=== PATIENT | male | born 1965 | race Caucasian/White ===

== ENCOUNTER → 2019-01-13 14:08 | Outpatient (POV) | payer SELFPAY | PROVIDERS: Visit Provider Dermatology | DX: Z00.00 Encounter for general adult medical examination without abnormal findings (principal) ==

== ENCOUNTER → 2020-06-17 11:12 | Outpatient (CLI) | payer BC, OTHER, SELFPAY ==
[2020-06-18 13:08] LABS: Covid-19 Nasal PCR Sendout Lex Not Detected
== END ==
PROVIDERS: Visit Provider Family Medicine
DX: Z03.818 Encounter for observation for suspected exposure to other biological agents ruled out (principal)
CPT/HCPCS: U0004

== ENCOUNTER → 2023-08-16 11:56 | Outpatient (CLI) | payer OTHER, SELFPAY ==
--- NOTE | 2023-08-16 12:32 | CA_ITS ---
FINAL REPORT TECHNIQUE: Color Doppler, duplex Doppler and compression sonography of the right lower extremity venous system was performed. CLINICAL HISTORY: Swollen R lower extremity, red shiny skin in AOI FINDINGS: There is no evidence of deep venous thrombosis from the level of the groin to the calf. The veins are patent and compressible. IMPRESSION: No evidence of deep venous thrombosis right lower extremity. Reviewed, Interpreted and Dictated by Kwame Juarez III, MD Transcribed by Flores Salvador Authenticated and [facility]
[2023-08-16 13:27] LABS: Basophils % 0.6 % (0.1-2.0); Eosinophils # 0.1 K/mm3 (0.0-0.4); Eosinophils % 1.8 % (0.1-12.0); Hematocrit 46.8 % (42.0-52.0); Hemoglobin 15.7 g/dL (14.1-18.0); Lymphocytes # 1.8 K/mm3 (0.7-4.5); Lymphocytes % 26.1 % (10-50); Mean Corpuscular HGB Conc 33.5 g/dL (31.8-35.4); Mean Corpuscular Hemoglobin 31.2 pg (27.0-31.2); Mean Platelet Volume 10.3 fl (7.4-10.4); Monocytes # 0.3 K/mm3 (0.1-1.0); Monocytes % 4.9 % (1.7-9.3); Neutrophils # 4.5 K/mm3 (1.8-7.8); Neutrophils % 66.7 % (37.0-80.0); Platelet Count 238 K/mm3 (142-424); Red Blood Count 5.04 M/mm3 (4.60-6.20); Red Cell Distribution Width 13.4 % (11.5-17.5); White Blood Count 6.8 K/mm3 (4.8-10.8)
[2023-08-16 13:41] LABS: Alanine Aminotransferase 87 U/L (12-78); Albumin Level 4.4 g/dl (3.5-5.0); Albumin/Globulin Ratio 1.4 (1.1-1.8); Alkaline Phosphatase 80 U/L (38-126); Anion Gap 14.2 mEq/L (5-15); Aspartate Amino Transferase 75 U/L (17-59); Bilirubin,Total 0.8 mg/dl (0.2-1.3); Blood Urea Nitrogen 15 mg/dl (9-20); Calcium 9.5 mg/dl (8.4-10.2); Carbon Dioxide 24 mmol/L (22.0-30.0); Chloride 102 mmol/L (98-107); Estimated Glomerular Filt Rate 87 ml/min (>60); GFR (African American) 105 ML/MIN (>60); Globulin 3.1 g/dL (1.3-3.2); Glucose 219 mg/dl (74-100); HDL Cholesterol 42 mg/dl (40-60); Potassium 4.2 mmoL/L (3.5-5.1); Sodium 136 mmol/L (136-145); Total Protein,Serum 7.5 g/dl (6.3-8.2)
[2023-08-16 13:49] LABS: Chol/HDL Ratio 8.9 (1-3.5); Cholesterol 374 mg/dl (140-200); Triglycerides 480 mg/dl (30-150)
[2023-08-16 13:52] LABS: Direct LDL Cholesterol 155.73 mg/dL (100-129)
[2023-08-16 13:55] LABS: 25-OH Vitamin D, Total 36.7 ng/mL (30-100)
[2023-08-16 13:56] LABS: Free T4 (Free Thyroxine) 1.05 ng/dl (0.78-2.19)
[2023-08-16 14:09] LABS: Thyroid Stimulating Hormone 0.98 uIU/mL (0.465-4.68)
[2023-08-16 15:27] LABS: Hemoglobin A1C 9.8 % (4.0-6.0)
== END ==
PROVIDERS: PCP Internal Medicine; Visit Provider Internal Medicine
DX: M79.89 Other specified soft tissue disorders (principal); Z13.1 Encounter for screening for diabetes mellitus; Z13.29 Encounter for screening for other suspected endocrine disorder; Z13.21 Encounter for screening for nutritional disorder; Z13.220 Encounter for screening for lipoid disorders; Z00.00 Encounter for general adult medical examination without abnormal findings; Z68.29 Body mass index [BMI] 29.0-29.9, adult; M79.661 Pain in right lower leg; E66.9 Obesity, unspecified; Z79.899 Other long term (current) drug therapy
CPT/HCPCS: 80053; 80061; 82306; 83036; 84439; 84443; 85025; 93971

== ENCOUNTER → 2023-08-16 15:31 | Outpatient (CLI) | payer OTHER, BC, SELFPAY | PROVIDERS: PCP Nurse Practitioner Family; Visit Provider Nurse Practitioner Family | DX: Z00.00 Encounter for general adult medical examination without abnormal findings (principal) ==

== ENCOUNTER → 2023-08-28 16:41 | Outpatient (CLI) | payer BC, OTHER, SELFPAY ==
[2023-08-28 17:02] LABS: Creatinine,Urine Random 105 mg/dL (Not Estab.)
[2023-08-28 17:06] LABS: Microalbumin/Creatinine Ratio 10.4
== END ==
PROVIDERS: PCP Nurse Practitioner Family; Visit Provider Internal Medicine
DX: E11.9 Type 2 diabetes mellitus without complications (principal); Z79.84 Long term (current) use of oral hypoglycemic drugs
CPT/HCPCS: 82043; 82570

== ENCOUNTER → 2023-09-20 13:31 | Outpatient (CLI) | payer OTHER, SELFPAY ==
--- NOTE | 2023-09-20 13:33 | CA_ITS ---
APPROVED REPORT EXAM: Comprehensive 2D, Doppler, and color-flow Echocardiogram Keymodule Assembly Supervisor: ISABELLE Tejeda, RVS Ht: 6 ft 0 in Wt: 221lbs BSA: 2.22 BP: 128/82 mmHg Indications: Mitral valve prolapse, Mitral Regurgitation, Murmur, DM 2D Dimensions LVDd 5.27 cm M: 4.2 - 5.9 LVEF (Visual) 66.70 % LVDs 3.31 cm M: 2.5 - 4.0 LA Volume 153.10 mL LA Volume Index 68.96 mL/m2 (M/F) 16-34 M-Mode Dimensions RVDd 1.93 cm (0.9-2.6) LA Diam 5.49 cm (1.9-4.0) LVDd 5.30 cm (3.5-5.7) Ao Diam 3.83 cm (2.0-3.7) LVDs 3.30 cm (3.5-5.7) IVSd 0.93 cm (0.6-1.1) PWd 1.05 cm (0.6-1.1) EF (Teich) 60.00% EPSs 0.32 cm FS 25.00% EDV (Teich) 220.50 mL TAPSE 2.94 (<1.7) ESV (Teich) 44.10 mL LV Diastology E Decel Time 240.00 (160-240 msec) E/A Ratio 1.75 MED E' 13.90 (< 7 cm/sec) MED A' 8.90 cm/s E'/MED E' Ratio 9.97 (>14) LAT E' 11.60 (<10 cm/sec) LAT A' 13.50 cm/s E/LAT E' Ratio 11.95 (>14) Pulm Vein s 58.00 cm/sec Aortic Valve LVOT Max 105.00 (70-110 cm/s) LVOT VTI 18.39 cm AoV Peak Derek. 118.00 (50-130 cm/s) AO Peak GR. 5.60 mmHg AO Mean GR. 2.80 (<5 mmHg) AO VTI 22.51 (18-25 cm) Mitral Valve MV A Velocity 79.00 (40-130 cm/s) E/A Ratio 1.75 MV Decel. Time 240.00 (160-240 ms) MV Mean Gr. 2.80 (<2mmHg) Left Ventricle Left ventricle is mildly dilated (LVEDVi=77 ml/m2). The left ventricular systolic function is normal. The left ventricular ejection fraction is within the normal range. There is normal left ventricular wall thickness. There is normal LV segmental wall motion. Diastolic function is indeterminate. LVEF is 60-65%. Right Ventricle The right ventricle is normal size. The right ventricular systolic function is normal. Atria The left atrium is moderately dilated. Aortic Valve There is no Doppler evidence of interatrial shunt. There is no aortic valvular stenosis. MVA by pressure half-time method is 4.1 cm2. No aortic regurgitation is present. Mitral Valve There is severe prolapse of the posterior MV leaflet with high likelihood of flail segment. No evidence of mitral valve stenosis. Severe mitral valve regurgitation. The MR jet is eccentric and anteriorly directed. The most likely mechanism of MR is posterior MV prolapse with possible flail segment (Ender class II). Tricuspid Valve The tricuspid valve leaflets are thin and pliable. Trace tricuspid regurgitation. There is insufficient TR jet to estimate RVSP. Pulmonic Valve The pulmonary valve is normal in structure. Trace pulmonic regurgitation. Great Vessels The aortic root is normal in size. The ascending aorta is not well visualized. IVC is normal in size and collapses >50% with inspiration. Pericardium There is no pericardial effusion. Other Information Study Quality: Fair Conclusion Mildly dilated LV with normal biventricular systolic function. Severe posterior MV leaflet prolapse with possible lateral posterior segment. Severe mitral regurgitation (Ender class II). Further evaluation with REJI is recommended to verify the etiology of MR, as well as surgical referral for MV repair/replacement. Electronically signed by : Li Jimenez MD 09/22/2023 22:09:42
== END ==
PROVIDERS: PCP Internal Medicine; Visit Provider Internal Medicine
DX: I38 Endocarditis, valve unspecified (principal)
CPT/HCPCS: 93306

== ENCOUNTER → 2023-10-02 10:53 | Outpatient (CLI) | payer OTHER, SELFPAY ==
[2023-10-02 11:31] LABS: Alanine Aminotransferase 42 U/L (12-78); Albumin Level 5.1 g/dl (3.5-5.0); Alkaline Phosphatase 48 U/L (38-126); Anion Gap 16.4 mEq/L (5-15); Aspartate Amino Transferase 42 U/L (17-59); Bilirubin,Direct 0.3 mg/dl (0.0-0.4); Bilirubin,Indirect 0.7 mg/dL (0.0-0.9); Bilirubin,Unconjugated 0.7 mg/dL (0.0-1.1); Blood Urea Nitrogen 21 mg/dl (9-20); Calcium 9.9 mg/dl (8.4-10.2); Carbon Dioxide 26 mmol/L (22.0-30.0); Chloride 102 mmol/L (98-107); Chol/HDL Ratio 3.3 (1-3.5); Cholesterol 130 mg/dl (140-200); Estimated Glomerular Filt Rate 77 ml/min (>60); GFR (African American) 93 ML/MIN (>60); Glucose 128 mg/dl (74-100); HDL Cholesterol 40 mg/dl (40-60); Magnesium 1.6 mg/dl (1.6-2.3); Potassium 4.4 mmoL/L (3.5-5.1); Sodium 140 mmol/L (136-145); Total Protein,Serum 8.4 g/dl (6.3-8.2); Triglycerides 156 mg/dl (30-150); VLDL Cholesterol 31 mg/dL (0-40)
[2023-10-02 11:42] LABS: Direct LDL Cholesterol 56.65 mg/dL (100-129)
[2023-10-02 11:47] LABS: Basophils # 0.1 K/mm3 (0-0.2); Basophils % 0.6 % (0.1-2.0); Eosinophils # 0.2 K/mm3 (0.0-0.4); Eosinophils % 2.1 % (0.1-12.0); Hematocrit 44.2 % (42.0-52.0); Hemoglobin 15.4 g/dL (14.1-18.0); Lymphocytes % 26.5 % (10-50); Mean Corpuscular HGB Conc 34.8 g/dL (31.8-35.4); Mean Corpuscular Hemoglobin 32.8 pg (27.0-31.2); Mean Corpuscular Volume 94.3 fl (80-94); Mean Platelet Volume 9.6 fl (7.4-10.4); Monocytes # 0.4 K/mm3 (0.1-1.0); Monocytes % 5.2 % (1.7-9.3); Neutrophils % 65.6 % (37.0-80.0); Platelet Count 238 K/mm3 (142-424); Red Blood Count 4.69 M/mm3 (4.60-6.20); Red Cell Distribution Width 13.4 % (11.5-17.5); White Blood Count 7.7 K/mm3 (4.8-10.8)
[2023-10-02 11:48] LABS: Free T4 (Free Thyroxine) 1.12 ng/dl (0.78-2.19)
[2023-10-02 12:01] LABS: Thyroid Stimulating Hormone 1.17 uIU/mL (0.465-4.68)
== END ==
PROVIDERS: PCP Internal Medicine; Visit Provider Nurse Practitioner
DX: I20.89 Other forms of angina pectoris (principal); I34.0 Nonrheumatic mitral (valve) insufficiency; Z82.49 Family history of ischemic heart disease and other diseases of the circulatory system; E11.9 Type 2 diabetes mellitus without complications; Z79.84 Long term (current) use of oral hypoglycemic drugs; Z87.891 Personal history of nicotine dependence
CPT/HCPCS: 80048; 80061; 80076; 83735; 84439; 84443; 85025

== ENCOUNTER → 2023-10-03 12:52 | Outpatient (CLI) | payer OTHER, SELFPAY ==
--- NOTE | 2023-10-03 12:53 | NM_ITS ---
APPROVED REPORT Exam: Nuclear Stress Test Indication: DM, HYPERLIPIDEMIA, TOB USE, FM HX, FATIGUE Patient Location: Outpatient Stress Tech: Leonie Gale DC Tech:YAMILET Baca RT (R)(N)(M) Ht: 6 ft 1 in Wt: 220 lbs HR: 84 bpm BP: 145/88 mmHg BSA: 2.24 m2 Rhythm: NSR TID: 1.18 BMI: 29.0 History: DM, HYPERLIPIDEMIA, TOB USE, FM HX, FATIGUE Procedure: Patient exercised on Chidi protocol 7:30 minutes and sec, resting heart rate 84 bpm, resting blood pressure 145/88 mmHg, with exercise maximum heart rate achived was 183 bpm which is 112 % of the maximum predicted heart rate and blood pressure was 202/88 mmHg. Test was stopped due to FATIGUE. Patient has Average exercise capacity, achieved 10.1 METs of workload on treadmill, the blood pressure response to exercise was Exaggerated. Cardiac Stress and Resting SPECT Images: Cardiac Stress and Resting SPECT images were obtained using technetium 99m Myoview 30.8 mCi stress and 10.24 mCi at rest. Resting and stress imaging in supine and prone positions demonstrate a medium sized, mild, partially reversible perfusion defect in the basal to mid anterior wall. Gated imaging demonstrates normal global and regional LV systolic function. LVEF is calculated at 55%. Conclusion: Diaphragmatic attenuation is present. Medium sized, mild, partially reversible perfusion defect in the basal to mid anterior wall. Findings are suggestive of partial reversible ischemia. Gated imaging demonstrates normal global and regional LV systolic function. LVEF is calculated at 55%. Of note, the patient had exaggerated BP response at peak stress. BP control is recommended. Electronically signed by : Li Jimenez MD 10/09/2023 14:20:33
--- NOTE | 2023-10-03 15:10 | CA_ITS ---
APPROVED REPORT Exam: Exercise Treadmill Technologist: Leonie Garzon, Ht: 6 ft 1 in Wt: 216 lbs BSA: 2.22 m2 HR: 82 bpm BP: 146/79 mmHg Rhythm: NSR Medical History Medications: Aspirin,,,,, Metformin,,,,, Fish Oil,,,,, Prilosec,,,,, RoSUVASTATIN,,,,, CoQ-10,,,,, Mounjaro,,,,, Shingrix,,,,, ADjuvant,,,,, Stress Test Details Test: Chidi HR Resting HR: 84 bpm Max Heart Rate (APMHR): 163 bpm Max HR Achieved: 183 bpm Target HR (85% APMHR): 139 bpm % of APMHR: 112 Recovery HR: 90 bpm HR response to stress: Normal HR response to stress BP Resting BP: 145.0/88 mmHg Max BP: 202/88 mmHg Recovery BP: 140.0/69.0 mmHg BP response to stress: Abnormal hypertensive response to stress. ECG Resting ECG: NSR, rightward axis, ST-T abns inferiorly and laterally Stress EC mm horizontal ST depression Arrhythmia: PACs, PVCs Recovery ECG: Return to baseline within 3 minutes of recovery Recovery Arrhythmia: PACs, PVCs Clinical Exercise duration: 07:30 min Highest Stage Achieved: III Exercise capacity: 10.1 METs Overall Exercise Capacity for Age: Average Stress ECG Conclusion The patient was able to exercise for a total of 7 minutes, 30 seconds. He achieved a total of 10.1 METS. He has average exercise capacity compared to age and sex matched peers. He has normal HR, but exaggerated BP, response to exercise. Max HR: 183 % of PM: 112% Max BP: 202/88 METs: 10.1 Test stopped due to: SOA, Fatigue Symptoms: No CP. Arrhythmias/Ectopy: PVC, PAC. ST-T Changes: [address] depression Conclusion: Average exercise capacity. Exaggerated BP response to exercise. EKG changes suggestive of possible ischemia at peak stress. Myoview images reoprted separately. Test Summary REST . . . . . . . Sitting REST . . . . . . . Standing REST 03:45 0.0 0.0 84 . 145/ 88 . . Stage 1 01:00 10.0 1.7 100 . . . . Stage 1 02:00 10.0 1.7 112 . . . . Stage 1 03:00 10.0 1.7 123 . 164/ 78 . . Stage 2 01:00 12.0 2.5 142 . . . . Stage 2 02:00 12.0 2.5 150 . . . . Stage 2 03:00 12.0 2.5 159 . 168/ 80 . . Stage 3 . . . . . . . Myoview Injected Stage 3 01:00 14.0 3.4 181 . . . . Stage 3 01:30 14.0 3.4 182 . . . Stop exercise at 07:30 RECOVERY 01:00 0.0 0.0 147 . . . . RECOVERY 02:00 0.0 0.0 113 . . . . RECOVERY 03:00 0.0 0.0 97 . 202/ 88 . . RECOVERY 04:00 0.0 0.0 91 . 183/ 77 . . RECOVERY 05:00 0.0 0.0 93 . 158/ 69 . . RECOVERY 06:00 0.0 0.0 87 . 158/ 69 . . RECOVERY 07:00 0.0 0.0 90 . 140/ 69 . . RECOVERY 07:32 0.0 0.0 90 . 140/ 69 . . Electronically signed by : Li Jimenez MD 10/09/2023 14:18:09
== END ==
PROVIDERS: PCP Internal Medicine; Visit Provider Nurse Practitioner
DX: I20.89 Other forms of angina pectoris (principal); I34.0 Nonrheumatic mitral (valve) insufficiency; E11.9 Type 2 diabetes mellitus without complications; Z82.49 Family history of ischemic heart disease and other diseases of the circulatory system; Z79.84 Long term (current) use of oral hypoglycemic drugs
CPT/HCPCS: 78452; 93017; 93018; A9502

== ENCOUNTER 2023-10-28 08:03 | Day surgery (SDC) | payer OTHER, SELFPAY ==
[2023-10-25 06:41] VITALS: BMI 27.7
[2023-10-28 08:16] VITALS: BP 124/75; PULSE 72; RESP 18; TEMP 36.2; O2SAT 99
--- NOTE | 2023-10-28 08:24 | ECG_ITS ---
APPROVED REPORT Exam: Resting ECG HR:67 bpm ECG Measurements Heart Rate 67 AXES NH 172 P 66 QRSd 99 QRS 78 QT 388 T 28 QTc 403 Conclusion SINUS RHYTHM NORMAL ECG UNCONFIRMED REPORT Electronically signed by : Albert Jade MD 10/30/2023 18:29:09
--- NOTE | 2023-10-28 08:34 | CA_ITS ---
APPROVED REPORT EXAM: Comprehensive 2D, Doppler, and color-flow Echocardiogram Clinical Investigator: Akua Hinton RVT Ht: 6 ft 1 in Wt: 216lbs BSA: 2.22 BP: 129/76 mmHg Indications: SEVERE MR,DM,HLD,EX SMOKER Procedure After obtaining informed consent, patient underwent transesophageal echo in the [facility]. Type of Sedation : MAC Sedation was administered by Luis Carlos JoelRStuartNStuartAStuart Sedation start time: 09:40 Case end Time: 09:55 Sedation was achieved intravenously with: Transesophageal probe was inserted and advanced into esophagus without difficulty by Dr. Li Jimenez. The REJI was performed without complications. Throughout the procedure, the blood pressure, pulse oximetry, cardiac rhythm, and rate were monitored. The patient tolerated the procedure without adverse effects. Recovery from conscious sedation was uneventful and vital signs were stable. Left Ventricle The left ventricle is moderately dilated. There is normal left ventricular wall thickness. LVEF is 55% Right Ventricle The right ventricle is mildly dilated. Right ventricle is mildly hypokinetic. Atria Left atrium is moderately dilated. There is no mass or thrombus suspected in the left atrium or the left atrial appendage. Right atrium is mildly dilated. Interatrial septum is intact without evidence of ASD or PFO. Aortic Valve The aortic valve opens well. The aortic valve is trileaflet. There is no aortic valvular stenosis. Trace aortic regurgitation. Mitral Valve There is severe prolapse of the posterior mitral valve leaflet, along with flail P2 segment as demonstrated on 3D REJI. No evidence of mitral valve stenosis. Severe mitral regurgitation is present (Ender Class II). EROA is 0.85 cm2. Regurgitant volume is 170 mL. Regurgitant fraction is 72%. Quantitative assessment is consistent with severe mitral regurgitation. There is pulmonary vein systolic flow reversal, consistent with significant mitral regurgitation. Tricuspid Valve The tricuspid valve leaflets are thin and pliable. Trace tricuspid regurgitation. There is insufficient TR jet to estimate RVSP. Pulmonic Valve The pulmonary valve is normal in structure. Trace pulmonic regurgitation. Great Vessels The aortic root is normal in size. The ascending aorta is normal in size. Pericardium There is no pericardial effusion. Other Information Study Quality: Adequate Conclusion Moderately dilated LV with reduction in LV systolic function in the setting of severe MR (LVEF 55%). Mild RV dilation with mild reduction in RV systolic function. Biatrial dilation. Severe prolapse of the posterior MV leaflet along with P2 flail segment. Severe mitral regurgitation is present (Ender Class II). EROA is 0.85 cm2. Regurgitant volume is 170 mL. Regurgitant fraction is 72%. Further workup with cardiothoracic surgical evaluation is recommended. Electronically signed by : Li Jimenez MD 10/28/2023 23:26:53
--- NOTE | 2023-10-28 08:52 | P.PNANES_ITS ---
[facility] Disclaimer: The information contained in this section may have been updated after the patient was seen, as this information can be updated by other users. Medical History Atypical angina Family history of coronary artery disease Hyperlipidemia Leaky pulmonary heart valve Screening for colorectal cancer Severe mitral regurgitation Surgical History No significant past surgical history Family History Other Family history of cancer Family history of diabetes mellitus type II Family history of myocardial infarction Social History (Updated 10/28/23 @ 08:17 by Sirena Redd RN) Smoking Status: Former smoker tobacco type: smokeless tobacco alcohol intake: current substance use type: denies use current occupational status: employed Travel in the last 8 weeks: None household members: family housing: house caffeine: Yes [facility] Anesthesia Checklist Patient Identification Patient Identification: Arm Band Structural Data Admitted From: Home Planned Operative Procedure/s: REJI Consent for Planned Operative Procedure(s) Verified: Yes Verified Documents: Surgical Consent and History and Physical NPO Status Verified Time NPO: 00:00 Additional verifications Anesthesia Reactions: No Airway Assessment Mallampati Score:: Class II C-Spine Mobility Assessed: Yes TMJ Mobility Assessed: Yes Dentition: Good Dentition Neurological Assessment Level of Consciousness: Awake and Alert Anesthesia Plan Anesthesia Risk discussed: Yes Anesthesia Plan: Verified ASA Class: III Anesthesia Type: MAC
[2023-10-28 08:59] LABS: Basophils % 0.5 % (0.1-2.0); Eosinophils # 0.3 K/mm3 (0.0-0.4); Eosinophils % 4.3 % (0.1-12.0); Hematocrit 42.5 % (42.0-52.0); Hemoglobin 14.7 g/dL (14.1-18.0); Lymphocytes # 2.1 K/mm3 (0.7-4.5); Lymphocytes % 30.2 % (10-50); Mean Corpuscular HGB Conc 34.7 g/dL (31.8-35.4); Mean Corpuscular Hemoglobin 32.3 pg (27.0-31.2); Mean Corpuscular Volume 93.1 fl (80-94); Mean Platelet Volume 9.4 fl (7.4-10.4); Monocytes # 0.4 K/mm3 (0.1-1.0); Monocytes % 5.6 % (1.7-9.3); Neutrophils # 4.1 K/mm3 (1.8-7.8); Neutrophils % 59.3 % (37.0-80.0); Platelet Count 201 K/mm3 (142-424); Red Blood Count 4.56 M/mm3 (4.60-6.20); Red Cell Distribution Width 13.6 % (11.5-17.5); White Blood Count 6.8 K/mm3 (4.8-10.8)
[2023-10-28 09:04] LABS: Anion Gap 13.2 mEq/L (5-15); Blood Urea Nitrogen 16 mg/dl (9-20); Calcium 8.7 mg/dl (8.4-10.2); Carbon Dioxide 25 mmol/L (22.0-30.0); Chloride 103 mmol/L (98-107); Creatinine Clearance Estimated 122 mL/min (50-200); Estimated Glomerular Filt Rate 87 ml/min (>60); GFR (African American) 105 ML/MIN (>60); Glucose 129 mg/dl (74-100); Potassium 4.2 mmoL/L (3.5-5.1); Sodium 137 mmol/L (136-145)
[2023-10-28 09:05] LABS: INR 1.03 (0.9-1.1); Prothrombin Time 11.1 seconds (10.1-12.5)
[2023-10-28 09:16] LABS: POC Glucose,Bedside 130 (70-110)
[2023-10-28 09:34] VITALS: O2SAT 99
[2023-10-28 10:00] VITALS: BP 111/74; PULSE 80; RESP 14; TEMP 36.2; O2SAT 94
[2023-10-28 10:10] VITALS: BP 94/56; PULSE 78; RESP 16; O2SAT 95
[2023-10-28 10:20] VITALS: BP 109/58; PULSE 68; RESP 16; O2SAT 98
[2023-10-28 10:30] VITALS: BP 107/71; PULSE 66; RESP 18; O2SAT 98
== END 2023-10-28 10:32 | disposition home or self-care (01) ==
PROVIDERS: PCP Internal Medicine; Visit Provider Internal Medicine
DX: I20.89 Other forms of angina pectoris (principal); I34.0 Nonrheumatic mitral (valve) insufficiency; E11.9 Type 2 diabetes mellitus without complications; Z82.49 Family history of ischemic heart disease and other diseases of the circulatory system; Z79.899 Other long term (current) drug therapy
CPT/HCPCS: 80048; 82962; 85025; 85610; 93005; 93270; 93312; 93319

== ENCOUNTER 2023-11-08 08:15 | Day surgery (SDC) | payer OTHER, SELFPAY ==
[2023-11-08] VITALS (14 sets, daily range): BP systolic 104–144; BP diastolic 61–79; PULSE 54–87; RESP 15–17; TEMP 36.9; O2SAT 94–99; BMI 27.3
--- NOTE | 2023-11-08 07:05 | IR_ITS ---
APPROVED REPORT Patient Location: Outpatient Meat Packer: YAMILET Pinto RT (R) PROCEDURES Left heart catheterization Selective coronary angiogram INDICATION Preoperative evaluation for surgical mitral valve repair, Informed consent was obtained prior to the procedure. COMPLICATIONS None Estimated Blood Loss: Less than 10 mls TECHNIQUE One percent lidocaine used to anesthetize the right anterior aspect of the wrist. The right radial artery was accessed via the Seldinger technique. A 6 [place] sheath was placed in the right radial artery. 2.5 mg of Verapamil, 800 mcg of nitroglycerin, 1mg Lidocaine and 5000 U Heparin were given through the arterial sheath. The papa catheter was also used to perform left heart catheterization, left ventriculogram and selective coronary angiogram. At the end of the procedure the sheath was removed good hemostasis was achieved using Traclet band, patient was transferred to the postop holding area in stable condition. ANGIOGRAPHIC RESULTS The left main artery Has a mid vessel hazy 20% stenosis The left anterior descending artery Has proximal 30% stenosis with tandem mid vessel 90% stenosis The circumflex artery Gives rise to a large ramus intermedius which has a proximal 80% stenosis. The circumflex artery has a mid vessel 50% stenosis proximal to a medium sized first obtuse marginal artery The right coronary artery Is a dominant vessel and has proximal 60 to 70% stenosis mid vessel 50% stenosis with a distal 70 to 80% stenosis and additional 50% stenosis. 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 Referral for coronary bypass grafting during mitral valve repair 2. Start high intensity statin with goal LDL less than 55 3. Start aspirin 81 mg daily 4. Aggressive risk factor modification Electronically signed by : Parish Ann MD 11/08/2023 10:45:57
[2023-11-08 09:33] LABS: Basophils % 0.5 % (0.1-2.0); Eosinophils # 0.3 K/mm3 (0.0-0.4); Eosinophils % 3.9 % (0.1-12.0); Hematocrit 43.7 % (42.0-52.0); Lymphocytes % 30.9 % (10-50); Mean Corpuscular HGB Conc 34.4 g/dL (31.8-35.4); Mean Corpuscular Hemoglobin 32.1 pg (27.0-31.2); Mean Corpuscular Volume 93.5 fl (80-94); Mean Platelet Volume 9.9 fl (7.4-10.4); Monocytes # 0.4 K/mm3 (0.1-1.0); Monocytes % 5.9 % (1.7-9.3); Neutrophils # 3.8 K/mm3 (1.8-7.8); Neutrophils % 58.8 % (37.0-80.0); Platelet Count 222 K/mm3 (142-424); Red Blood Count 4.68 M/mm3 (4.60-6.20); Red Cell Distribution Width 13.7 % (11.5-17.5); White Blood Count 6.5 K/mm3 (4.8-10.8)
[2023-11-08 09:40] LABS: Chloride 103 mmol/L (98-107); Potassium 5.2 mmoL/L (3.5-5.1); Sodium 138 mmol/L (136-145)
[2023-11-08 09:43] LABS: Anion Gap 14.2 mEq/L (5-15); Blood Urea Nitrogen 28 mg/dl (9-20); Calcium 8.9 mg/dl (8.4-10.2); Carbon Dioxide 26 mmol/L (22.0-30.0); Creatinine Clearance Estimated 120 mL/min (50-200); Estimated Glomerular Filt Rate 87 ml/min (>60); GFR (African American) 105 ML/MIN (>60); Glucose 112 mg/dl (74-100)
== END 2023-11-08 13:51 | disposition home or self-care (01) ==
PROVIDERS: PCP Internal Medicine; Visit Provider Internal Medicine
DX: R94.39 Abnormal result of other cardiovascular function study (principal); F17.290 Nicotine dependence, other tobacco product, uncomplicated; Z79.84 Long term (current) use of oral hypoglycemic drugs; E11.9 Type 2 diabetes mellitus without complications; I25.118 Atherosclerotic heart disease of native coronary artery with other forms of angina pectoris; I34.0 Nonrheumatic mitral (valve) insufficiency; Z82.49 Family history of ischemic heart disease and other diseases of the circulatory system; E78.5 Hyperlipidemia, unspecified
CPT/HCPCS: 80048; 85025; 93458; 99152; C1725; C1769; J1644; Q9967

== ENCOUNTER 2024-01-03 09:54 | Outpatient (CLI) | payer OTHER, SELFPAY ==
[2024-01-03 10:57] LABS: PHA INR Fingerstick 2.9 (0.9-1.1)
== END 2024-01-03 10:59 ==
LOC: ACC 09:55
PROVIDERS: PCP Internal Medicine; Visit Provider Internal Medicine
DX: Z51.81 Encounter for therapeutic drug level monitoring (principal); Z79.01 Long term (current) use of anticoagulants; Z95.2 Presence of prosthetic heart valve
CPT/HCPCS: 85610; 99211; G0463

== ENCOUNTER 2024-01-06 09:43 | Outpatient (CLI) | payer OTHER, SELFPAY ==
[2024-01-06 14:10] LABS: PHA INR Fingerstick 2.2 (0.9-1.1)
== END 2024-01-06 14:20 ==
LOC: ACC 09:44
PROVIDERS: PCP Internal Medicine; Visit Provider Internal Medicine
DX: Z51.81 Encounter for therapeutic drug level monitoring (principal); Z79.01 Long term (current) use of anticoagulants; Z95.2 Presence of prosthetic heart valve
CPT/HCPCS: 85610; 99211; G0463

== ENCOUNTER 2024-01-10 10:03 | Outpatient (CLI) | payer OTHER, SELFPAY ==
[2024-01-10 15:07] LABS: PHA INR Fingerstick 2.6 (0.9-1.1)
== END 2024-01-10 15:32 ==
LOC: ACC 10:03
PROVIDERS: PCP Internal Medicine; Visit Provider Internal Medicine
DX: Z51.81 Encounter for therapeutic drug level monitoring (principal); Z79.01 Long term (current) use of anticoagulants; Z95.2 Presence of prosthetic heart valve
CPT/HCPCS: 85610; 99211; G0463

== ENCOUNTER 2024-01-17 10:35 | Outpatient (CLI) | payer OTHER, SELFPAY ==
[2024-01-17 11:14] LABS: PHA INR Fingerstick 2.1 (0.9-1.1)
== END 2024-01-17 11:18 ==
LOC: ACC 10:36
PROVIDERS: PCP Internal Medicine; Visit Provider Internal Medicine
DX: Z51.81 Encounter for therapeutic drug level monitoring (principal); Z79.01 Long term (current) use of anticoagulants; Z95.2 Presence of prosthetic heart valve
CPT/HCPCS: 85610; 99211; G0463

== ENCOUNTER 2024-01-31 10:01 | Outpatient (CLI) | payer OTHER, SELFPAY ==
[2024-01-31 12:00] LABS: PHA INR Fingerstick 2.4 (0.9-1.1)
== END 2024-01-31 12:01 ==
LOC: ACC 10:01
PROVIDERS: PCP Internal Medicine; Visit Provider Internal Medicine
DX: Z51.81 Encounter for therapeutic drug level monitoring (principal); Z79.01 Long term (current) use of anticoagulants; Z95.2 Presence of prosthetic heart valve
CPT/HCPCS: 85610; 99211; G0463

== ENCOUNTER 2024-02-06 12:47 | Outpatient (CLI) | payer OTHER, SELFPAY ==
[2024-02-06 13:20] LABS: Uric Acid 5.2 mg/dl (3.5-8.5)
== END 2024-02-06 23:59 ==
LOC: LAB.DROPOF 12:47
PROVIDERS: PCP Internal Medicine; Visit Provider Internal Medicine
DX: M25.571 Pain in right ankle and joints of right foot (principal); M79.89 Other specified soft tissue disorders
CPT/HCPCS: 84550

== ENCOUNTER 2024-02-14 12:03 | Outpatient (CLI) | payer OTHER, SELFPAY ==
--- NOTE | 2024-02-14 12:19 | XR_ITS ---
FINAL REPORT CLINICAL HISTORY: PLEURAL EFFUSION FINDINGS: TWO-VIEW CHEST The heart size is normal. The patient is status post median sternotomy. There is a small left effusion. There is a focal opacity along the left heart border of uncertain etiology, mass or nodule is not excluded. There is no pneumothorax. IMPRESSION: Focal opacity along the left heart border, mass or nodule is not excluded. CT chest with contrast may be helpful. Reviewed, Interpreted and Dictated by Kwame Juarez III, MD Transcribed by Flores Salvador Authenticated and . [facility]
== END 2024-02-14 23:59 ==
LOC: RAD 12:04
PROVIDERS: PCP Internal Medicine; Visit Provider Nurse Practitioner
DX: J90 Pleural effusion, not elsewhere classified (principal); Z87.891 Personal history of nicotine dependence
CPT/HCPCS: 71046

== ENCOUNTER 2024-02-21 09:30 | Outpatient (RCR) | payer OTHER, SELFPAY | END 2024-04-02 11:30 | disposition home or self-care (01) | LOC: PT 09:30 | PROVIDERS: Visit Provider Thoracic Surgery (Cardiothoracic Vascular Surgery) | DX: I25.10 Atherosclerotic heart disease of native coronary artery without angina pectoris (principal); Z95.1 Presence of aortocoronary bypass graft; Z95.2 Presence of prosthetic heart valve | CPT/HCPCS: 93798 ==

== ENCOUNTER 2024-02-21 10:13 | Outpatient (CLI) | payer OTHER, SELFPAY ==
[2024-02-21 15:49] LABS: PHA INR Fingerstick 2.4 (0.9-1.1)
== END 2024-02-21 15:50 ==
LOC: ACC 10:13
PROVIDERS: PCP Internal Medicine; Visit Provider Internal Medicine
DX: Z51.81 Encounter for therapeutic drug level monitoring (principal); Z79.01 Long term (current) use of anticoagulants; Z95.2 Presence of prosthetic heart valve
CPT/HCPCS: 85610; 99211; G0463

== ENCOUNTER 2024-02-24 11:20 | Outpatient (CLI) | payer OTHER, SELFPAY ==
--- NOTE | 2024-02-24 11:20 | CT_ITS ---
FINAL REPORT CLINICAL HISTORY: ? mass seen on xray COMPARISON: None FINDINGS: CTA CHEST FINDINGS: Mediastinal vasculature is adequately opacified. There is streak artifact secondary to a median sternotomy. A small left pleural effusion is present, and there is scar versus atelectasis present in the left lung base. No pulmonary artery filling defects are identified to suggest PE. There is no aortic dissection. There is no axillary adenopathy. There is no hilar or mediastinal adenopathy. The heart size is normal. There is no pericardial or pleural effusion. No suspicious infiltrate or nodule is identified. The questionable mass adjacent to the cardiac silhouette on the left side is likely related to probable scarring at the cardiac apex. Note is made of gallstones present in the dependent portion of the gallbladder. IMPRESSION: No pulmonary embolism or other acute abnormality of the chest, abdomen or pelvis. Small left pleural effusion, with scar versus atelectasis present in the left lung base. Questionable mass adjacent to the cardiac silhouette on the left side is likely related to probable scarring at the cardiac apex. Gallstones are present in the dependent portion of the gallbladder. Reviewed, Interpreted and Dictated by Casa Hung MD Transcribed by Christina Dos Santos Authenticated and . [facility]
[2024-02-24] MEDS: 0.9 % SODIUM CHLORIDE 50 ML VIAL 40 ML IV (11:55)
[2024-02-24] MEDS: SODIUM CHLORIDE 0.9% 10ML SYR (RAD ONLY) 10 ML IV (11:56)
[2024-02-24] MEDS: IOPAMIDOL-370 (76%);100ML BOTTLE 70 ML IV (11:56)
== END 2024-02-24 23:59 ==
LOC: RAD 11:20
PROVIDERS: PCP Internal Medicine; Visit Provider Nurse Practitioner
DX: R22.2 Localized swelling, mass and lump, trunk (principal)
CPT/HCPCS: 71275; Q9967

== ENCOUNTER 2024-03-12 09:53 | Outpatient (CLI) | payer OTHER, SELFPAY ==
[2024-03-12 10:30] LABS: PHA INR Fingerstick 1.9 (0.9-1.1)
== END 2024-03-12 10:43 ==
LOC: ACC 09:53
PROVIDERS: PCP Internal Medicine; Visit Provider Internal Medicine
DX: Z51.81 Encounter for therapeutic drug level monitoring (principal); Z79.01 Long term (current) use of anticoagulants; Z95.2 Presence of prosthetic heart valve
CPT/HCPCS: 85610; 99211; G0463

== ENCOUNTER 2024-03-12 12:50 | Outpatient (CLI) | payer OTHER, SELFPAY ==
[2024-03-12 13:40] LABS: Hemoglobin A1C 5.9 % (4.0-6.0)
== END 2024-03-12 23:59 ==
LOC: LAB.DROPOF 12:50
PROVIDERS: PCP Internal Medicine; Visit Provider Internal Medicine
DX: E11.9 Type 2 diabetes mellitus without complications (principal); Z79.84 Long term (current) use of oral hypoglycemic drugs
CPT/HCPCS: 83036

== ENCOUNTER 2024-03-26 10:03 | Outpatient (CLI) | payer OTHER, SELFPAY ==
[2024-03-26 10:45] LABS: PHA INR Fingerstick 2.1 (0.9-1.1)
== END 2024-03-26 10:46 ==
LOC: ACC 10:03
PROVIDERS: PCP Internal Medicine; Visit Provider Internal Medicine
DX: Z79.01 Long term (current) use of anticoagulants (principal); Z51.81 Encounter for therapeutic drug level monitoring; Z95.2 Presence of prosthetic heart valve
CPT/HCPCS: 85610; 99211; G0463

== ENCOUNTER 2024-03-27 08:02 | Outpatient (CLI) | payer OTHER, SELFPAY ==
--- NOTE | 2024-03-27 08:03 | CA_ITS ---
APPROVED REPORT EXAM: Comprehensive 2D, Doppler, and color-flow Echocardiogram Health Sciences Department Chair: Kimberly Locke RDCS Ht: 6 ft 1 in Wt: 194lbs BSA: 2.12 BP: 116/78 mmHg Indications: RECENT CABG,MV [facility] M-Mode Dimensions RVDd 2.97 cm (0.9-2.6) LA Diam 3.49 cm (1.9-4.0) LVDd 6.28 cm (3.5-5.7) LVDs 5.30 cm (3.5-5.7) IVSd 0.81 cm (0.6-1.1) PWd 0.76 cm (0.6-1.1) EF (Teich) 32.20% FS 15.60% EDV (Teich) 199.70 mL ESV (Teich) 135.30 mL LV Diastology E Decel Time 307 (160-240 msec) E/A Ratio 1.0 Mitral Valve MV E Max Derek. 116.0 (40-130 cm/s) MV A Velocity 114.0 (40-130 cm/s) E/A Ratio 1.02 MV PHT 90.0 ms Left Ventricle The left ventricle is normal size. The left ventricular systolic function is normal. The left ventricular ejection fraction is within the normal range. There is normal left ventricular wall thickness. There is moderate hypokinesis of the septal and anteroseptal LV hawk. Diastolic function is indeterminate. LVEF is 55%. Right Ventricle Right ventricle is mildly dilated. The right ventricular systolic function is normal. Atria Left atrium is mildly dilated. The right atrium size is normal. There is no Doppler evidence of interatrial shunt. Aortic Valve The aortic valve is mildly thickened. There is no aortic valvular stenosis. No aortic regurgitation is present. Mitral Valve s/p mechanical MVR. The prosthesis is well-seated. Mean MV gradient 4 mmHg (HR 66 bpm). Mild mitral regurgitation. Tricuspid Valve The tricuspid valve leaflets are thin and pliable. Trace tricuspid regurgitation. There is insufficient TR jet to estimate RVSP. Pulmonic Valve The pulmonary valve is normal in structure. Trace pulmonic regurgitation. Great Vessels The aortic root is normal in size. The ascending aorta is not well visualized. IVC is normal in size and collapses >50% with inspiration. Pericardium There is no pericardial effusion. Other Information Study Quality: Fair Conclusion Normal biventricular systolic function. Mild RV dilation. Mild LA dilation. s/p MVR. Mild MR. Mean MV gradient 4 mmHg (HR 66 bpm). Electronically signed by : Li Jimenez MD 03/31/2024 21:42:33
== END 2024-03-27 23:59 | disposition home or self-care (01) ==
LOC: RT 08:03
PROVIDERS: PCP Internal Medicine; Visit Provider Internal Medicine
DX: R94.31 Abnormal electrocardiogram [ECG] [EKG] (principal); Z95.1 Presence of aortocoronary bypass graft; Z95.2 Presence of prosthetic heart valve
CPT/HCPCS: 93306

== ENCOUNTER 2024-03-31 10:02 | Outpatient (CLI) | payer OTHER, SELFPAY ==
[2024-03-31 11:19] LABS: PHA INR Fingerstick 2.3 (0.9-1.1)
== END 2024-03-31 11:21 ==
LOC: ACC 10:02
PROVIDERS: PCP Internal Medicine; Visit Provider Internal Medicine
DX: Z51.81 Encounter for therapeutic drug level monitoring (principal); Z79.01 Long term (current) use of anticoagulants; Z95.2 Presence of prosthetic heart valve
CPT/HCPCS: 85610; 99211; G0463

== ENCOUNTER 2024-04-15 11:49 | Outpatient (CLI) | payer OTHER, SELFPAY ==
[2024-04-15 13:48] LABS: PHA INR Fingerstick 2.9 (0.9-1.1)
== END 2024-04-15 13:52 ==
LOC: ACC 11:50
PROVIDERS: PCP Internal Medicine; Visit Provider Internal Medicine
DX: Z51.81 Encounter for therapeutic drug level monitoring (principal); Z79.01 Long term (current) use of anticoagulants; Z95.2 Presence of prosthetic heart valve
CPT/HCPCS: 85610; 99211; G0463

== ENCOUNTER 2024-05-08 10:35 | Outpatient (CLI) | payer OTHER, SELFPAY ==
[2024-05-08 14:58] LABS: PHA INR Fingerstick 3.2 (0.9-1.1)
== END 2024-05-08 14:59 ==
LOC: ACC 10:36
PROVIDERS: PCP Internal Medicine; Visit Provider Internal Medicine
DX: Z79.01 Long term (current) use of anticoagulants (principal); Z95.2 Presence of prosthetic heart valve
CPT/HCPCS: 85610; 99211; G0463

== ENCOUNTER 2024-05-28 09:21 | Outpatient (CLI) | payer OTHER, SELFPAY ==
[2024-05-28 10:12] LABS: PHA INR Fingerstick 3.9 (0.9-1.1)
== END 2024-05-28 10:59 ==
LOC: ACC 09:22
PROVIDERS: PCP Internal Medicine; Visit Provider Internal Medicine
DX: Z79.01 Long term (current) use of anticoagulants (principal); Z95.2 Presence of prosthetic heart valve
CPT/HCPCS: 85610; 99211; G0463

== ENCOUNTER 2024-06-10 10:57 | Outpatient (CLI) | payer OTHER, SELFPAY | END 2024-06-10 11:28 | LOC: ACC 10:58 | PROVIDERS: PCP Internal Medicine; Visit Provider Internal Medicine | DX: Z95.2 Presence of prosthetic heart valve (principal); Z79.01 Long term (current) use of anticoagulants | CPT/HCPCS: 85610; 99211; G0463 ==

== ENCOUNTER 2024-07-15 15:07 | Outpatient (CLI) | payer BC, SELFPAY ==
[2024-07-15 15:58] LABS: PHA INR Fingerstick 3.7 (0.9-1.1)
== END 2024-07-15 16:01 ==
LOC: ACC 15:12
PROVIDERS: PCP Internal Medicine; Visit Provider Internal Medicine
DX: Z79.01 Long term (current) use of anticoagulants (principal); Z95.2 Presence of prosthetic heart valve
CPT/HCPCS: 85610; 99211; G0463

== ENCOUNTER 2024-08-05 15:51 | Outpatient (CLI) | payer OTHER, BC, SELFPAY ==
[2024-08-05 16:06] LABS: PHA INR Fingerstick 2.7 (0.9-1.1)
== END 2024-08-05 16:07 ==
LOC: ACC 15:51
PROVIDERS: PCP Internal Medicine; Visit Provider Internal Medicine
DX: Z79.01 Long term (current) use of anticoagulants (principal); Z95.2 Presence of prosthetic heart valve
CPT/HCPCS: 85610; 99211; G0463

== ENCOUNTER 2024-09-02 11:54 | Outpatient (CLI) | payer BC, SELFPAY ==
[2024-09-02 17:05] LABS: Alanine Aminotransferase 26 U/L (12-78); Albumin Level 4.3 g/dl (3.5-5.0); Albumin/Globulin Ratio 1.7 (1.1-1.8); Alkaline Phosphatase 63 U/L (38-126); Anion Gap 8.2 mEq/L (5-15); Aspartate Amino Transferase 34 U/L (17-59); Bilirubin,Total 0.7 mg/dl (0.2-1.3); Blood Urea Nitrogen 19 mg/dl (9-20); Calcium 9.4 mg/dl (8.4-10.2); Carbon Dioxide 28 mmol/L (22.0-30.0); Chloride 106 mmol/L (98-107); Estimated Glomerular Filt Rate 87 ml/min (>60); GFR (African American) 105 ML/MIN (>60); Globulin 2.6 g/dL (1.3-3.2); Glucose 85 mg/dl (74-100); Potassium 4.2 mmoL/L (3.5-5.1); Sodium 138 mmol/L (136-145); Total Protein,Serum 6.9 g/dl (6.3-8.2)
== END 2024-09-02 23:59 | disposition home or self-care (01) ==
LOC: LAB.DROPOF 09-03 11:54
PROVIDERS: PCP Internal Medicine; Visit Provider Internal Medicine
DX: Z13.1 Encounter for screening for diabetes mellitus (principal); Z00.00 Encounter for general adult medical examination without abnormal findings
CPT/HCPCS: 80053; 83036

== ENCOUNTER 2024-09-02 13:19 | Outpatient (CLI) | payer BC, SELFPAY ==
[2024-09-02 13:56] LABS: PHA INR Fingerstick 3.1 (0.9-1.1)
== END 2024-09-02 14:21 ==
LOC: ACC 13:20
PROVIDERS: PCP Internal Medicine; Visit Provider Internal Medicine
DX: Z79.01 Long term (current) use of anticoagulants (principal); Z95.2 Presence of prosthetic heart valve
CPT/HCPCS: 85610; 99211; G0463

== ENCOUNTER 2024-10-14 15:09 | Outpatient (CLI) | payer BC, SELFPAY ==
[2024-10-14 15:38] LABS: PHA INR Fingerstick 2.8 (0.9-1.1)
== END 2024-10-14 15:40 ==
LOC: ACC 15:10
PROVIDERS: PCP Internal Medicine; Visit Provider Internal Medicine
DX: Z79.01 Long term (current) use of anticoagulants (principal); Z95.2 Presence of prosthetic heart valve
CPT/HCPCS: 85610; 99211; G0463

== ENCOUNTER 2024-11-18 15:01 | Outpatient (CLI) | payer BC, SELFPAY ==
[2024-11-18 15:46] LABS: PHA INR Fingerstick 3.5 (0.9-1.1)
== END 2024-11-18 15:47 ==
LOC: ACC 15:02
PROVIDERS: PCP Internal Medicine; Visit Provider Internal Medicine
DX: Z79.01 Long term (current) use of anticoagulants (principal); Z95.2 Presence of prosthetic heart valve
CPT/HCPCS: 85610; 99211; G0463

== ENCOUNTER 2024-12-30 14:54 | Outpatient (CLI) | payer BC, SELFPAY ==
[2024-12-30 15:33] LABS: PHA INR Fingerstick 3.5 (0.9-1.1)
== END 2024-12-30 15:34 ==
LOC: ACC 14:55
PROVIDERS: PCP Internal Medicine; Visit Provider Internal Medicine
DX: Z79.01 Long term (current) use of anticoagulants (principal); Z95.2 Presence of prosthetic heart valve
CPT/HCPCS: 85610; 99211; G0463

== ENCOUNTER 2025-01-22 10:18 | Outpatient (CLI) | payer BC, SELFPAY ==
[2025-01-22 11:09] LABS: PHA INR Fingerstick 3.2 (0.9-1.1)
== END 2025-01-22 11:10 ==
LOC: ACC 10:19
PROVIDERS: PCP Internal Medicine; Visit Provider Internal Medicine
DX: Z79.01 Long term (current) use of anticoagulants (principal); Z95.2 Presence of prosthetic heart valve
CPT/HCPCS: 85610; 99211; G0463

== ENCOUNTER 2025-03-03 11:33 | Outpatient (CLI) | payer BC, SELFPAY | END 2025-03-03 23:59 | disposition home or self-care (01) | LOC: LAB.DROPOF 03-09 11:34 | PROVIDERS: PCP Internal Medicine; Visit Provider Internal Medicine | DX: L02.414 Cutaneous abscess of left upper limb (principal) | CPT/HCPCS: 87070; 87205 ==

== ENCOUNTER 2025-03-03 14:48 | Outpatient (CLI) | payer BC, SELFPAY ==
[2025-03-03 15:09] LABS: PHA INR Fingerstick 3.2 (0.9-1.1)
== END 2025-03-03 15:10 ==
LOC: ACC 14:48
PROVIDERS: PCP Internal Medicine; Visit Provider Internal Medicine
DX: Z79.01 Long term (current) use of anticoagulants (principal); Z95.2 Presence of prosthetic heart valve
CPT/HCPCS: 85610; 87070; 87205; 99211; G0463

== ENCOUNTER 2025-04-14 15:08 | Outpatient (CLI) | payer BC, SELFPAY ==
[2025-04-14 15:57] LABS: PHA INR Fingerstick 1.9 (0.9-1.1)
== END 2025-04-14 16:03 ==
LOC: ACC 15:08
PROVIDERS: PCP Internal Medicine; Visit Provider Internal Medicine
DX: Z79.01 Long term (current) use of anticoagulants (principal); Z95.2 Presence of prosthetic heart valve
CPT/HCPCS: 85610; 99211; G0463

== ENCOUNTER 2025-05-11 09:28 | Outpatient (CLI) | payer BC, SELFPAY ==
--- OUTSIDE RECORDS SUMMARY | 2025-05-11 09:31 | XMS_ITS | Clinical Summary ---
Author Organization Healthcare Address [address] [place] [address] Care Team Providers Care Security Patrol Driver Name Role Phone Parish Ann MD Unavailable [phone] Parish Aldrich DO Primary Care Provider [phone] Allergies No known active allergies Medications aspirin 81 MG EC tablet Take 1 tablet (81 mg) by mouth 1 (one) time each day. Active metFORMIN (Glucophage) 1000 MG tablet Take 1 tablet (1,000 mg) by mouth 2 (two) times a day with meals. Active omega-3 (Fish Oil) 1000 MG capsule Take 1 capsule (1,000 mg) by mouth 1 (one) time each day. Active omeprazole OTC (PriLOSEC OTC) 20 MG EC tablet Take 1 tablet (20 mg) by mouth 1 (one) time each day. Do not crush, chew, or split. Active tirzepatide (Mounjaro) 5 MG/0.5ML solution pen-injector solution pen-injector Inject 0.5 mL (5 mg) under the skin 1 (one) time per week. Active Multiple Vitamin (multivitamin) tablet Take 1 tablet by mouth 1 (one) time each day. Active cyanocobalamin 1000 MCG tablet Take 1 tablet (1,000 mcg) by mouth 1 (one) time each day. Active amiodarone (Pacerone) 200 MG tablet Take 1 tablet (200 mg) by mouth 1 (one) time each day. 30 tablet 4 Active methocarbamol (Robaxin) 500 MG tablet Take 1 tablet (500 mg) by mouth 4 (four) times a day. 120 tablet 2 4 Active Additional Information Patient not taking.Reported on 01/30/2024 naloxone (Kloxxado) 8 mg/0.1 mL nasal spray 1. Give 1 spray in nostril for no/slow breathing or cannot wake after opioid use 2. Call 911 3. Repeat in other nostril if symptoms continue 1 each 4 Active warfarin (Coumadin) 4 MG tablet Take 1 tablet (4 mg) by mouth 1 (one) time each day. 30 tablet 2 4 Active rosuvastatin (Crestor) 40 MG tablet Take 1 tablet (40 mg) by mouth every night. 30 tablet 4 Active furosemide (Lasix) 40 MG tablet Take 1 tablet (40 mg) by mouth 1 (one) time each day for 5 doses. 5 tablet 4 Active Active Problems Problem Noted Date Diagnosed Date Bradycardia 12/29/2023 Pleural effusion 12/29/2023 Hypocalcemia 12/29/2023 GERD (gastroesophageal reflux disease) 4 Chronic anticoagulation 12/29/2023 A-fib 12/28/2023 Overview (12/29/2023): Rates 130-150, pressures stable and asymptomatic 150 mg IV bolus amiodarone, started on gtt Back in SR Hyperglycemia 12/27/2023 Overview (12/27/2023): Expected in immediate post op period. Will continue to trend H/O mitral valve replacement with mechanical rip ve 12/26/2023 Overview (12/28/2023): underwent mechanical MVR and 3vCABG with Dr Mehta on 12/25/23 -hep/warfarin per CT surgery -holding beta blockade Electrolyte abnormality 12/25/2023 Overview (12/25/2023): Will continue to monitor and replace per ICU electrolyte replacement protocol Anemia 12/25/2023 Overview (12/29/2023): Anticipated in the post operative period. Will continue to trend and monitor for signs of bleeding. Transfuse as appropriate /.8 on 12/29 CAD (coronary artery disease) 11/21/2023 Overview (12/27/2023): Stress test and C recently showed mvCAD Underwent mechanical MVR and 3vCABG with Dr Mehta on 12/25/23 ASA/statin Overweight (BMI 25.0-29.9) 11/21/2023 Overview (12/25/2023): Complicates all aspect of care Sleep apnea treated with con tinuous positive airway pressure (CPAP) 11/21/2023 Overview (12/27/2023): Home CPAP HLD (hyperlipidemia) 11/20/2023 Overview (12/26/2023): Restarted statin Diabetes 11/20/2023 Overview (12/29/2023): - A1C 12/26 5.8% - restarting SSI due to patient being on antihyperglycemics at home - Blood glucoses charted in the >200 range Mitral regurgitation 11/20/2023 Overview (12/25/2023): Diagnosed in 2010 and has since progressed to severe MR Stress test and C recently showed mvCAD Underwent mechanical MVR and 3vCABG with Dr Mehta on 12/25/23 Resolved Problems Problem Noted Date Diagnosed Date Resolved Date Pneumothorax 12/29/2023 12/31/2023 Hypokalemia 12/29/2023 12/31/2023 Hypermagnesemia 12/29/2023 12/31/2023 Junctional escape rhythm 12/27/2023 Overview (12/28/2023): Has AV wires, current pacer settings VVI @ 50 Junction rhythm w/ rate of 60s. Hold beta blockade for now Cardiac volume overload 12/26/202312/04 Overview (12/29/2023): - Diuresis per protocol - CXR as indicated - no beta juan - PO lasix Mitral regurgitation, acute 12/25/2023 12/25/2023 Leukocytosis 12/25/2023 12/28/2023 Overview (12/27/2023): Anticipated in the post operative period, currently afebrile. Will continue to trend and monitor for signs of infection Thrombocytopenia 12/25/2023 12/29/2023 Overview (12/27/2023): Will continue to trend and monitor for signs of bleeding Will transfuse if appropriate Respiratory insufficiency 12/25/2023 Overview (12/27/2023): - In the immediate post operative period, arrived to ICU intubated - bated to [place] - trending ABGs - Diurese, CXR as indicated Family History Medical History Relation Name Comments Diabetes type II Brother Cancer Father brain Diabetes type II Mother Relation Name Status Comments Brother Father Mother Social History Tobacco Use Types Packs/Day Years Used Date Smoking Tobacco: Former Cigarettes 0.8 20 1 983 - 2002 Smokeless Tobacco: Current Snuff Tobacco Cessation:Ready to Q uit: Not Asked; Counseling Given: Not Answered Alcohol Use Standard Drinks/Week Comments Yes 7 (1 standard drink = 0.6 oz pur e alcohol) Humiliation, Afraid, Rape, and Kick questionnair e Answer Date Recorded Within the last year, have y ou been afraid of your partner or ex-partner? No 12/26/2023 Within the last year, have y ou been humiliated or emotionally abused in other ways by your partner or ex-partner? No Within the last year, have y ou been kicked, hit, slapped, or otherwise physically hurt by your partner or ex-partner? No 12/26/2023 Within the last year, have y ou been raped or forced to have any kind of sexual activity by your partner or ex-partner? No 12/26/2023 Hunger Vital Sign Answer Date Recorded Within the past 12 months, y ou worried that your food would run out before you got the money to buy more. Never true 12/26/19 Within the past 12 months, t he food you bought just didn't last and you didn't have money to get more. Never true 12/26/2023 PRAPARE - Transportation Answer Date Re corded In the past 12 months, has l ack of transportation kept you from medical appointments or from getting medications? No 12/03 In the past 12 months, has l ack of transportation kept you from meetings, work, or from getting things needed for daily living? No 12/26/2023 Housing Stability Vital Sign Answer Warren e Recorded In the last 12 months, was t here a time when you were not able to pay the mortgage or rent on time? No 12/26/2023 Number of Places Lived in the Last Year Not on f ile 12/26/2023 In the last 12 months, was t here a time when you did not have a steady place to sleep or slept in a residential (including now)? No 12/26/2023 Utilities Answer Date Recorded In the past 12 months has th e electric, gas, oil, or water company threatened to shut off services in your home? 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 Not on file Not on file Not on file Last Filed Vital Signs Vital Sign Reading Time Taken Comments Blood Pressure 122/81 01/30/2024 1:01 PM EST Pulse 93 01/30/2024 1:01 PM EST Temperature 36.7 C (98.1 F) 12/31/2023 11:46 AM EST Respiratory Rate 18 12/31/2023 11:46 AM EST Oxygen Saturation 97% 01/30/2024 1:01 PM EST Inhaled Oxygen Concentration - - Weight 91.3 kg (201 lb 4.8 oz) 01/30/2024 1:01 P M EST Height 185.4 cm (6' 1 ) 01/30/2024 1:01 PM EST Body Mass Index 26.56 01/30/2024 1:01 PM EST Plan of Treatment Health Maintenance Due Date Last Done Comments [facility]-Depression Screening 1966 [facility]-HIV Screening 1966 [facility]-Hepatitis C Screening 1966 [facility]-Infant/Child/Adol SDOH Screenings 1966 Diabetes: Dental Exam 1976 [facility]- SDOH Screenings 1984 [facility]-Adult SDOH Screenings 1984 [facility]-DTaP,Tdap,and Td Vaccines (1 - Tdap) 1985 [facility]-Hepatitis B Vaccines (1 of 3 - 19+ 3-dose series) 1985 [facility]-Pneumococcal Vaccine: 50+ Years (1 of 2 - PCV) 1985 CT Colonography 2011 Colonoscopy 2011 FIT-DNA 2011 FIT 2011 FOBT 2011 Sigmoidoscopy 2011 [facility]-Colorectal Cancer Screening 2011 [facility]-Zoster Vaccines (1 of 2) 2016 [facility]-Diabetes: Hemoglobin A1C 06/24/2024 12/26/2023, 12/19/2023 [facility]-[id number]-60 Vaccine ( - 2023- season) 2024 10/16/2021, 09/28/2021 [facility]-Influenza Vaccine (Season Ended) 2025 [facility]-Obesity Intervention Completed 024, 12/19/2023, 11/22/2023, Additional history exists HPV Vaccines Aged Out No longer eligi ble based on patient's age to complete this topic [facility]-HIB Vaccines Aged Out No longer e ligible based on patient's age to complete this topic [facility]-Hepatitis A Vaccines Aged Out No longer eligible based on patient's age to complete this topic [facility]-IPV Vaccines Aged Out No longer e ligible based on patient's age to complete this topic [facility]-Rotavirus Vaccines Aged Out No lo nger eligible based on patient's age to complete this topic Medical Devices Implanted Type Area Increment Manager Device Identifier Shelf Expiration Date Model / Serial / Lot Valve Mitral 31mm Rotatabl Cuf Std - [id number] - [id number] Implanted:Qty: 1 on 12/25/2023 by Cory Mehta MD at [facility] [id number] 08/25/2028 [id number] / [id number] / [id number] Procedures Procedure Name Priority Date/Time Associated Diagnosis Comments HEMOGLOBIN A1C Routine 12/26/2023 10:49 AM EST from Last 3 Months or Most Recently Relevant to Health Maintenance Results * (ABNORMAL) Hemoglobin A1c (12/26/2023 10:49 AM EST) Hemoglobin A1c 5.8(H) <5.7 % 12/26/2023 11:27 AM EST [facility] Blood Arterial blood specimen / Unknown Arterial Puncture / Unknown 12/26/2023 10:49 AM EST 12/26/2023 10:56 AM EST Narrative [facility] - 12/26/2023 11:27 AM EST HA1C Interpretive Data: Diagnosis of Diabetes: Diabetic > or = 6.5% Pre-diabetic 5.7 to 6.4% Non-diabetic < or = 5.6% Glycemic Targets for Type I and Type II Diabetics: Non- Adults <7.0% Adults <6.0% Children and Adolescents <7.5% Source: [place] [employer]. Standards of medical care in diabetes,2017. Diabetes Care.2017:40 (suppl 1):S1-S135. HbA1c assay performed by an ion-exchange chromatography method that is certified traceable to the DCCT. Cory Mehta MD LAB BLOOD ORDERABLES Final R esult [facility] [address] [place] [address] from Last 3 Months or Most Recently Relevant to Health Maintenance Insurance Advance Directives * Full Code (Latest Code Status on File) Date Activated Date Inactivated Comments 12/25/2023 3:05 PM 12/31/2023 4:35 PM Question Answer Comments Patient has decision-making capacity? Yes Care Teams Security Patrol Driver Relationship Specialty Start Date End Date Parish Aldrich DO [address] [place] [address] PCP - General 11/21/23 Parish Ann MD [address] [address] Referring Physician 11/12/23
[2025-05-11 10:06] LABS: PHA INR Fingerstick 3.1 (0.9-1.1)
== END 2025-05-11 10:09 ==
LOC: ACC 09:29
PROVIDERS: PCP Internal Medicine; Visit Provider Internal Medicine
DX: Z95.2 Presence of prosthetic heart valve (principal)
CPT/HCPCS: 85610; 99211; G0463

== ENCOUNTER 2025-06-11 10:22 | Outpatient (CLI) | payer BC, SELFPAY ==
--- OUTSIDE RECORDS SUMMARY | 2025-06-06 12:04 | XMS_ITS | Encounter Summary ---
Author Organization [employer] ([place], [place], [place], [place]) Address [address] [place] [address] Care Team Providers Care Parachute Panel Joiner Name Role Phone Parish Aldrich MD Primary Care Provider + Reason for Visit * Reason Comments Foot Pain Stepped on small ajay l several days ago, reports redness, swelling to L foot Encounter Details Date Type Department Care Team (Late st Contact Info) Description 06/06/2025 12:04 PM EDT - 06/06/2025 12:43 PM EDT Emergency [facility] Emergency Department [address] [place] [phone] Ahmet Lopez MD [address] [place] [address] Cellulitis (Primary Dx) Discharge Disposition: Home or [...] sent through Care Everywhere. * Cellulitis Adult [id number] (Sudanese) documented in this encounter Medications at Time [...] 1216 Dr. Lopez: I saw the patient [id number]. I performed a substantive portion of the [...] General [address] [place] [id number] Next Steps: Call in 1 day(s) Instructions: [...] - 20 mm/HR 06/06/2025 12:41 PM EDT [facility] Blood VENOUS LINE / Unknown Venipuncture / Unknown 06/06/2025 12:16 PM EDT 06/06/2025 12:20 PM EDT Johnnie Davis APRN LAB BLOOD ORDERABLES Final Result [facility] [address] [place] [address] * (ABNORMAL) C-Reactive Protein (06/06/2025 12:16 PM EDT) CRP 15.00(H) 0.05 - 0.25 mg/dL 06/06/2025 12:46 PM EDT [facility] Blood VENOUS LINE / Unknown Venipuncture / Unknown 06/06/2025 12:16 PM EDT 06/06/2025 12:20 PM EDT us Johnnie Davis APRN LAB BLOOD ORDERABLES Final Result [facility] [address] [place] [address] * Creatine Kinase (CK) (06/06/2025 12:16 PM EDT) Total CK 195 39 - 308 U/L 06/06/2025 12:46 PM EDT [facility] Blood VENOUS LINE / Unknown Venipuncture / Unknown 06/06/2025 12:16 PM EDT 06/06/2025 12:20 PM EDT Johnnie Davis APRN LAB BLOOD ORDERABLES Final Result Performing Organization Address [place]/ZIP Co de Phone Number [facility] [address] [place] [address] * (ABNORMAL) Comprehensive metabolic panel (06/06/2025 12:16 PM EDT) Sodium 138 136 - 145 meq/L 06/06/2025 12:46 PM EDT [facility] Potassium 3.8 3.5 - 5.1 meq/L 06/06/2025 12:46 PM EDT [facility] Chloride 104 98 - 107 meq/L 06/06/2025 12:46 PM EDT [facility] CO2 29 21 - 32 meq/L 06/06/2025 12:46 PM EDT [facility] Calcium 9.1 8.5 - 10.1 mg/dL 06/06/2025 12:46 PM EDT [facility] Glucose 140(H) 70 - 99 mg/dL 06/06/2025 12:46 PM EDT [facility] BUN 13 7 - 18 mg/dL 06/06/2025 12:46 PM EDT [facility] Creatinine 1.23(H) 0.70 - 1.20 mg/dL 06/06/2025 12:46 PM EDT [facility] BUN/Creatinine 11 06/06/2025 12:46 PM EDT [facility] Albumin 3.3(L) 3.4 - 5.0 g/dL 06/06/2025 12:46 PM EDT [facility] Alkaline Phosphatase 71 46 - 116 U/L 06/06/2025 12:46 PM EDT [facility] ALT 21 12 - 78 U/L 06/06/2025 12:46 PM EDT [facility] AST 19 15 - 37 U/L 06/06/2025 12:46 PM EDT [facility] Total Bilirubin 0.5 0.2 - 1.0 mg/dL 06/06/2025 12:46 PM EDT [facility] Protein, Total 7.2 6.4 - 8.2 gm/dL 06/06/2025 12:46 PM EDT [facility] Anion Gap 9(L) 11 - 22 06/06/2025 12:46 PM EDT [facility] A/G Ratio 0.8 06/06/2025 12:46 PM EDT [facility] Globulin 3.9 g/dL 06/06/2025 12:46 PM EDT [facility] Osmolality Calc 278.1 mOsm/kg 12:46 PM EDT [facility] eGFR (mL/min/1.73m2) >60 >=60 mL/min/1.7 3m2 06/06/2025 12:46 PM EDT [facility] Comment:ESTIMATED GFR IS NOT ACCURATE CREATININE CLEARANCE IN PREDICTING GLOMERULAR FILTRATION RATE. ESTIMATED GFR IS NOT APPLICABLE FOR DIALYSIS PATIENTS. Blood VENOUS LINE / Unknown Venipuncture / Unknown 06/06/2025 12:16 PM EDT 06/06/2025 12:20 PM EDT us Johnnie Davis POSTAL WORKER LAB BLOOD ORDERABLES Final Result [facility] [address] [id number] [phone] * (ABNORMAL) CBC with Auto Diff (06/06/2025 12:16 PM EDT) WBC 9.7 4.8 - 10.8 K/ L 06/06/2025 12:23 PM EDT [facility] RBC 4.24 3.80 - 5.20 M/ L 06/06/2025 12:23 PM EDT [facility] Hemoglobin 13.1 12.8 - 17.4 GM/DL 06/06/2025 12:23 PM EDT [facility] Hematocrit 39.3 39.0 - 51.0 % 06/06/2025 12:23 PM EDT [facility] MCV 93 81 - 101 fL 06/06/2025 12:23 PM EDT [facility] MCH 30.9 27.0 - 34.0 pg 06/06/2025 12:23 PM EDT [facility] MCHC 33.3 32.0 - 36.0 GM/DL 06/06/2025 12:23 PM EDT [facility] RDW 14.8(H) 11.5 - 14.5 % 06/06/2025 12:23 PM EDT [facility] Platelets 271 150 - 400 K/CU MM 06/06/2025 12:23 PM EDT [facility] MPV 11.0 9.4 - 12.4 fL 06/06/2025 12:23 PM EDT [facility] Nucleated Red Blood Cell 0.0 0 - 0.2 % 06/06/2025 12:23 PM EDT [facility] % Neutros 76 37 - 80 % 06/06/2025 12:23 PM EDT [facility] % Lymphs 13 10 - 50 % 06/06/2025 12:23 PM EDT [facility] % Monos 9 5 - 13 % 06/06/2025 12:23 PM EDT [facility] % Eos 2 0 - 7 % 06/06/2025 12:23 PM EDT [facility] % Baso 0 0 - 3 % 06/06/2025 12:23 PM EDT [facility] NRBC Absolute <0.01 0 - 0.012 K/ul 06/06/2025 12:23 PM EDT [facility] # Neutros 7.36(H) 2.00 - 6.90 K/ L 06/06/2025 12:23 PM EDT [facility] # Lymphs 1.29 0.60 - 3.40 K/ L 06/06/2025 12:23 PM EDT [facility] # Monos 0.83 0.00 - 0.90 K/ L 06/06/2025 12:23 PM EDT [facility] # Eos 0.17 0.00 - 0.70 K/ L 06/06/2025 12:23 PM EDT [facility] # Baso 0.02 0.00 - 0.20 K/ L 06/06/2025 12:23 PM EDT [facility] Immature Granulocytes-Re lative 0.30 % 06/06/2025 12:23 PM EDT [facility] # IG 0.03(H) 0.00 - 0.00 K/uL 06/06/2025 12:23 PM EDT [facility] Blood VENOUS LINE / Unknown Venipuncture / Unknown 06/06/2025 12:16 PM EDT 06/06/2025 12:20 PM EDT Narrative [facility] - 06/06/2025 12:23 PM EDT When [...] noted Atypical Lymph flag noted Johnnie Davis POSTAL WORKER LAB BLOOD ORDERABLES Final Result [facility] [address] [place] [address] documented in this encounter Visit Diagnoses Diagnosis [...] Intra-op documented in this encounter Care Teams Parachute Panel Joiner Relationship Specialty Start Date End Date Parish Aldrich MD [address] [place] [address] PCP - General Internal Medicine 06/06/25 documented as of this encounter
--- OUTSIDE RECORDS SUMMARY | 2025-06-08 12:23 | XMS_ITS | Encounter Summary ---
Author Organization [employer] ([place], [place], [place], [place]) Address [address] [place] [address] Care Team Providers [facility] Name Role Phone Parish Aldrich MD Primary Care Provider + Reason for Visit * Reason Comments Foot Swelling Pt reports to [facility] s/swelling to L foot. Stepped on saturday. Redness/swelling began Saturday evening. * Auth/Cert (Routine) Specialty Diagnoses / Procedures Referred By Adeel t Referred To Contact Diagnoses Cellulitis Cellulitis of left lower extremity [facility] [address] [place] [phone] Phone: tel: fax: [facility] [address] [place] [phone] Phone: tel: fax: Referral ID Status Reason Start Date Expiration Date Visits Re quested Visits Authorized [id number] 1 1 Encounter Details Date Type Department Care Team (Late st Contact Info) Description 06/08/2025 12:23 PM EDT - 06/10/2025 11:00 AM EDT Hospital Encounter [facility] [address] [place] [phone] Zen Sinclair DO [address] [place] [address] Amanda Dial DO [address] [facility] [address] [place] [address] Marcella Méndez APRN [facility] Dept [place] [address] Cellulitis of left lower extremity (Primary Dx) [...] / tibia and fibula 2 views left [[id number]] Collected: 06/09/25 1040 Order Status: Completed Updated: [...] CT lower extremity with IV contrast left [[id number]] Collected: 06/08/251329 Order Status: Completed Updated: 06/08/251335 [...] Your Medications These medications were sent to [facility] [address] [place], [place] - [address], [facility] [address] Probiotic 3 billion cell Cap Discharge Instructions: [...] sent a prescription for probiotics to your [facility] pharmacy. Please wait 2 hours after [...] sent through Care Everywhere. * Cellulitis Adult [id number] (Micronesian) * Cellulitis Adult (Micronesian) documented in this encounter Medications at Time of Discharge amoxicillin-clavu lanate (AUGMENTIN) 875-125 mg per tablet Take 1 tablet by mouth 2 (two) times daily with breakfast and dinner for 10 days. 20 tablet 06/06/2025 5 aspirin 81 MG EC tablet Take 1 tablet (81 mg total) by mouth daily. cyanocobalamin 1000 MCG tablet Take 1 tablet (1,000 mcg total) by mouth daily. Jardiance 10 mg tablet Take 1 tablet (10 mg total) by mouth daily. metFORMIN (GLUCOPHAGE) 1000 MG tablet Take 1 [...] by mouth daily Only on Saturday . bisoprolol (ZEBETA) 5 MG tablet Take 0.5 tablets (2.5 mg total) by mouth daily. lactobacillus combination no.4 (Probiotic) 3 billion cell cap Take 1 capsule by mouth 2 (two) times daily. 20 capsule 06/10/2025 warfarin (COUMADIN) 6 MG tablet Take 1 [...] (205 lb) Body mass index: 27.80 kg/m?? [place] body weight: 77.6 kg (171 lb 1.2 [...] (Lovenox added) Other anticoagulation: Lovenox 1mg/kg SQ [id number] until INR greater than 2.5 A/P: Goal INR = 2.5-3.5 Will continue with warfarin 5mg PO Qdaily with Lovenox (enoxaparin) 90mg (1mg/kg) SQ [id number] Warfarin as above. Add lovenox 1mg/kg SQ [...] (205 lb) Body mass index: 27.80 kg/m?? [place] body weight: 77.6 kg (171 lb 1.2 [...] / tibia and fibula 2 views left [[id number]] Resulted: 06/09/25 1021 Order Status: Sent Updated: 06/09/[address] lower extremity with IV contrast left [[id number]] Collected: 06/08/25 1330 Order Status: Completed Updated: [...] Procedure Component Value Units Date/Time Blood Culture [[id number]] Collected: 06/08/25 1235 Order Status: Resulted Specimen: Blood Updated: 06/08/25 1301 Blood Culture Arm, Right [[id number]] Collected: 06/08/25 1246 Order Status: Resulted Specimen: [...] (205 lb) Body mass index: 27.80 kg/m?? [place] body weight: 77.6 kg (171 lb 1.2 [...] (205 lb) Body mass index: 27.80 kg/m?? [place] body weight: 77.6 kg (171 lb 1.2 [...] to Encounter Medication List (as reviewed in [employer]) Medications amoxicillin-clavulanate (AUGMENTIN) 875-125 mg per tablet [...] CT lower extremity with IV contrast left [[id number]] Collected: 06/08/251329 Order Status: Completed Updated: 06/08/251335 [...] Procedure Component Value Units Date/Time Blood Culture [[id number]] Collected: 06/08/25 123 Order Status: Sent Specimen: Blood Updated: 06/08/25 1301 Blood Culture Arm, Right [[id number]] Collected: 06/08/25 1246 Order Status: Sent Specimen: [...] moderate risk and is being admitted to [facility] on an inpatient status. ELOS: >= 2 [...] duringprevious ED visit. History provided by: Patient sign language interpreter used: No Patient History Past Medical History: [...] 1338 Dr. Sinclair: I saw the patient [id number]. I performed a substantive portion of the [...] CDT Dr. Sinclair: I saw the patient [id number]. I performed a substantive portion of the [...] Results and Location in Medical Record Antibiotics 06/08 Orders: IV Zosyn, IV Vanc, IV Rocephin Accu checks with SSI 06/08 Orders: Accu checks with SSI CDS/Fine D[employer] Server Signature: Tess Holley Phone #: [phone] Date/Time: 06/09/2025 2:03 PM This is a permanent part of the Medical Record 2023 [facility] Reviewed: 01/2024 * Plan of [...] documented in this encounter Plan of Treatment Pending Results Name Type Priority Associated Diagnoses Date /Time Blood Culture Microbiology STAT 12:35 PM EDT Blood Culture Arm, Right Microbiology STAT 06/08/2025 12:46 PM EDT documented as of this encounter Procedures Procedure [...] VIEWS LEFT Routine 06/09/2025 10:32 AM EDT CBC HEMOGRAM (SJ-BKR) STAT 06/09/2025 [...] - 99 mg/dL 06/10/2025 6:34 AM EDT [facility] Comment:In the event of poor peripheral blood flow, venous or arterial blood should be used due to the potential of erroneous results. [employer] [phone] 06/10/2025 6:34 AM EDT [facility] Blood WHOLE BLOOD / Unknown 06/10/2025 6:13 AM EDT 06/10/2025 6:34 AM EDT Narrative [facility] - 06/10/2025 6:34 AM EDT [employer] App[employer]ice ID is - [id number] us Amanda Dial DO POINT OF CARE TEST ORDERABLES Final Result Performing Organization Address [facility] de Phone Number [facility] [address] [place] [address] * (ABNORMAL) PROTIME-INR (06/10/2025 4:52 AM EDT) Pathologist [facility] Protime 15.8(H) 9.0 - 12.0 seconds 06/10/2025 5:55 AM EDT [facility] INR 1.60(H) 0.80 - 1.10 06/10/2025 5:55 AM EDT [facility] Comment: Recommended therapeutic ranges using International [...] Res ult Performing Organization Address [facility] Co de Phone Number [facility] [address] [place] [address] * Glucose, Nova Meter (06/09/2025 8:22 PM EDT) POC-GLUCOSE 94 70 - 99 mg/dL 06/09/2025 8:41 PM EDT [facility] Comment:In the event of poor peripheral blood flow, venous or arterial blood should be used due to the potential of erroneous results. [employer] [id number] 06/09/2025 8:41 PM EDT [facility] Blood WHOLE BLOOD / Unknown 06/09/2025 8:22 PM EDT 06/09/2025 8:41 PM EDT Narrative [facility] - 06/09/2025 8:41 PM EDT [employer] Apprentice ID is - [id number] us Amanda Dial DO POINT OF CARE TEST ORDERABLES Final Result Performing Organization Address [facility]/ZIP Co de Phone Number [facility] [address] [place] [address] * Glucose, Nova Meter (06/09/2025 4:43 PM EDT) POC-GLUCOSE 91 70 - 99 mg/dL 06/09/2025 4:45 PM EDT [facility] Comment: In the event of poor peripheral blood flow, venous or arterial blood should be used due to the potential of erroneous results. Notified Nurse RBV [employer] [phone] 06/09/2025 4:45 PM EDT [facility] Blood WHOLE BLOOD / Unknown 06/09/2025 4:43 PM EDT 06/09/2025 4:45 PM EDT Narrative [facility] - 06/09/2025 4:45 PM EDT [employer] App[employer]ice ID is - [id number] us Amanda Dial DO POINT OF CARE TEST ORDERABLES Final Result Performing Organization Address City/[facility]/ZIP Co de Phone Number [facility] [address] [place] [address] * (ABNORMAL) Glucose, Nova Meter (06/09/2025 11:19 AM EDT) POC-GLUCOSE 120(H) 70 - 99 mg/dL 06/09/2025 11:21 AM EDT [facility] Comment: In the event of poor peripheral blood flow, venous or arterial blood should be used due to the potential of erroneous results. Received Meds [employer] [phone] 06/09/2025 11:21 AM EDT [facility] Blood WHOLE BLOOD / Unknown 06/09/2025 11:19 AM EDT 06/09/2025 11:21 AM EDT Narrative [facility] - 06/09/2025 11:21 AM EDT [employer] App[employer] ID is - [id number] us Amanda Dial DO POINT OF CARE TEST ORDERABLES Final Result [facility] [address] [place] [address] * XR leg / tibia and fibula [...] IMAGING ORDERAB LES Final Result * (ABNORMAL) PROTIME-INR (06/09/2025 3:45 AM EDT) Protime 37.2(H) 9.0 - 12.0 seconds 06/09/2025 4:39 AM EDT [facility] INR 3.93(H) 0.80 - 1.10 06/09/2025 4:39 AM EDT [facility] Comment: Recommended therapeutic ranges using International Normalized Ratio (INR) are: INR RANGE 2.0 - 3.0 Routine oral anticoagulant therapy 2.5 - 3.5 Oral anticoagulant therapy for patients with thromboembolic events on standard doses of Coumadin and those with mechanical heart valves. Blood Venipuncture / Unknown 06/09/2025 3:45 AM EDT 06/09/2025 4:21 AM EDT Amanda Dial DO LAB BLOOD ORDERABLES Final Res ult [facility] [address] [place] [address] * (ABNORMAL) CBC - Hemogram (SJ-BKR) (06/09/2025 3:45 AM EDT) WBC 8.2 4.8 - 10.8 K/ L 06/09/2025 4:30 AM EDT [facility] RBC 3.73(L) 3.80 - 5.20 M/ L 06/09/2025 4:30 AM EDT [facility] Hemoglobin 11.5(L) 12.8 - 17.4 GM/DL 06/09/2025 4:30 AM EDT [facility] Hematocrit 34.9(L) 39.0 - 51.0 % 06/09/2025 4:30 AM EDT [facility] MCV 94 81 - 101 fL 06/09/2025 4:30 AM EDT [facility] MCH 30.8 27.0 - 34.0 pg 06/09/2025 4:30 AM EDT [facility] MCHC 33.0 32.0 - 36.0 GM/DL 06/09/2025 4:30 AM EDT [facility] RDW 14.6(H) 11.5 - 14.5 % 06/09/2025 4:30 AM EDT [facility] Platelets 267 150 - 400 K/CU MM 06/09/2025 4:30 AM EDT [facility] MPV 10.9 9.4 - 12.4 fL 06/09/2025 4:30 AM EDT [facility] Blood Venipuncture / Unknown 06/09/2025 3:45 AM EDT 06/09/2025 4:21 AM EDT us Amanda Dial DO LAB BLOOD ORDERABLES Final Res ult [facility] [address] [place] [address] * (ABNORMAL) C-Reactive Protein (06/09/2025 3:45 AM EDT) CRP 10.40(H) 0.05 - 0.25 mg/dL 06/09/2025 4:38 AM EDT [facility] Blood Venipuncture / Unknown 06/09/2025 3:45 AM EDT 06/09/2025 4:22 AM EDT us Amanda Dial DO LAB BLOOD ORDERABLES Final Res ult [facility] [address] [place] [address] * (ABNORMAL) Glucose, Nova Meter (06/08/2025 9:14 PM EDT) POC-GLUCOSE 165(H) 70 - 99 mg/dL 06/08/2025 9:39 PM EDT [facility] Comment:In the event of poor peripheral blood flow, venous or arterial blood should be used due to the potential of erroneous results. [employer] App[employer]ice [id number] 06/08/2025 9:39 PM EDT [facility] Blood WHOLE BLOOD / Unknown 06/08/2025 9:14 PM EDT 06/08/2025 9:39 PM EDT Narrative [facility] - 06/08/2025 9:39 PM EDT [employer] E[employer] Apprentice ID is - [id number] [employer] DO POINT OF CARE TEST ORDERABLES Final Result [facility] [address] [place] [address], [facility] [phone] * (ABNORMAL) Glucose, Nova Meter (06/08/2025 4:45 PM EDT) POC-GLUCOSE 125(H) 70 - 99 mg/dL 06/08/2025 4:47 PM EDT [facility] Comment: In the event of poor peripheral blood flow, venous or arterial blood should be used due to the potential of erroneous results. Notified Nurse RBV [employer]ice [phone] 06/08/2025 4:47 PM EDT [facility] Blood WHOLE BLOOD / Unknown 06/08/2025 4:45 PM EDT 06/08/2025 4:47 PM EDT Narrative [facility] - 06/08/2025 4:47 PM EDT [employer] Apprentice ID is - [id number] [employer] DO POINT OF CARE TEST ORDERABLES Final Result [facility] [address] [place] [address], [facility] [phone] * (ABNORMAL) PT/INR, PTT (06/08/2025 3:11 PM EDT) aPTT 58.1(H) 22.0 - 32.0 seconds 06/08/2025 3:45 PM EDT [facility] Protime 52.4(HH) 9.0 - 12.0 seconds 06/08/2025 3:45 PM EDT [facility] INR 5.64(HH) 0.80 - 1.10 06/08/2025 3:45 PM EDT [facility] Blood Venipuncture / Unknown 06/08/2025 3:11 PM EDT 06/08/2025 3:11 PM EDT Flynn DO LAB BLOOD ORDERABLES Final Res ult [facility] [address] [place] [address] [phone] * CT lower extremity with IV contrast [...] No abscess or acute bony abnormality identified. Natalie Orellana NP IMG CT ORDERABLES Final Result * Lactic Acid with reflex (SJ) (06/08/2025 12:35 PM EDT) Lactic Acid Level (mmol/L) 1.5 0.4 - 2.0 mmol/L 06/08/2025 1:21 PM EDT [facility] Comment:If a Lactic Acid Lev el with Reflex if Indicated result is greater than 2.0, a Lactic Acid Level will be ordered to be collected 2 hours after the original collection time. Blood Venipuncture / Unknown 06/08/2025 12:35 PM EDT 06/08/2025 12:56 PM EDT Natalie Orellana NP LAB BLOOD ORDERABLES Final Res ult [facility] [address] [phone] * (ABNORMAL) Sedimentation rate (06/08/2025 12:35 PM EDT) [facility] Sed Rate 46(H) 0 - 20 mm/HR 06/08/2025 1:21 PM EDT [facility] Blood Venipuncture / Unknown 06/08/2025 12:35 PM EDT 06/08/2025 12:56 PM EDT Natalie J Strange [employer] LAB BLOOD ORDERABLES Final Res ult Performing Organization Address City/[facility]/ZIP Co de Phone Number [facility] [address] [place] [address] * (ABNORMAL) C-Reactive Protein (06/08/2025 12:35 PM EDT) [facility] CRP 8.63(H) 0.05 - 0.25 mg/dL 06/08/2025 1:20 PM EDT [facility] Blood Venipuncture / Unknown 06/08/2025 12:35 PM EDT 06/08/2025 12:56 PM EDT us Natalie J Strange [employer] SYSTEMS ENGINE[employer] LAB BLOOD ORDERABLES Final Res ult [facility] [address] [place] [address] * (ABNORMAL) Comprehensive metabolic panel (06/08/2025 12:35 PM EDT) [facility] Sodium 135(L) 136 - 145 meq/L 06/08/2025 1:20 PM EDT [facility] Potassium 3.7 3.5 - 5.1 meq/L 06/08/2025 1:20 PM EDT [facility] Chloride 101 98 - 107 meq/L 06/08/2025 1:20 PM EDT [facility] CO2 27 21 - 32 meq/L 06/08/2025 1:20 PM EDT [facility] Calcium 9.3 8.5 - 10.1 mg/dL 06/08/2025 1:20 PM EDT [facility] Glucose 143(H) 70 - 99 mg/dL 06/08/2025 1:20 PM EDT [facility] BUN 14 7 - 18 mg/dL 06/08/2025 1:20 PM EDT [facility] Creatinine 1.28(H) 0.70 - 1.20 mg/dL 06/08/2025 1:20 PM EDT [facility] BUN/Creatinine 11 06/08/2025 1:20 PM EDT [facility] Albumin 3.4 3.4 - 5.0 g/dL 06/08/2025 1:20 PM EDT [facility] Alkaline Phosphatase 68 46 - 116 U/L 06/08/2025 1:20 PM EDT [facility] ALT 21 12 - 78 U/L 06/08/2025 1:20 PM EDT [facility] AST 18 15 - 37 U/L 06/08/2025 1:20 PM EDT [facility] Total Bilirubin 0.7 0.2 - 1.0 mg/dL 06/08/2025 1:20 PM EDT [facility] Protein, Total 7.4 6.4 - 8.2 gm/dL 06/08/2025 1:20 PM EDT [facility] Anion Gap 11 11 - 22 06/08/2025 1:20 PM EDT [facility] A/G Ratio 0.9 06/08/2025 1:20 PM EDT [facility] Globulin 4.0 g/dL 06/08/2025 1:20 PM EDT [facility] Osmolality Calc 273.0 mOsm/kg 1:20 PM EDT [facility] eGFR (mL/min/1.73m2) >60 >=60 mL/min/1.7 3m2 06/08/2025 1:20 PM EDT [facility] Comment:ESTIMATED GFR IS NOT ACCURATE CREATININE CLEARANCE IN PREDICTING GLOMERULAR FILTRATION RATE. ESTIMATED GFR IS NOT APPLICABLE FOR DIALYSIS PATIENTS. Blood Venipuncture / Unknown 06/08/2025 12:35 PM EDT 06/08/2025 12:56 PM EDT us Natalie Orellana NP LAB BLOOD ORDERABLES Final Res ult [facility] [address] [id number] [phone] * (ABNORMAL) CBC with Auto Diff (06/08/2025 12:35 PM EDT) WBC 10.2 4.8 - 10.8 K/ L 06/08/2025 1:02 PM EDT [facility] RBC 4.34 3.80 - 5.20 M/ L 06/08/2025 1:02 PM EDT [facility] Hemoglobin 13.4 12.8 - 17.4 GM/DL 06/08/2025 1:02 PM EDT [facility] Hematocrit 39.9 39.0 - 51.0 % 06/08/2025 1:02 PM EDT [facility] MCV 92 81 - 101 fL 06/08/2025 1:02 PM EDT [facility] MCH 30.9 27.0 - 34.0 pg 06/08/2025 1:02 PM EDT [facility] MCHC 33.6 32.0 - 36.0 GM/DL 06/08/2025 1:02 PM EDT [facility] RDW 14.6(H) 11.5 - 14.5 % 06/08/2025 1:02 PM EDT [facility] Platelets 309 150 - 400 K/CU MM 06/08/2025 1:02 PM EDT [facility] MPV 10.9 9.4 - 12.4 fL 06/08/2025 1:02 PM EDT [facility] Nucleated Red Blood Cell 0.0 0 - 0.2 % 06/08/2025 1:02 PM EDT [facility] % Neutros 84(H) 37 - 80 % 06/08/2025 1:02 PM EDT [facility] % Lymphs 7(L) 10 - 50 % 06/08/2025 1:02 PM EDT [facility] % Monos 8 5 - 13 % 06/08/2025 1:02 PM EDT [facility] % Eos 0 0 - 7 % 06/08/2025 1:02 PM EDT [facility] % Baso 0 0 - 3 % 06/08/2025 1:02 PM EDT [facility] NRBC Absolute <0.01 0 - 0.012 K/ul 06/08/2025 1:02 PM EDT [facility] # Neutros 8.58(H) 2.00 - 6.90 K/ L 06/08/2025 1:02 PM EDT [facility] # Lymphs 0.71 0.60 - 3.40 K/ L 06/08/2025 1:02 PM EDT [facility] # Monos 0.78 0.00 - 0.90 K/ L 06/08/2025 1:02 PM EDT [facility] # Eos 0.03 0.00 - 0.70 K/ L 06/08/2025 1:02 PM EDT [facility] # Baso 0.03 0.00 - 0.20 K/ L 06/08/2025 1:02 PM EDT [facility] Immature Granulocytes-Re lative 0.60 % 06/08/2025 1:02 PM EDT [facility] # IG 0.06(H) 0.00 - 0.00 K/uL 06/08/2025 1:02 PM EDT [facility] Blood Venipuncture / Unknown 06/08/2025 12:35 PM EDT 06/08/2025 12:56 PM EDT Narrative [facility] - 06/08/2025 1:02 PM EDT When [...] NP LAB BLOOD ORDERABLES Final Res ult [facility] [address] [place], [place] [address] [phone] documented in this encounter Visit Diagnoses Diagnosis [...] Blood Sugar is less than 180 beteween [phone], DO NOT give corrective insulin unless otherwise [...] and contact the remote pharmacy services at [facility] for further guidance. *REFRIGERATOR*, Please choose an [...] RN) 0827 (Given - Provider: Olimpia Rod, RN) atorvastatin (LIPITOR) tablet 40 mg 40 mg Every Night, oral, First dose on Sat06/08/25 at 2300 2323 (Given - Provider: Dayan Morse, OSCAR) 2022 (Given - Provider: Dayan Morse, RN) [...] Blood Sugar is less than 180 beteween [phone], DO NOT give corrective insulin unless otherwise [...] 1302 (New Bag - Provider: Lorraine Cody, RN)1343 (Stopped - Provider: Lorraine Cody RN) [...] and contact the remote pharmacy services at [facility] for further guidance. *REFRIGERATOR*, Please choose an [...] minutes. documented in this encounter Care Teams Hospital Cna Relationship Specialty Start Date End Date Parish Aldrich MD [address] [place] [address] PCP - General Internal Medicine 06/06/25 documented as of this encounter
--- OUTSIDE RECORDS SUMMARY | 2025-06-11 10:25 | XMS_ITS | Encounter Summary ---
Author Organization [employer] ([place], [place], [place], [place]) Address [address] [place] [address] Care Team Providers Care Barrel Roller Name Role Phone Parish Aldrich MD Primary Care Provider + Reason for Visit * Reason Onset Date Comments Hospital Follow Up 06/11/2025 Encounter Details Date Type Department Care Team (Late st Contact Info) Description 06/11/2025 Telephone [facility] [address] [place] [address] Parish Aldrich MD [address] [facility] [address] [place] [address] Hospital Follow Up Social History Tobacco Use Types Packs/Day Years [...] on file documented as of this encounter Miscellaneous Notes * Telephone Encounter - Maria Antonia Roth - 06/11/2025 8:50 AM EDT Attempted to call patient to inform him of appointment scheduled after discharged. Attempt unsuccessful, left a voicemail, sent an email to the file. Patient scheduled with Parish Aldrich MD pcp follow up 06/16/25 @ 9:00 am. documented in this encounter Plan of Treatment Not on file documented as of this encounter Visit Diagnoses Not on filedocumented in this encounter Care Teams Barrel Roller Relationship Specialty Start Date End Date Parish Aldrich MD [address] [place] [address] [place] [phone] PCP - General Internal Medicine 06/06/25 documented as of this encounter
--- OUTSIDE RECORDS SUMMARY | 2025-06-11 10:25 | XMS_ITS | Clinical Summary ---
Author Organization [employer] ([place], [place], [place], [place]) Address [address] [place] [address] Care Team Providers Care Hog Buyer Name Role Phone Parish Aldrich MD Primary Care Provider + Allergies No known active allergies Medications amoxicillin-clav ulanate (AUGMENTIN) 875-125 mg per tablet Take 1 tablet by mouth 2 (two) times daily with breakfast and dinner for 10 days. 20 tablet 5 06/16/20 25 Active aspirin 81 MG EC tablet Take 1 tablet (81 mg total) by mouth daily. Active cyanocobalamin 1000 MCG tablet Take 1 tablet (1,000 mcg total) by mouth daily. Active Jardiance 10 mg tablet Take 1 tablet (10 mg total) by mouth daily. Active metFORMIN (GLUCOPHAGE) 1000 MG tablet Take 1 tablet (1,000 mg total) by mouth daily. Active multivitamin per tablet Take 1 tablet by mouth daily. Active omega-3 fatty acids-fish oil (Fish OiL) 340-1,000 mg cap per capsule Take 1 capsule (1 g total) by mouth daily. Active omeprazole (PriLOSEC OTC) 20 MG tablet Take 1 tablet (20 mg total) by mouth daily. Active tirzepatide (MOUNJARO SUBQ) Inject 5 mg under the skin once a week. Active warfarin (COUMADIN) 6 MG tablet Take 1 tablet (6 mg total) by mouth daily Except Saturday he takes 4mg . Active warfarin (COUMADIN) 4 MG tablet Take 1 tablet (4 mg total) by mouth daily Only on Saturday . Active bisoprolol (ZEBETA) 5 MG tablet Take 0.5 tablets (2.5 mg total) by mouth daily. Active lactobacillus combination no.4 (Probiotic) 3 billion cell cap Take 1 capsule by mouth 2 (two) times daily. 20 capsule Active Active Problems Problem Noted Date Diagnosed Date Cellulitis 06/08/2025 Encounters Date Type Department Care Team Description 06/11/[address] [address] Parish Aldrich MD Hospital Follow Up 06/08/2025 12:23 PM EDT - 06/10/2025 11:00 AM EDT Hospital Encounter [facility] [address] [place] [address] Zen Sinclair DO Qureshi, Saadia, DO Caldwell, Kristinalin, APRN Cellulitis of left lower extremity (Primary Dx) Discharge Disposition: Home or Self Care 06/08/2025 Travel 06/06/2025 12:04 PM EDT - 06/06/2025 12:43 PM EDT Emergency [facility] Emergency Department [address] [place] [address] Ahmet Lopez MD Cellulitis (Primary Dx) Discharge Disposition: Home or Self Care from Last 3 Months Immunizations Name Administration Dates Next Due Tdap 06/06/2025 Social History Tobacco Use Types Packs/Day Years [...] on file Sexual Orientation Not on file Last Filed Vital Signs [...] Mass Index 27.8 06/08/2025 12:25 PM EDT Plan of Treatment Health Maintenance Due Date Last Done Comments CT Colonography 1966 Colonoscopy 1966 Colorectal Cancer Screening 1966 FOBT/FIT 1966 Fit-DNA (Cologuard) 1966 Sigmoidoscopy 1966 Depression Screening (12+) 1978 HIV Screening 1981 Hepatitis C Screening 1984 Pneumococcal 50+ years (1 of 1 - PCV) 2016 Shingles Vaccine (Zoster) (1 of 2) 2016 COVID-19 VACCINE (3 - season) 2024, 09/28/2021 Influenza Vaccine (#1) 2025 Tobacco Cessation Counseling and Screening (12+) 06/08/2026 06/08/2025 Lipid Panel 12/29/2028 12/29/2023 DTAP/TDAP/TD VACCINES (2 - Td or Tdap) 06/06/2035 Procedures Procedure Name Priority Date/Time Associated Diagnosis Comments NOVA GLUCOSE POC Routine 06/10/2025 6:13 AM EDT PROTHROMBIN TIME/INR Routine 06/10/2025 4:52 AM EDT NOVA GLUCOSE POC Routine 06/09/2025 8:22 PM EDT NOVA GLUCOSE POC Routine 06/09/2025 4:43 PM EDT NOVA GLUCOSE POC Routine 06/09/2025 11:1 9 AM EDT XR LEG / TIBIA AND FIBULA 2 VIEWS LEFT Routine 06/09/2025 10:32 AM EDT PROTHROMBIN TIME/INR Routine 06/09/2025 3:45 AM EDT CBC HEMOGRAM (SJ-BKR) STAT 06/09/2025 3:45 AM EDT C-REACTIVE PROTEIN STAT 06/09/2025 3: 45 AM EDT NOVA GLUCOSE POC Routine 06/08/2025 9:14 PM EDT NOVA GLUCOSE POC Routine 06/08/2025 4:45 PM EDT PT/INR, PTT STAT 06/08/2025 3:[address] LOWER EXTREMITY WITH IV CONTRAST LEFT STAT 06/08/2025 1:02 PM EDT BLOOD CULTURE STAT 06/08/2025 12:46 PM EDT LACTIC ACID WITH REFLEX STAT 06/08/2025 12:35 PM EDT SEDIMENTATION RATE STAT 06/08/2025 12 :35 PM EDT C-REACTIVE PROTEIN STAT 06/08/2025 12 :35 PM EDT COMPREHENSIVE METABOLIC PANEL STAT 06/08/2025 12:35 PM EDT CBC W/ AUTO DIFF STAT 06/08/2025 12:3 5 PM EDT BLOOD CULTURE STAT 06/08/2025 12:35 PM EDT XR FOOT 3 VIEWS LEFT STAT 06/06/2025 12:31 PM EDT SEDIMENTATION RATE STAT 06/06/2025 12 :16 PM EDT C-REACTIVE PROTEIN STAT 06/06/2025 12 :16 PM EDT CREATINE KINASE (CK) STAT 06/06/2025 12:16 PM EDT COMPREHENSIVE METABOLIC PANEL STAT 06/06/2025 12:16 PM EDT CBC W/ AUTO DIFF STAT 06/06/2025 12:1 6 PM EDT from Last 3 Months Results * (ABNORMAL) Glucose, Nova Meter (06/10/2025 6:13 AM EDT) Only the most recent of6 resultswithin the time period is included. POC-GLUCOSE 157(H) 70 - 99 mg/dL 06/10/2025 6:34 AM EDT [facility] Comment:In the event of poor peripheral blood flow, venous or arterial blood should be used due to the potential of erroneous results. Sales Support Specialist [phone] 06/10/2025 6:34 AM EDT [facility] Blood WHOLE BLOOD / Unknown 06/10/2025 6:13 AM EDT 06/10/2025 6:34 AM EDT Narrative [facility] - 06/10/2025 6:34 AM EDT Sales Support Specialist ID is - [id number] us Amanda Dila DO POINT OF CARE TEST ORDERABLES Final Result Performing Organization Address City/State/[facility] Co de Phone Number [facility] [address] [place] [address] * (ABNORMAL) PROTIME-INR (06/10/2025 4:52 AM EDT) Only the most recent of2 resultswithin the time period is included. Protime 15.8(H) 9.0 - 12.0 seconds 06/10/2025 5:55 AM EDT [facility] INR 1.60(H) 0.80 - 1.10 06/10/2025 5:55 AM EDT [facility] Comment: Recommended therapeutic ranges using International Normalized Ratio (INR) are: INR RANGE 2.0 - 3.0 Routine oral anticoagulant therapy 2.5 - 3.5 Oral anticoagulant therapy for patients with thromboembolic events on standard doses of Coumadin and those with mechanical heart valves. Blood Venipuncture / Unknown 06/10/2025 4:52 AM EDT 06/10/2025 5:10 AM EDT Amanda Dial DO LAB BLOOD ORDERABLES Final Res ult [facility] [address] [place] [address], [facility] [phone] * XR leg / tibia and fibula [...] IMAGING ORDERAB LES Final Result * (ABNORMAL) CBC - Hemogram (SJ-BKR) (06/09/2025 3:45 AM EDT) [facility] WBC 8.2 4.8 - 10.8 K/ L 06/09/2025 4:30 AM EDT [facility] RBC 3.73(L) 3.80 - 5.20 M/ L 06/09/2025 4:30 AM EDT [facility] Hemoglobin 11.5(L) 12.8 - 17.4 GM/DL 06/09/2025 4:30 AM EDT [facility] Hematocrit 34.9(L) 39.0 - 51.0 % 06/09/2025 4:30 AM EDT [facility] MCV 94 81 - 101 fL 06/09/2025 4:30 AM EDT [facility] MCH 30.8 27.0 - 34.0 pg 06/09/2025 4:30 AM EDT [facility] MCHC 33.0 32.0 - 36.0 GM/DL 06/09/2025 4:30 AM EDT [facility] RDW 14.6(H) 11.5 - 14.5 % 06/09/2025 4:30 AM EDT [facility] Platelets 267 150 - 400 K/CU MM 06/09/2025 4:30 AM EDT [facility] MPV 10.9 9.4 - 12.4 fL 06/09/2025 4:30 AM EDT [facility] Blood Venipuncture / Unknown 06/09/2025 3:45 AM EDT 06/09/2025 4:21 AM EDT us Amanda Dial DO LAB BLOOD ORDERABLES Final Res ult [facility] [address] [place] [address] [phone] * (ABNORMAL) C-Reactive Protein (06/09/2025 3:45 AM EDT) Only the most recent of3 resultswithin the time period is included. [facility] CRP 10.40(H) 0.05 - 0.25 mg/dL 06/09/2025 4:38 AM EDT [facility] Blood Venipuncture / Unknown 06/09/2025 3:45 AM EDT 06/09/2025 4:22 AM EDT [facility] Dial DO LAB BLOOD ORDERABLES Final Res ult [facility] [address] [place] [address] * (ABNORMAL) PT/INR, PTT (06/08/2025 3:11 PM EDT) aPTT 58.1(H) 22.0 - 32.0 seconds 06/08/2025 3:45 PM EDT [facility] Protime 52.4(HH) 9.0 - 12.0 seconds 06/08/2025 3:45 PM EDT [facility] INR 5.64(HH) 0.80 - 1.10 06/08/2025 3:45 PM EDT [facility] Blood Venipuncture / Unknown 06/08/2025 3:11 PM EDT 06/08/2025 3:11 PM EDT Amanda Dial LAB BLOOD ORDERABLES Final Res ult [facility] [address] [place] [address] * CT lower extremity with IV contrast [...] or acute bony abnormality identified. us Natalie Osman NP IMAlvarado CT ORDERABLES Final Result * (ABNORMAL) CBC with Auto Diff (06/08/2025 12:35 PM EDT) Only the most recent of2 resultswithin the time period is included. WBC 10.2 4.8 - 10.8 K/ L 06/08/2025 1:02 PM EDT [facility] RBC 4.34 3.80 - 5.20 M/ L 06/08/2025 1:02 PM EDT [facility] Hemoglobin 13.4 12.8 - 17.4 GM/DL 06/08/2025 1:02 PM EDT [facility] Hematocrit 39.9 39.0 - 51.0 % 06/08/2025 1:02 PM EDT [facility] MCV 92 81 - 101 fL 06/08/2025 1:02 PM EDT [facility] MCH 30.9 27.0 - 34.0 pg 06/08/2025 1:02 PM EDT [facility] MCHC 33.6 32.0 - 36.0 GM/DL 06/08/2025 1:02 PM EDT [facility] RDW 14.6(H) 11.5 - 14.5 % 06/08/2025 1:02 PM EDT [facility] Platelets 309 150 - 400 K/CU MM 06/08/2025 1:02 PM EDT [facility] MPV 10.9 9.4 - 12.4 fL 06/08/2025 1:02 PM EDT [facility] Nucleated Red Blood Cell 0.0 0 - 0.2 % 06/08/2025 1:02 PM EDT [facility] % Neutros 84(H) 37 - 80 % 06/08/2025 1:02 PM EDT [facility] % Lymphs 7(L) 10 - 50 % 06/08/2025 1:02 PM EDT [facility] % Monos 8 5 - 13 % 06/08/2025 1:02 PM EDT [facility] % Eos 0 0 - 7 % 06/08/2025 1:02 PM EDT [facility] % Baso 0 0 - 3 % 06/08/2025 1:02 PM EDT [facility] NRBC Absolute <0.01 0 - 0.012 K/ul 06/08/2025 1:02 PM EDT [facility] # Neutros 8.58(H) 2.00 - 6.90 K/ L 06/08/2025 1:02 PM EDT [facility] # Lymphs 0.71 0.60 - 3.40 K/ L 06/08/2025 1:02 PM EDT [facility] # Monos 0.78 0.00 - 0.90 K/ L 06/08/2025 1:02 PM EDT [facility] # Eos 0.03 0.00 - 0.70 K/ L 06/08/2025 1:02 PM EDT [facility] # Baso 0.03 0.00 - 0.20 K/ L 06/08/2025 1:02 PM EDT [facility] Immature Granulocytes-Re lative 0.60 % 06/08/2025 1:02 PM EDT [facility] # IG 0.06(H) 0.00 - 0.00 K/uL 06/08/2025 1:02 PM EDT [facility] Blood Venipuncture / Unknown 06/08/2025 12:35 PM EDT 06/08/2025 12:56 PM EDT Narrative [facility] - 06/08/2025 1:02 PM EDT [...] noted Atypical Lymph flag noted us Natalie Osman NP LAB BLOOD ORDERABLES Final Res ult [facility] [address] [place] [address] * Lactic Acid with reflex (SJ) (06/08/2025 12:35 PM EDT) Lactic Acid Level (mmol/L) 1.5 0.4 - 2.0 mmol/L 06/08/2025 1:21 PM EDT [facility] Comment:If a Lactic Acid Lev el with Reflex if Indicated result is greater than 2.0, a Lactic Acid Level will be ordered to be collected 2 hours after the original collection time. Blood Venipuncture / Unknown 06/08/2025 12:35 PM EDT 06/08/2025 12:56 PM EDT Natalie J Strange RETAIL CUSTOMER SERVICE SPECIALIST LAB BLOOD ORDERABLES Final Res ult Performing Organization Address City/[facility] Co de Phone Number [facility] [address] [place] [address] * (ABNORMAL) Sedimentation rate (06/08/2025 12:35 PM EDT) Only the most recent of2 resultswithin the time period is included. Sed Rate 46(H) 0 - 20 mm/HR 06/08/2025 1:21 PM EDT [facility] Blood Venipuncture / Unknown 06/08/2025 12:35 PM EDT 06/08/2025 12:56 PM EDT Natalie J Strange RETAIL CUSTOMER SERVICE SPECIALIST LAB BLOOD ORDERABLES Final Res ult Performing Organization Address [facility] Co de Phone Number [facility] [address] [place] [address] * (ABNORMAL) Comprehensive metabolic panel (06/08/2025 12:35 PM EDT) Only the most recent of2 resultswithin the time period is included. Sodium 135(L) 136 - 145 meq/L 06/08/2025 1:20 PM EDT [facility] Potassium 3.7 3.5 - 5.1 meq/L 06/08/2025 1:20 PM EDT [facility] Chloride 101 98 - 107 meq/L 06/08/2025 1:20 PM EDT [facility] CO2 27 21 - 32 meq/L 06/08/2025 1:20 PM EDT [facility] Calcium 9.3 8.5 - 10.1 mg/dL 06/08/2025 1:20 PM EDT [facility] Glucose 143(H) 70 - 99 mg/dL 06/08/2025 1:20 PM T [facility] BUN 14 7 - 18 mg/dL 06/08/2025 1:20 PM [facility] Creatinine 1.28(H) 0.70 - 1.20 mg/dL 06/08/2025 1:20 PM [facility] BUN/Creatinine 11 06/08/2025 1:20 PM [facility] Albumin 3.4 3.4 - 5.0 g/dL 06/08/2025 1:20 PM [facility] Alkaline Phosphatase 68 46 - 116 U/L 06/08/2025 1:20 PM [facility] ALT 21 12 - 78 U/L 06/08/2025 1:20 PM [facility] AST 18 15 - 37 U/L 06/08/2025 1:20 PM [facility] Total Bilirubin 0.7 0.2 - 1.0 mg/dL 06/08/2025 1:20 PM [facility] Protein, Total 7.4 6.4 - 8.2 gm/dL 06/08/2025 1:20 PM [facility] Anion Gap 11 11 - 22 06/08/2025 1:20 PM [facility] A/G Ratio 0.9 06/08/2025 1:20 PM [facility] Globulin 4.0 g/dL 06/08/2025 1:20 PM [facility] Osmolality Calc 273.0 mOsm/kg 1:20 PM [facility] eGFR (mL/min/1.73m2) >60 >=60 mL/min/1.7 3m2 06/08/2025 1:20 PM [facility] Comment:ESTIMATED GFR IS NOT ACCURATE CREATININE CLEARANCE IN PREDICTING GLOMERULAR FILTRATION RATE. ESTIMATED GFR IS NOT APPLICABLE FOR DIALYSIS PATIENTS. Blood Venipuncture / Unknown 06/08/2025 12:35 PM EDT 06/08/2025 12:56 PM EDT us Natalie Mayur Osman RETAIL CUSTOMER SERVICE SPECIALIST LAB BLOOD ORDERABLES Final Res ult [facility] [address] [place], [place] [id number], [facility] [phone] * XR foot 3 views left (06/06/2025 [...] Transcribed by Taiwo Bravo PA-C. Johnnie Davis PREMIUM CANCELLATION CLERK IMG DIAGNOSTIC IMAGIN G ORDERABLES Final Result * Creatine Kinase (CK) (06/06/2025 12:16 PM EDT) Total CK 195 39 - 308 U/L 06/06/2025 12:46 PM EDT [facility] Blood VENOUS LINE / Unknown Venipuncture / Unknown 06/06/2025 12:16 PM EDT 06/06/2025 12:20 PM EDT Johnnie Davis PREMIUM CANCELLATION CLERK LAB BLOOD ORDERABLES Final Result [facility] [address] [place] [address], [facility] [phone] from Last 3 Months Insurance BLUE CROSS/BLUE SHIELD Advance Directives For more information, please contact: [phone] * Full Code (Latest Code Status on File) Date Activated Date Inactivated Comments 06/08/2025 1:17 PM 06/10/2025 12:00 PM Care Teams Hog Buyer Relationship Specialty Start Date End Date Parish Aldrich MD [address] [place] [address] [place] [id number] PCP - General Internal Medicine 06/06/25
--- OUTSIDE RECORDS SUMMARY | 2025-06-11 10:25 | XMS_ITS | Referral Summary ---
Author Organization [employer] ([place], [place], [place], [place]) Address [address] [place] [address] Care Team Providers Care Director Hair Name Role Phone Parish Aldrich MD Primary Care Provider + Encounters Date Type Department Care Team Description 06/11/2025 Telephone [facility] [address] [place] [address] Parish Aldrich MD Hospital Follow Up 06/08/2025 12:23 PM EDT - 06/10/2025 11:00 AM EDT Hospital Encounter [facility] Medical Surgical Unit [address] [place] [phone] Zen Sinclair DO Qureshi, Saadia, DO Caldwell, Kristinalin, APRN Cellulitis of left lower extremity (Primary Dx) Discharge Disposition: Home or Self Care 06/08/2025 Travel 06/06/2025 12:04 PM EDT - 06/06/2025 12:43 PM EDT Emergency [facility] Emergency Department [address] [place] [phone] Ahmet Lopez MD Cellulitis (Primary Dx) Discharge Disposition: Home or Self Care from Last 3 Months Allergies No known active allergies Medications amoxicillin-clav ulanate (AUGMENTIN) 875-125 mg per tablet Take 1 tablet by mouth 2 (two) times daily with breakfast and dinner for 10 days. 20 tablet 06/16/20 25 Active aspirin 81 MG EC [...] Problem Noted Date Diagnosed Date Cellulitis 06/08/2025 Immunizations Name Administration Dates Next Due Tdap [...] 06/08/2025 12:25 PM EDT Plan of Treatment Not on file Procedures Procedure Name Priority Date/Time Associated Diagnosis [...] of6 resultswithin the time period is included. Pathologist [facility] POC-GLUCOSE 157(H) 70 - 99 mg/dL 06/10/2025 6:34 AM EDT [facility] Comment:In the event of poor peripheral blood flow, venous or arterial blood should be used due to the potential of erroneous results. Architectural Wood Model Maker [id number] 06/10/2025 6:34 AM EDT [facility] Blood WHOLE BLOOD / Unknown 06/10/2025 6:13 AM EDT 06/10/2025 6:34 AM EDT Narrative [facility] - 06/10/2025 6:34 AM EDT Architectural Wood Model Maker ID is - [id number] us Amanda Dial DO POINT OF CARE TEST ORDERABLES Final Result Performing Organization Address City/[facility]/ZIP Co de Phone Number [facility] [address] [place] [address] * (ABNORMAL) PROTIME-INR (06/10/2025 4:52 AM EDT) Only the most recent of2 resultswithin the time period is included. Protime 15.8(H) 9.0 - 12.0 seconds 06/10/2025 5:55 AM EDT [facility] INR 1.60(H) 0.80 - 1.10 06/10/2025 5:55 AM EDT [facility] Comment: Recommended therapeutic ranges [...] DO LAB BLOOD ORDERABLES Final Res ult [facility] [address] [place] [address] * XR leg / tibia and fibula [...] noted of the knee joint. Procedure Note Rioc Brown MD - 06/09/2025 LEFT TIBIA AND [...] by Rico Brown MD Amanda Dial DO [facility] DIAGNOSTIC IMAGING ORDERAB LES Final Result * (ABNORMAL) CBC - Hemogram (SJ-BKR) (06/09/2025 3:45 AM EDT) WBC 8.2 4.8 - 10.8 K/ L 06/09/2025 4:30 AM EDT [facility] RBC 3.73(L) 3.80 - 5.20 M/ L 06/09/2025 4:30 AM EDT [facility] Hemoglobin 11.5(L) 12.8 - 17.4 GM/DL 06/09/2025 4:30 AM EDT [facility] Hematocrit 34.9(L) 39.0 - 51.0 % 06/09/2025 4:30 AM EDT [facility] MCV 94 81 - 101 fL 06/09/2025 4:30 AM EDT [facility] MCH 30.8 27.0 - 34.0 pg 06/09/2025 4:30 AM EDT [facility] MCHC 33.0 32.0 - 36.0 GM/DL 06/09/2025 4:30 AM EDT [facility] RDW 14.6(H) 11.5 - 14.5 % 06/09/2025 4:30 AM EDT [facility] Platelets 267 150 - 400 K/CU MM 06/09/2025 4:30 AM EDT [facility] MPV 10.9 9.4 - 12.4 fL 06/09/2025 4:30 AM EDT [facility] Blood Venipuncture / Unknown 06/09/2025 3:45 AM EDT 06/09/2025 4:21 AM EDT [facility] ORDERAB[facility] Final Res ult Performing Organization Address City/[facility]/ZIP Co de Phone Number [facility] [address] [phone] * (ABNORMAL) C-Reactive Protein (06/09/2025 3:45 AM EDT) Only the most recent of3 resultswithin the time period is included. CRP 10.40(H) 0.05 - 0.25 mg/dL 06/09/2025 4:38 AM EDT [facility] Blood Venipuncture / Unknown 06/09/2025 3:45 AM EDT 06/09/2025 4:22 AM [facility]T [facility] Final Res ult [facility] [address] [phone] * (ABNORMAL) PT/INR, PTT (06/08/2025 3:11 PM EDT) aPTT 58.1(H) 22.0 - 32.0 seconds 06/08/2025 3:45 PM EDT [facility] Protime 52.4(HH) 9.0 - 12.0 seconds 06/08/2025 3:45 PM EDT [facility] INR 5.64(HH) 0.80 - 1.10 06/08/2025 3:45 PM EDT [facility] Blood Venipuncture / Unknown 06/08/2025 3:11 PM EDT 06/08/2025 3:11 PM EDT us Amanda Dial DO LAB BLOOD ORDERABLES Final Res ult [facility] [address] [phone] * CT lower extremity with IV contrast [...] bony abnormality identified. us Natalie Osman NP IMG CT ORDERABLES Final Result * (ABNORMAL) CBC with Auto Diff (06/08/2025 12:35 PM EDT) Only the most recent of2 resultswithin the time period is included. WBC 10.2 4.8 - 10.8 K/ L 06/08/2025 1:02 PM EDT [facility] RBC 4.34 3.80 - 5.20 M/ L 06/08/2025 1:02 PM EDT [facility] Hemoglobin 13.4 12.8 - 17.4 GM/DL 06/08/2025 1:02 PM EDT [facility] Hematocrit 39.9 39.0 - 51.0 % 06/08/2025 1:02 PM EDT [facility] MCV 92 81 - 101 fL 06/08/2025 1:02 PM EDT [facility] MCH 30.9 27.0 - 34.0 pg 06/08/2025 1:02 PM EDT [facility] MCHC 33.6 32.0 - 36.0 GM/DL 06/08/2025 1:02 PM EDT [facility] RDW 14.6(H) 11.5 - 14.5 % 06/08/2025 1:02 PM EDT [facility] Platelets 309 150 - 400 K/CU MM 06/08/2025 [facility] MPV 10.9 9.4 - 12.4 fL 06/08/2025 1:02 PM EDT [facility] Nucleated Red Blood Cell 0.0 0 - 0.2 % 06/08/2025 1:02 PM EDT [facility] % Neutros 84(H) 37 - 80 % 06/08/2025 1:02 PM EDT [facility] % Lymphs 7(L) 10 - 50 % 06/08/2025 1:02 PM EDT [facility] % Monos 8 5 - 13 % 06/08/2025 1:02 PM EDT [facility] % Eos 0 0 - 7 % 06/08/2025 1:02 PM EDT [facility] % Baso 0 0 - 3 % 06/08/2025 1:02 PM EDT [facility] NRBC Absolute <0.01 0 - 0.012 K/ul 06/08/2025 1:02 PM EDT [facility] # Neutros 8.58(H) 2.00 - 6.90 K/ L 06/08/2025 1:02 PM EDT [facility] # Lymphs 0.71 0.60 - 3.40 K/ L 06/08/2025 1:02 PM EDT [facility] # Monos 0.78 0.00 - 0.90 K/ L 06/08/2025 1:02 PM EDT [facility] # Eos 0.03 0.00 - 0.70 K/ L 06/08/2025 1:02 PM EDT [facility] # Baso 0.03 0.00 - 0.20 K/ L 06/08/2025 1:02 PM EDT [facility] Immature Granulocytes-Re lative 0.60 % 06/08/2025 1:02 PM EDT [facility] # IG 0.06(H) 0.00 - 0.00 K/uL 06/08/2025 1:02 PM EDT [facility] Blood Venipuncture / Unknown 06/08/2025 12:35 PM EDT 06/08/2025 12:56 PM EDT Narrative [facility] - 06/08/2025 1:02 PM [...] Blast? Flag noted Atypical Lymph flag noted Natalie Lydiange LOANS OFFICER LAB BLOOD ORDERABLES Final Res ult Performing Organization Address City/[facility]/ZIP Co de Phone Number [facility] [address] [place] [address], [facility] [phone] * Lactic Acid with reflex (SJ) (06/08/2025 12:35 PM EDT) Lactic Acid Level (mmol/L) 1.5 0.4 - 2.0 mmol/L 06/08/2025 1:21 PM EDT [facility] Comment:If a Lactic Acid Lev el with Reflex if Indicated result is greater than 2.0, a Lactic Acid Level will be ordered to be collected 2 hours after the original collection time. Blood Venipuncture / Unknown 06/08/2025 12:35 PM EDT 06/08/2025 12:56 PM EDT Natalie J Strange LOANS OFFICER LAB BLOOD ORDERABLES Final Res ult [facility] [address] [place] [address], [facility] [phone] * (ABNORMAL) Sedimentation rate (06/08/2025 12:35 PM EDT) Only the most recent of2 resultswithin the time period is included. Sed Rate 46(H) 0 - 20 mm/HR 06/08/2025 1:21 PM EDT [facility] Blood Venipuncture / Unknown 06/08/2025 12:35 PM EDT 06/08/2025 12:56 PM EDT us Natalie Osman LOANS OFFICER LAB BLOOD ORDERABLES Final Res ult [facility] [address] [place] [address], [facility] [phone] * (ABNORMAL) Comprehensive metabolic panel (06/08/2025 12:35 PM EDT) Only the most recent of2 resultswithin the time period is included. Sodium 135(L) 136 - 145 meq/L 06/08/2025 1:20 PM EDT [facility] Potassium 3.7 3.5 - 5.1 meq/L 06/08/2025 1:20 PM EDT [facility] Chloride 101 98 - 107 meq/L 06/08/2025 1:20 PM EDT [facility] CO2 27 21 - 32 meq/L 06/08/2025 1:20 PM EDT [facility] Calcium 9.3 8.5 - 10.1 mg/dL 06/08/2025 1:20 PM EDT [facility] Glucose 143(H) 70 - 99 mg/dL 06/08/2025 1:20 PM EDT [facility] BUN 14 7 - 18 mg/dL 06/08/2025 1:20 PM EDT [facility] Creatinine 1.28(H) 0.70 - 1.20 mg/dL 06/08/2025 1:20 PM EDT [facility] BUN/Creatinine 11 06/08/2025 1:20 PM EDT [facility] Albumin 3.4 3.4 - 5.0 g/dL 06/08/2025 1:20 PM EDT [facility] Alkaline Phosphatase 68 46 - 116 U/L 06/08/2025 1:20 PM EDT [facility] ALT 21 12 - 78 U/L 06/08/2025 1:20 PM EDT [facility] AST 18 15 - 37 U/L 06/08/2025 1:20 PM EDT [facility] Total Bilirubin 0.7 0.2 - 1.0 mg/dL 06/08/2025 1:20 PM EDT [facility] Protein, Total 7.4 6.4 - 8.2 gm/dL 06/08/2025 1:20 PM EDT [facility] Anion Gap 11 11 - 22 06/08/2025 1:20 PM EDT [facility] A/G Ratio 0.9 06/08/2025 1:20 PM EDT [facility] Globulin 4.0 g/dL 06/08/2025 1:20 PM EDT [facility] Osmolality Calc 273.0 mOsm/kg 1:20 PM EDT [facility] eGFR (mL/min/1.73m2) >60 >=60 mL/min/1.7 3m2 06/08/2025 1:20 PM EDT [facility] Comment:ESTIMATED GFR IS NOT ACCURATE CREATININE CLEARANCE IN PREDICTING GLOMERULAR FILTRATION RATE. ESTIMATED GFR IS NOT APPLICABLE FOR DIALYSIS PATIENTS. Blood Venipuncture / Unknown 06/08/2025 12:35 PM EDT 06/08/2025 12:56 PM EDT us Natalie Osman NP LAB BLOOD ORDERABLES Final Res ult [facility] [address] [place] [address], [facility] [phone] * XR foot 3 views left (06/06/2025 [...] - 308 U/L 06/06/2025 12:46 PM EDT [facility] Blood VENOUS LINE / Unknown Venipuncture / Unknown 06/06/2025 12:16 PM EDT 06/06/2025 12:20 PM EDT Johnnie Davis APRN LAB BLOOD ORDERABLES Final Result Performing Organization Address City/State/[facility] Co de Phone Number [facility] [address] [place] [address], [facility] [phone] from Last 3 Months Insurance BLUE CROSS/BLUE SHIELD Advance Directives For more information, please contact: [phone] * Full Code (Latest Code Status on File) Date Activated Date Inactivated Comments 06/08/2025 1:17 PM 06/10/2025 12:00 PM Care Teams Director Hair Relationship Specialty Start Date End Date Parish Aldrich MD [address] [place] [id number] PCP - General Internal Medicine 06/06/25
--- OUTSIDE RECORDS SUMMARY | 2025-06-11 10:25 | XMS_ITS | Encounter Summary ---
Author Organization [employer] ([place], [place], [place], [place]) Address [address] [place] [address] Care Team Providers Care Summer Intern Name Role Phone Parish Aldrich MD Primary Care Provider + Encounter Details Date Type Department Care Team (Latest Contact Info) Description 06/08/2025 Travel Social History Tobacco Use Types Packs/Day Years [...] on file documented as of this encounter Plan of Treatment Not on file documented as of this encounter Visit Diagnoses Not on filedocumented in this encounter Care Teams Summer Intern Relationship Specialty Start Date End Date Parish Aldrich MD [address] [place] [address] PCP - General Internal Medicine 06/06/25 documented as of this encounter
--- OUTSIDE RECORDS SUMMARY | 2025-06-11 10:25 | XMS_ITS | Clinical Summary ---
Author Organization Healthcare Address [address] [place] [address] Care Team Providers Care Technical Operations Vice President Name Role Phone Parish Ann MD Unavailable [phone] Parish Aldrich DO Primary Care Provider [phone] Allergies No known active allergies Medications aspirin [...] arrived to ICU intubated - bated to CA - trending ABGs - Diurese, CXR as [...] place to sleep or slept in a chcf (including now)? 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 on file [...] 2016 [facility]-Diabetes: Hemoglobin A1C 06/24/2024 12/26/2023, 12/19/2023 [id number]-IEUUN-80 Vaccine (3 - 2023- season) 2024 10/16/2021, 09/28/2021 [facility]-Influenza Vaccine (#1) 2025 [facility]-Obesity Intervention Completed 024, 12/19/2023, 11/22/2023, [...] this topic Medical Devices Implanted Type Area State Comptroller Device Identifier Shelf Expiration Date Model / Serial / Lot Valve Mitral 31mm Rotatabl Cuf Std - [id number] - [id number] Implanted:Qty: 1 on 12/25/2023 by Cory Mehta MD at [facility] [id number] 08/25/2028 [id number] / [id number] / [id number] Procedures Procedure Name Priority Date/Time Associated Diagnosis [...] Adults <6.0% Children and Adolescents <7.5% Source: [place] [employer]. Standards of medical care in diabetes,2017. Diabetes Care.2017:40 (suppl 1):S1-S135. HbA1c assay performed by an ion-exchange chromatography method that is certified traceable to the DCCT. Cory Mehta MD LAB BLOOD ORDERABLES Final R esult [facility] [address] [place] [address] from Last 3 Months or Most Recently Relevant to Health Maintenance Insurance Advance Directives * Full Code (Latest Code Status on File) Date Activated Date Inactivated Comments 12/25/2023 3:05 PM 12/31/2023 4:35 PM Question Answer Comments Patient has decision-making capacity? Yes Care Teams Technical Operations Vice President Relationship Specialty Start Date End Date Parish Aldrich DO [address] [facility] [address] [place] [address] PCP - General 11/21/23 Parish Ann MD [address] [address] Referring Physician 11/12/23
[2025-06-11 11:15] LABS: PHA INR Fingerstick 2.0 (0.9-1.1)
== END 2025-06-11 11:22 ==
LOC: ACC 10:22
PROVIDERS: PCP Internal Medicine; Visit Provider Internal Medicine
DX: Z95.2 Presence of prosthetic heart valve (principal)
CPT/HCPCS: 85610; 99211; G0463

== ENCOUNTER 2025-06-16 08:33 | Outpatient (CLI) | payer BC, SELFPAY ==
--- OUTSIDE RECORDS SUMMARY | 2025-06-06 12:04 | XMS_ITS | Encounter Summary ---
Author Organization [employer] ([place], [place], [place], [place]) Address [address] [place] [address] Care Team Providers Care Political Theory Professor Name Role Phone Parish Aldrich MD Primary Care Provider + Reason for Visit * Reason Comments Foot Pain Stepped on small ajay l several days ago, reports redness, swelling to L foot Encounter Details Date Type Department Care Team (Late st Contact Info) Description 06/06/2025 12:04 PM EDT - 06/06/2025 12:43 PM EDT Emergency [facility] Emergency Department [address] [place] [phone] Ahmet Lopez MD [address] [place] [address] Cellulitis (Primary Dx) Discharge Disposition: Home or Self Care Social History Tobacco Use Types Packs/Day Years Used Date Smoking Tobacco: Never Smokeless Tobacco: Never Tobacco Cessation:Counseling Given: Not Answered Alcohol Use Standard Drinks/Week Comments Not Currently 0 (1 standard drink = 0.6 oz pur e alcohol) Sex and Gender Information Value Date Recorded Sex Assigned at Not on file Legal Sex Male 7:32 PM CDT Gender Identity Not on file Sexual Orientation Not on file documented as of this encounter Last Filed Vital Signs Vital Sign Reading Time Taken Comments Blood Pressure 158/83 06/06/2025 12:13 PM EDT Pulse 72 06/06/2025 12:13 PM EDT Temperature 36.8 C (98.2 F) 06/06/2025 12:13 PM EDT Respiratory Rate 17 06/06/2025 12:13 PM EDT Oxygen Saturation 98% 06/06/2025 12:13 PM EDT Inhaled Oxygen Concentration - - Weight 90.7 kg (200 lb) 06/06/2025 12:13 PM EDT Height 182.9 cm (6') 06/06/2025 12:13 PM EDT Body Mass Index 27.12 06/06/2025 12:13 PM EDT documented in this encounter Discharge Instructions * Discharge Instructions* Johnnie Davis APRN - 06/06/2025 12:25 PM EDT Patient is take antibiotics as prescribed. You are to follow-up with your PCP this week for recheck. If the redness swelling pain worsens or you feel necessary return to the emergency department. Youcan use ice and elevation and Tylenol Motrin for symptomatic relief. * Attachments The following attachments cannot be sent through Care Everywhere. * Cellulitis Adult [id number] (Thai) documented in this encounter Medications at Time of Discharge amoxicillin-clav ulanate (AUGMENTIN) 875-125 mg per tablet Take 1 tablet by mouth 2 (two) times daily with breakfast and dinner for 10 days. 20 tablet 06/06/2025 documented as of this encounter ED Notes * Johnnie Davis APRN - 06/06/2025 12:17 PM EDT Subjective Chief Complaint: Foot Pain (Stepped on small nail several days ago, reports redness, swelling to L foot) HPI patient is a 59-year-old male who presents to the emergency department due to left foot swelling after stepping on a nail 2 days ago. Patient is diabetic currently taking Coumadin for artificial valve. Patient notes the area was irrigated at home however upon awakening today had swelling and redness to the affected foot. He denies any discharge from the puncture wound. He is not up-to-date onhis tetanus vaccination. Patient denies pain he has full range of motion and ambulating without difficulty. Patient History Past Medical History: Diagnosis Date Diabetes mellitus (HCC) GERD (gastroesophageal reflux disease) Hyperlipidemia Hypertension Past Surgical History: Procedure Laterality Date CARDIAC VALVE REPLACEMENT CORONARY ARTERY BYPASS GRAFT No family history on file. Social History Tobacco Use Smoking status: Never Smokeless tobacco: Never Substance Use Topics Alcohol use: Not Currently I reviewed the HPI, ROS and PFSH documentation recorded by others in the medical record and supplemented my note as needed. Review of Systems Review of Systems Skin: Positive for color change and wound. All other systems reviewed and are negative. Physical Exam ED Triage Vitals [06/06/25 1213] Encounter Vitals Group BP (!) 158/83 Systolic BP Percentile Diastolic BP Percentile Pulse 72 Resp 17 Temp 98.2 ??F (36.8 ??C) Temp src Temporal Art SpO2 98 % Weight 90.7 kg (200 lb) Height 1.829 m (6') Head Circumference Peak Flow Pain Score One Pain Loc Pain Education Exclude from Growth Chart Physical Exam Vitals and nursing note reviewed. Constitutional: General: He is not in acute distress. Appearance: He is not ill-appearing. HENT: Head: Normocephalic and atraumatic. Right Ear: External ear normal. Left Ear: External ear normal. Nose: Nose normal. No congestion. Mouth/Throat: Mouth: Mucous membranes are moist. Eyes: Pupils: Pupils are equal, round, and reactive to light. Cardiovascular: Rate and Rhythm: Normal rate and regular rhythm. Pulses: Normal pulses. Heart sounds: Normal heart sounds. No murmur heard. Pulmonary: Effort: Pulmonary effort is normal. No respiratory distress. Breath sounds: Normal breath sounds. No stridor. No wheezing, rhonchi or rales. Chest: Chest wall: No tenderness. Abdominal: General: Bowel sounds are normal. There is no distension. Palpations: Abdomen is soft. Tenderness: There is no abdominal tenderness. There is no right CVA tenderness, left CVA tendernessor guarding. Musculoskeletal: General: No swelling or tenderness. Normal range of motion. Cervical back: Normal range of motion and neck supple. No tenderness. Right lower leg: No edema. Left lower leg: No edema. Skin: General: Skin is warm and dry. Capillary Refill: Capillary refill takes less than 2 seconds. Coloration: Skin is not jaundiced. Findings: Erythema and lesion present. No rash. Comments: Foot is swollen and reddened with warmth to the touch. He has a small puncture wound thatis not actively draining appears to be healing. Neurological: General: No focal deficit present. Mental Status: He is alert and oriented to person, place, and time. Mental status is at baseline. Motor: No weakness. Psychiatric: Mood and Affect: Mood normal. Behavior: Behavior normal. Thought Content: Thought content normal. Judgment: Judgment normal. Neurological Exam Mental Status Alert. Oriented to person, place, and time. Cranial Nerves CN III, IV, : Pupils equal round and reactive to light bilaterally. Ortho Exam ED Course & MDM Medications iopamidoL (ISOVUE-370) 370 mg iodine /mL (76 %) injection 75 mL (has no administration in time range) diphth,pertus(acell),tetanus (BOOSTRIX) vaccine 0.5 mL (0.5 mLs intraMUSCULAR Given 06/06/25 1238) Results for orders placed or performed during the hospital encounter of 06/06/25 CBC with Auto Diff Result Value Ref Range WBC 9.7 4.8 - 10.8 K/??L RBC 4.24 3.80 - 5.20 M/??L Hemoglobin 13.1 12.8 - 17.4 GM/DL Hematocrit 39.3 39.0 - 51.0 % MCV 93 81 - 101 fL MCH 30.9 27.0 - 34.0 pg MCHC 33.3 32.0 - 36.0 GM/DL RDW 14.8 (H) 11.5 - 14.5 % Platelets 271 150 - 400 K/CU MM MPV 11.0 9.4 - 12.4 fL Nucleated Red Blood Cell 0.0 0 - 0.2 % % Neutros 76 37 - 80 % % Lymphs 13 10 - 50 % % Monos 9 5 - 13 % % Eos 2 0 - 7 % % Baso 0 0 - 3 % NRBC Absolute <0.01 0 - 0.012 K/ul # Neutros 7.36 (H) 2.00 - 6.90 K/??L # Lymphs 1.29 0.60 - 3.40 K/??L # Monos 0.83 0.00 - 0.90 K/??L # Eos 0.17 0.00 - 0.70 K/??L # Baso 0.02 0.00 - 0.20 K/??L Immature Granulocytes-Relative 0.30 % # IG 0.03 (H) 0.00 - 0.00 K/uL Sedimentation rate Result Value Ref Range Sed Rate 36 (H) 0 - 20 mm/HR XR foot 3 views left (Results Pending) ED Course as of 06/06/25 1242 Randi Jun 06, [address] Lopez: I saw the patient [id number]. I performed a substantive portion of the MDM. [AR] ED Course User Index [AR] Ahmet Lopez MD Procedures Medical Decision Making Patient presented to the emergency department due to left foot redness and swelling after stepping on a nail 2 days prior. 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 She notes that she did irrigate the puncture site extensively the day of injury. Patient was not up-to-date on tetanus booster and given 1 here in the emergency department. Through shared decision making with family it was opted to perform the lab work and defer CT imaging at this time. Plain films per my interpretation showed no acute process or foreign body. Patient at this time will be discharged on Augmentin p.o. twice daily for close follow-up with PCP. I have instructed patient and family to follow-up to the emergency department if symptoms worsen persist or they feel necessary. Amount and/or Complexity of Data Reviewed Labs: ordered. Radiology: ordered. Risk Prescription drug management. Assessment & Plan Clinical Impression Diagnosis Comment Added By Time Added Cellulitis Johnnie Davis, REBECCA 06/06/2025 12:24 PM Disposition Discharge [1] - 06/06/2025 12:23 PM New Prescriptions AMOXICILLIN-CLAVULANATE (AUGMENTIN) 875-125 MG PER TABLET Take 1 tablet by mouth 2 (two) times daily with breakfast and dinner for 10 days. Contact information for follow-up Parish Aldrich MD Specialty: Internal Medicine Relationship: PCP - General [address] [place] [address] Next Steps: Call in 1 day(s) Instructions: Follow-up ED visit Electronically Signed By Johnnie Davis APRN 06/06/25 1242 Johnnie Davis APRN 06/06/25 1242 Cosigned by Ahmet Lopez MD at 06/06/2025 1:14 PM EDT Associated attestation - Ahmet Lopez MD - 06/06/2025 12:14 PM CDT This visit was performed by both the physician and an APC. I personally evaluated and examined thepatient. I performed all aspects of the MDM as documented. . documented in this encounter Plan of Treatment Not on file documented as of this encounter Procedures Procedure Name Priority Date/Time Associated Diagnosis Comments XR FOOT 3 VIEWS LEFT STAT 06/06/2025 12:31 PM EDT CBC W/ AUTO DIFF STAT 06/06/2025 12:1 6 PM EDT C-REACTIVE PROTEIN STAT 06/06/2025 12 :16 PM EDT SEDIMENTATION RATE STAT 06/06/2025 12 :16 PM EDT CREATINE KINASE (CK) STAT 06/06/2025 12:16 PM EDT COMPREHENSIVE METABOLIC PANEL STAT 06/06/2025 12:16 PM EDT documented in this encounter Results * XR foot 3 views left (06/06/2025 12:31 PM EDT) Anatomical Region Laterality Modality Foot, Ankle X-Ray 06/06/2025 12:4 8 PM EDT Impressions 06/06/2025 1:20 PM EDT No acute bony abnormality. Images reviewed, interpreted, and dictated by Dr. Casa Hung. Transcribed by Taiwo Bravo PA-C. Narrative 06/06/2025 1:20 PM EDT LEFT FOOT HISTORY: Left foot pain. Recent laceration. FINDINGS: Three views show no evidence of an acute, displaced fracture or dislocation of the visualized bony architecture. There is a moderate-sized plantar calcaneal spur. There is soft tissue swelling. There is no radiopaque foreign body. There is facet calcification is likely due to underlying diabetes. Procedure Note Casa Hung MD - 06/06/2025 LEFT FOOT HISTORY: Left foot pain. Recent laceration. FINDINGS: Three views show no evidence of an acute, displaced fracture or dislocation of the visualized bony architecture. There is a moderate-sized plantar calcaneal spur. There is soft tissue swelling. There is no radiopaque foreign body. There is facet calcification is likely due to underlying diabetes. IMPRESSION: No acute bony abnormality. Images reviewed, interpreted, and dictated by Dr. Casa Hung. Transcribed by Taiwo Bravo PA-C. Johnnie Davis APRN IMG DIAGNOSTIC IMAGIN G ORDERABLES Final Result * (ABNORMAL) Sedimentation rate (06/06/2025 12:16 PM EDT) Sed Rate 36(H) 0 - 20 mm/HR 06/06/2025 12:41 PM EDT [facility] Blood VENOUS LINE / Unknown Venipuncture / Unknown 06/06/2025 12:16 PM EDT 06/06/2025 12:20 PM EDT Johnnie Davis APRN LAB BLOOD ORDERABLES Final Result [facility] [address] [place] [address] * (ABNORMAL) C-Reactive Protein (06/06/2025 12:16 PM EDT) CRP 15.00(H) 0.05 - 0.25 mg/dL 06/06/2025 12:46 PM EDT [facility] Blood VENOUS LINE / Unknown Venipuncture / Unknown 06/06/2025 12:16 PM EDT 06/06/2025 12:20 PM EDT us Johnnie Davis APRN LAB BLOOD ORDERABLES Final Result [facility] [address] [place] [address] * Creatine Kinase (CK) (06/06/2025 12:16 PM EDT) Total CK 195 39 - 308 U/L 06/06/2025 12:46 PM EDT [facility] Blood VENOUS LINE / Unknown Venipuncture / Unknown 06/06/2025 12:16 PM EDT 06/06/2025 12:20 PM EDT Johnnie Davis APRN LAB BLOOD ORDERABLES Final Result Performing Organization Address [facility]/ZIP Co de Phone Number [facility] [address] [place] [address] * (ABNORMAL) Comprehensive metabolic panel (06/06/2025 12:16 PM EDT) Sodium 138 136 - 145 meq/L 06/06/2025 12:46 PM EDT [facility] Potassium 3.8 3.5 - 5.1 meq/L 06/06/2025 12:46 PM EDT [facility] Chloride 104 98 - 107 meq/L 06/06/2025 12:46 PM EDT [facility] CO2 29 21 - 32 meq/L 06/06/2025 12:46 PM EDT [facility] Calcium 9.1 8.5 - 10.1 mg/dL 06/06/2025 12:46 PM EDT [facility] Glucose 140(H) 70 - 99 mg/dL 06/06/2025 12:46 PM EDT [facility] BUN 13 7 - 18 mg/dL 06/06/2025 12:46 PM EDT [facility] Creatinine 1.23(H) 0.70 - 1.20 mg/dL 06/06/2025 12:46 PM EDT [facility] BUN/Creatinine 11 06/06/2025 12:46 PM EDT [facility] Albumin 3.3(L) 3.4 - 5.0 g/dL 06/06/2025 12:46 PM EDT [facility] Alkaline Phosphatase 71 46 - 116 U/L 06/06/2025 12:46 PM EDT [facility] ALT 21 12 - 78 U/L 06/06/2025 12:46 PM EDT [facility] AST 19 15 - 37 U/L 06/06/2025 12:46 PM EDT [facility] Total Bilirubin 0.5 0.2 - 1.0 mg/dL 06/06/2025 12:46 PM EDT [facility] Protein, Total 7.2 6.4 - 8.2 gm/dL 06/06/2025 12:46 PM EDT [facility] Anion Gap 9(L) 11 - 22 06/06/2025 12:46 PM EDT [facility] A/G Ratio 0.8 06/06/2025 12:46 PM EDT [facility] Globulin 3.9 g/dL 06/06/2025 12:46 PM EDT [facility] Osmolality Calc 278.1 mOsm/kg 12:46 PM EDT [facility] eGFR (mL/min/1.73m2) >60 >=60 mL/min/1.7 3m2 06/06/2025 12:46 PM EDT [facility] Comment:ESTIMATED GFR IS NOT ACCURATE CREATININE CLEARANCE IN PREDICTING GLOMERULAR FILTRATION RATE. ESTIMATED GFR IS NOT APPLICABLE FOR DIALYSIS PATIENTS. Blood VENOUS LINE / Unknown Venipuncture / Unknown 06/06/2025 12:16 PM EDT 06/06/2025 12:20 PM EDT us Johnnie Davis SENIOR ACCOUNTS PAYABLE CLERK LAB BLOOD ORDERABLES Final Result [facility] [address] [id number] [phone] * (ABNORMAL) CBC with Auto Diff (06/06/2025 12:16 PM EDT) WBC 9.7 4.8 - 10.8 K/ L 06/06/2025 12:23 PM EDT [facility] RBC 4.24 3.80 - 5.20 M/ L 06/06/2025 12:23 PM EDT [facility] Hemoglobin 13.1 12.8 - 17.4 GM/DL 06/06/2025 12:23 PM EDT [facility] Hematocrit 39.3 39.0 - 51.0 % 06/06/2025 12:23 PM EDT [facility] MCV 93 81 - 101 fL 06/06/2025 12:23 PM EDT [facility] MCH 30.9 27.0 - 34.0 pg 06/06/2025 12:23 PM EDT [facility] MCHC 33.3 32.0 - 36.0 GM/DL 06/06/2025 12:23 PM EDT [facility] RDW 14.8(H) 11.5 - 14.5 % 06/06/2025 12:23 PM EDT [facility] Platelets 271 150 - 400 K/CU MM 06/06/2025 12:23 PM EDT [facility] MPV 11.0 9.4 - 12.4 fL 06/06/2025 12:23 PM EDT [facility] Nucleated Red Blood Cell 0.0 0 - 0.2 % 06/06/2025 12:23 PM EDT [facility] % Neutros 76 37 - 80 % 06/06/2025 12:23 PM EDT [facility] % Lymphs 13 10 - 50 % 06/06/2025 12:23 PM EDT [facility] % Monos 9 5 - 13 % 06/06/2025 12:23 PM EDT [facility] % Eos 2 0 - 7 % 06/06/2025 12:23 PM EDT [facility] % Baso 0 0 - 3 % 06/06/2025 12:23 PM EDT [facility] NRBC Absolute <0.01 0 - 0.012 K/ul 06/06/2025 12:23 PM EDT [facility] # Neutros 7.36(H) 2.00 - 6.90 K/ L 06/06/2025 12:23 PM EDT [facility] # Lymphs 1.29 0.60 - 3.40 K/ L 06/06/2025 12:23 PM EDT [facility] # Monos 0.83 0.00 - 0.90 K/ L 06/06/2025 12:23 PM EDT [facility] # Eos 0.17 0.00 - 0.70 K/ L 06/06/2025 12:23 PM EDT [facility] # Baso 0.02 0.00 - 0.20 K/ L 06/06/2025 12:23 PM EDT [facility] Immature Granulocytes-Re lative 0.30 % 06/06/2025 12:23 PM EDT [facility] # IG 0.03(H) 0.00 - 0.00 K/uL 06/06/2025 12:23 PM EDT [facility] Blood VENOUS LINE / Unknown Venipuncture / Unknown 06/06/2025 12:16 PM EDT 06/06/2025 12:20 PM EDT Narrative [facility] - 06/06/2025 12:23 PM EDT When CBC w/ Auto Diff is ordered the lab will add a Manual Differential as a quality check at no additional charge if: Lymphocytes greater than seventy five percent with normal or increased WBC Monocytes greater than Fifteen percent Basophil greater than four percent Bands >10% or several immature myeloids are seen on scan Blast? Flag noted Atypical Lymph flag noted Johnnie Davis SENIOR ACCOUNTS PAYABLE CLERK LAB BLOOD ORDERABLES Final Result [facility] [address] [place] [address] documented in this encounter Visit Diagnoses Diagnosis Cellulitis- Primary Cellulitis and abscess of unspecified site documented in this encounter Administered Medications Inactive Administered Medications - up to 3 most recent administrations Medication Order MAR Action Action Date Dose Rate Site iopamidoL (ISOVUE-370) 370 mg iodine /mL (76 %) injection 75 mL 75 mL IMG once as needed, intravenous, contrast, Starting on 06/06/25 at 1218, For 1 dose, Intra-op documented in this encounter Active and Recently Administered Medications Times are shown in EDT. PRN Medication Order 06/04/2025 06/05/2025 06/06/2025 iopamidoL (ISOVUE-370) 370 mg iodine /mL (76 %) injection 75 mL 75 mL IMG once as needed, intravenous, contrast, Starting on 06/06/25 at 1218, For 1 dose, Intra-op documented in this encounter Care Teams Political Theory Professor Relationship Specialty Start Date End Date Parish Aldrich MD [address] [place] [id number] PCP - General Internal Medicine 06/06/25 documented as of this encounter
--- OUTSIDE RECORDS SUMMARY | 2025-06-08 12:23 | XMS_ITS | Encounter Summary ---
Author Organization [employer] ([place], [place], [place], [place]) Address [address] [place] [address] Care Team Providers Care Statistics Professor Name Role Phone Parish Aldrich MD Primary Care Provider + Reason for Visit * Reason Comments Foot Swelling Pt reports to denis s/swelling to L foot. Stepped on saturday. Redness/swelling began Saturday evening. * Auth/Cert (Routine) Specialty Diagnoses / Procedures Referred By Adeel t Referred To Contact Diagnoses Cellulitis Cellulitis of left lower extremity [facility] [address] [place] [phone] Phone: tel: fax: [facility] [address] [place] [phone] Phone: tel: fax: Referral ID Status Reason Start Date Expiration Date Visits Re quested Visits Authorized [id number] 1 1 Encounter Details Date Type Department Care Team (Late st Contact Info) Description 06/08/2025 12:23 PM EDT - 06/10/2025 11:00 AM EDT Hospital Encounter [facility] [address] [place] [phone] Zen Sinclair DO [address] [place] [address] Amanda Dial DO [address] [facility] [address] [place] [address] Marcella Méndez APRN [facility] [place] [address] Cellulitis of left lower extremity (Primary Dx) Discharge Disposition: Home or Self Care Social History Tobacco Use Types Packs/Day Years Used Date Smoking Tobacco: Never Smokeless Tobacco: Never Alcohol Use Standard Drinks/Week Comments Not Currently 0 (1 standard drink = 0.6 oz pur e alcohol) Sex and Gender Information Value Date Recorded Sex Assigned at Not on file Legal Sex Male 7:32 PM CDT Gender Identity Not on file Sexual Orientation Not on file documented as of this encounter Last Filed Vital Signs Vital Sign [place] Time Taken Comments Blood Pressure 144/82 06/10/2025 8:29 AM EDT Pulse 71 06/10/2025 8:29 AM EDT Temperature 36.7 C (98 F) 06/10/2025 8:29 AM EDT Respiratory Rate 16 06/10/2025 8:29 AM EDT Oxygen Saturation 99% 06/10/2025 8:29 AM EDT Inhaled Oxygen Concentration - - Weight 93 kg (205 lb) 06/08/2025 12:25 PM EDT Height 182.9 cm (6') 06/08/2025 12:25 PM EDT Body Mass Index 27.8 06/08/2025 12:25 PM EDT documented in this encounter Discharge Summaries * Amanda Dial DO - 06/10/2025 10:36 AM EDT Images from the original note were not included. Hospitalist Discharge Summary Patient Name: Armando Franco Date of : 1965 Discharging Physician: Amanda Dial DO Date of Admission: 06/08/2025 Date of Discharge: 06/10/25 PCP: Parish Aldrich MD Discharge Diagnoses: Consultations: Procedures: Radiology Results (last 3 days) Procedure Component Value Units Date/Time XR leg / tibia and fibula 2 views left [[id number]] Collected: 06/09/25 1040 Order Status: Completed Updated: 06/09/25 1046 Narrative: LEFT TIBIA AND FIBULA 2 VIEW HISTORY: Pain FINDINGS: Two views show no evidence of an acute, displaced fracture or dislocation of the visualized bony architecture. Subtle lucent lesion is seen of the mid tibial shaft measuring 12 mm. There is a thin sclerotic margin. Although nonspecific morphology strongly favors a benign nonaggressive lesion. Minimal degenerative changes are noted of the knee joint. Impression: 1. No acute bony abnormality 2. Nonspecific benign-appearing lucent lesion mid tibial shaft 3. Mild degenerative changes of the knee. Images reviewed, interpreted, and dictated by Rico Brown MD CT lower extremity with IV contrast left [[id number]] Collected: 06/08/251329 Order Status: Completed Updated: 06/08/251335 Narrative: CT of the left foot with IV contrast HISTORY: Redness and swelling of the left foot and stepped on a nail FINDINGS: Postcontrast imaging. No prior CT exams. This study was performed with techniques to keep radiation doses as low as reasonably achievable (ALARA). Individualized dose reduction techniques using automated exposure control or adjustment of mA and/or kV according to the patient's size were employed. There are no fractures. Joint compartments are maintained and are normally aligned. There is mild calcaneal spurring. There are no other significant degenerative changes. There are small accessory ossicles adjacent to the navicular. There is diffuse subcutaneous edema. There is no enhancing mass or focal fluid collection. There is arterial vascular calcification. There are no radiopaque foreign bodies. Impression: Findings are compatible with cellulitis. No abscess or acute bony abnormality identified. Recent Labs: Recent Labs Lab(s) Units 06/09/25 0345 WBC K/??L 8.2 HGB GM/DL 11.5* HCT % 34.9* PLT K/CU MM 267 Recent Labs Lab(s) Units 06/10/25 0613 06/08/25 1645 06/08/25 1235 NA meq/L -- -- 135* K meq/L -- -- 3.7 CL meq/L -- -- 101 CO2 meq/L -- -- 27 BUN mg/dL -- -- 14 CREATININE mg/dL -- -- 1.28* CALCIUM mg/dL -- -- 9.3 BILITOT mg/dL -- -- 0.7 ALKPHOS U/L -- -- 68 ALT U/L -- -- 21 AST U/L -- -- 18 GLUCOSE mg/dL 157* < > 143* < > = values in this interval not displayed. Discharge Medications: Your medication list START taking these medications Instructions Comments Quantity Refills Probiotic 3 billion cell Cap Generic drug: lactobacillus combination no.4 Take 1 capsule by mouth 2 (two) times daily. 20 capsule 0 CONTINUE taking these medications Instructions Comments Quantity Refills amoxicillin-clavulanate 875-125 mg per tablet Commonly known as: AUGMENTIN Take 1 tablet by mouth 2 (two) times daily with breakfast and dinner for 10 days. 20 tablet 0 aspirin 81 MG EC tablet Take 1 tablet (81 mg total) by mouth daily. 0 bisoprolol 5 MG tablet Commonly known as: ZEBETA Take 0.5 tablets (2.5 mg total) by mouth daily. 0 cyanocobalamin 1000 MCG tablet Take 1 tablet (1,000 mcg total) by mouth daily. 0 Fish OiL 340-1,000 mg Cap per capsule Generic drug: omega-3 fatty acids-fish oil Take 1 capsule (1 g total) by mouth daily. 0 Jardiance 10 mg tablet Generic drug: empagliflozin Take 1 tablet (10 mg total) by mouth daily. 0 metFORMIN 1000 MG tablet Commonly known as: GLUCOPHAGE Take 1 tablet (1,000 mg total) by mouth daily. 0 MOUNJARO SUBQ Inject 5 mg under the skin once a week. 0 multivitamin per tablet Take 1 tablet by mouth daily. 0 omeprazole 20 MG tablet Commonly known as: PriLOSEC OTC Take 1 tablet (20 mg total) by mouth daily. 0 * warfarin 6 MG tablet Commonly known as: COUMADIN Take 1 tablet (6 mg total) by mouth daily Except Saturday he takes 4mg . 0 * warfarin 4 MG tablet Commonly known as: COUMADIN Take 1 tablet (4 mg total) by mouth daily Only on Saturday . 0 * This list has 2 medication(s) that are the same as other medications prescribed for you. Read thedirections carefully, and ask your doctor or other care provider to review them with you. Where to Get Your Medications These medications were sent to [facility] [address], [place] - [address], [facility] [address] Probiotic 3 billion cell Cap Discharge Instructions: Diet: As tolerated Activity: As tolerated Follow-up: Follow-up with PCP within 1-2 weeks. Vital Signs: Vitals: 06/10/25 0829 BP: (!) 144/82 Pulse: 71 Resp: 16 Temp: 98 ??F (36.7 ??C) SpO2: 99% Physical Exam: Physical Exam Vitals reviewed. Constitutional: General: He is not in acute distress. Appearance: He is not toxic-appearing or diaphoretic. HENT: Right Ear: External ear normal. Left Ear: External ear normal. Mouth/Throat: Mouth: Mucous membranes are moist. Eyes: Extraocular Movements: Extraocular movements intact. Cardiovascular: Rate and Rhythm: Normal rate and regular rhythm. Pulses: Normal pulses. Heart sounds: No murmur heard. No gallop. Pulmonary: Effort: Pulmonary effort is normal. No respiratory distress. Breath sounds: No wheezing or rhonchi. Abdominal: Palpations: Abdomen is soft. Tenderness: There is no abdominal tenderness. There is no guarding. Musculoskeletal: Right lower leg: No edema. Left lower leg: Edema present. Comments: Left foot with erythema and swelling at the top of the foot. Erythema within the borders outlined in ED Neurological: General: No focal deficit present. Mental Status: He is alert and oriented to person, place, and time. Brief Hospital Course: In brief this is a very pleasant 59-year-old male past medical history mechanical mitral valve on Coumadin, type 2 diabetes who presented to the emergency department on 06/08 with complaints of left foot pain. Patient had previously stepped on a nail and had presented to the emergency department on 06/06. At that time patient was given a tetanus shot and prescribed Augmentin. However despite antibiotics the erythema and swelling worsened. Workup in the emergency department included a CT which confirmed cellulitis without abscess or bony abnormality. Patient was admitted and started on IV antibiotics vancomycin and Rocephin. Pharmacy was consulted to dose Coumadin. By day of discharge erythema and swelling had improved. Patient has worked with physical therapy and able to ambulate. Of note patient did have a subtherapeutic INR on day of discharge and was given a dose of Lovenox. He will follow-up with his Coumadin clinic tomorrow 06/11. Refill for Augmentin has been called into his [facility]. I have also sent a prescription for probiotics. Discussed with patient and patient's .Should erythema worsen or swelling worsen he knows follow-up with his primary care provider. During hospitalization x-ray of the left tib-fib was ordered. This showed a nonspecific benign lucent lesion on the mid tibial shaft. I did discuss this with the patient. No need for further investigation or intervention. Time Spent: 35 minutes Readmission risk: 12% Electronically signed by Amanda Dial DO - 06/10/2025 - 10:36 AM EDT documented in this encounter Discharge Instructions * Discharge Instructions* Amanda Dial DO - 06/10/2025 10:18 AM EDT I have sent a prescription [facility] prob[facility] to [facility]. Please wait 2 hours after taking your antibiotic to take the probiotic. I have also sent a refill for the Augmentin. For the Coumadin please follow-up with the Coumadin clinic tomorrow 06/11. You were given a dose of Lovenox this morning due to subtherapeutic INR You may return to work this coming Saturday. I do not recommend you work more than 8 hours a day for the next 2 weeks. Should the swelling or redness worsen and involve the ankle please follow-up with your primary careprovider to reassess. If your range of motion in the left ankle begins to decrease this is another reason to follow-up with your primary care provider. * Attachments The following attachments cannot be sent through Care Everywhere. * Cellulitis Adult Tsyu-yn-Baow (Singaporean) * Cellulitis Adult (Singaporean) documented in this encounter Medications at Time of Discharge amoxicillin-clavu lanate (AUGMENTIN) 875-125 mg per tablet Take 1 tablet by mouth 2 (two) times daily with breakfast and dinner for 10 days. 20 tablet 06/06/2025 5 aspirin 81 MG EC tablet Take 1 tablet (81 mg total) by mouth daily. bisoprolol (ZEBETA) 5 MG tablet Take 0.5 tablets (2.5 mg total) by mouth daily. cyanocobalamin 1000 MCG tablet Take 1 tablet (1,000 mcg total) by mouth daily. Jardiance 10 mg tablet Take 1 tablet (10 mg total) by mouth daily. lactobacillus combination no.4 (Probiotic) 3 billion cell cap Take 1 capsule by mouth 2 (two) times daily. 20 capsule 06/10/2025 metFORMIN (GLUCOPHAGE) 1000 MG tablet Take 1 tablet (1,000 mg total) by mouth daily. multivitamin per tablet Take 1 tablet by mouth daily. omega-3 fatty acids-fish oil (Fish OiL) 340-1,000 mg cap per capsule Take 1 capsule (1 g total) by mouth daily. omeprazole (PriLOSEC OTC) 20 MG tablet Take 1 tablet (20 mg total) by mouth daily. tirzepatide (MOUNJARO SUBQ) Inject 5 mg under the skin once a week. warfarin (COUMADIN) 4 MG tablet Take 1 tablet (4 mg total) by mouth daily Only on Saturday . warfarin (COUMADIN) 6 MG tablet Take 1 tablet (6 mg total) by mouth daily Except Saturday he takes 4mg . documented as of this encounter Progress Notes * Opal Rendon, PharmD - 06/10/2025 8:33 AM EDTSummary: Warfarin Managment by Pharmacy Pharmacy Consult - Warfarin Attending provider: Dr Dial Indication: Mechanical valve Patient parameters: Age/sex: 59 y.o. male Height: 1.829 m (6') Actual body weight: 93 kg (205 lb) Body mass index: 27.80 kg/m?? [place] body weight: 77.6 kg (171 lb 1.2 oz) Adjusted ideal body weight: 83.8 kg (184 lb 10.3 oz) Home warfarin dose: 6mg PO Qdaily except on Mondays - The patient takes 4mg on Mondays. Labs: Recent Labs 06/08/25 1235 06/09/25 0345 HGB 13.4 11.5* HCT 39.9 34.9* PLT 309 267 ALBUMIN 3.4 -- Recent Labs 06/08/25 1511 06/09/25 0345 06/10/25 0452 INR 5.64* 3.93* 1.60* APTT 58.1* -- -- Warfarin dosing history: Date 06/08 06/09 06/10 INR 5.64 3.93 1.60 Dose held 5mg 5mg (Lovenox added) Other anticoagulation: Lovenox 1mg/kg SQ [id number] until INR greater than 2.5 A/P: Goal INR = 2.5-3.5 Will continue with warfarin 5mg PO Qdaily with Lovenox (enoxaparin) 90mg (1mg/kg) SQ [id number] Warfarin as above. Add lovenox 1mg/kg SQ Q12 hours until INR greater than 2.5. Daily INR. Monitor for signs/symptoms of bleeding. Pharmacy will adjust warfarin based on INR. Thank you kindly for this consult! Opal Rendon Pharm.D. * Enoch Arana - 06/09/2025 4:05 PM EDT Images from the original note were not included. Inpatient Physical Therapy Initial Evaluation and Discharge Patient Name: Armando Franco Date of : 1965 Date of Evaluation: 06/09/25 In Time 1554 Out Time 1604 Session Duration 10 minutes Time spent for nursing collaboration, chart and systems review, and clinical reasoning. 10 minutes Total Time 20 minutes Pt is a 59 y.o. male admitted on 06/08/2025 with Cellulitis [L03.90] Cellulitis of left lower extremity [L03.116]. Past Medical History: Diagnosis Date Diabetes mellitus (HCC) GERD (gastroesophageal reflux disease) Hyperlipidemia Hypertension Past Surgical History: Procedure Laterality Date CARDIAC VALVE REPLACEMENT CORONARY ARTERY BYPASS GRAFT General Visit Type: Initial Evaluation Approved By: Nurse Crump Patient Disposition Upon Entry: Supine in bed, Call Light/Pull Cord in reach, All needs met and within reach, HOB >30 degrees, Side rails down Patient Verified By: Name and Date of Assisted by: Physical therapist Precautions Weight-Bearing Status: Weight Bearing As Tolerated (WBAT) per verbal order from Dr. Dial on 06/09 Precautions: Fall risk Isolation Precautions: Standard Lines, tubes, drains, airway: peripheral IV Subjective Subjective: Patient agreeable to physical therapy evaluation and treatment. Pain Patient reported 1/10 pain in L foot. Cognition Overall cognitive status: Patient is awake and alert, attending to directions appropriately, demonstrating good problem solving skills, and aware of any deficits or impairments, if present. Home Living Patient lives with his in a one story home with one inside step. Patient is independent with all ADL's and does not require an assistive device. He has a tub shower at home. Patient reports no falls in the past 6 months. Objective Vitals Vitals: 06/09/25 1532 BP: 124/79 Pulse: 67 Resp: 16 Temp: 98.4 ??F (36.9 ??C) SpO2: 97% Basic Strength Assessment Both lower extremities WNL upon functional mobility evaluation. Range of Motion Assessment ROM WNL upon functional mobility evaluation. Sensation Patient reports some numbness/tingling sensation in L foot. Coordination Appears WNL upon functional mobility evaluation. Functional Mobility Bed Mobility Supine to Sit: independent, gait belt Transfers Sit to Stand: independent, gait belt, no device Stand to Sit: independent, gait belt, no device Gait Patient ambulated 150' with gait belt independently with no loss of balance or change in symptoms.No device Stair Management Patient negotiated 1 DONATO independently with gait belt. Wheelchair Mobility Not assessed, patient ambulatory. AM-PAC Basic Mobility Inpatient Short Form How much difficulty does the patient currently have: Turning over in bed (including adjusting bedclothes, sheets, and blankets)? (4) None (the patient can do the activity independently WITHOUT using assistive devices OR help from another person) Sitting down on and standing up from a chair with arms (e.g., wheelchair, bedside commode, etc.)? (4) None (the patient can do the activity independently WITHOUT using assistive devices OR help from another person) Moving from lying on back to sitting on side of bed? (4) None (the patient can do the activity independently WITHOUT using assistive devices OR help from another person) How much help from another person does the patient currently need: Moving to and from a bed to a chair (including a wheelchair)? (4) None (Modified independent/Independent) Need to walk in hospital room? (4) None (Modified independent/Independent) Climbing 3-5 steps with a railing? (4) None (Modified independent/Independent) Score Raw score=24 t-Scale score=61.14 Standard error=6.94 CMS 0-100%=0.00% MDC=4.72 A raw score of >= 16 is significantly associated with increased odds of discharge to home in addition to consideration made for the patient's cognition and social determinants of health. Balance Static/dynamic sitting and static/dynamic standing balance are all WFL. Activity Tolerance Patient tolerated activity/intervention well with no complaints or adverse events. Treatment Gait training - see above Assessment Patient was seen for a mobility evaluation today. Patient was able to go from supine to sit independently. Patient was able to go from sit to standing, ambulate 150', negotiate 1 step, and go from standing to sitting edge of bed independently with gait belt. Patient noted no increase of pain with activity. Due to level of independence PT will D/C at this time. Please re-order PT if mobility status changes. Problems: No problems identified on evaluation and assessment. Rehab potential: Good for stated goals Plan Treatment Plan: No skilled physical therapy services are indicated at this time. PT Frequency/Duration: Discontinue Recommendations Discharge recommendations: Discharge home/prior living situation with no further follow-up. Patientat baseline level of functioning. DME recommendations: Patient has no DME/adaptive equipment discharge needs at this time. Goals No goals indicated at this time as patient is independent with functional mobility. Education Patient educated on safety, use of call button, role of physical therapy, plan of care, stair negotiation, need for assistance, and risk for falls and following, they were able to verbalize understanding. No further questions or concerns stated. Patient Disposition Upon Leaving Sitting edge of bed, Call Light/Pull Cord in reach, All needs met and within reach, Nursing aware/notified, HOB >30 degrees, Side rails down If this patient discharges prior to next therapy session, this note serves as the patient's discharge summary. Electronically signed by Enoch Arana - 06/09/25 - 4:06 PM EDT . Cosigned by Patience Jimenez PT at 06/09/2025 4:26 PM EDT Associated attestation - Patience Jimenez, PT - 06/09/2025 3:26 PM CDT I evaluated this patient. reviewed the notes, assessments, and/or procedures performed by Enoch Arana, I concur with his documentation of Armando Franco. * Opal Rendon PharmD - 06/09/2025 11:29 AM EDTSummary: Warfarin Managment by Pharmacy Pharmacy Consult - Warfarin Attending provider: Dr Dial Indication: mechanical valve Patient parameters: Age/sex: 59 y.o. male Height: 1.829 m (6') Actual body weight: 93 kg (205 lb) Body mass index: 27.80 kg/m?? [place] body weight: 77.6 kg (171 lb 1.2 oz) Adjusted ideal body weight: 83.8 kg (184 lb 10.3 oz) Home warfarin dose: 6mg po Qdaily except for Mondays, 4mg on Mondays. Labs: Recent Labs 06/06/25 1216 06/08/25 1235 06/09/25 0345 HGB 13.1 13.4 11.5* HCT 39.3 39.9 34.9* PLT 271 309 267 ALBUMIN 3.3* 3.4 -- Recent Labs 06/08/25 1511 06/09/25 0345 INR 5.64* 3.93* APTT 58.1* -- Warfarin dosing history: Date 06/08/2506/09 INR 5.64 3.93 Dose held 5mg Other anticoagulation: no additional at this time A/P: Goal INR = 2.5-3.5 INR close to goal of 2.5-3.5. Will resume PO warfarin but at a lower dose (of 5mg PO Qdaily) to avoid going subtherapeutic taking into consideration drop of INR of 1.71 after holding the home dose for one day. Warfarin as above. Daily INR. Monitor for signs/symptoms of bleeding. Pharmacy will adjust warfarin based on INR. Thank you kindly for this consult! Opal Rendon Pharm.D. * Amanda Dial DO - 06/09/2025 10:36 AM EDT Images from the original note were not included. Hospitalist Progress Note Name: Armando Franco Room: 2216/2216-01 : 1965 Age: 59 y.o. DO Parish James MD Admission Date: 06/08/2025 12:23 PM Length of Stay: 1 Admission Status: Inpatient Code Status: Full Code Subjective Seen at 0900 on 06/09/25 No acute events overnight. Patient seen and examined at bedside this morning. He is resting comfortably. He states he has been able to ambulate without pain. He denies chest pain shortness of breathnausea vomiting diarrhea dysuria fever chills. He appears well. Did note erythema in the left lowerleg. Per family this has been present in the past. However given cellulitic changes in the foot will obtain x-ray of the left leg. Objective ROS as noted in HPI Vital Signs ranges for last 24 hours: Temp: [97.3 ??F (36.3 ??C)-99.8 ??F (37.7 ??C)] 97.8 ??F (36.6 ??C) Pulse: [72-97] 75 Resp: [15-20] 18 BP: (104-135)/(62-78) 135/77 Intake/Output: Intake/Output None Physical Exam Laboratory Data, Radiologic Data Recent Labs Lab(s) Units 06/09/25 0345 06/08/25 1235 06/06/25 1216 WBC K/??L 8.2 10.2 9.7 HGB GM/DL 11.5* 13.4 13.1 HCT % 34.9* 39.9 39.3 PLT K/CU MM 267 309 271 Recent Labs Lab(s) Units 06/08/25 2114 06/08/25 1645 06/08/25 1235 06/06/25 1216 NA meq/L -- -- 135* 138 K meq/L -- -- 3.7 3.8 CL meq/L -- -- 101 104 CO2 meq/L -- -- 27 29 BUN mg/dL -- -- 14 13 CREATININE mg/dL -- -- 1.28* 1.23* CALCIUM mg/dL -- -- 9.3 9.1 ALBUMIN g/dL -- -- 3.4 3.3* PROT gm/dL -- -- 7.4 7.2 BILITOT mg/dL -- -- 0.7 0.5 ALKPHOS U/L -- -- 68 71 ALT U/L -- -- 21 21 AST U/L -- -- 18 19 GLUCOSE mg/dL 165* 125* 143* 140* Recent Labs 06/08/25 1511 06/09/25 0345 INR 5.64* 3.93* Radiology Results (last 3 days) Procedure Component Value Units Date/Time XR leg / tibia and fibula 2 views left [[id number]] Resulted: 06/09/25 1021 Order Status: Sent Updated: 06/09/[address] lower extremity with IV contrast left [[id number]] Collected: 06/08/25 1330 Order Status: Completed Updated: 06/08/25 1336 Narrative: CT of the left foot with IV contrast HISTORY: Redness and swelling of the left foot and stepped on a nail FINDINGS: Postcontrast imaging. No prior CT exams. This study was performed with techniques to keep radiation doses as low as reasonably achievable (ALARA). Individualized dose reduction techniques using automated exposure control or adjustment of mA and/or kV according to the patient's size were employed. There are no fractures. Joint compartments are maintained and are normally aligned. There is mild calcaneal spurring. There are no other significant degenerative changes. There are small accessory ossicles adjacent to the navicular. There is diffuse subcutaneous edema. There is no enhancing mass or focal fluid collection. There is arterial vascular calcification. There are no radiopaque foreign bodies. Impression: Findings are compatible with cellulitis. No abscess or acute bony abnormality identified. Echo Results (last 7 days) No results found for the last 168 hours. Microbiology Results (last 7 days) Procedure Component Value Units Date/Time Blood Culture [[id number]] Collected: 06/08/25 1235 Order Status: Resulted Specimen: Blood Updated: 06/08/25 1301 Blood Culture Arm, Right [[id number]] Collected: 06/08/25 1246 Order Status: Resulted Specimen: Blood from Arm, Right Updated: 06/08/25 1301 Medications SCHEDULED MEDICATIONS aspirin 81 mg oral Daily 81 mg at 06/09/25 0842 atorvastatin 40 mg oral Every Night 40 mg at 06/08/25 2323 bisoprolol 2.5 mg oral Daily cefTRIAXone 2 g intravenous Daily 2 g at 06/09/25 0842 docusate sodium 100 mg oral BID insulin lispro 0-18 Units subcutaneous 4x Daily AC pantoprazole 40 mg oral Daily 40 mg at 06/09/25 0842 vancomycin 1,500 mg intravenous Q18H 1,500 mg at 06/09/25 0651 warfarin 1 each oral See Admin Instructions [email or web address]@ CONTINUOUS INFUSION Current Facility-Administered Medications Medication Dose Route Frequency Provider Last Rate Last Admin acetaminophen (TYLENOL) tablet 1,000 mg 1,000 mg oral Q6H PRN Amanda Dial, DO aspirin EC tablet 81 mg 81 mg oral Daily Amanda Dial, DO 81 mg at 06/09/25 0842 atorvastatin (LIPITOR) tablet 40 mg 40 mg oral Every Night Christal Mcdonnell APRN 40 mg at 06/08/25 2323 bisoprolol (ZEBETA) tablet 2.5 mg 2.5 mg oral Daily Amanda Dial, DO cefTRIAXone (ROCEPHIN) 2 g in sodium chloride 0.9 % (NS) MBP 100 mL IVPB 2 g intravenous Daily Amanda Dial, DO 600 mL/hr at 06/09/25 0842 2 g at 06/09/25 0842 dextrose 50% (D50W) injection vial/syringe 25 g intravenous Q15 Min PRN Amanda Dial, DO docusate sodium (COLACE) capsule 100 mg 100 mg oral BID Amanda Dial, DO glucagon injection 1 mg 1 mg intraMUSCULAR Q15 Min PRN Amanda Dial, DO glucose chew tab 16 g 16 g oral Q15 Min PRN Amanda Dial, DO insulin lispro (HUMALOG, ADMELOG) injection 0-18 Units 0-18 Units subcutaneous 4x Daily AC Amanda Dial, DO ondansetron (ZOFRAN-ODT) disintegrating tablet 4 mg 4 mg oral Q8H PRN Amanda Dial, DO Or ondansetron (ZOFRAN) injection 4 mg 4 mg intravenous Q8H PRN Amanda Dial DO pantoprazole (PROTONIX) EC tablet 40 mg 40 mg oral Daily Amanda Dial DO 40 mg at 06/09/25 0842 vancomycin (VANCOCIN) IVPB 1500 mg in sodium chloride 0.9% (NS) 250 mL (PMX) 1,500 mg intravenous Q18H Amanda Dial DO 166.7 mL/hr at 06/09/25 0651 1,500 mg at 06/09/25 0651 warfarin (COUMADIN, JANTOVEN) actively being dosed by Pharmacy 1 each oral See Admin Instructions Amanda Dial DO ANTIBIOTICS Anti-infectives (From admission, onward) Start Dose/Rate Route Frequency Ordered Stop 06/09/25 0730 vancomycin (VANCOCIN) IVPB 1500 mg in sodium chloride 0.9% (NS) 250 mL (PMX) 1,500 mg 166.7 mL/hr over 90 Minutes intravenous Every 18 hours 06/08/25 1507 06/08/25 1530 cefTRIAXone (ROCEPHIN) 2 g in sodium chloride 0.9 % (NS) MBP 100 mL IVPB 2 g 600 mL/hr over 10 Minutes intravenous Daily 06/08/25 1417 Assessment and Plan Principal Problem: Cellulitis Left foot cellulitis: Continue IV vancomycin, pharmacy to dose, Rocephin 2 g every 24 hours. Blood cultures x 2 pending. No open wound noted. Marked area of erythema. Left tib-fib x-ray pending Mechanical heart valve: Pharmacy to dose Coumadin Type 2 diabetes: Hold home metformin, Jardiance, tirzepatide. Continue sliding scale insulin, carb controlled diet, hypoglycemia protocol. Obesity: Body mass index is 27.8 kg/m??. , complicates all aspects of care. Discussed diet and exercise. Full code Disposition: Remain inpatient, likely discharge in a.m. if symptoms are improving * Opal Rendon, PharmD - 06/08/2025 4:03 PM EDTSummary: Warfarin Managment by Pharmacy (AutoConsult) Pharmacy Consult - Warfarin Consulting provider: Dr Dial Indication: Mechanical Valve Patient parameters: Age/sex: 59 y.o. male Height: 1.829 m (6') Actual body weight: 93 kg (205 lb) Body mass index: 27.80 kg/m?? [place] body weight: 77.6 kg (171 lb 1.2 oz) Adjusted ideal body weight: 83.8 kg (184 lb 10.3 oz) Home warfarin dose: 6mg PO Qdaily except Saturday (4mg on Mondays) Labs: Recent Labs 06/06/25 1216 06/08/25 1235 HGB 13.1 13.4 HCT 39.3 39.9 PLT 271 309 ALBUMIN 3.3* 3.4 Recent Labs 06/08/25 1511 INR 5.64* APTT 58.1* Warfarin dosing history: Date 06/08/2025 INR 5.64 Dose held A/P: Goal INR = 2.5-3.5 Will hold home warfarin dose for now. Per provider, no evidence of active bleed so not recommendingreversing at this time. Warfarin as above. Daily INR. Monitor for signs/symptoms of bleeding. Pharmacy will adjust warfarin based on INR. Thank you kindly for this consult! Opal Rendon Pharm.D. * Opal Rendon PharmD - 06/08/2025 3:10 PM EDTSummary: Vancomycin Dosing by Pharmacy (consult) Pharmacy Consult - Vancomycin Consulting provider: Dr Dial Indication: Skin/Soft Tissue Infection Patient parameters: Age/sex: 59 y.o. male Height: 1.829 m (6') Actual body weight: 93 kg (205 lb) Body mass index: 27.80 kg/m?? [place] body weight: 77.6 kg (171 lb 1.2 oz) Adjusted ideal body weight: 83.8 kg (184 lb 10.3 oz) Population pharmacokinetics: estCrCl = 54.7 mL/min Ke = 0.050 h-1 T1/2e = 13.86 h Vde = 70.8 L (0.7 L/kg) Labs: Recent Labs 06/06/25 1216 06/08/25 1235 NA 138 135* K 3.8 3.7 CL 104 101 CO2 29 27 BUN 13 14 CREATININE 1.23* 1.28* Recent Labs 06/06/25 1216 06/08/25 1235 WBC 9.7 10.2 HGB 13.1 13.4 HCT 39.3 39.9 PLT 271 309 Antibiotics/anti-infectives: IV Vancomycin IV Ceftriaxone IV Zosyn (x1 dose only) A/P: Vancomycin goal: Trough 10-20 mg/L A dose/regimen of Vancomycin 1500mg IV Q18 hours should provide a predicted steady state trough of 14.87 utilizing population parameters for PK calculations. Vancomycin as above. Daily creatinine while on vancomycin. Pharmacy will monitor progress and obtain levels as appropriate. De-escalation as appropriate. Thank you kindly for this consult! Opal Rendon Pharm.D. documented in this encounter H&P Notes * Amanda Dial, DO - 06/08/2025 2:01 PM EDT Images from the original note were not included. History & Physical - Date of Service: 06/08/2025 Name: Armando Franco Room: ED02/ED02-1 : 1965 Age: 59 y.o. Parish Aldrich MD SUBJECTIVE: Chief Complaint / Reason for Visit: Foot pain Source of History: Patient, patient's at bedside Case Discussed With: Emergency department, Natalie orellana NP Medical Records Reviewed: Reviewed including ED visit 06/06 HPI: Armando Franco is a 59 y.o. male PMH mechanical mitral valve on Coumadin, type 2 diabetes who presented to the emergency department on 06/08/2025 with complaints of left foot pain. Patient states that 4days prior he stepped on a nail. He presented to the emergency department on 06/06 and at that time was given a tetanus shot as well as a prescription for Augmentin. Patient states that since then he has noticed redness on the front of his foot. States that he stepped on a nail with the sole of his foot however the erythema is notably on the top of the foot. He denies any fever chills chest pain shortness of breath nausea vomiting diarrhea dysuria. No loss of motor or sensory function in the foot. Neurovascularly intact. Review of Systems as noted in HPI ED course Vitals: T99.8, HR 97, RR 15, 94% room air, BP 109/63 Labs: CBC unremarkable, CMP with creatinine 1.28, CRP 8.6, sed rate 46, lactic acid negative Imaging: CT of the left lower extremity with cellulitis. No abscess or acute bony abnormality identified. Reviewed x-ray of the foot from 06/06 with no acute bony abnormality noted EKG: Pending Interventions: In the emergency department patient was given a dose of vancomycin and Zosyn, 1 L normal saline bolus, Toradol I am admitting this patient on an inpatient inpatient status for management of cellulitis. HISTORY: Patient Active Problem List Diagnosis Date Noted Cellulitis 06/08/2025 Past Surgical History: Procedure Laterality Date CARDIAC VALVE REPLACEMENT CORONARY ARTERY BYPASS GRAFT Patient has no known allergies. Social History Tobacco Use Smoking status: Never Smokeless tobacco: Never Substance Use Topics Alcohol use: Not Currently No family history on file. Prior to Encounter Medication List (as reviewed in [facility]) Medications amoxicillin-clavulanate (AUGMENTIN) 875-125 mg per tablet Sig: Take 1 tablet by mouth 2 (two) times daily with breakfast and dinner for 10 days. Comments: None OBJECTIVE: Blood pressure 109/63, pulse 97, temperature 99.8 ??F (37.7 ??C), temperature source Temporal Artery, resp. rate 15, height 1.829 m (6'), weight 93 kg (205 lb), SpO2 94%. Physical Exam Physical Exam Vitals reviewed. Constitutional: General: He is not in acute distress. Appearance: He is obese. He is not ill-appearing. HENT: Right Ear: External ear normal. Left Ear: External ear normal. Mouth/Throat: Mouth: Mucous membranes are moist. Cardiovascular: Rate and Rhythm: Normal rate and regular rhythm. Pulses: Normal pulses. Pulmonary: Effort: Pulmonary effort is normal. Abdominal: General: Bowel sounds are normal. Palpations: Abdomen is soft. Musculoskeletal: General: Tenderness present. Right lower leg: No edema. Left lower leg: No edema. Skin: General: Skin is warm. Comments: Left foot with erythema on the top of the foot. Demarcated with pen. No open wound at thesole of the foot. Recent Labs Lab(s) Units 06/08/25 1235 06/06/25 1216 WBC K/??L 10.2 9.7 HGB GM/DL 13.4 13.1 HCT % 39.9 39.3 PLT K/CU MM 309 271 Recent Labs Lab(s) Units 06/08/25 1235 06/06/25 1216 NA meq/L 135* 138 K meq/L 3.7 3.8 CL meq/L 101 104 CO2 meq/L 27 29 BUN mg/dL 14 13 CREATININE mg/dL 1.28* 1.23* CALCIUM mg/dL 9.3 9.1 ALBUMIN g/dL 3.4 3.3* PROT gm/dL 7.4 7.2 BILITOT mg/dL 0.7 0.5 ALKPHOS U/L 68 71 ALT U/L 21 21 AST U/L 18 19 GLUCOSE mg/dL 143* 140* No results for input(s): INR , PTT in the last 72 hours. Radiology Results (last 3 days) Procedure Component Value Units Date/Time CT lower extremity with IV contrast left [[id number]] Collected: 06/08/251329 Order Status: Completed Updated: 06/08/251335 Narrative: CT of the left foot with IV contrast HISTORY: Redness and swelling of the left foot and stepped on a nail FINDINGS: Postcontrast imaging. No prior CT exams. This study was performed with techniques to keep radiation doses as low as reasonably achievable (ALARA). Individualized dose reduction techniques using automated exposure control or adjustment of mA and/or kV according to the patient's size were employed. There are no fractures. Joint compartments are maintained and are normally aligned. There is mild calcaneal spurring. There are no other significant degenerative changes. There are small accessory ossicles adjacent to the navicular. There is diffuse subcutaneous edema. There is no enhancing mass or focal fluid collection. There is arterial vascular calcification. There are no radiopaque foreign bodies. Impression: Findings are compatible with cellulitis. No abscess or acute bony abnormality identified. Echo Results (last 7 days) No results found for the last 168 hours. Microbiology Results (last 7 days) Procedure Component Value Units Date/Time Blood Culture [[id number]] Collected: 06/08/25 123 Order Status: Sent Specimen: Blood Updated: 06/08/25 1301 Blood Culture Arm, Right [[id number]] Collected: 06/08/25 1246 Order Status: Sent Specimen: Blood from Arm, Right Updated: 06/08/25 1301 Orders Placed: As noted below ASSESSMENT & PLAN: UpToDate Search Principal Problem: Cellulitis Left foot cellulitis: Start IV vancomycin, pharmacy to dose, Rocephin 2 g every 24 hours. Blood cultures x 2 pending. No open wound noted. Marked area of erythema. Mechanical heart valve: Pharmacy to dose Coumadin Type 2 diabetes: Hold home metformin, Jardiance, trace appetite. Start sliding scale insulin, carb controlled diet, hypoglycemia protocol. Obesity: Body mass index is 27.8 kg/m??. , complicates all aspects of care. Discussed diet and exercise. Full code The patient is moderate risk and is being admitted to [facility] on an inpatient status. ELOS: >= 2 midnights Electronically signed by: Amanda Dial DO, 06/08/2025 at 2:01 PM documented in this encounter ED Notes * Natalie Orellana NP - 06/08/2025 12:28 PM EDT Subjective Chief Complaint: Foot Swelling (Pt reports to redness/swelling to L foot. Stepped on nail Saturday. Redness/swelling began Saturday evening. ) 59-year-old male presents to the emergency department with complaints of left foot swelling and redness. Patient reports that he stepped on a nail 4 days ago. He reports that he has history of diabetes, takes Coumadin for artificial heart valve. He endorses that after he stepped on the nail it was thoroughly cleansed. He was seen in the emergency department 2 days ago after left foot became slightly red and swollen. He had labs done during this encounter and was discharged home on Augmentin. Hereports that today he began having chills. He endorses that the redness and swelling has worsened since previous ED visit. He denies fever. He denies numbness or tingling. He has full range of motion, sensation, neurovascular status intact of left lower extremity. He is given tetanus vaccine duringprevious ED visit. History provided by: Patient member of parliament used: No Patient History Past Medical History: Diagnosis Date [...] needed. Review of Systems Review of Systems Constitutional: Positive for chills. Negative for diaphoresis, fatigue and fever. HENT: Negative. Eyes: Negative. Respiratory: Negative. Negative for cough and shortness of breath. Cardiovascular: Negative. Negative for chest pain and palpitations. Gastrointestinal: Negative. Negative for abdominal pain, diarrhea, nausea and vomiting. Genitourinary: Negative. Musculoskeletal: Positive for arthralgias. Negative for neck pain. Skin: Positive for wound. Neurological: Negative. Negative for dizziness, seizures, syncope, weakness and numbness. All other systems reviewed and are negative. Physical Exam ED Triage Vitals [06/08/25 1225] Encounter Vitals Group BP 109/63 Systolic BP Percentile Diastolic BP Percentile Pulse 97 Resp 15 Temp 99.8 ??F (37.7 ??C) Temp src Temporal Art SpO2 94 % Weight 93 kg (205 lb) Height 1.829 m (6') Head Circumference Peak Flow Pain Score Zero Pain Loc Pain Education Exclude from Growth Chart Physical Exam Vitals and nursing note reviewed. Constitutional: General: He is not in acute distress. Appearance: Normal appearance. He is not ill-appearing, toxic-appearing or diaphoretic. HENT: Head: Normocephalic and atraumatic. Nose: Nose normal. No congestion. Mouth/Throat: Mouth: Mucous membranes are moist. Pharynx: Oropharynx is clear. Eyes: Extraocular Movements: Extraocular movements intact. Pupils: Pupils are equal, round, and reactive to light. Cardiovascular: Rate and Rhythm: Normal rate and regular rhythm. Pulses: Normal pulses. Heart sounds: Normal heart sounds. No murmur heard. Pulmonary: Effort: Pulmonary effort is normal. No respiratory distress. Breath sounds: Normal breath sounds. Abdominal: General: Abdomen is flat. Palpations: Abdomen is soft. Musculoskeletal: General: Swelling present. Normal range of motion. Cervical back: Normal range of motion and neck supple. No rigidity or tenderness. Comments: Swelling to left foot, full ROM, sensation, and neurovascular status intact. Skin: General: Skin is warm and dry. Capillary Refill: Capillary refill takes less than 2 seconds. Findings: Erythema present. Comments: Erythema to left foot Neurological: General: No focal deficit present. Mental Status: He is alert and oriented to person, place, and time. Mental status is at baseline. Cranial Nerves: No cranial nerve deficit. Motor: No weakness. Gait: Gait normal. Psychiatric: Mood and Affect: Mood normal. Behavior: Behavior normal. Neurological Exam Mental Status Alert. Oriented to person, place, and time. Cranial Nerves CN III, IV, : Extraocular movements intact bilaterally. Pupils equal round and reactive to light bilaterally. Gait Normal gait. Ortho Exam ED Course & MDM Medications vancomycin (VANCOCIN) IVPB 1500 mg in sodium chloride 0.9% (NS) 250 mL (PMX) (1,500 mg intravenous IVPB Started 06/08/25 1340) sodium chloride 0.9% (NS) bolus (0 mLs intravenous Stopped 06/08/25 1343) piperacillin-tazobactam (ZOSYN) 4.5 g in sodium chloride 0.9 % (NS) MBP 100 mL IVPB (0 g intravenous Stopped 06/08/25 1343) ketorolac (TORADOL) injection 15 mg (15 mg intravenous Given 06/08/25 1324) iopamidoL (ISOVUE-370) 370 mg iodine /mL (76 %) injection 75 mL (75 mLs intravenous Given 06/08/25 1303) Results for orders placed or performed during the hospital encounter of 06/08/25 CBC with Auto Diff Result Value Ref Range WBC 10.2 4.8 - 10.8 K/??L RBC 4.34 3.80 - 5.20 M/??L Hemoglobin 13.4 12.8 - 17.4 GM/DL Hematocrit 39.9 39.0 - 51.0 % MCV 92 81 - 101 fL MCH 30.9 27.0 - 34.0 pg MCHC 33.6 32.0 - 36.0 GM/DL RDW 14.6 (H) 11.5 - 14.5 % Platelets 309 150 - 400 K/CU MM MPV 10.9 9.4 - 12.4 fL Nucleated Red Blood Cell 0.0 0 - 0.2 % % Neutros 84 (H) 37 - 80 % % Lymphs 7 (L) 10 - 50 % % Monos 8 5 - 13 % % Eos 0 0 - 7 % % Baso 0 0 - 3 % NRBC Absolute <0.01 0 - 0.012 K/ul # Neutros 8.58 (H) 2.00 - 6.90 K/??L # Lymphs 0.71 0.60 - 3.40 K/??L # Monos 0.78 0.00 - 0.90 K/??L # Eos 0.03 0.00 - 0.70 K/??L # Baso 0.03 0.00 - 0.20 K/??L Immature Granulocytes-Relative 0.60 % # IG 0.06 (H) 0.00 - 0.00 K/uL Comprehensive metabolic panel Result Value Ref Range Sodium 135 (L) 136 - 145 meq/L Potassium 3.7 3.5 - 5.1 meq/L Chloride 101 98 - 107 meq/L CO2 27 21 - 32 meq/L Calcium 9.3 8.5 - 10.1 mg/dL Glucose 143 (H) 70 - 99 mg/dL BUN 14 7 - 18 mg/dL Creatinine 1.28 (H) 0.70 - 1.20 mg/dL BUN/Creatinine 11 Albumin 3.4 3.4 - 5.0 g/dL Alkaline Phosphatase 68 46 - 116 U/L ALT 21 12 - 78 U/L AST 18 15 - 37 U/L Total Bilirubin 0.7 0.2 - 1.0 mg/dL Protein, Total 7.4 6.4 - 8.2 gm/dL Anion Gap 11 11 - 22 A/G Ratio 0.9 Globulin 4.0 g/dL Osmolality Calc 273.0 mOsm/kg eGFR (mL/min/1.73m2) >60 >=60 mL/min/1.73m2 C-Reactive Protein Result Value Ref Range CRP 8.63 (H) 0.05 - 0.25 mg/dL Sedimentation rate Result Value Ref Range Sed Rate 46 (H) 0 - 20 mm/HR Lactic Acid with reflex (SJ) Result Value Ref Range Lactic Acid Level (mmol/L) 1.5 0.4 - 2.0 mmol/L CT lower extremity with IV contrast left Final Result Findings are compatible with cellulitis. No abscess or acute bony abnormality identified. ED Course as of 06/08/25 1343 Tue Jun 08, [address] foot demonstrating cellulitic changes as read and interpreted by me [DG] 1338 Dr. Sinclair: I saw the patient [id number]. I performed a substantive portion of the MDM. [DG] 1340 Differential diagnosis includes but is not limited to: Cellulitis, phlegmon and abscess were ruled out radiographically, CKD, lymphangitis [DG] ED Course User Index [DG] Zen Sinclair DO Procedures Medical Decision Making Patient initially presents with left foot swelling and redness. Differential diagnosis includes butnot limited to: Cellulitis, abscess. On arrival patient no apparent distress, vital signs are reassuring. He has noted erythema and swelling to left foot, he has full range of motion, sensation, neurovascular status intact of this. I have ordered labs, blood cultures, CT with contrast of left lowerextremity. Patient given IV fluid bolus, vancomycin and Zosyn. CBC nonactionable. CMP nonactionable, lactic acid nonactionable, sed rate 46, CRP 8.63. CT per radiologist interpretation reveals findings compatible with cellulitis, no abscess or acute bony abnormality identified. I spoke with hospitalist, Dr. Dial to admit patient for cellulitis. Hospitalist is agreeable to this. I discussed findings with patient and advised plan for admission, he is agreeable to this. Amount and/or Complexity of Data Reviewed Labs: ordered. Decision-making details documented in ED Course. Radiology: ordered. Decision-making details documented in ED Course. Risk Prescription drug management. Decision regarding hospitalization. Assessment & Plan Clinical Impression Diagnosis Comment Added By Time Added Cellulitis of left lower extremity Natalie Orelalna NP 06/08/2025 1:39 PM Disposition Admit [3] - 06/08/2025 1:43 PM New Prescriptions No medications on file Electronically Signed By Natalie Orellana NP 06/08/25 1344 Cosigned by Zen Sinclair DO at 06/08/2025 2:07 PM EDT Associated attestation - Zen Sinclair DO - 06/08/2025 1:[address] Sinclair: I saw the patient [id number]. I performed a substantive portion of the MDM. documented in this encounter Miscellaneous Notes * Plan of Care - Olimpia Rod RN - 06/10/2025 10:07 AM EDT Problem: Pain Goal: Patient's pain/discomfort is manageable Description: Assess and monitor patient's pain using appropriate pain scale. Collaborate with interdisciplinary team and initiate plan and interventions as ordered. Re-assess patient's pain level after pain management intervention. Outcome: Progressing Problem: Safety Goal: Patient will be injury free during hospitalization Description: Assess and monitor vitals signs, neurological status including level of consciousness and orientation. Assess patient's risk for falls and implement fall prevention plan of care and interventions per hospital policy. Ensure arm band on, uncluttered walking paths in room, adequate room lighting, call light and overbed table within reach, bed in low position, wheels locked, side rails up per policy, and non-skid footwear provided. Outcome: Progressing Problem: Potential for Developing a Blood Clot Goal: Tissue perfusion is adequate - venous Description: Assess and monitor skin color and temperature, skin integrity, pulses, capillary refill, edema, pain in extremities, Homans' sign, labs (D- dimer), and diagnostic tests (ultrasound, CT scan, VQ scan). Monitor for signs and symptoms of deep vein thrombosis (swelling of calf/thigh, redness, pain, tenderness). Monitor for signs and symptoms of pulmonary embolism (dyspnea, tachypnea, tachycardia). Collaborate with interdisciplinary team and initiate plans and interventions as needed Outcome: Progressing Problem: Daily Care Goal: Daily care needs are met Description: Assess and monitor ability to perform self care and identify potential discharge needs. Outcome: Progressing Problem: Potential for Infection Goal: Remains infection free Description: Assess and monitor vital signs, skin (color, moisture, integrity, turgor), respiratorystatus, urinary and gastrointestinal status, and labs (WBC, cultures). Administer antibiotics and antipyretics as ordered. Ensure aseptic care of all intravenous lines, invasive tubes/drains and wounds. Monitor for signs and symptoms of infection (redness, warmth, discharge, increased body temperature). Wash hands properly before and after each patient care activity. Follow isolation guidelines per hospital protocol/policy. Collaborate with interdisciplinary team and initiate plan and interventions as ordered. Outcome: Progressing Problem: Psychosocial Needs Goal: Demonstrates ability to cope with hospitalization/illness Description: Assess and monitor patients ability to cope with his/her illness. Outcome: Progressing Goal: Collaborate with patient/family/caregiver to identify patient specific goals for this hospitalization Outcome: Progressing Problem: Anxiety Goal: Anxiety is at manageable level Description: Assess and monitor patient's anxiety level. Monitor for signs and symptoms of anxiety both physical and emotional (heart palpitations, chest pain, shortness of breath, headaches, nausea,feeling jumpy, restlessness, irritable, apprehensive). Collaborate with interdisciplinary team and initiate plan and interventions as ordered. Outcome: Progressing Problem: Inadequate Coping Goal: Demonstrates ability to cope effectively Description: Patient is able to verbalize feelings related to emotional state. Outcome: Progressing Goal: Verbalizes adaptive coping mechanisms Description: Able to verbalize adaptive coping mechanisms such as physical activity, distraction, and deep breathing exercises. Outcome: Progressing Goal: Verbalizes personal strengths Description: Spend time with the patient using empathy and active listening skills. Outcome: Progressing Problem: Progressive Mobility Goal: BMAT Level 1 - With full mechanical lifting assistance: Outcome: Progressing Goal: BMAT Level 2 - With 2-person and/or mechanical lifting assistance: Outcome: Progressing Goal: BMAT Level 3 - With 1 to 2-person and/or mechanical lifting assistance: Outcome: Progressing Goal: BMAT Level 4 - With 1-person assistance or mobility aid as needed (walker, cane, crutches): Outcome: Progressing Problem: Discharge Barriers Goal: Patient's discharge needs are met Description: Collaborate with interdisciplinary team and initiate plans and interventions as needed. Outcome: Progressing * Plan of Care - Dayan Morse RN - 06/09/2025 8:56 PM EDT Problem: Pain Goal: Patient's pain/discomfort is manageable Description: Assess and monitor patient's pain using appropriate pain scale. Collaborate with interdisciplinary team and initiate plan and interventions as ordered. Re-assess patient's pain level after pain management intervention. Outcome: Progressing Problem: Safety Goal: Patient will be injury free during hospitalization Description: Assess and monitor vitals signs, neurological status including level of consciousness and orientation. Assess patient's risk for falls and implement fall prevention plan of care and interventions per hospital policy. Ensure arm band on, uncluttered walking paths in room, adequate room lighting, call light and overbed table within reach, bed in low position, wheels locked, side rails up per policy, and non-skid footwear provided. Outcome: Progressing Problem: Potential for Developing a Blood Clot Goal: Tissue perfusion is adequate - venous Description: Assess and monitor skin color and temperature, skin integrity, pulses, capillary refill, edema, pain in extremities, Homans' sign, labs (D- dimer), and diagnostic tests (ultrasound, CT scan, VQ scan). Monitor for signs and symptoms of deep vein thrombosis (swelling of calf/thigh, redness, pain, tenderness). Monitor for signs and symptoms of pulmonary embolism (dyspnea, tachypnea, tachycardia). Collaborate with interdisciplinary team and initiate plans and interventions as needed Outcome: Progressing Problem: Daily Care Goal: Daily care needs are met Description: Assess and monitor ability to perform self care and identify potential discharge needs. Outcome: Progressing Problem: Potential for Infection Goal: Remains infection free Description: Assess and monitor vital signs, skin (color, moisture, integrity, turgor), respiratorystatus, urinary and gastrointestinal status, and labs (WBC, cultures). Administer antibiotics and antipyretics as ordered. Ensure aseptic care of all intravenous lines, invasive tubes/drains and wounds. Monitor for signs and symptoms of infection (redness, warmth, discharge, increased body temperature). Wash hands properly before and after each patient care activity. Follow isolation guidelines per hospital protocol/policy. Collaborate with interdisciplinary team and initiate plan and interventions as ordered. Outcome: Progressing Problem: Psychosocial Needs Goal: Demonstrates ability to cope with hospitalization/illness Description: Assess and monitor patients ability to cope with his/her illness. Outcome: Progressing Goal: Collaborate with patient/family/caregiver to identify patient specific goals for this hospitalization Outcome: Progressing Problem: Anxiety Goal: Anxiety is at manageable level Description: Assess and monitor patient's anxiety level. Monitor for signs and symptoms of anxiety both physical and emotional (heart palpitations, chest pain, shortness of breath, headaches, nausea,feeling jumpy, restlessness, irritable, apprehensive). Collaborate with interdisciplinary team and initiate plan and interventions as ordered. Outcome: Progressing Problem: Inadequate Coping Goal: Demonstrates ability to cope effectively Description: Patient is able to verbalize feelings related to emotional state. Outcome: Progressing Goal: Verbalizes adaptive coping mechanisms Description: Able to verbalize adaptive coping mechanisms such as physical activity, distraction, and deep breathing exercises. Outcome: Progressing Goal: Verbalizes personal strengths Description: Spend time with the patient using empathy and active listening skills. Outcome: Progressing Problem: Progressive Mobility Goal: BMAT Level 1 - With full mechanical lifting assistance: Outcome: Progressing Goal: BMAT Level 2 - With 2-person and/or mechanical lifting assistance: Outcome: Progressing Goal: BMAT Level 3 - With 1 to 2-person and/or mechanical lifting assistance: Outcome: Progressing Goal: BMAT Level 4 - With 1-person assistance or mobility aid as needed (walker, cane, crutches): Outcome: Progressing Problem: Discharge Barriers Goal: Patient's discharge needs are met Description: Collaborate with interdisciplinary team and initiate plans and interventions as needed. Outcome: Progressing * Documentation Clarification - Amanda Dial DO - 06/09/2025 2:48 PM EDT CLINICAL DOCUMENTATION CLARIFICATION FORM: Dear Provider: Dr Dial Date / Time: 06/09/2025 2:03 PM Please exercise your independent, professional judgment in responding to the clarification form. Clinical indicators are provided on the bottom of this form for your review Please check appropriate box(es): [] Cellulitis related to Diabetes [x] Cellulitis Unrelated to Diabetes [] Other: (please enter/write your response) [] Unable to determine For continuity of documentation, please document condition throughout progress notes and discharge summary. Thank You. To be completed by CDI/Coding staff for Provider review: Clinical Indicators - Signs / Symptoms / Labs Results and Location in Medical Record Cellulitis 7/8 H+P: Left foot cellulitis Erythema 7/8 H+P: Left foot with erythema on the top of foot Risk Factors Results and Location in Medical Record Diabetes 7/8 H+P: Type 2 diabetes Stepped on nail 7/8 H+P: Stepped on nail 4 days ago Treatments Results and Location in Medical Record Antibiotics 7 Orders: IV Zosyn, IV Vanc, IV Rocephin Accu checks with SSI 06/08 Orders: Accu checks with SSI CDS/Valve Lapper Signature: Tess Holley Phone #: [phone] Date/Time: 06/09/2025 2:03 PM This is a permanent part of the Medical Record 2023 [facility] Reviewed: 01/2024 * Plan of Care - Dayan Morse RN - 06/08/2025 11:36 PM EDT Problem: Daily Care Goal: Daily care needs are met Description: Assess and monitor ability to perform self care and identify potential discharge needs. Intervention: Assess skin integrity/risk for skin breakdown and implement skin integrity plan of care and interventions per policy Recent Flowsheet Documentation Taken 06/08/20250 by Dayan Morse RN Sensory Perceptions: 4 Moisture: 4 Activity: 4 Mobility: 4 Nutrition: 3 Friction and Shear: 3 Rashi Scale Score: 22 Integumentary (WDL): X documented in this encounter Plan of Treatment Not on file documented as of this encounter Procedures Procedure Name Priority Date/Time Associated Diagnosis Comments NOVA GLUCOSE POC Routine 06/10/2025 6:13 AM EDT PROTHROMBIN TIME/INR Routine 06/10/2025 4:52 AM EDT NOVA GLUCOSE POC Routine 06/09/2025 8:22 PM EDT NOVA GLUCOSE POC Routine 06/09/2025 4:43 PM EDT NOVA GLUCOSE POC Routine 06/09/2025 11:1 9 AM EDT XR LEG / TIBIA AND FIBULA 2 VIEWS LEFT Routine 06/09/2025 10:32 AM EDT NOVA GLUCOSE POC Routine 06/09/2025 5:28 AM EDT CBC HEMOGRAM (SJ-BKR) STAT 06/09/2025 3:45 AM EDT C-REACTIVE PROTEIN STAT 06/09/2025 3: 45 AM EDT PROTHROMBIN TIME/INR Routine 06/09/2025 3:45 AM EDT NOVA GLUCOSE POC Routine 06/08/2025 9:14 PM EDT NOVA GLUCOSE POC Routine 06/08/2025 4:45 PM EDT PT/INR, PTT STAT 06/08/2025 3:[address] LOWER EXTREMITY WITH IV CONTRAST LEFT STAT 06/08/2025 1:02 PM EDT BLOOD CULTURE STAT 06/08/2025 12:46 PM EDT CBC W/ AUTO DIFF STAT 06/08/2025 12:3 5 PM EDT LACTIC ACID WITH REFLEX STAT 06/08/2025 12:35 PM EDT C-REACTIVE PROTEIN STAT 06/08/2025 12 :35 PM EDT BLOOD CULTURE STAT 06/08/2025 12:35 PM EDT SEDIMENTATION RATE STAT 06/08/2025 12 :35 PM EDT COMPREHENSIVE METABOLIC PANEL STAT 06/08/2025 12:35 PM EDT documented in this encounter Results * (ABNORMAL) Glucose, Nova Meter (06/10/2025 6:13 AM EDT) POC-GLUCOSE 157(H) 70 - 99 mg/dL 06/10/2025 6:34 AM EDT [facility] Comment:In the event of poor peripheral blood flow, venous or arterial blood should be used due to the potential of erroneous results. Area Mechanic [id number] 06/10/2025 6:34 AM EDT [facility] Blood WHOLE BLOOD / Unknown 06/10/2025 6:13 AM EDT 06/10/2025 6:34 AM EDT Narrative [facility] - 06/10/2025 6:34 AM EDT Area Mechanic ID is - [id number] us Amanda Dial DO POINT OF CARE TEST ORDERABLES Final Result Performing Organization Address [facility] Co de Phone Number [address] [phone] * (ABNORMAL) PROTIME-INR (06/10/2025 4:52 AM EDT) Protime 15.8(H) 9.0 - 12.0 seconds 06/10/2025 5:55 AM EDT [facility] INR 1.60(H) 0.80 - 1.10 06/10/2025 5:55 AM EDT [facility] Comment: Recommended therapeutic ranges using International Normalized Ratio (INR) are: INR RANGE 2.0 - 3.0 Routine oral anticoagulant therapy 2.5 - 3.5 Oral anticoagulant therapy for patients with thromboembolic events on standard doses of Coumadin and those with mechanical heart valves. Blood Venipuncture / Unknown 06/10/2025 4:52 AM EDT 06/10/2025 5:10 AM EDT us Amanda Dial DO LAB BLOOD ORDERABLES Final Res ult Performing Organization Address City/[facility]/ZIP Co de Phone Number [facility] [address] [place] [address] * Glucose, Nova Meter (06/09/2025 8:22 PM EDT) POC-GLUCOSE 94 70 - 99 mg/dL 06/09/2025 8:41 PM EDT [facility] Comment:In the event of poor peripheral blood flow, venous or arterial blood should be used due to the potential of erroneous results. Area Mechanic [id number] 06/09/2025 8:41 PM EDT [facility] Blood WHOLE BLOOD / Unknown 06/09/2025 8:22 PM EDT 06/09/2025 8:41 PM EDT Narrative [facility] - 06/09/2025 8:41 PM EDT Area Mechanic ID is - [id number] us Amanda Dial DO POINT OF CARE TEST ORDERABLES Final Result Performing Organization Address City/[facility]/ZIP Co de Phone Number [facility] [address] [place] [address] * Glucose, Nova Meter (06/09/2025 4:43 PM EDT) Pathologist [facility] POC-GLUCOSE 91 70 - 99 mg/dL 06/09/2025 4:45 PM EDT [facility] Comment: In the event of poor peripheral blood flow, venous or arterial blood should be used due to the potential of erroneous results. Notified Nurse RBV Area Mechanic [id number] 06/09/2025 4:45 PM EDT [facility] Blood WHOLE BLOOD / Unknown 06/09/2025 4:43 PM EDT 06/09/2025 4:45 PM EDT Narrative [facility] - 06/09/2025 4:45 PM EDT Area Mechanic ID is - [id number] us Amanda Dial DO POINT OF CARE TEST ORDERABLES Final Result Performing Organization Address City/[facility]/ZIP Co de Phone Number [facility] [address] [place] [address] * (ABNORMAL) Glucose, Nova Meter (06/09/2025 11:19 AM EDT) POC-GLUCOSE 120(H) 70 - 99 mg/dL 06/09/2025 11:21 AM EDT [facility] Comment: In the event of poor peripheral blood flow, venous or arterial blood should be used due to the potential of erroneous results. Received Meds Area Mechanic [id number] 06/09/2025 11:21 AM EDT [facility] Blood WHOLE BLOOD / Unknown 06/09/2025 11:19 AM EDT 06/09/2025 11:21 AM EDT Narrative [facility] - 06/09/2025 11:21 AM EDT Area Mechanic ID is - [id number] Amanda Dial DO POINT OF CARE TEST ORDERABLES Final Result [facility] [address] [phone] * XR leg / tibia and fibula 2 views left (06/09/2025 10:32 AM EDT) Anatomical Region Laterality Modality Leg, Knee, Ankle X-Ray 06/09/2025 10:4 0 AM EDT Impressions 06/09/2025 10:44 AM EDT 1. No acute bony abnormality 2. Nonspecific benign-appearing lucent lesion mid tibial shaft 3. Mild degenerative changes of the knee. Images reviewed, interpreted, and dictated by Rico Brown MD Narrative 06/09/2025 10:44 AM EDT LEFT TIBIA AND FIBULA 2 VIEW HISTORY: Pain FINDINGS: Two views show no evidence of an acute, displaced fracture or dislocation of the visualized bony architecture. Subtle lucent lesion is seen of the mid tibial shaft measuring 12 mm. There is a thin sclerotic margin. Although nonspecific morphology strongly favors a benign nonaggressive lesion. Minimal degenerative changes are noted of the knee joint. Procedure Note Rico Brown MD - 06/09/2025 LEFT TIBIA AND FIBULA 2 VIEW HISTORY: Pain FINDINGS: Two views show no evidence of an acute, displaced fracture or dislocation of the visualized bony architecture. Subtle lucent lesion is seen of the mid tibial shaft measuring 12 mm. There is a thin sclerotic margin. Although nonspecific morphology strongly favors a benign nonaggressive lesion. Minimal degenerative changes are noted of the knee joint. IMPRESSION: 1. No acute bony abnormality 2. Nonspecific benign-appearing lucent lesion mid tibial shaft 3. Mild degenerative changes of the knee. Images reviewed, interpreted, and dictated by Rico Brown MD Amanda Dial DO IMG DIAGNOSTIC IMAGING ORDERAB LES Final Result * (ABNORMAL) Glucose, Nova Meter (06/09/2025 5:28 AM EDT) POC-GLUCOSE 124(H) 70 - 99 mg/dL 06/13/2025 12:21 AM EDT [facility] Comment: In the event of poor peripheral blood flow, venous or arterial blood should be used due to the potential of erroneous results. Notified Nurse RBV Area Mechanic [id number] 06/13/2025 12:21 AM EDT [facility] Blood WHOLE BLOOD / Unknown 06/09/2025 5:28 AM EDT 06/13/2025 12:21 AM EDT Narrative [facility] - 06/13/2025 12:21 AM EDT Area Mechanic ID is - [id number] Amanda Dial DO POINT OF CARE TEST ORDERABLES Final Result [facility] [address] [place] [address] * (ABNORMAL) PROTIME-INR (06/09/2025 3:45 AM EDT) Pathologist [facility] Protime 37.2(H) 9.0 - 12.0 seconds 06/09/2025 4:39 AM EDT [facility] INR 3.93(H) 0.80 - 1.10 06/09/2025 4:39 AM EDT [facility] Comment: Recommended therapeutic ranges using International Normalized Ratio (INR) are: INR RANGE 2.0 - 3.0 Routine oral anticoagulant therapy 2.5 - 3.5 Oral anticoagulant therapy for patients with thromboembolic events on standard doses of Coumadin and those with mechanical heart valves. Blood Venipuncture / Unknown 06/09/2025 3:45 AM EDT 06/09/2025 4:21 AM EDT us Amanda Dial DO LAB BLOOD ORDERABLES Final Res ult [facility] [address] [place] [address] * (ABNORMAL) CBC - Hemogram (SJ-BKR) (06/09/2025 3:45 AM EDT) WBC 8.2 4.8 - 10.8 K/ L 06/09/2025 4:30 AM EDT [facility] RBC 3.73(L) 3.80 - 5.20 M/ L 06/09/2025 4:30 AM EDT [facility] Hemoglobin 11.5(L) 12.8 - 17.4 GM/DL 06/09/2025 4:30 AM EDT [facility] Hematocrit 34.9(L) 39.0 - 51.0 % 06/09/2025 4:30 AM EDT [facility] MCV 94 81 - 101 fL 06/09/2025 4:30 AM EDT [facility] MCH 30.8 27.0 - 34.0 pg 06/09/2025 4:30 AM EDT [facility] MCHC 33.0 32.0 - 36.0 GM/DL 06/09/2025 4:30 AM EDT [facility] RDW 14.6(H) 11.5 - 14.5 % 06/09/2025 4:30 AM EDT [facility] Platelets 267 150 - 400 K/CU MM 06/09/2025 4:30 AM EDT [facility] MPV 10.9 9.4 - 12.4 fL 06/09/2025 4:30 AM EDT [facility] Blood Venipuncture / Unknown 06/09/2025 3:45 AM EDT 06/09/2025 4:21 AM EDT [facility] LAB BLOOD ORDERABLES Final Res ult Performing Organization Address City/[facility]/ZIP Co de Phone Number [facility] [address] [place] [address] * (ABNORMAL) C-Reactive Protein (06/09/2025 3:45 AM EDT) Pathologist [facility] CRP 10.40(H) 0.05 - 0.25 mg/dL 06/09/2025 4:38 AM EDT [facility] Blood Venipuncture / Unknown 06/09/2025 3:45 AM EDT 06/09/2025 4:22 AM EDT [facility] LAB BLOOD ORDERABLES Final Res ult Performing Organization Address [facility] Co de Phone Number [facility] [address] [place] [address] * (ABNORMAL) Glucose, Nova Meter (06/08/2025 9:14 PM EDT) Pathologist [facility] POC-GLUCOSE 165(H) 70 - 99 mg/dL 06/08/2025 9:39 PM EDT [facility] Comment:In the event of poor peripheral blood flow, venous or arterial blood should be used due to the potential of erroneous results. Area Mechanic [id number] 06/08/2025 9:39 PM EDT [facility] Blood WHOLE BLOOD / Unknown 06/08/2025 9:14 PM EDT 06/08/2025 9:39 PM EDT Narrative [facility] - 06/08/2025 9:39 PM EDT Area Mechanic ID is - [id number] Amanda Finereshi DO POINT OF CARE TEST ORDERABLES Final Result Performing Organization Address [facility]/ZIP Co de Phone Number [facility] [address] [place] [address] * (ABNORMAL) Glucose, Nova Meter (06/08/2025 4:45 PM EDT) POC-GLUCOSE 125(H) 70 - 99 mg/dL 06/08/2025 4:47 PM EDT [facility] Comment: In the event of poor peripheral blood flow, venous or arterial blood should be used due to the potential of erroneous results. Notified Nurse RBV Area Mechanic [id number] 06/08/2025 4:47 PM EDT [facility] Blood WHOLE BLOOD / Unknown 06/08/2025 4:45 PM EDT 06/08/2025 4:47 PM EDT Narrative [facility] - 06/08/2025 4:47 PM EDT Area Mechanic ID is - [id number] Amanda Floresi DO POINT OF CARE TEST ORDERABLES Final Result Performing Organization Address [facility] Co de Phone Number [facility] [address] [place] [address] * (ABNORMAL) PT/INR, PTT (06/08/2025 3:11 PM EDT) aPTT 58.1(H) 22.0 - 32.0 seconds 06/08/2025 3:45 PM EDT [facility] Protime 52.4(HH) 9.0 - 12.0 seconds 06/08/2025 3:45 PM EDT [facility] INR 5.64(HH) 0.80 - 1.10 06/08/2025 3:45 PM EDT [facility] Blood Venipuncture / Unknown 06/08/2025 3:11 PM EDT 06/08/2025 3:11 PM EDT us Amanda Dial DO LAB BLOOD ORDERABLES Final Res ult [facility] [address] [place] [id number] [phone] * CT lower extremity with IV contrast left (06/08/2025 1:02 PM EDT) Anatomical Region Laterality Modality Lower Extremity, Hip, Femur, Leg, Knee, Ankle, Foot Computed Tomography (CT) 06/08/2025 1:30 PM EDT Impressions 06/08/2025 1:34 PM EDT Findings are compatible with cellulitis. No abscess or acute bony abnormality identified. Narrative 06/08/2025 1:[address] of the left foot with IV contrast HISTORY: Redness and swelling of the left foot and stepped on a nail FINDINGS: Postcontrast imaging. No prior CT exams. This study was performed with techniques to keep radiation doses as low as reasonably achievable (ALARA). Individualized dose reduction techniques using automated exposure control or adjustment of mA and/or kV according to the patient's size were employed. There are no fractures. Joint compartments are maintained and are normally aligned. There is mild calcaneal spurring. There are no other significant degenerative changes. There are small accessory ossicles adjacent to the navicular. There is diffuse subcutaneous edema. There is no enhancing mass or focal fluid collection. There is arterial vascular calcification. There are no radiopaque foreign bodies. Procedure Note Gricelda Hernandez MD - 06/08/2025 CT of the left foot with IV contrast HISTORY: Redness and swelling of the left foot and stepped on a nail FINDINGS: Postcontrast imaging. No prior CT exams. This study was performed with techniques to keep radiation doses as low as reasonably achievable (ALARA). Individualized dose reduction techniques using automated exposure control or adjustment of mA and/or kV according to the patient's size were employed. There are no fractures. Joint compartments are maintained and are normally aligned. There is mild calcaneal spurring. There are no other significant degenerative changes. There are small accessory ossicles adjacent to the navicular. There is diffuse subcutaneous edema. There is no enhancing mass or focal fluid collection. There is arterial vascular calcification. There are no radiopaque foreign bodies. IMPRESSION: Findings are compatible with cellulitis. No abscess or acute bony abnormality identified. us Natalie Orellana LUMBER CHAIN OFFBEARER IMG CT ORDERABLES Final Result * Blood Culture Arm, Right (06/08/2025 12:46 PM EDT) Result No growth in 5 days 06/14/2025 12:01 AM EDT [facility] Blood ENTIRE RIGHT UPPER ARM / Unknown Venipuncture / Unknown 06/08/2025 12:46 PM EDT 06/08/2025 1:01 PM EDT Natalie Orellana NP MICROBIOLOGY - GENERAL ORDERAB LES Final Result Performing Organization Address [facility]/ZIP Co de Phone Number [facility] [address] [place], [place] [id number] [place] [address] * Lactic Acid with reflex (SJ) (06/08/2025 12:35 PM EDT) Lactic Acid Level (mmol/L) 1.5 0.4 - 2.0 mmol/L 06/08/2025 1:21 PM EDT [facility] Comment:If a Lactic Acid Lev el with Reflex if Indicated result is greater than 2.0, a Lactic Acid Level will be ordered to be collected 2 hours after the original collection time. Blood Venipuncture / Unknown 06/08/2025 12:35 PM EDT 06/08/2025 12:56 PM EDT Natalie Orellana NP LAB BLOOD ORDERABLES Final Res ult [facility] [address] [place], [place] [address] [phone] * (ABNORMAL) Sedimentation rate (06/08/2025 12:35 PM EDT) Sed Rate 46(H) 0 - 20 mm/HR 06/08/2025 1:21 PM EDT [facility] Blood Venipuncture / Unknown 06/08/2025 12:35 PM EDT 06/08/2025 12:56 PM EDT us Natalie J Strange LUM[employer]AR[employer] LAB BLOOD ORDERABLES Final Res ult Performing Organization Address City/[facility]/ZIP Co de Phone Number [facility] [address] [phone] * (ABNORMAL) C-Reactive Protein (06/08/2025 12:35 PM EDT) CRP 8.63(H) 0.05 - 0.25 mg/dL 06/08/2025 1:20 PM EDT [facility] Blood Venipuncture / Unknown 06/08/2025 12:35 PM EDT 06/08/2025 12:56 PM EDT us Natalie J Strange LUM[employer] LAB BLOOD ORDERABLES Final Res ult Performing Organization Address [facility]/ZIP Co de Phone Number [facility] [address] [place] [address] * Blood Culture (06/08/2025 12:35 PM EDT) Result No growth in 5 days 06/14/2025 12:01 AM EDT [facility] Blood Venipuncture / Unknown 06/08/2025 12:35 PM EDT 06/08/2025 1:01 PM EDT us Natalie J Strange LUMBER CHAIN OFF[employer]ARER MICROBIOLOGY - GENERAL ORDERAB LES Final Result Performing Organization Address City/[facility]/ZIP Co de Phone Number [facility] [address] [place] [address], [facility] [phone] * (ABNORMAL) Comprehensive metabolic panel (06/08/2025 12:35 PM EDT) Sodium 135(L) 136 - 145 meq/L 06/08/2025 1:20 PM EDT [facility] Potassium 3.7 3.5 - 5.1 meq/L 06/08/2025 1:20 PM EDT [facility] Chloride 101 98 - 107 meq/L 06/08/2025 1:20 PM EDT [facility] CO2 27 21 - 32 meq/L 06/08/2025 1:20 PM EDT [facility] Calcium 9.3 8.5 - 10.1 mg/dL 06/08/2025 1:20 PM EDT [facility] Glucose 143(H) 70 - 99 mg/dL 06/08/2025 1:20 PM EDT [facility] [facility] BUN 14 7 - 18 mg/dL 06/08/2025 1:20 PM EDT [facility] Creatinine 1.28(H) 0.70 - 1.20 mg/dL 06/08/2025 1:20 PM EDT [facility] BUN/Creatinine 11 06/08/2025 1:20 PM EDT [facility] Albumin 3.4 3.4 - 5.0 g/dL 06/08/2025 1:20 PM EDT [facility] Alkaline Phosphatase 68 46 - 116 U/L 06/08/2025 1:20 PM EDT [facility] ALT 21 12 - 78 U/L 06/08/2025 1:20 PM EDT [facility] AST 18 15 - 37 U/L 06/08/2025 1:20 PM EDT [facility] Total Bilirubin 0.7 0.2 - 1.0 mg/dL 06/08/2025 1:20 PM EDT [facility] Protein, Total 7.4 6.4 - 8.2 gm/dL 06/08/2025 1:20 PM EDT [facility] Anion Gap 11 11 - 22 06/08/2025 1:20 PM EDT [facility] A/G Ratio 0.9 06/08/2025 1:20 PM EDT [facility] Globulin 4.0 g/dL 06/08/2025 1:20 PM EDT [facility] Osmolality Calc 273.0 mOsm/kg 1:20 PM EDT [facility] eGFR (mL/min/1.73m2) >60 >=60 mL/min/1.7 3m2 06/08/2025 1:20 PM EDT [facility] Comment:ESTIMATED GFR IS NOT ACCURATE CREATININE CLEARANCE IN PREDICTING GLOMERULAR FILTRATION RATE. ESTIMATED GFR IS NOT APPLICABLE FOR DIALYSIS PATIENTS. Blood Venipuncture / Unknown 06/08/2025 12:35 PM EDT 06/08/2025 12:56 PM EDT us Natalie Orellana [employer] LAB BLOOD ORDERABLES Final Res ult [facility] [address] [place] [address] * (ABNORMAL) CBC with Auto Diff (06/08/2025 12:35 PM EDT) WBC 10.2 4.8 - 10.8 K/ L 06/08/2025 1:02 PM EDT [facility] RBC 4.34 3.80 - 5.20 M/ L 06/08/2025 1:02 PM EDT [facility] Hemoglobin 13.4 12.8 - 17.4 GM/DL 06/08/2025 1:02 PM EDT [facility] Hematocrit 39.9 39.0 - 51.0 % 06/08/2025 1:02 PM EDT [facility] MCV 92 81 - 101 fL 06/08/2025 1:02 PM EDT [facility] MCH 30.9 27.0 - 34.0 pg 06/08/2025 1:02 PM EDT [facility] MCHC 33.6 32.0 - 36.0 GM/DL 06/08/2025 1:02 PM EDT [facility] RDW 14.6(H) 11.5 - 14.5 % 06/08/2025 1:02 PM EDT [facility] Platelets 309 150 - 400 K/CU MM 06/08/2025 1:02 PM EDT [facility] MPV 10.9 9.4 - 12.4 fL 06/08/2025 1:02 PM EDT [facility] Nucleated Red Blood Cell 0.0 0 - 0.2 % 06/08/2025 1:02 PM EDT [facility] % Neutros 84(H) 37 - 80 % 06/08/2025 1:02 PM EDT [facility] % Lymphs 7(L) 10 - 50 % 06/08/2025 1:02 PM EDT [facility] % Monos 8 5 - 13 % 06/08/2025 1:02 PM EDT [facility] % Eos 0 0 - 7 % 06/08/2025 1:02 PM EDT [facility] % Baso 0 0 - 3 % 06/08/2025 1:02 PM EDT [facility] NRBC Absolute <0.01 0 - 0.012 K/ul 06/08/2025 1:02 PM EDT [facility] # Neutros 8.58(H) 2.00 - 6.90 K/ L 06/08/2025 1:02 PM EDT [facility] # Lymphs 0.71 0.60 - 3.40 K/ L 06/08/2025 1:02 PM EDT [facility] # Monos 0.78 0.00 - 0.90 K/ L 06/08/2025 1:02 PM EDT [facility] # Eos 0.03 0.00 - 0.70 K/ L 06/08/2025 1:02 PM EDT [facility] # Baso 0.03 0.00 - 0.20 K/ L 06/08/2025 1:02 PM EDT [facility] Immature Granulocytes-Re lative 0.60 % 06/08/2025 1:02 PM EDT [facility] # IG 0.06(H) 0.00 - 0.00 K/uL 06/08/2025 1:02 PM EDT [facility] Blood Venipuncture / Unknown 06/08/2025 12:35 PM EDT 06/08/2025 12:56 PM EDT Narrative [facility] - 06/08/2025 1:02 PM EDT When CBC w/ Auto Diff [...] Flag noted Atypical Lymph flag noted us Natalie Orellana NP LAB BLOOD ORDERABLES Final Res ult [facility] [address] [place] [address], [facility] [phone] documented in this encounter Visit Diagnoses Diagnosis Cellulitis- Primary Cellulitis and abscess of unspecified site Cellulitis of left lower extremity documented in this encounter Admitting Diagnoses Diagnosis Cellulitis Cellulitis and abscess of unspecified site documented in this encounter Administered Medications Inactive Administered Medications - up to 3 most recent administrations Medication Order MAR Action Action Date Dose Rate Site aspirin EC tablet 81 mg 81 mg Daily, oral, First dose on Sat06/09/25 at 0900, * DO NOT CRUSH THIS DOSAGE FORM * Given 06/10/2025 8:27 AM EDT 81 mg Given 06/09/2025 8:42 AM EDT 81 mg atorvastatin (LIPITOR) tablet 40 mg 40 mg Every Night, oral, First dose on Sat06/08/25 at 2300 Given 06/09/2025 8:23 PM EDT 40 mg Given 06/08/2025 11:23 PM EDT 40 mg bisoprolol (ZEBETA) tablet 2.5 mg 2.5 mg Daily, oral, First dose on Sat06/09/25 at 1100 Given 06/10/2025 8:26 AM EDT 2.5 mg Given 06/09/2025 11:28 AM EDT 2.5 mg cefTRIAXone (ROCEPHIN) 2 g in sodium chloride 0.9 % (NS) MBP 100 mL IVPB 2 g Daily, intravenous, at 600 mL/hr, First dose on Sat06/08/25 at 1530, Please choose an indication: Skin/Soft Tissue Infection IVPB Started 06/10/2025 8:27 AM EDT 2 g 600 mL/hr IVPB Started 06/09/2025 8:42 AM EDT 2 g 600 mL/hr IVPB Started 06/08/2025 4:40 PM EDT 2 g 600 mL/hr dextrose 50% (D50W) injection vial/syringe 25 g Every 15 min PRN, intravenous, low blood glucose (specify value in prn comments), less than 41 mg/dL or 41-69 mg/dL and unable to take PO, Starting on Sat06/08/25 at 1553, Repeat blood glucose every 15 minutes until blood glucose greater than 70 mg/dL. Call Provider if not resolved after 2 treatments Repeat BS in 1 hour, retime for 1 hour after blood sugar greater than 70 mg/dL If less than 41: Repeat Finger stick within 5 minutes with same machine Send serum glucose level: Do not wait on lab to treat enoxaparin (LOVENOX) syringe 90 mg 90 mg Every 12 hours interval (rounded from 93 mg = 1 mg/kg 93 kg), subcutaneous, First dose on Shanti 06/10/25 at 0900, Discontinue when INR GREATER than 2.5 \Do not administer within 12 hours of epidural or lumbar puncture. Look-Alike/Sound-Alike Alert Given 06/10/2025 8:31 AM EDT 90 mg Abdominal Tissue glucagon injection 1 mg 1 mg Every 15 min PRN, intraMUSCULAR, low blood glucose (specify value in prn comments), For Patients without IV access and blood glucose 41-69 mg/dL AND unable to take PO OR Less than 41 mg/dL, Starting on Sat06/08/25 at 1553, Caution: glucagon . Roll patient on their side when administering to prevent aspiration. Call Provider if not resolved after 2 treatments Repeat BS in 1 hour, retime for 1 hour after blood sugar greater than 70 mg/dL glucose chew tab 16 g 16 g Every 15 min PRN, oral, low blood glucose (specify value in prn comments), 41-69 mg/dL, Starting on Sat06/08/25 at 1553, For Patients who can take oral AND blood glucose 41-69 mg/dL Give 4 Tabs every 15 minutes. Recheck blood glucose every 15 minutes and repeat 15 grams of carbohydrates until blood glucose is above 70 mg/dL. Give Meal or Snack Call Provider if not resolved after 3 treatments Repeat BS in 1 hour, retime for 1 hour after blood sugar greater than 70 mg/dL insulin lispro (HUMALOG, ADMELOG) injection 0-18 Units 0-18 Units 4 times daily (before meals and nightly), subcutaneous, First dose on Sat06/08/25 at 1630, If Blood Sugar is less than 180 beteween [id number], DO NOT give corrective insulin unless otherwise ordered. Corrective Scale C 0 units for fingerstick blood glucose LESS than 140 mg/dL 3 units subcutaneously once for fingerstick blood glucose [140] - [180] mg/dL 6 units subcutaneously once for fingerstick blood glucose [181] - [220] mg/dL 9 units subcutaneously once for fingerstick blood glucose [221] - [260] mg/dL 12 units subcutaneously once for fingerstick blood glucose [261] - [300] mg/dL 15 units subcutaneously once for fingerstick blood glucose [301] - [350] mg/dL 18 units subcutaneously once for fingerstick blood glucose [351] - [400] mg/dL Notify provider of glucose levels LESS than [70] and GREATER than [400] iopamidoL (ISOVUE-370) 370 mg iodine /mL (76 %) injection 75 mL 75 mL IMG once as needed, intravenous, contrast, Starting on Sat06/08/25 at 1301, For 1 dose, Intra-op Given 06/08/2025 1:03 PM EDT 75 mLs ketorolac (TORADOL) injection 15 mg 15 mg Once, intravenous, On Sat06/08/25 at 1255, For 1 dose Given 06/08/2025 1:24 PM EDT 15 mg ondansetron (ZOFRAN) injection 4 mg 4 mg Every 8 hours PRN, intravenous, nausea, vomiting, Starting on Sat06/08/25 at 1417, Give IV if patient is unable to take orally. 1st line If inadequate response within 60 minutes, proceed to next-line agent for same PRN reason or contact provider if no further options ordered. For IV push, give over 2 - 5 minutes. ondansetron (ZOFRAN-ODT) disintegrating tablet 4 mg 4 mg Every 8 hours PRN, oral, nausea, vomiting, Starting on Sat06/08/25 at 1417, 1st line. If inadequate response within 60 minutes, proceed to next-line agent for same PRN reason or contact provider if no further options ordered. pantoprazole (PROTONIX) EC tablet 40 mg 40 mg Daily, oral, First dose on Sat06/08/25 at 1630, Therapeutic Interchange for Proton Pump Inhibitors. * DO NOT CRUSH THIS DOSAGE FORM * Given 06/10/2025 8:26 AM EDT 40 mg Given 06/09/2025 8:42 AM EDT 40 mg Given 06/08/2025 4:42 PM EDT 40 mg piperacillin-tazobactam (ZOSYN) 4.5 g in sodium chloride 0.9 % (NS) MBP 100 mL IVPB 4.5 g Once, intravenous, at 200 mL/hr, On Sat06/08/25 at 1230, For 1 dose, Please choose an indication: Skin/Soft Tissue Infection IVPB Started 06/08/2025 1:02 PM EDT 4.5 g 200 mL/hr Left Arm sodium chloride 0.9 % infusion 100 mL/hr Continuous, intravenous, Starting on Sat06/08/25 at 1420, For 10 hours New Bag 06/08/2025 3:05 PM EDT 100 mL/hr 100 mL/hr sodium chloride 0.9% (NS) bolus 1,000 mL Once, intravenous, Administer over 60 Minutes, On Sat06/08/25 at 1230, For 1 dose New Bag 06/08/2025 1:02 PM EDT 1,000 mLs 1000 mL/hr Left Arm vancomycin (VANCOCIN) IVPB 1500 mg in sodium chloride 0.9% (NS) 250 mL (PMX) 1,500 mg Once (rounded from 1,395 mg = 15 mg/kg 93 kg), intravenous, Administer over 90 Minutes, On Sat06/08/25 at 1300, For 1 dose, *REFRIGERATOR*, Please choose an indication: Skin/Soft Tissue Infection IVPB Started 06/08/2025 1:40 PM EDT 1,500 mg 166.7 mL/hr Left Arm vancomycin (VANCOCIN) IVPB 1500 mg in sodium chloride 0.9% (NS) 250 mL (PMX) 1,500 mg Every 18 hours, intravenous, Administer over 90 Minutes, First dose on Sat06/09/25 at 0730, Vancomycin trough due 06/10 at 18:30 (30-60 minutes prior to the dose due at 19:30 on 06/10/25). RN to please hold the dose of IV Vancomycin due at 19:30 on 06/10 until the level results are available for review. May hang if the level comes back LESS than 21 mcg/mL - otherwise continue to hold and contact the remote pharmacy services at [facility] for further guidance. *REFRIGERATOR*, Please choose an indication: Skin/Soft Tissue Infection IVPB Started 06/10/2025 12:54 AM EDT 1,500 mg 166.7 mL/hr IVPB Started 06/09/2025 6:51 AM EDT 1,500 mg 166.7 mL/hr warfarin (COUMADIN) tablet 5 mg 5 mg Every evening, oral, First dose on Sat06/09/25 at 1700, Hold warfarin dose for INR greater than 4. Contact MD for further orders. INR Goal Range: 2.5-3.5 Caution: Recommend wearing gloves during administration. DO NOT BREAK/CRUSH/CHEW. Employees who are , trying to become , or should not handle this medication. Dispose of trace medication (including packaging) in the BLACK waste bin. Given 06/09/2025 5:05 PM EDT 5 mg documented in this encounter Active and Recently Administered Medications Times are shown in EDT. Scheduled Medication Order 06/08/2025 06/09/2025 06/10/2025 aspirin EC tablet 81 mg 81 mg Daily, oral, First dose on Sat06/09/25 at 0900, * DO NOT CRUSH THIS DOSAGE FORM * 0842 (Given - Provider: Olimpia Rod, OSCAR) 0827 (Given - Provider: Olimpia Rod RN) atorvastatin (LIPITOR) tablet 40 mg 40 mg Every Night, oral, First dose on Sat06/08/25 at 2300 2323 (Given - Provider: Dayan Morse, OSCAR) 2022 (Given - Provider: Dayan Morse, OSCAR) bisoprolol (ZEBETA) tablet 2.5 mg 2.5 mg Daily, oral, First dose on Sat06/09/25 at 1100 1128 (Given - Provider: Olimpia Rod RN) 0826 (Given - Provider: Olimpia Rod RN) cefTRIAXone (ROCEPHIN) 2 g in sodium chloride 0.9 % (NS) MBP 100 mL IVPB 2 g Daily, intravenous, at 600 mL/hr, First dose on Sat06/08/25 at 1530, Please choose an indication: Skin/Soft Tissue Infection 1640 (IVPB Started - Provider: Pk Sweet RN)1658 (IVPB Stopped - Provider: Pk Sweet RN) 0842 (IVPB Started - Provider: Olimpia Rod RN)0852 (Due: IVPB Stopped - Provider: Olimpia Rod RN) 0827 (IVPB Started - Provider: Olimpia Rod RN)0902 (IVPB Stopped - Provider: Olimpia Rod RN) docusate sodium (COLACE) capsule 100 mg 100 mg 2 times daily, oral, First dose on Sat06/08/25 at 1500, Bowel Regimen - for prevention of constipation. 1450 (Not Given - Provider: Pk Sweet RN - Reason: Patient/family refused)2110 (Not Given - Provider: Dayan Morse, OSCAR - Reason: Patient/family refused) 0842 (Not Given - Provider: Olimpia Rod RN - Reason: Contraindicated)2023 (Not Given - Provider: Dayan Morse RN - Reason: Patient/family refused) 0829 (Not Given - Provider: Olimpia Rod RN - Reason: Contraindicated) enoxaparin (LOVENOX) syringe 90 mg 90 mg Every 12 hours interval (rounded from 93 mg = 1 mg/kg 93 kg), subcutaneous, First dose on Sat06/10/25 at 0900, Discontinue when INR GREATER than 2.5 \Do not administer within 12 hours of epidural or lumbar puncture. Look-Alike/Sound-Ali ke Alert 0831 (Given - Provider: Olimpia Rod RN) insulin lispro (HUMALOG, ADMELOG) injection 0-18 Units 0-18 Units 4 times daily (before meals and nightly), subcutaneous, First dose on Sat06/08/25 at 1630, If Blood Sugar is less than 180 beteween [id number], DO NOT give corrective insulin unless otherwise ordered. Corrective Scale C 0 units for fingerstick blood glucose LESS than 140 mg/dL 3 units subcutaneously once for fingerstick blood glucose [140] - [180] mg/dL 6 units subcutaneously once for fingerstick blood glucose [181] - [220] mg/dL 9 units subcutaneously once for fingerstick blood glucose [221] - [260] mg/dL 12 units subcutaneously once for fingerstick blood glucose [261] - [300] mg/dL 15 units subcutaneously once for fingerstick blood glucose [301] - [350] mg/dL 18 units subcutaneously once for fingerstick blood glucose [351] - [400] mg/dL Notify provider of glucose levels LESS than [70] and GREATER than [400] 1651 (Not Given - Provider: Pk Sweet RN - Reason: Per MD Order)2114 (Not Given - Provider: Dayan Morse RN - Reason: Contraindicated - Comment: 165) 0650 (Not Given - Provider: Dayan Morse RN - Reason: Contraindicated - Comment: [phone] (Not Given - Provider: Olimpia Rod RN - Reason: Contraindicated)1644 (Not Given - Provider: Olimpia Rod RN - Reason: Contraindicated)202 (Not Given - Provider: Dayan Morse RN - Reason: Contraindicated - Comment: 94) 0635 (Not Given - Provider: Sanaz Traore RN - Reason: Patient/family refused - Comment: FSBS [phone] (Not Given - Provider: Olimpia Rod RN - Reason: Other (with Comment) - Comment: DC) ketorolac (TORADOL) injection 15 mg (COMPLETED) 15 mg Once, intravenous, On Sat06/08/25 at 1255, For 1 dose 1324 (Given - Provider: Lorraine Cody RN) pantoprazole (PROTONIX) EC tablet 40 mg 40 mg Daily, oral, First dose on Sat06/08/25 at 1630, Therapeutic Interchange for Proton Pump Inhibitors. * DO NOT CRUSH THIS DOSAGE FORM * 1642 (Given - Provider: Pk Sweet RN) 0842 (Given - Provider: Olimpia Rod RN) 0826 (Given - Provider: Olimpia Rod RN) piperacillin-tazobacta m (ZOSYN) 4.5 g in sodium chloride 0.9 % (NS) MBP 100 mL IVPB (COMPLETED) 4.5 g Once, intravenous, at 200 mL/hr, On Sat06/08/25 at 1230, For 1 dose, Please choose an indication: Skin/Soft Tissue Infection 1302 (IVPB Started - Provider: Lorraine Cody RN)1343 (Stopped - Provider: Lorraine Cody RN) sodium chloride 0.9% (NS) bolus (COMPLETED) 1,000 mL Once, intravenous, Administer over 60 Minutes, On Sat06/08/25 at 1230, For 1 dose 1302 (New Bag - Provider: Lorraine Cody RN)1343 (Stopped - Provider: Lorraine Cody RN) vancomycin (VANCOCIN) IVPB 1500 mg in sodium chloride 0.9% (NS) 250 mL (PMX) (COMPLETED) 1,500 mg Once (rounded from 1,395 mg = 15 mg/kg 93 kg), intravenous, Administer over 90 Minutes, On Sat06/08/25 at 1300, For 1 dose, *REFRIGERATOR*, Please choose an indication: Skin/Soft Tissue Infection 1340 (IVPB Started - Provider: Lorraine Cody RN)1651 (IVPB Stopped - Provider: Pk Sweet RN) vancomycin (VANCOCIN) IVPB 1500 mg in sodium chloride 0.9% (NS) 250 mL (PMX) 1,500 mg Every 18 hours, intravenous, Administer over 90 Minutes, First dose on Sat06/09/25 at 0730, Vancomycin trough due 06/10 at 18:30 (30-60 minutes prior to the dose due at 19:30 on 06/10/25). RN to please hold the dose of IV Vancomycin due at 19:30 on 06/10 until the level results are available for review. May hang if the level comes back LESS than 21 mcg/mL - otherwise continue to hold and contact the remote pharmacy services at [facility] for further guidance. *REFRIGERATOR*, Please choose an indication: Skin/Soft Tissue Infection 0651 (IVPB Started - Provider: Dayan Morse RN)0821 (Due: IVPB Stopped - Provider: Dayan Morse RN) 0054 (IVPB Started - Provider: Sanaz León, RN)0235 (IVPB Stopped - Provider: Sanaz Traore RN) warfarin (COUMADIN) tablet 5 mg 5 mg Every evening, oral, First dose on Sat06/09/25 at 1700, Hold warfarin dose for INR greater than 4. Contact MD for further orders. INR Goal Range: 2.5-3.5 Caution: Recommend wearing gloves during administration. DO NOT BREAK/CRUSH/CHEW. Employees who are , trying to become , or should not handle this medication. Dispose of trace medication (including packaging) in the BLACK waste bin. 1705 (Given - Provider: Olimpia Rod, OSCAR) Continuous Medication Order 06/08/2025 06/09/2025 06/10/2025 sodium chloride 0.9 % infusion 100 mL/hr Continuous, intravenous, Starting on Sat06/08/25 at 1420, For 10 hours 1505 (New Bag - Provider: Pk Sweet RN) PRN Medication Order 06/08/2025 06/09/2025 06/10/2025 acetaminophen (TYLENOL) tablet 1,000 mg 1,000 mg Every 6 hours PRN, oral, fever greater than or equal to 38C, mild pain (1-3), headache, Starting on Sat06/08/25 at 1417, Recommended maximum dose of acetaminophen is 4000 mg from all sources in 24 hours dextrose 50% (D50W) injection vial/syringe 25 g Every 15 min PRN, intravenous, low blood glucose (specify value in prn comments), less than 41 mg/dL or 41-69 mg/dL and unable to take PO, Starting on Sat06/08/25 at 1553, Repeat blood glucose every 15 minutes until blood glucose greater than 70 mg/dL. Call Provider if not resolved after 2 treatments Repeat BS in 1 hour, retime for 1 hour after blood sugar greater than 70 mg/dL If less than 41: Repeat Finger stick within 5 minutes with same machine Send serum glucose level: Do not wait on lab to treat glucagon injection 1 mg 1 mg Every 15 min PRN, intraMUSCULAR, low blood glucose (specify value in prn comments), For Patients without IV access and blood glucose 41-69 mg/dL AND unable to take PO OR Less than 41 mg/dL, Starting on Sat06/08/25 at 1553, Caution: glucagon . Roll patient on their side when administering to prevent aspiration. Call Provider if not resolved after 2 treatments Repeat BS in 1 hour, retime for 1 hour after blood sugar greater than 70 mg/dL glucose chew tab 16 g 16 g Every 15 min PRN, oral, low blood glucose (specify value in prn comments), 41-69 mg/dL, Starting on Sat06/08/25 at 1553, For Patients who can take oral AND blood glucose 41-69 mg/dL Give 4 Tabs every 15 minutes. Recheck blood glucose every 15 minutes and repeat 15 grams of carbohydrates until blood glucose is above 70 mg/dL. Give Meal or Snack Call Provider if not resolved after 3 treatments Repeat BS in 1 hour, retime for 1 hour after blood sugar greater than 70 mg/dL iopamidoL (ISOVUE-370) 370 mg iodine /mL (76 %) injection 75 mL (COMPLETED) 75 mL IMG once as needed, intravenous, contrast, Starting on Sat06/08/25 at 1301, For 1 dose, Intra-op 1303 (Given - Provider: Keli Mitchell) ondansetron (ZOFRAN) injection 4 mg(Linked Group 1) 4 mg Every 8 hours PRN, intravenous, nausea, vomiting, Starting on Sat06/08/25 at 1417, Give IV if patient is unable to take orally. 1st line If inadequate response within 60 minutes, proceed to next-line agent for same PRN reason or contact provider if no further options ordered. For IV push, give over 2 - 5 minutes. ondansetron (ZOFRAN-ODT) disintegrating tablet 4 mg(Linked Group 1) 4 mg Every 8 hours PRN, oral, nausea, vomiting, Starting on Sat06/08/25 at 1417, 1st line. If inadequate response within 60 minutes, proceed to next-line agent for same PRN reason or contact provider if no further options ordered. Linked Groups Order Group 1: ondansetron (ZOFRAN-ODT) disintegrating tablet 4 mgJump to med 4 mg Every 8 hours PRN, oral, nausea, vomiting, Starting on Sat06/08/25 at 1417, 1st line. If inadequate response within 60 minutes, proceed to next-line agent for same PRN reason or contact provider if no further options ordered. Or ondansetron (ZOFRAN) injection 4 mgJump to med 4 mg Every 8 hours PRN, intravenous, nausea, vomiting, Starting on Sat06/08/25 at 1417, Give IV if patient is unable to take orally. 1st line If inadequate response within 60 minutes, proceed to next-line agent for same PRN reason or contact provider if no further options ordered. For IV push, give over 2 - 5 minutes. documented in this encounter Care Teams Statistics Professor Relationship Specialty Start Date End Date Parish Aldrich MD [address] [place] [id number] PCP - General Internal Medicine 06/06/25 documented as of this encounter
--- OUTSIDE RECORDS SUMMARY | 2025-06-16 08:36 | XMS_ITS | Encounter Summary ---
Author Organization [email or web address] ([place], [place], [place], [place]) Address [address] [place] [address] Care Team Providers Care Bridge Gang Worker Name Role Phone Parish Aldrich MD Primary Care Provider + Encounter Details Date Type Department Care Team (Late st Contact Info) Description 06/11/2025 Telephone [facility] Surgical Unit [address] [place] [address] Anton Whitley RN Social History Tobacco Use Types Packs/Day Years [...] on filedocumented in this encounter Care Teams Bridge Gang Worker Relationship Specialty Start Date End Date Parish Aldrich MD [address] [place] [address] PCP - General Internal Medicine 06/06/25 documented as of this encounter
--- OUTSIDE RECORDS SUMMARY | 2025-06-16 08:36 | XMS_ITS | Encounter Summary ---
Author Organization [employer] ([place], [place], [place], [place]) Address [address] [place] [address] Care Team Providers Care Electronics Teacher Name Role Phone Parish Aldrich MD Primary Care Provider + Encounter Details Date Type Department Care Team (Late st Contact Info) Description 06/14/2025 Telephone [facility] Surgical Unit [address] [place] [address] Anton Whitley RN Social History [...] on filedocumented in this encounter Care Teams Electronics Teacher Relationship Specialty Start Date End Date Parish Aldrich MD [address] [place] [address] PCP - General Internal Medicine 06/06/25 documented as of this encounter
--- OUTSIDE RECORDS SUMMARY | 2025-06-16 08:36 | XMS_ITS | Encounter Summary ---
Author Organization [employer] ([place], [place], [place], [place]) Address [address] [place] [address] Care Team Providers Care Security And Compliance Project Manager Name Role Phone Parish Aldrich MD Primary Care Provider + Reason for Visit * Reason Onset Date Comments Hospital Follow Up 06/11/2025 Encounter Details Date Type Department Care Team (Late st Contact Info) Description 06/11/2025 Telephone [facility] [address] [place] [address] Parish Aldrich MD [address] [facility] [address] [place] [address] Hospital Follow Up Social History [...] on filedocumented in this encounter Care Teams Security And Compliance Project Manager Relationship Specialty Start Date End Date Parish Aldrich MD [address] [place] [id number] PCP - General Internal Medicine 06/06/25 documented as of this encounter
--- OUTSIDE RECORDS SUMMARY | 2025-06-16 08:37 | XMS_ITS | Clinical Summary ---
Author Organization [employer] ([place], [place], [place], [place]) Address [address] [place] [address] Care Team Providers Care Broadcast Designer Name Role Phone Parish Aldrich MD Primary [...] Encounters Date Type Department Care Team Description 06/14/2025 Telephone [facility] Surgical Unit [address] [place] [phone] Anton Whitley RN 06/11/2025 Telephone [facility] Unit [address] [place] [phone] Anton Whitley RN 06/11/[address] [phone] Parish Aldrich MD Hospital Follow Up 06/08/2025 12:23 PM EDT - 06/10/2025 11:00 AM EDT Hospital Encounter [facility] Unit [address] [place] [phone] Zen Sinclair DO Qureshi, Saadia, DO Caldwell, Kristinalin, APRN Cellulitis of left lower extremity (Primary Dx) Discharge Disposition: Home or Self Care 06/08/2025 Travel 06/06/2025 12:04 PM EDT - 06/06/2025 12:43 PM EDT Emergency [facility] Emergency Department [address] [place] [phone] Ahmet Lopez MD Cellulitis (Primary Dx) Discharge [...] GLUCOSE POC Routine 06/09/2025 5:28 AM EDT PROTHROMBIN TIME/INR Routine 06/09/2025 3:45 [...] 6:13 AM EDT) Only the most recent of7 resultswithin the time period is included. [facility] POC-GLUCOSE 157(H) 70 - 99 mg/dL 06/10/2025 6:34 AM EDT [facility] Comment:In the event of poor peripheral blood flow, venous or arterial blood should be used due to the potential of erroneous results. Coding Quality Analyst [id number] 06/10/2025 6:34 AM EDT [facility] Blood WHOLE BLOOD / Unknown 06/10/2025 6:13 AM EDT 06/10/2025 6:34 AM EDT Narrative [facility] - 06/10/2025 6:34 AM EDT Coding Quality Analyst ID is - [id number] us Amanda Dial DO POINT OF CARE TEST ORDERABLES Final Result [facility] [address] [place] [address] [phone] * (ABNORMAL) PROTIME-INR (06/10/2025 4:52 AM EDT) Only the most recent of2 resultswithin the time period is included. [facility] Protime 15.8(H) 9.0 - 12.0 seconds 06/10/2025 5:55 AM EDT [facility] INR 1.60(H) 0.80 - 1.10 06/10/2025 5:55 AM EDT [facility] Comment: Recommended therapeutic ranges [...] DO LAB BLOOD ORDERABLES Final Res ult [facility] [address] [place] [address] * XR leg / tibia and fibula [...] by Rico Brown MD Amanda Dial DO [facility] ORDERAB LES Final Result * (ABNORMAL) CBC - Hemogram (SJ-BKR) (06/09/2025 3:45 AM EDT) WBC 8.2 4.8 - 10.8 K/ L 06/09/2025 4:30 AM EDT [facility] RBC 3.73(L) 3.80 - 5.20 M/ L 06/09/2025 4:30 AM EDT [facility] Hemoglobin 11.5(L) 12.8 - 17.4 GM/DL 06/09/2025 4:30 AM EDT [facility] Hematocrit 34.9(L) 39.0 - 51.0 % 06/09/2025 4:30 AM EDT [facility] MCV 94 81 - 101 fL 06/09/2025 4:30 AM EDT [facility] MCH 30.8 27.0 - 34.0 pg 06/09/2025 4:30 AM EDT [facility] MCHC 33.0 32.0 - 36.0 GM/DL 06/09/2025 4:30 AM EDT [facility] RDW 14.6(H) 11.5 - 14.5 % 06/09/2025 4:30 AM EDT [facility] Platelets 267 150 - 400 K/CU MM 06/09/2025 4:30 AM EDT [facility] MPV 10.9 9.4 - 12.4 fL 06/09/2025 4:30 AM EDT [facility] Blood Venipuncture / Unknown 06/09/2025 3:45 AM EDT 06/09/2025 4:21 AM EDT Amanda Floresi DO LAB BLOOD ORDERABLES Final Res ult Performing Organization Address City/[facility]/ZIP Co de Phone Number [facility] [address] [place] [address] * (ABNORMAL) C-Reactive Protein (06/09/2025 3:45 AM EDT) Only the most recent of3 resultswithin the time period is included. CRP 10.40(H) 0.05 - 0.25 mg/dL 06/09/2025 4:38 AM EDT [facility] Blood Venipuncture / Unknown 06/09/2025 3:45 AM EDT 06/09/2025 4:22 AM EDT Amanda Dial DO LAB BLOOD ORDERABLES Final Res ult Performing Organization Address [facility] Co de Phone Number [facility] [address] [place] [address], [facility] [phone] * (ABNORMAL) PT/INR, PTT (06/08/2025 3:11 PM EDT) aPTT 58.1(H) 22.0 - 32.0 seconds 06/08/2025 3:45 PM EDT [facility] Protime 52.4(HH) 9.0 - 12.0 seconds 06/08/2025 3:45 PM EDT [facility] INR 5.64(HH) 0.80 - 1.10 06/08/2025 3:45 PM EDT [facility] Blood Venipuncture / Unknown 06/08/2025 3:11 PM EDT 06/08/2025 3:11 PM EDT [facility] Partners[facility] DO LAB BLOOD ORDERABLES Final Res ult [facility] [address] [place], [place] [address] [phone] * CT lower extremity with IV contrast [...] or acute bony abnormality identified. us Natalie J Strange SEE SUPERVISOR IMG CT ORDERABLES Final Result * Blood Culture Arm, Right (06/08/2025 12:46 PM EDT) Only the most recent of2 resultswithin the time period is included. Result No growth in 5 days 06/14/2025 12:01 AM EDT [facility] Blood ENTIRE RIGHT UPPER ARM / Unknown Venipuncture / Unknown 06/08/2025 12:46 PM EDT 06/08/2025 1:01 PM EDT us Natalie J Ismaelnge SEE SUPERVISOR MICROBIOLOGY - GENERAL ORDERAB LES Final Result [facility] [address] [phone] * (ABNORMAL) CBC with Auto Diff (06/08/2025 12:35 PM EDT) Only the most recent of2 resultswithin the time period is included. WBC 10.2 4.8 - 10.8 K/ L 06/08/2025 1:02 PM EDT [facility] RBC 4.34 3.80 - 5.20 M/ L 06/08/2025 1:02 PM EDT [facility] Hemoglobin 13.4 12.8 - 17.4 GM/DL 06/08/2025 1:02 PM EDT [facility] Hematocrit 39.9 39.0 - 51.0 % 06/08/2025 1:02 PM EDT [facility] MCV 92 81 - 101 fL 06/08/2025 1:02 PM EDT [facility] MCH 30.9 27.0 - 34.0 pg 06/08/2025 1:02 PM EDT [facility] MCHC 33.6 32.0 - 36.0 GM/DL 06/08/2025 1:02 PM EDT [facility] RDW 14.6(H) 11.5 - 14.5 % 06/08/2025 1:02 PM EDT [facility] Platelets 309 150 - 400 K/CU MM 06/08/2025 1:02 PM EDT [facility] MPV 10.9 9.4 - 12.4 fL 06/08/2025 1:02 PM EDT [facility] Nucleated Red Blood Cell 0.0 0 - 0.2 % 06/08/2025 1:02 PM EDT [facility] % Neutros 84(H) 37 - 80 % 06/08/2025 1:02 PM EDT [facility] % Lymphs 7(L) 10 - 50 % 06/08/2025 1:02 PM EDT [facility] % Monos 8 5 - 13 % 06/08/2025 1:02 PM EDT [facility] % Eos 0 0 - 7 % 06/08/2025 1:02 PM EDT [facility] % Baso 0 0 - 3 % 06/08/2025 1:02 PM EDT [facility] NRBC Absolute <0.01 0 - 0.012 K/ul 06/08/2025 1:02 PM EDT [facility] # Neutros 8.58(H) 2.00 - 6.90 K/ L 06/08/2025 1:02 PM EDT [facility] # Lymphs 0.71 0.60 - 3.40 K/ L 06/08/2025 1:02 PM EDT [facility] # Monos 0.78 0.00 - 0.90 K/ L 06/08/2025 1:02 PM EDT [facility] # Eos 0.03 0.00 - 0.70 K/ L 06/08/2025 1:02 PM EDT [facility] # Baso 0.03 0.00 - 0.20 K/ L 06/08/2025 1:02 PM EDT [facility] Immature Granulocytes-Re lative 0.60 % 06/08/2025 1:02 PM EDT [facility] # IG 0.06(H) 0.00 - 0.00 K/uL 06/08/2025 1:02 PM EDT [facility] Blood Venipuncture / Unknown 06/08/2025 12:35 PM EDT 06/08/2025 12:56 PM EDT Narrative [facility] - 06/08/2025 1:02 PM [...] Flag noted Atypical Lymph flag noted Natalie Echo [employer] SEE SUPERVISOR LAB BLOOD ORDERABLES Final Res ult Performing Organization Address City/[facility]/ZIP Co de Phone Number [facility] [address] [phone] * Lactic Acid with reflex (SJ) (06/08/2025 12:35 PM EDT) Lactic Acid Level (mmol/L) 1.5 0.4 - 2.0 mmol/L 06/08/2025 1:21 PM EDT [facility] Comment:If a Lactic Acid Lev el with Reflex if Indicated result is greater than 2.0, a Lactic Acid Level will be ordered to be collected 2 hours after the original collection time. Blood Venipuncture / Unknown 06/08/2025 12:35 PM EDT 06/08/2025 12:56 PM EDT Natalie [employer] SEE SUPERVISOR LAB BLOOD ORDERABLES Final Res ult Performing Organization Address City/[facility]/ZIP Co de Phone Number [facility] [address] [phone] * (ABNORMAL) Sedimentation rate (06/08/2025 12:35 PM EDT) Only the most recent of2 resultswithin the time period is included. Sed Rate 46(H) 0 - 20 mm/HR 06/08/2025 1:21 PM EDT [facility] Blood Venipuncture / Unknown 06/08/2025 12:35 PM EDT 06/08/2025 12:56 PM EDT us Natalie Osman SEE SUPERVISOR LAB BLOOD ORDERABLES Final Res ult [facility] [address] [phone] * (ABNORMAL) Comprehensive metabolic panel (06/08/2025 12:35 PM EDT) Only the most recent of2 resultswithin the time period is included. Sodium 135(L) 136 - 145 meq/L 06/08/2025 1:20 PM EDT [facility] Potassium 3.7 3.5 - 5.1 meq/L 06/08/2025 1:20 PM EDT [facility] Chloride 101 98 - 107 meq/L 06/08/2025 1:20 PM EDT [facility] CO2 27 21 - 32 meq/L 06/08/2025 1:20 PM EDT [facility] Calcium 9.3 8.5 - 10.1 mg/dL 06/08/2025 1:20 PM EDT [facility] Glucose 143(H) 70 - 99 mg/dL 06/08/2025 1:20 PM EDT [facility] BUN 14 7 - 18 mg/dL 06/08/2025 1:20 PM EDT [facility] Creatinine 1.28(H) 0.70 - 1.20 mg/dL 06/08/2025 1:20 PM EDT [facility] BUN/Creatinine 11 06/08/2025 1:20 PM EDT [facility] Albumin 3.4 3.4 - 5.0 g/dL 06/08/2025 1:20 PM EDT [facility] Alkaline Phosphatase 68 46 - 116 U/L 06/08/2025 1:20 PM EDT [facility] ALT 21 12 - 78 U/L 06/08/2025 1:20 PM EDT [facility] AST 18 15 - 37 U/L 06/08/2025 1:20 PM EDT [facility] Total Bilirubin 0.7 0.2 - 1.0 mg/dL 06/08/2025 1:20 PM EDT [facility] Protein, Total 7.4 6.4 - 8.2 gm/dL 06/08/2025 1:20 PM EDT [facility] Anion Gap 11 11 - 22 06/08/2025 1:20 PM EDT [facility] A/G Ratio 0.9 06/08/2025 1:20 PM EDT [facility] Globulin 4.0 g/dL 06/08/2025 1:20 PM EDT [facility] Osmolality Calc 273.0 mOsm/kg 1:20 PM EDT [facility] eGFR (mL/min/1.73m2) >60 >=60 mL/min/1.7 3m2 06/08/2025 1:20 PM EDT [facility] Comment:ESTIMATED GFR IS NOT ACCURATE CREATININE CLEARANCE IN PREDICTING GLOMERULAR FILTRATION RATE. ESTIMATED GFR IS NOT APPLICABLE FOR DIALYSIS PATIENTS. Blood Venipuncture / Unknown 06/08/2025 12:35 PM EDT 06/08/2025 12:56 PM EDT us Natalie Osman SEE SUPERVISOR LAB BLOOD ORDERABLES Final Res ult [facility] [address] [place] [address] * XR foot 3 views left (06/06/2025 [...] due to underlying diabetes. Procedure Note Casa Hnug MD - 06/06/2025 LEFT FOOT HISTORY: Left [...] - 308 U/L 06/06/2025 12:46 PM EDT [facility] Blood VENOUS LINE / Unknown Venipuncture / Unknown 06/06/2025 12:16 PM EDT 06/06/2025 12:20 PM EDT Johnnie Davis APRN LAB BLOOD ORDERABLES Final Result [facility] [address] [place] [address], [facility] [phone] from Last 3 Months Insurance BLUE CROSS/BLUE SHIELD Advance Directives For more information, please contact: [phone] * Full Code (Latest Code Status on File) Date Activated Date Inactivated Comments 06/08/2025 1:17 PM 06/10/2025 12:00 PM Care Teams Broadcast Designer Relationship Specialty Start Date End Date Parish Aldrich MD [address] [place] [address] PCP - General Internal Medicine 06/06/25
--- OUTSIDE RECORDS SUMMARY | 2025-06-16 08:37 | XMS_ITS | Encounter Summary ---
Author Organization [employer] ([place], [place], [place], [place]) Address [address] [place] [address] Care Team Providers Care School Psychology Professor Name Role Phone Parish Aldrich MD [...] on filedocumented in this encounter Care Teams School Psychology Professor Relationship Specialty Start Date End Date Parish Aldrich MD [address] [place] [address] PCP - General Internal Medicine 06/06/25 documented as of this encounter
--- OUTSIDE RECORDS SUMMARY | 2025-06-16 08:37 | XMS_ITS | Clinical Summary ---
Author Organization Healthcare Address [address] [place] [address] Care Team Providers Care Forging Roll Operator Name Role Phone Parish Ann MD Unavailable [phone] Parish Aldrich DO Primary Care Provider [phone] Allergies No known active allergies Medications aspirin [...] arrived to ICU intubated - bated to [place] - trending ABGs - Diurese, CXR as [...] place to sleep or slept in a skilled nursing (including now)? 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 Not [...] 2016 UKY-Diabetes: Hemoglobin A1C 06/24/2024 12/26/2023, 12/19/2023 [id number] Vaccine (3 - 2023- season) 2024 10/16/2021, [...] this topic Medical Devices Implanted Type Area Supervisor Cytogenetic Laboratory Device Identifier Shelf Expiration Date Model / Serial / Lot Valve Mitral 31mm Rotatabl Cuf Std - [id number] - [id number] Implanted:Qty: 1 on 12/25/2023 by Cory Mehta MD at [facility] [id number] 08/25/2028 [id number] / [id number] / [id number] Procedures Procedure Name Priority Date/Time Associated Diagnosis [...] Adults <6.0% Children and Adolescents <7.5% Source: [place] [employer]. Standards of medical care in diabetes,2017. Diabetes Care.2017:40 (suppl 1):S1-S135. HbA1c assay performed by an ion-exchange chromatography method that is certified traceable to the DCCT. Cory Mehta MD LAB BLOOD ORDERABLES Final R esult [facility] [address] [place] [address] from Last 3 Months or Most Recently Relevant to Health Maintenance Insurance Advance Directives * Full Code (Latest Code Status on File) Date Activated Date Inactivated Comments 12/25/2023 3:05 PM 12/31/2023 4:35 PM Question Answer Comments Patient has decision-making capacity? Yes Care Teams Forging Roll Operator Relationship Specialty Start Date End Date Parish Aldrich DO [address] [facility] [address] [place] [address] PCP - General 11/21/23 Parish Ann MD [address] [address] Referring Physician 11/12/23
--- OUTSIDE RECORDS SUMMARY | 2025-06-16 08:37 | XMS_ITS | Referral Summary ---
Author Organization [employer] ([place], [place], [place], [place]) Address [address] [place] [address] Care Team Providers Care Casting House Laborer Name Role Phone Parish Aldrich MD Primary Care Provider + Encounters Date Type Department Care Team Description 06/14/2025 Telephone [facility] [address] [place] [phone] Anton Whitley RN 06/11/2025 Telephone [facility] [address] [place] [phone] Anton Whitley RN 06/11/[address] [phone] Parish Aldrich MD Hospital Follow Up 06/08/2025 12:23 PM EDT - 06/10/2025 11:00 AM EDT Hospital Encounter [facility] [address] [place] [phone] Zen Sinclair DO Qureshi, Saadia, DO Caldwell, Kristinalin, APRN Cellulitis of left lower extremity (Primary Dx) Discharge Disposition: Home or Self Care 06/08/2025 Travel 06/06/2025 12:04 PM EDT - 06/06/2025 12:43 PM EDT Emergency [facility] Emergency Department [address] [place] [phone] Ahmet Lopez MD Cellulitis (Primary Dx) [...] mouth 2 (two) times daily. 20 capsule 5 Active Active Problems Problem Noted Date Diagnosed [...] of7 resultswithin the time period is included. POC-GLUCOSE 157(H) 70 - 99 mg/dL 06/10/2025 6:34 AM EDT [facility] Comment:In the event of poor peripheral blood flow, venous or arterial blood should be used due to the potential of erroneous results. [employer] [id number] 06/10/2025 6:34 AM EDT [facility] Blood WHOLE BLOOD / Unknown 06/10/2025 6:13 AM EDT 06/10/2025 6:34 AM EDT Narrative [facility] - 06/10/2025 6:34 AM EDT [employer] ID is - [id number] us Amanda Dial DO POINT OF CARE TEST ORDERABLES Final Result Performing Organization Address [facility] Co de Phone Number [address] [phone] * (ABNORMAL) PROTIME-INR (06/10/2025 4:52 AM EDT) Only the most recent of2 resultswithin the time period is included. Protime 15.8(H) 9.0 - 12.0 seconds 06/10/2025 5:55 AM EDT [facility] INR 1.60(H) 0.80 - 1.10 06/10/2025 5:55 AM EDT [facility] Comment: Recommended therapeutic ranges using [...] ORDERABLES Final Res ult Performing Organization Address City/[facility]/ZIP Co de Phone Number [facility] [address] [place] [address] * XR leg / tibia and fibula [...] Rico Brown MD us Amanda Dial DO IM DIAGNOSTIC IMAGING ORDERAB LES Final Result * (ABNORMAL) CBC - Hemogram (SJ-BKR) (06/09/2025 3:45 AM EDT) WBC 8.2 4.8 - 10.8 K/ L 06/09/2025 4:30 AM EDT [facility] RBC 3.73(L) 3.80 - 5.20 M/ L 06/09/2025 4:30 AM EDT [facility] Hemoglobin 11.5(L) 12.8 - 17.4 GM/DL 06/09/2025 4:30 AM EDT [facility] Hematocrit 34.9(L) 39.0 - 51.0 % 06/09/2025 4:30 AM EDT [facility] MCV 94 81 - 101 fL 06/09/2025 4:30 AM EDT [facility] MCH 30.8 27.0 - 34.0 pg 06/09/2025 4:30 AM EDT [facility] MCHC 33.0 32.0 - 36.0 GM/DL 06/09/2025 4:30 AM EDT [facility] RDW 14.6(H) 11.5 - 14.5 % 06/09/2025 4:30 AM EDT [facility] Platelets 267 150 - 400 K/CU MM 06/09/2025 4:30 AM EDT [facility] MPV 10.9 9.4 - 12.4 fL 06/09/2025 4:30 AM EDT [facility] Blood Venipuncture / Unknown 06/09/2025 3:45 AM EDT 06/09/2025 4:21 AM EDT us mAanda Dial DO LAB BLOOD ORDERABLES Final Res ult [facility] [address] [place] [address] * (ABNORMAL) C-Reactive Protein (06/09/2025 3:45 AM EDT) Only the most recent of3 resultswithin the time period is included. CRP 10.40(H) 0.05 - 0.25 mg/dL 06/09/2025 4:38 AM EDT [facility] Blood Venipuncture / Unknown 06/09/2025 3:45 AM EDT 06/09/2025 4:22 AM EDT [employer] LAB BLOOD ORDERABLES Final Res ult [facility] [address] [place] [address], [facility] [phone] * (ABNORMAL) PT/INR, PTT (06/08/2025 3:11 PM EDT) aPTT 58.1(H) 22.0 - 32.0 seconds 06/08/2025 3:45 PM EDT [facility] Protime 52.4(HH) 9.0 - 12.0 seconds 06/08/2025 3:45 PM EDT [facility] INR 5.64(HH) 0.80 - 1.10 06/08/2025 3:45 PM EDT [facility] Blood Venipuncture / Unknown 06/08/2025 3:11 PM EDT 06/08/2025 3:11 PM EDT Amanda Dial LAB BLOOD ORDERABLES Final Res ult [facility] [address] [place] [address], [facility] [phone] * CT lower extremity with IV contrast [...] in 5 days 06/14/2025 12:01 AM EDT [facility] Blood ENTIRE RIGHT UPPER ARM / Unknown Venipuncture / Unknown 06/08/2025 12:46 PM EDT 06/08/2025 1:01 PM EDT us Natalie Osman NP MICROBIOLOGY - GENERAL ORDERAB LES Final Result [facility] [address] [phone] * (ABNORMAL) CBC with Auto Diff (06/08/2025 12:35 PM EDT) Only the most recent of2 resultswithin the time period is included. WBC 10.2 4.8 - 10.8 K/ L 06/08/2025 1:02 PM EDT [facility] RBC 4.34 3.80 - 5.20 M/ L 06/08/2025 1:02 PM EDT [facility] Hemoglobin 13.4 12.8 - 17.4 GM/DL 06/08/2025 1:02 PM EDT [facility] Hematocrit 39.9 39.0 - 51.0 % 06/08/2025 1:02 PM EDT [facility] MCV 92 81 - 101 fL 06/08/2025 1:02 PM EDT [facility] MCH 30.9 27.0 - 34.0 pg 06/08/2025 1:02 PM EDT [facility] MCHC 33.6 32.0 - 36.0 GM/DL 06/08/2025 1:02 PM EDT [facility] RDW 14.6(H) 11.5 - 14.5 % 06/08/2025 1:02 PM EDT [facility] Platelets 309 150 - 400 K/CU MM 06/08/2025 1:02 PM EDT [facility] MPV 10.9 9.4 - 12.4 fL 06/08/2025 1:02 PM EDT [facility] Nucleated Red Blood Cell 0.0 0 - 0.2 % 06/08/2025 1:02 PM EDT [facility] % Neutros 84(H) 37 - 80 % 06/08/2025 1:02 PM EDT [facility] % Lymphs 7(L) 10 - 50 % 06/08/2025 1:02 PM EDT [facility] % Monos 8 5 - 13 % 06/08/2025 1:02 PM EDT [facility] % Eos 0 0 - 7 % 06/08/2025 1:02 PM EDT [facility] % Baso 0 0 - 3 % 06/08/2025 1:02 PM EDT [facility] NRBC Absolute <0.01 0 - 0.012 K/ul 06/08/2025 1:02 PM EDT [facility] # Neutros 8.58(H) 2.00 - 6.90 K/ L 06/08/2025 1:02 PM EDT [facility] # Lymphs 0.71 0.60 - 3.40 K/ L 06/08/2025 1:02 PM EDT [facility] # Monos 0.78 0.00 - 0.90 K/ L 06/08/2025 1:02 PM EDT [facility] # Eos 0.03 0.00 - 0.70 K/ L 06/08/2025 1:02 PM EDT [facility] # Baso 0.03 0.00 - 0.20 K/ L 06/08/2025 1:02 PM EDT [facility] Immature Granulocytes-Re lative 0.60 % 06/08/2025 1:02 PM EDT [facility] # IG 0.06(H) 0.00 - 0.00 K/uL 06/08/2025 1:02 PM EDT [facility] Blood Venipuncture / Unknown 06/08/2025 12:35 PM EDT 06/08/2025 12:56 PM EDT Narrative [facility] - 06/08/2025 1:02 PM EDT [...] NP LAB BLOOD ORDERABLES Final Res ult [facility] [address] [phone] * Lactic Acid with reflex (SJ) (06/08/2025 12:35 PM EDT) Lactic Acid Level (mmol/L) 1.5 0.4 - 2.0 mmol/L 06/08/2025 1:21 PM EDT [facility] Comment:If a Lactic Acid Lev el with Reflex if Indicated result is greater than 2.0, a Lactic Acid Level will be ordered to be collected 2 hours after the original collection time. Blood Venipuncture / Unknown 06/08/2025 12:35 PM EDT 06/08/2025 12:56 PM EDT [employer] LAB BLOOD ORDERABLES Final Res ult Performing Organization Address [facility]/ZIP Co de Phone Number [facility] [address] [place] [address] * (ABNORMAL) Sedimentation rate (06/08/2025 12:35 PM EDT) Only the most recent of2 resultswithin the time period is included. Sed Rate 46(H) 0 - 20 mm/HR 06/08/2025 1:21 PM EDT [facility] Blood Venipuncture / Unknown 06/08/2025 12:35 PM EDT 06/08/2025 12:56 PM EDT [employer] LAB BLOOD ORDERABLES Final Res ult [facility] [address] [place] [address] * (ABNORMAL) Comprehensive metabolic panel (06/08/2025 12:35 PM EDT) Only the most recent of2 resultswithin the time period is included. Sodium 135(L) 136 - 145 meq/L 06/08/2025 1:20 PM EDT [facility] Potassium 3.7 3.5 - 5.1 meq/L 06/08/2025 1:20 PM EDT [facility] Chloride 101 98 - 107 meq/L 06/08/2025 1:20 PM EDT [facility] CO2 27 21 - 32 meq/L 06/08/2025 1:20 PM EDT [facility] Calcium 9.3 8.5 - 10.1 mg/dL 06/08/2025 1:20 PM EDT [facility] Glucose 143(H) 70 - 99 mg/dL 06/08/2025 1:20 PM EDT [facility] BUN 14 7 - 18 mg/dL 06/08/2025 1:20 PM EDT [facility] Creatinine 1.28(H) 0.70 - 1.20 mg/dL 06/08/2025 1:20 PM EDT [facility] BUN/Creatinine 11 06/08/2025 1:20 PM EDT [facility] Albumin 3.4 3.4 - 5.0 g/dL 06/08/2025 1:20 PM EDT [facility] Alkaline Phosphatase 68 46 - 116 U/L 06/08/2025 1:20 PM EDT [facility] ALT 21 12 - 78 U/L 06/08/2025 1:20 PM EDT [facility] AST 18 15 - 37 U/L 06/08/2025 1:20 PM EDT [facility] Total Bilirubin 0.7 0.2 - 1.0 mg/dL 06/08/2025 1:20 PM EDT [facility] Protein, Total 7.4 6.4 - 8.2 gm/dL 06/08/2025 1:20 PM EDT [facility] Anion Gap 11 11 - 22 06/08/2025 1:20 PM EDT [facility] A/G Ratio 0.9 06/08/2025 1:20 PM EDT [facility] Globulin 4.0 g/dL 06/08/2025 1:20 PM EDT [facility] Osmolality Calc 273.0 mOsm/kg 1:20 PM EDT [facility] eGFR (mL/min/1.73m2) >60 >=60 mL/min/1.7 3m2 06/08/2025 1:20 PM EDT [facility] Comment:ESTIMATED GFR IS NOT ACCURATE CREATININE CLEARANCE IN PREDICTING GLOMERULAR FILTRATION RATE. ESTIMATED GFR IS NOT APPLICABLE FOR DIALYSIS PATIENTS. Blood Venipuncture / Unknown 06/08/2025 12:35 PM EDT 06/08/2025 12:56 PM EDT us Natalie Osman NP LAB BLOOD ORDERABLES Final Res ult [facility] [address] [id number], [facility] [phone] * XR foot 3 views left (06/06/2025 [...] by Dr. Casa Hung. Transcribed by Taiwo Bravo, PA-C. us Johnnie Davis APRN IMG DIAGNOSTIC IMAGIN G ORDERABLES Final Result * Creatine Kinase (CK) (06/06/2025 12:16 PM EDT) Total CK 195 39 - 308 U/L 06/06/2025 12:46 PM EDT [facility] Blood VENOUS LINE / Unknown Venipuncture / Unknown 06/06/2025 12:16 PM EDT 06/06/2025 12:20 PM EDT Johnnie Davis APRN LAB BLOOD ORDERABLES Final Result [facility] [address] [place] [address], [facility] [phone] from Last 3 Months Insurance BLUE CROSS/[employer]UE [employer] Advance Directives For more information, please contact: [phone] * Full Code (Latest Code Status on File) Date Activated Date Inactivated Comments 06/08/2025 1:17 PM 06/10/2025 12:00 PM Care Teams Casting House Laborer Relationship Specialty Start Date End Date Parish Aldrich MD [address] [place] [id number] (work) PCP - General Internal Medicine 06/06/25
[2025-06-16 08:59] LABS: PHA INR Fingerstick 1.9 (0.9-1.1)
== END 2025-06-16 09:01 ==
LOC: ACC 08:34
PROVIDERS: PCP Internal Medicine; Visit Provider Internal Medicine
DX: Z95.2 Presence of prosthetic heart valve (principal)
CPT/HCPCS: 85610; 99211; G0463

== ENCOUNTER 2025-06-21 14:56 | Outpatient (CLI) | payer BC, SELFPAY ==
--- OUTSIDE RECORDS SUMMARY | 2025-06-06 12:04 | XMS_ITS | Encounter Summary ---
Author Organization [employer] ([place], [place], [place], [place]) Address [address] [place] [address] Care Team Providers Care Haul Driver Name Role Phone Parish Aldrich MD Primary Care Provider + Reason for Visit * Reason Comments Foot Pain Stepped on small ajay l several days ago, reports redness, swelling to L foot Encounter Details Date Type Department Care Team (Late st Contact Info) Description 06/06/2025 12:04 PM EDT - 06/06/2025 12:43 PM EDT Emergency [facility] Emergency Department [address] [place] [phone] Ahmet Lopez MD [address] [place] [address] Cellulitis (Primary Dx) Discharge Disposition: Home or [...] sent through Care Everywhere. * Cellulitis Adult [id number] ([place]) documented in this encounter Medications at Time [...] 1216 Dr. Lopez: I saw the patient [id number]. I performed a substantive portion of the [...] General [address] [place] [address] Next Steps: Call in 1 day(s) Instructions: [...] documented in this encounter Plan of Treatment Upcoming Encounters Date Type Department Care Team (Late st Contact Info) Description 06/28/2025 2:45 PM EDT Office Visit [facility] - [address] [phone] Beka [place], DPM [address] [place] [address] documented as of this encounter Procedures Procedure [...] - 20 mm/HR 06/06/2025 12:41 PM EDT [facility] Blood VENOUS LINE / Unknown Venipuncture / Unknown 06/06/2025 12:16 PM EDT 06/06/2025 12:20 PM EDT Johnnie Davis APRN LAB BLOOD ORDERABLES Final Result [facility] [address] [place] [address], [place] [phone] * (ABNORMAL) C-Reactive Protein (06/06/2025 12:16 PM EDT) CRP 15.00(H) 0.05 - 0.25 mg/dL 06/06/2025 12:46 PM EDT [facility] Blood VENOUS LINE / Unknown Venipuncture / Unknown 06/06/2025 12:16 PM EDT 06/06/2025 12:20 PM EDT Johnnie Davis APRN LAB BLOOD ORDERABLES Final Result [facility] [address] [place] [address], [place] [phone] * Creatine Kinase (CK) (06/06/2025 12:16 PM EDT) Pathologist [facility] Total CK 195 39 - 308 U/L 06/06/2025 12:46 PM EDT [facility] Blood VENOUS LINE / Unknown Venipuncture / Unknown 06/06/2025 12:16 PM EDT 06/06/2025 12:20 PM EDT Johnnie Davis APRN LAB BLOOD ORDERABLES Final Result Performing Organization Address City/[facility]/ZIP Co de Phone Number [facility] [address] [place] [address] * (ABNORMAL) Comprehensive metabolic panel (06/06/2025 12:16 PM EDT) Sodium 138 136 - 145 meq/L 06/06/2025 12:46 PM EDT [facility] Potassium 3.8 3.5 - 5.1 meq/L 06/06/2025 12:46 PM EDT [facility] Chloride 104 98 - 107 meq/L 06/06/2025 12:46 PM EDT [facility] CO2 29 21 - 32 meq/L 06/06/2025 12:46 PM EDT [facility] Calcium 9.1 8.5 - 10.1 mg/dL 06/06/2025 12:46 PM [facility] Glucose 140(H) 70 - 99 mg/dL 06/06/2025 12:46 PM T [facility] BUN 13 7 - 18 mg/dL 06/06/2025 12:46 PM [facility] Creatinine 1.23(H) 0.70 - 1.20 mg/dL 06/06/2025 12:46 PM [facility] BUN/Creatinine 11 06/06/2025 12:46 PM T [facility] Albumin 3.3(L) 3.4 - 5.0 g/dL 06/06/2025 12:46 PM [facility] Alkaline Phosphatase 71 46 - 116 U/L 06/06/2025 12:46 PM [facility] ALT 21 12 - 78 U/L 06/06/2025 12:46 PM [facility] AST 19 15 - 37 U/L 06/06/2025 12:46 PM [facility] Total Bilirubin 0.5 0.2 - 1.0 mg/dL 06/06/2025 12:46 PM [facility] Protein, Total 7.2 6.4 - 8.2 gm/dL 06/06/2025 12:46 PM [facility] Anion Gap 9(L) 11 - 22 06/06/2025 12:46 PM [facility] A/G Ratio 0.8 06/06/2025 12:46 PM [facility] Globulin 3.9 g/dL 06/06/2025 12:46 PM [facility] Osmolality Calc 278.1 mOsm/kg 12:46 PM [facility] eGFR (mL/min/1.73m2) >60 >=60 mL/min/1.7 3m2 06/06/2025 12:46 PM [facility] Comment:ESTIMATED GFR IS NOT ACCURATE CREATININE CLEARANCE IN PREDICTING GLOMERULAR FILTRATION RATE. ESTIMATED GFR IS NOT APPLICABLE FOR DIALYSIS PATIENTS. Blood VENOUS LINE / Unknown Venipuncture / Unknown 06/06/2025 12:16 PM EDT 06/06/2025 12:20 PM EDT Johnnie Davis GR[employer]ITE WORKER LAB BLOOD ORDERABLES Final Result [facility] [address] [place] [address], [place] [phone] * (ABNORMAL) CBC with Auto Diff (06/06/2025 12:16 PM EDT) WBC 9.7 4.8 - 10.8 K/ L 06/06/2025 12:23 PM EDT [facility] RBC 4.24 3.80 - 5.20 M/ L 06/06/2025 12:23 PM EDT [facility] Hemoglobin 13.1 12.8 - 17.4 GM/DL 06/06/2025 12:23 PM EDT [facility] Hematocrit 39.3 39.0 - 51.0 % 06/06/2025 12:23 PM EDT [facility] MCV 93 81 - 101 fL 06/06/2025 12:23 PM EDT [facility] MCH 30.9 27.0 - 34.0 pg 06/06/2025 12:23 PM EDT [facility] MCHC 33.3 32.0 - 36.0 GM/DL 06/06/2025 12:23 PM EDT [facility] RDW 14.8(H) 11.5 - 14.5 % 06/06/2025 12:23 PM EDT [facility] Platelets 271 150 - 400 K/CU MM 06/06/2025 12:23 PM EDT [facility] MPV 11.0 9.4 - 12.4 fL 06/06/2025 12:23 PM EDT [facility] Nucleated Red Blood Cell 0.0 0 - 0.2 % 06/06/2025 12:23 PM EDT [facility] % Neutros 76 37 - 80 % 06/06/2025 12:23 PM EDT [facility] % Lymphs 13 10 - 50 % 06/06/2025 12:23 PM EDT [facility] % Monos 9 5 - 13 % 06/06/2025 12:23 PM EDT [facility] % Eos 2 0 - 7 % 06/06/2025 12:23 PM EDT [facility] % Baso 0 0 - 3 % 06/06/2025 12:23 PM EDT [facility] NRBC Absolute <0.01 0 - 0.012 K/ul 06/06/2025 12:23 PM EDT [facility] # Neutros 7.36(H) 2.00 - 6.90 K/ L 06/06/2025 12:23 PM EDT [facility] # Lymphs 1.29 0.60 - 3.40 K/ L 06/06/2025 12:23 PM EDT [facility] # Monos 0.83 0.00 - 0.90 K/ L 06/06/2025 12:23 PM EDT [facility] # Eos 0.17 0.00 - 0.70 K/ L 06/06/2025 12:23 PM EDT [facility] # Baso 0.02 0.00 - 0.20 K/ L 06/06/2025 12:23 PM EDT [facility] Immature Granulocytes-Re lative 0.30 % 06/06/2025 12:23 PM EDT [facility] # IG 0.03(H) 0.00 - 0.00 K/uL 06/06/2025 12:23 PM EDT [facility] Blood VENOUS LINE / Unknown Venipuncture / Unknown 06/06/2025 12:16 PM EDT 06/06/2025 12:20 PM EDT Narrative [facility] - 06/06/2025 12:23 PM EDT [...] Blast? Flag noted Atypical Lymph flag noted us Johnnie Davis [employer] LAB BLOOD ORDERABLES Final Result [facility] [address] [place] [address], [place] [phone] documented in this encounter Visit Diagnoses Diagnosis [...] Intra-op documented in this encounter Care Teams Haul Driver Relationship Specialty Start Date End Date Parish Aldrich MD [address] [place] [address] PCP - General Internal Medicine 06/06/25 documented as of this encounter
--- OUTSIDE RECORDS SUMMARY | 2025-06-08 12:23 | XMS_ITS | Encounter Summary ---
Author Organization [employer] ([place], [place], [place], [place] Address [address] [place] [address] Care Team Providers Care Vacuum Tank Tender Name Role Phone Parish Aldrich MD Primary Care Provider + Reason for Visit * Reason Comments Foot Swelling Pt reports to denis s/swelling to L foot. Stepped on saturday. Redness/swelling began Saturday evening. * Auth/Cert (Routine) Specialty Diagnoses / Procedures Referred By Adeel t Referred To Contact Diagnoses Cellulitis Cellulitis of left lower extremity [facility] [address] [place] [phone] Phone: tel: fax: [facility] [address] [place] [phone] Phone: tel: fax: Referral ID Status Reason Start Date Expiration Date Visits Re quested Visits Authorized [id number] 1 1 Encounter Details Date Type Department Care Team (Late st Contact Info) Description 06/08/2025 12:23 PM EDT - 06/10/2025 11:00 AM EDT Hospital Encounter [facility] [address] [place] [phone] Zen Sinclair DO [address] [place] [address] Amanda Dial DO [address] [facility] [address] [place] [address] Marcella Méndez APRN [facility] Dept of [place] [address] Cellulitis of left lower extremity (Primary Dx) [...] / tibia and fibula 2 views left [[id number]] Collected: 06/09/25 1040 Order Status: Completed Updated: [...] CT lower extremity with IV contrast left [[id number]] Collected: 06/08/251329 Order Status: Completed Updated: 06/08/251335 [...] Your Medications These medications were sent to [facility] [address] [place], [place] - [address], [facility] [address] Probiotic 3 billion cell Cap Discharge Instructions: [...] sent a prescription for probiotics to your [facility] pharmacy. Please wait 2 hours after taking [...] sent through Care Everywhere. * Cellulitis Adult [id number]-[id number] (Ecuadorean) * Cellulitis Adult (Ecuadorean) documented in this encounter Medications at Time [...] (205 lb) Body mass index: 27.80 kg/m?? [place] body weight: 77.6 kg (171 lb 1.2 [...] (Lovenox added) Other anticoagulation: Lovenox 1mg/kg SQ [id number] until INR greater than 2.5 A/P: Goal INR = 2.5-3.5 Will continue with warfarin 5mg PO Qdaily with Lovenox (enoxaparin) 90mg (1mg/kg) SQ [id number] Warfarin as above. Add lovenox 1mg/kg SQ [...] (205 lb) Body mass index: 27.80 kg/m?? [place] body weight: 77.6 kg (171 lb 1.2 [...] / tibia and fibula 2 views left [[id number]] Resulted: 06/09/25 1021 Order Status: Sent Updated: 06/09/[address] lower extremity with IV contrast left [[id number]] Collected: 06/08/25 1330 Order Status: Completed Updated: [...] Procedure Component Value Units Date/Time Blood Culture [[id number]] Collected: 06/08/25 1235 Order Status: Resulted Specimen: Blood Updated: 06/08/25 1301 Blood Culture Arm, Right [[id number]] Collected: 06/08/25 1246 Order Status: Resulted Specimen: [...] Pharmacy 1 each oral See Admin Instructions Amadna Dial DO ANTIBIOTICS Anti-infectives (From admission, onward) [...] (205 lb) Body mass index: 27.80 kg/m?? [place] body weight: 77.6 kg (171 lb 1.2 [...] (205 lb) Body mass index: 27.80 kg/m?? [place] body weight: 77.6 kg (171 lb 1.2 [...] to Encounter Medication List (as reviewed in [employer]) Medications amoxicillin-clavulanate (AUGMENTIN) 875-125 mg per tablet [...] CT lower extremity with IV contrast left [[id number]] Collected: 06/08/25 133 Order Status: Completed Updated: [...] Procedure Component Value Units Date/Time Blood Culture [[id number]] Collected: 06/08/25 1235 Order Status: Sent Specimen: Blood Updated: 06/08/25 1301 Blood Culture Arm, Right [[id number]] Collected: 06/08/25 1246 Order Status: Sent Specimen: [...] moderate risk and is being admitted to [facility] on an inpatient status. ELOS: >= 2 [...] duringprevious ED visit. 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 Sinclair: I saw the patient [id number]. I performed a substantive portion of the [...] CDT Dr. Sinclair: I saw the patient [id number]. I performed a substantive portion of the [...] Results and Location in Medical Record Antibiotics 7/ Orders: IV Zosyn, IV Vanc, IV Rocephin Accu checks with SSI 7/8 Orders: Accu checks with SSI CDS/Credit Control Manager Signature: Tess Holley Phone #: [phone] Date/Time: 06/09/2025 2:03 PM This is a permanent part of the Medical Record 2023 [facility] Reviewed: 01/2024 * Plan of Care - [...] Description 06/28/2025 2:45 PM EDT Office Visit [facility] - [address] [phone] Beka Dumont DPM [address] [place] [phone] documented as of this encounter Procedures Procedure [...] - 99 mg/dL 06/10/2025 6:34 AM EDT [facility] Comment:In the event of poor peripheral blood flow, venous or arterial blood should be used due to the potential of erroneous results. Lead Cargoman [id number] 06/10/2025 6:34 AM EDT [facility] Blood WHOLE BLOOD / Unknown 06/10/2025 6:13 AM EDT 06/10/2025 6:34 AM EDT Narrative [facility] - 06/10/2025 6:34 AM EDT Lead Cargoman ID is - [id number] Amanda Dial DO POINT OF CARE TEST ORDERABLES Final Result [facility] [address] [place] [address] * (ABNORMAL) PROTIME-INR (06/10/2025 4:52 AM EDT) Pathologist [facility] Protime 15.8(H) 9.0 - 12.0 seconds 06/10/2025 5:55 AM EDT [facility] INR 1.60(H) 0.80 - 1.10 06/10/2025 5:55 AM EDT [facility] Comment: Recommended therapeutic ranges using International Normalized Ratio (INR) are: INR RANGE 2.0 - 3.0 Routine oral anticoagulant therapy 2.5 - 3.5 Oral anticoagulant therapy for patients with thromboembolic events on standard doses of Coumadin and those with mechanical heart valves. Blood Venipuncture / Unknown 06/10/2025 4:52 AM EDT 06/10/2025 5:10 AM EDT Amanda Finereshi DO LAB BLOOD ORDERABLES Final Res ult Performing Organization Address [facility]/ZIP Co de Phone Number [facility] [address] [place] [address], [facility] [phone] * Glucose, Nova Meter (06/09/2025 8:22 PM EDT) POC-GLUCOSE 94 70 - 99 mg/dL 06/09/2025 8:41 PM EDT [facility] Comment:In the event of poor peripheral blood flow, venous or arterial blood should be used due to the potential of erroneous results. Lead Cargoman [id number] 06/09/2025 8:41 PM EDT [facility] Blood WHOLE BLOOD / Unknown 06/09/2025 8:22 PM EDT 06/09/2025 8:41 PM EDT Narrative [facility] - 06/09/2025 8:41 PM EDT Lead Cargoman ID is - [id number] Amanda Dial DO POINT OF CARE TEST ORDERABLES Final Result Performing Organization Address [facility]/ZIP Co de Phone Number [facility] [address] [place] [address], [facility] [phone] * Glucose, Nova Meter (06/09/2025 4:43 PM EDT) POC-GLUCOSE 91 70 - 99 mg/dL 06/09/2025 4:45 PM EDT [facility] Comment: In the event of poor peripheral blood flow, venous or arterial blood should be used due to the potential of erroneous results. Notified Nurse RBV Lead Cargoman [id number] 06/09/2025 4:45 PM EDT [facility] Blood WHOLE BLOOD / Unknown 06/09/2025 4:43 PM EDT 06/09/2025 4:45 PM EDT Narrative [facility] - 06/09/2025 4:45 PM EDT Lead Cargoman ID is - [id number] Amanda Dial DO POINT OF CARE TEST ORDERABLES Final Result Performing Organization Address [facility] de Phone Number [facility] [address] [place] [address] * (ABNORMAL) Glucose, Nova Meter (06/09/2025 11:19 AM EDT) [employer] Signature POC-GLUCOSE 120(H) 70 - 99 mg/dL 06/09/2025 11:21 AM EDT [facility] Comment: In the event of poor peripheral blood flow, venous or arterial blood should be used due to the potential of erroneous results. Received Meds Lead Cargoman [id number] 06/09/2025 11:21 AM EDT [facility] Blood WHOLE BLOOD / Unknown 06/09/2025 11:19 AM EDT 06/09/2025 11:21 AM EDT Narrative [facility] - 06/09/2025 11:21 AM EDT Lead Cargoman ID is - [id number] Amanda Dial DO POINT OF CARE TEST ORDERABLES Final Result Performing Organization Address [facility] Phone Number [facility] [address] [place] [address] * XR leg / tibia and fibula [...] interpreted, and dictated by Rico Brown MD us Amanda Dial DO IMG DIAGNOSTIC IMAGING ORDERAB LES Final Result * (ABNORMAL) Glucose, Nova Meter (06/09/2025 5:28 AM EDT) POC-GLUCOSE 124(H) 70 - 99 mg/dL 06/13/2025 12:21 AM EDT [facility] Comment: In the event of poor peripheral blood flow, venous or arterial blood should be used due to the potential of erroneous results. Notified Nurse RBV Lead Cargoman [id number] 06/13/2025 12:21 AM EDT [facility] Blood WHOLE BLOOD / Unknown 06/09/2025 5:28 AM EDT 06/13/2025 12:21 AM EDT Narrative [facility] - 06/13/2025 12:21 AM EDT Lead Cargoman ID is - [id number] us Amanda Dial DO POINT OF CARE TEST ORDERABLES Final Result [facility] [address] [place] [address] * (ABNORMAL) PROTIME-INR (06/09/2025 3:45 AM EDT) Pathologist [facility] Protime 37.2(H) 9.0 - 12.0 seconds 06/09/2025 4:39 AM EDT [facility] INR 3.93(H) 0.80 - 1.10 06/09/2025 4:39 AM EDT [facility] Comment: Recommended therapeutic ranges using [...] ORDERABLES Final Res ult Performing Organization Address City/State/[facility] Co de Phone Number [facility] [address] [place] [address] * (ABNORMAL) CBC - Hemogram (SJ-BKR) (06/09/2025 3:45 AM EDT) [facility] WBC 8.2 4.8 - 10.8 K/ L 06/09/2025 4:30 AM EDT [facility] RBC 3.73(L) 3.80 - 5.20 M/ L 06/09/2025 4:30 AM EDT [facility] Hemoglobin 11.5(L) 12.8 - 17.4 GM/DL 06/09/2025 4:30 AM EDT [facility] Hematocrit 34.9(L) 39.0 - 51.0 % 06/09/2025 4:30 AM EDT [facility] MCV 94 81 - 101 fL 06/09/2025 4:30 AM EDT [facility] MCH 30.8 27.0 - 34.0 pg 06/09/2025 4:30 AM EDT [facility] MCHC 33.0 32.0 - 36.0 GM/DL 06/09/2025 4:30 AM EDT [facility] RDW 14.6(H) 11.5 - 14.5 % 06/09/2025 4:30 AM EDT [facility] Platelets 267 150 - 400 K/CU MM 06/09/2025 4:30 AM EDT [facility] MPV 10.9 9.4 - 12.4 fL 06/09/2025 4:30 AM EDT [facility] Blood Venipuncture / Unknown 06/09/2025 3:45 AM EDT 06/09/2025 4:21 AM EDT Amandagudelia Dial DO LAB BLOOD ORDERABLES Final Res ult Performing Organization Address [facility]/ZIP Co de Phone Number [facility] [address] [place] [address] * (ABNORMAL) C-Reactive Protein (06/09/2025 3:45 AM EDT) Pathologist [facility] CRP 10.40(H) 0.05 - 0.25 mg/dL 06/09/2025 4:38 AM EDT [facility] Blood Venipuncture / Unknown 06/09/2025 3:45 AM EDT 06/09/2025 4:22 AM EDT Amanda Dial DO LAB BLOOD ORDERABLES Final Res ult [facility] [address] [place] [address] * (ABNORMAL) Glucose, Nova Meter (06/08/2025 9:14 PM EDT) POC-GLUCOSE 165(H) 70 - 99 mg/dL 06/08/2025 9:39 PM EDT [facility] Comment:In the event of poor peripheral blood flow, venous or arterial blood should be used due to the potential of erroneous results. Lead Cargoman [id number] 06/08/2025 9:39 PM EDT [facility] Blood WHOLE BLOOD / Unknown 06/08/2025 9:14 PM EDT 06/08/2025 9:39 PM EDT Narrative [facility] - 06/08/2025 9:39 PM EDT Lead Cargoman ID is - [id number] Amanda Dial DO POINT OF CARE TEST ORDERABLES Final Result Performing Organization Address City/[facility]/ZIP Co de Phone Number [address] [phone] * (ABNORMAL) Glucose, Nova Meter (06/08/2025 4:45 PM EDT) POC-GLUCOSE 125(H) 70 - 99 mg/dL 06/08/2025 4:47 PM EDT [facility] Comment: In the event of poor peripheral blood flow, venous or arterial blood should be used due to the potential of erroneous results. Notified Nurse RBV Lead Cargoman [id number] 06/08/2025 4:47 PM EDT [facility] Blood WHOLE BLOOD / Unknown 06/08/2025 4:45 PM EDT 06/08/2025 4:47 PM EDT Narrative [facility] - 06/08/2025 4:47 PM EDT Lead Cargoman ID is - [id number] Sifteo DO POINT OF CARE TEST ORDERABLES Final Result [facility] [address] [place] [address], [facility] [phone] * (ABNORMAL) PT/INR, PTT (06/08/2025 3:11 PM EDT) aPTT 58.1(H) 22.0 - 32.0 seconds 06/08/2025 3:45 PM EDT [facility] Protime 52.4(HH) 9.0 - 12.0 seconds 06/08/2025 3:45 PM EDT [facility] INR 5.64(HH) 0.80 - 1.10 06/08/2025 3:45 PM EDT [facility] Blood Venipuncture / Unknown 06/08/2025 3:11 PM EDT 06/08/2025 3:11 PM EDT us Amanda Dial DO LAB BLOOD ORDERABLES Final Res ult [facility] [address] [phone] * CT lower extremity with IV contrast [...] acute bony abnormality identified. us Natalie Orellana NP IMG CT ORDERABLES Final Result * Blood Culture Arm, Right (06/08/2025 12:46 PM EDT) Result No growth in 5 days 06/14/2025 12:01 AM EDT [facility] Blood ENTIRE RIGHT UPPER ARM / Unknown Venipuncture / Unknown 06/08/2025 12:46 PM EDT 06/08/2025 1:01 PM EDT Natalie Orellana NP MICROBIOLOGY - GENERAL ORDERAB LES Final Result [facility] [address] [place] [address], [facility] [phone] * Lactic Acid with reflex (SJ) (06/08/2025 12:35 PM EDT) Lactic Acid Level (mmol/L) 1.5 0.4 - 2.0 mmol/L 06/08/2025 1:21 PM EDT [facility] Comment:If a Lactic Acid Lev el with Reflex if Indicated result is greater than 2.0, a Lactic Acid Level will be ordered to be collected 2 hours after the original collection time. Blood Venipuncture / Unknown 06/08/2025 12:35 PM EDT 06/08/2025 12:56 PM EDT us Natalie J Strange SCRIPT MANAGER LAB BLOOD ORDERABLES Final Res ult Performing Organization Address City/[facility]/ZIP Co de Phone Number [facility] [address] [place] [address] * (ABNORMAL) Sedimentation rate (06/08/2025 12:35 PM EDT) Sed Rate 46(H) 0 - 20 mm/HR 06/08/2025 1:21 PM EDT [facility] Blood Venipuncture / Unknown 06/08/2025 12:35 PM EDT 06/08/2025 12:56 PM EDT us Natalie J Strange SCRIPT MANAGER LAB BLOOD ORDERABLES Final Res ult Performing Organization Address [facility] Co de Phone Number [facility] [address] [place] [address] * (ABNORMAL) C-Reactive Protein (06/08/2025 12:35 PM EDT) CRP 8.63(H) 0.05 - 0.25 mg/dL 06/08/2025 1:20 PM EDT [facility] Blood Venipuncture / Unknown 06/08/2025 12:35 PM EDT 06/08/2025 12:56 PM EDT us Natalie J Strange SCRIPT MANAGER LAB BLOOD ORDERABLES Final Res ult Performing Organization Address City/[facility]/ZIP Co de Phone Number [facility] [address] [place] [address] * Blood Culture (06/08/2025 12:35 PM EDT) Result No growth in 5 days 06/14/2025 12:01 AM EDT [facility] Blood Venipuncture / Unknown 06/08/2025 12:35 PM EDT 06/08/2025 1:01 PM EDT us Natalie Merchant Ismaelshaniqua SCRIPT MANAGER MICROBIOLOGY - GENERAL ORDERAB LES Final Result [facility] [address] [phone] * (ABNORMAL) Comprehensive metabolic panel (06/08/2025 12:35 PM EDT) Sodium 135(L) 136 - 145 meq/L 06/08/2025 1:20 PM EDT [facility] Potassium 3.7 3.5 - 5.1 meq/L 06/08/2025 1:20 PM EDT [facility] Chloride 101 98 - 107 meq/L 06/08/2025 1:20 PM EDT [facility] CO2 27 21 - 32 meq/L 06/08/2025 1:20 PM EDT [facility] Calcium 9.3 8.5 - 10.1 mg/dL 06/08/2025 1:20 PM EDT [facility] Glucose 143(H) 70 - 99 mg/dL 06/08/2025 1:20 PM EDT [facility] BUN 14 7 - 18 mg/dL 06/08/2025 1:20 PM EDT [facility] Creatinine 1.28(H) 0.70 - 1.20 mg/dL 06/08/2025 1:20 PM EDT [facility] BUN/Creatinine 11 06/08/2025 1:20 PM EDT [facility] Albumin 3.4 3.4 - 5.0 g/dL 06/08/2025 1:20 PM EDT [facility] Alkaline Phosphatase 68 46 - 116 U/L 06/08/2025 1:20 PM EDT [facility] ALT 21 12 - 78 U/L 06/08/2025 1:20 PM EDT [facility] AST 18 15 - 37 U/L 06/08/2025 1:20 PM EDT [facility] Total Bilirubin 0.7 0.2 - 1.0 mg/dL 06/08/2025 1:20 PM EDT [facility] Protein, Total 7.4 6.4 - 8.2 gm/dL 06/08/2025 1:20 PM EDT [facility] Anion Gap 11 11 - 22 06/08/2025 1:20 PM EDT [facility] A/G Ratio 0.9 06/08/2025 1:20 PM EDT [facility] Globulin 4.0 g/dL 06/08/2025 1:20 PM EDT [facility] Osmolality Calc 273.0 mOsm/kg 1:20 PM EDT [facility] eGFR (mL/min/1.73m2) >60 >=60 mL/min/1.7 3m2 06/08/2025 1:20 PM EDT [facility] Comment:ESTIMATED GFR IS NOT ACCURATE CREATININE CLEARANCE IN PREDICTING GLOMERULAR FILTRATION RATE. ESTIMATED GFR IS NOT APPLICABLE FOR DIALYSIS PATIENTS. Blood Venipuncture / Unknown 06/08/2025 12:35 PM EDT 06/08/2025 12:56 PM EDT us Natalie Orellana NP LAB BLOOD ORDERABLES Final Res ult [facility] [address] [place] [address] * (ABNORMAL) CBC with Auto Diff (06/08/2025 12:35 PM EDT) WBC 10.2 4.8 - 10.8 K/ L 06/08/2025 1:02 PM EDT [facility] RBC 4.34 3.80 - 5.20 M/ L 06/08/2025 1:02 PM EDT [facility] Hemoglobin 13.4 12.8 - 17.4 GM/DL 06/08/2025 1:02 PM EDT [facility] Hematocrit 39.9 39.0 - 51.0 % 06/08/2025 1:02 PM EDT [facility] MCV 92 81 - 101 fL 06/08/2025 1:02 PM EDT [facility] MCH 30.9 27.0 - 34.0 pg 06/08/2025 1:02 PM EDT [facility] MCHC 33.6 32.0 - 36.0 GM/DL 06/08/2025 1:02 PM EDT [facility] RDW 14.6(H) 11.5 - 14.5 % 06/08/2025 1:02 PM EDT [facility] Platelets 309 150 - 400 K/CU MM 06/08/2025 1:02 PM EDT [facility] MPV 10.9 9.4 - 12.4 fL 06/08/2025 1:02 PM EDT [facility] Nucleated Red Blood Cell 0.0 0 - 0.2 % 06/08/2025 1:02 PM EDT [facility] % Neutros 84(H) 37 - 80 % 06/08/2025 1:02 PM EDT [facility] % Lymphs 7(L) 10 - 50 % 06/08/2025 1:02 PM EDT [facility] % Monos 8 5 - 13 % 06/08/2025 1:02 PM EDT [facility] % Eos 0 0 - 7 % 06/08/2025 1:02 PM EDT [facility] % Baso 0 0 - 3 % 06/08/2025 1:02 PM EDT [facility] NRBC Absolute <0.01 0 - 0.012 K/ul 06/08/2025 1:02 PM EDT [facility] # Neutros 8.58(H) 2.00 - 6.90 K/ L 06/08/2025 1:02 PM EDT [facility] # Lymphs 0.71 0.60 - 3.40 K/ L 06/08/2025 1:02 PM EDT [facility] # Monos 0.78 0.00 - 0.90 K/ L 06/08/2025 1:02 PM EDT [facility] # Eos 0.03 0.00 - 0.70 K/ L 06/08/2025 1:02 PM EDT [facility] # Baso 0.03 0.00 - 0.20 K/ L 06/08/2025 1:02 PM EDT [facility] Immature Granulocytes-Re lative 0.60 % 06/08/2025 1:02 PM EDT [facility] # IG 0.06(H) 0.00 - 0.00 K/uL 06/08/2025 1:02 PM EDT [facility] Blood Venipuncture / Unknown 06/08/2025 12:35 PM EDT 06/08/2025 12:56 PM EDT Narrative [facility] - 06/08/2025 1:02 PM EDT [...] NP LAB BLOOD ORDERABLES Final Res ult [facility] [address] [place] [address] documented in this encounter Visit Diagnoses Diagnosis [...] Blood Sugar is less than 180 beteween 7435-7020, DO NOT give corrective insulin unless otherwise [...] and contact the remote pharmacy services at [facility] for further guidance. *REFRIGERATOR*, Please choose an [...] FORM * 0842 (Given - Provider: Olimpia Rod RN) 0827 (Given - Provider: Olimpia Rod, OSCAR) atorvastatin (LIPITOR) tablet 40 mg 40 mg Every Night, oral, First dose on Sat06/08/25 at 2300 2323 (Given - Provider: Dayan Morse, RN) 2022 (Given - Provider: Dayan Morse, RN) bisoprolol (ZEBETA) tablet 2.5 mg 2.5 mg Daily, oral, First dose on Sat06/09/25 at 1100 1128 (Given - Provider: Olimpia Rod RN) 0826 (Given - Provider: Olimpia Rod, RN) cefTRIAXone (ROCEPHIN) 2 g in sodium [...] RN) 0827 (IVPB Started - Provider: Olimpia Rod, OSCAR)09 (IVPB Stopped - Provider: Olimpia Rod, OSCAR) docusate sodium (COLACE) capsule 100 mg 100 [...] Blood Sugar is less than 180 beteween 1090-4792, DO NOT give corrective insulin unless otherwise [...] - Provider: Olimpia Rod RN - Reason: Contraindicated)2025 (Not Given - Provider: Dayan Morse RN [...] 1 dose 1324 (Given - Provider: Lorraine Cdoy RN) pantoprazole (PROTONIX) EC tablet 40 mg 40 mg Daily, oral, First dose on Sat06/08/25 at 1630, Therapeutic Interchange for Proton Pump Inhibitors. * DO NOT CRUSH THIS DOSAGE FORM * 1642 (Given - Provider: Pk Sweet RN) 0842 (Given - Provider: Olimpia Rod RN) 0826 (Given - Provider: Olimpia Rod, RN) piperacillin-tazobacta m (ZOSYN) 4.5 g in [...] and contact the remote pharmacy services at [facility] for further guidance. *REFRIGERATOR*, Please choose an indication: Skin/Soft Tissue Infection 0651 (IVPB Started - Provider: Dayan Morse, RN)0821 (Due: IVPB Stopped - Provider: Dayan Morse RN) 0054 (IVPB Started - Provider: Sanaz Traore, RN)0235 (IVPB Stopped - Provider: Sanaz Traore [...] waste bin. 1705 (Given - Provider: Olimpia Rod RN) Continuous Medication Order 06/08/2025 06/09/2025 06/10/2025 [...] minutes. documented in this encounter Care Teams Vacuum Tank Tender Relationship Specialty Start Date End Date Parish Ald[place] MD [address] [place] [id number] PCP - General Internal Medicine 06/06/25 documented as of this encounter
--- OUTSIDE RECORDS SUMMARY | 2025-06-21 15:00 | XMS_ITS | Encounter Summary ---
Author Organization [employer] ([place], [place], [place], [place]) Address [address] [place] [address] Care Team Providers Care Software Developer Name Role Phone Parish Aldrich MD Primary Care Provider + Reason for Visit * Reason Onset Date Comments Hospital Follow Up 06/11/2025 Encounter Details Date Type Department Care Team (Late st Contact Info) Description 06/11/2025 Telephone [facility] [address] [place] [phone] Parish Aldrich MD [address] [facility] [address] [place] [address] Hospital Follow Up Social History [...] Description 06/28/2025 2:45 PM EDT Office Visit [facility] - [address] [phone] Beka Dumont DPM [address] [place] [address] documented as of this encounter Visit Diagnoses Not on filedocumented in this encounter Care Teams Software Developer Relationship Specialty Start Date End Date Parish Aldrich MD [address] [place] [address] PCP - General Internal Medicine 06/06/25 documented as of this encounter
--- OUTSIDE RECORDS SUMMARY | 2025-06-21 15:00 | XMS_ITS | Encounter Summary ---
Author Organization [employer] ([place], [place], [place], [place]) Address [address] [place] [address] Care Team Providers Care Leather Toggler Name Role Phone Parish Aldrich MD Primary Care Provider + Encounter Details Date Type Department Care Team (Late Contact Info) Description 06/11/2025 Telephone [facility] [address] [place] [address] Anton Whitley RN Social History [...] as of this encounter Plan of Treatment Upcoming Encounters Date Type Department Care Team ([facility] Contact Info) Description 06/28/2025 2:45 PM EDT Office Visit [facility] - [address] [phone] Beka Dumont DPM [address] [place] [address] documented as of this encounter Visit Diagnoses Not on filedocumented in this encounter Care Teams Leather Toggler Relationship Specialty Start Date End Date Parish Aldrich MD [address] [place] [address] PCP - General Internal Medicine 06/06/25 documented as of this encounter
--- OUTSIDE RECORDS SUMMARY | 2025-06-21 15:00 | XMS_ITS | Referral Summary ---
Author Organization [employer] ([place], [place], [place], [place]) Address [address] [place] [address] Care Team Providers Care Fill Manager Name Role Phone Parish Aldrich MD Primary Care Provider + Encounters Date Type Department Care Team Description 06/14/2025 Telephone [facility] [address] [place] [phone] Anton Whitley RN 06/11/2025 Telephone [facility] [address] [place] [phone] Anton Whitley RN 06/11/[address] [phone] Parish Aldrich MD Hospital Follow Up 06/08/2025 12:23 PM EDT - 06/10/2025 11:00 AM EDT Hospital Encounter [facility] [address] [place] [phone] Zen Sinclair DO Qureshi, Saadia, DO Caldwell, Kristinalin, APRN Cellulitis of left lower extremity (Primary Dx) Discharge Disposition: Home or Self Care 06/08/2025 Travel 06/06/2025 12:04 PM EDT - 06/06/2025 12:43 PM EDT Emergency [facility] Emergency Department [address] [place] [phone] Ahmet Lopez MD Cellulitis (Primary Dx) Discharge Disposition: Home or Self Care from Last 3 Months Allergies No known active allergies Medications aspirin [...] (two) times daily. 20 capsule 5 Active amoxicillin-clav ulanate (AUGMENTIN) 875-125 mg per tablet Take 1 tablet by mouth 2 (two) times daily with breakfast and dinner for 10 days. 20 tablet 5 06/16/20 25 Active Problems Problem Noted Date Diagnosed Date [...] 06/08/2025 12:25 PM EDT Plan of Treatment Upcoming Encounters Date Type Department Care Team (Late st Contact Info) Description 06/28/2025 2:45 PM EDT Office Visit [facility] Orthopedics - [address] [phone] Beka Dumont, SIGIFREDOM [address] [place] [phone] Procedures Procedure Name Priority Date/Time Associated Diagnosis [...] - 99 mg/dL 06/10/2025 6:34 AM EDT [facility] Comment:In the event of poor peripheral blood flow, venous or arterial blood should be used due to the potential of erroneous results. Welt Sole Layer [id number] 06/10/2025 6:34 AM EDT [facility] Blood WHOLE BLOOD / Unknown 06/10/2025 6:13 AM EDT 06/10/2025 6:34 AM EDT Narrative [facility] - 06/10/2025 6:34 AM EDT Welt Sole Layer ID is - [id number] Amanda Dial DO POINT OF CARE TEST ORDERABLES Final Result Performing Organization Address City/State/[facility] Co de Phone Number [facility] [address] [place] [address] * (ABNORMAL) PROTIME-INR (06/10/2025 4:52 AM EDT) Only the most recent of2 resultswithin the time period is included. Protime 15.8(H) 9.0 - 12.0 seconds 06/10/2025 5:55 AM EDT [facility] INR 1.60(H) 0.80 - 1.10 06/10/2025 5:55 AM EDT [facility] Comment: Recommended therapeutic ranges using [...] DO LAB BLOOD ORDERABLES Final Res ult [facility] [address] [id number] [phone] * XR leg / tibia and fibula [...] 10.8 K/ L 06/09/2025 4:30 AM EDT [facility] RBC 3.73(L) 3.80 - 5.20 M/ L 06/09/2025 4:30 AM EDT [facility] Hemoglobin 11.5(L) 12.8 - 17.4 GM/DL 06/09/2025 4:30 AM EDT [facility] Hematocrit 34.9(L) 39.0 - 51.0 % 06/09/2025 4:30 AM EDT [facility] MCV 94 81 - 101 fL 06/09/2025 4:30 AM EDT [facility] MCH 30.8 27.0 - 34.0 pg 06/09/2025 4:30 AM EDT [facility] MCHC 33.0 32.0 - 36.0 GM/DL 06/09/2025 4:30 AM EDT [facility] RDW 14.6(H) 11.5 - 14.5 % 06/09/2025 4:30 AM EDT [facility] Platelets 267 150 - 400 K/CU MM 06/09/2025 4:30 AM EDT [facility] MPV 10.9 9.4 - 12.4 fL 06/09/2025 4:30 AM EDT [facility] Blood Venipuncture / Unknown 06/09/2025 3:45 AM EDT 06/09/2025 4:21 AM EDT us Amanda Dial DO LAB BLOOD ORDERABLES Final Res ult [facility] [address] [place] [address] * (ABNORMAL) C-Reactive Protein (06/09/2025 3:45 AM EDT) Only the most recent of3 resultswithin the time period is included. CRP 10.40(H) 0.05 - 0.25 mg/dL 06/09/2025 4:38 AM EDT [facility] Blood Venipuncture / Unknown 06/09/2025 3:45 AM EDT 06/09/2025 4:22 AM EDT [facility] Dial DO LAB BLOOD ORDERABLES Final Res ult [facility] [address] [place] [address], [facility] [phone] * (ABNORMAL) PT/INR, PTT (06/08/2025 3:11 PM EDT) aPTT 58.1(H) 22.0 - 32.0 seconds 06/08/2025 3:45 PM EDT [facility] Protime 52.4(HH) 9.0 - 12.0 seconds 06/08/2025 3:45 PM EDT [facility] INR 5.64(HH) 0.80 - 1.10 06/08/2025 3:45 PM EDT [facility] Blood Venipuncture / Unknown 06/08/2025 3:11 PM EDT 06/08/2025 3:11 PM EDT [facility] Final Res ult [facility] [address] [place] [address], [facility] [phone] * CT lower extremity with IV contrast [...] in 5 days 06/14/2025 12:01 AM EDT [facility] Blood ENTIRE RIGHT UPPER ARM / Unknown Venipuncture / Unknown 06/08/2025 12:46 PM EDT 06/08/2025 1:01 PM EDT us Natalie Osman NP MICROBIOLOGY - GENERAL ORDERAB LES Final Result [facility] [address] [place] [address], [facility] [phone] * (ABNORMAL) CBC with Auto Diff (06/08/2025 12:35 PM EDT) Only the most recent of2 resultswithin the time period is included. WBC 10.2 4.8 - 10.8 K/ L 06/08/2025 1:02 PM EDT [facility] RBC 4.34 3.80 - 5.20 M/ L 06/08/2025 1:02 PM EDT [facility] Hemoglobin 13.4 12.8 - 17.4 GM/DL 06/08/2025 1:02 PM EDT [facility] Hematocrit 39.9 39.0 - 51.0 % 06/08/2025 1:02 PM EDT [facility] MCV 92 81 - 101 fL 06/08/2025 1:02 PM EDT [facility] MCH 30.9 27.0 - 34.0 pg 06/08/2025 1:02 PM EDT [facility] MCHC 33.6 32.0 - 36.0 GM/DL 06/08/2025 1:02 PM EDT [facility] RDW 14.6(H) 11.5 - 14.5 % 06/08/2025 1:02 PM EDT [facility] Platelets 309 150 - 400 K/CU MM 06/08/2025 1:02 PM EDT [facility] MPV 10.9 9.4 - 12.4 fL 06/08/2025 1:02 PM EDT [facility] Nucleated Red Blood Cell 0.0 0 - 0.2 % 06/08/2025 1:02 PM EDT [facility] % Neutros 84(H) 37 - 80 % 06/08/2025 1:02 PM EDT [facility] % Lymphs 7(L) 10 - 50 % 06/08/2025 1:02 PM EDT [facility] % Monos 8 5 - 13 % 06/08/2025 1:02 PM EDT [facility] % Eos 0 0 - 7 % 06/08/2025 1:02 PM EDT [facility] % Baso 0 0 - 3 % 06/08/2025 1:02 PM EDT [facility] NRBC Absolute <0.01 0 - 0.012 K/ul 06/08/2025 1:02 PM EDT [facility] # Neutros 8.58(H) 2.00 - 6.90 K/ L 06/08/2025 1:02 PM EDT [facility] # Lymphs 0.71 0.60 - 3.40 K/ L 06/08/2025 1:02 PM EDT [facility] # Monos 0.78 0.00 - 0.90 K/ L 06/08/2025 1:02 PM EDT [facility] # Eos 0.03 0.00 - 0.70 K/ L 06/08/2025 1:02 PM EDT [facility] # Baso 0.03 0.00 - 0.20 K/ L 06/08/2025 1:02 PM EDT [facility] Immature Granulocytes-Re lative 0.60 % 06/08/2025 1:02 PM EDT [facility] # IG 0.06(H) 0.00 - 0.00 K/uL 06/08/2025 1:02 PM EDT [facility] Blood Venipuncture / Unknown 06/08/2025 12:35 PM EDT 06/08/2025 12:56 PM EDT Narrative [facility] - 06/08/2025 1:02 PM EDT [...] noted Atypical Lymph flag noted us Natalie J Strange DIRECTOR OF MARKETING LAB BLOOD ORDERABLES Final Res ult Performing Organization Address City/[facility] Co de Phone Number [facility] [address] [phone] * Lactic Acid with reflex (SJ) (06/08/2025 12:35 PM EDT) Lactic Acid Level (mmol/L) 1.5 0.4 - 2.0 mmol/L 06/08/2025 1:21 PM EDT [facility] Comment:If a Lactic Acid Lev el with Reflex if Indicated result is greater than 2.0, a Lactic Acid Level will be ordered to be collected 2 hours after the original collection time. Blood Venipuncture / Unknown 06/08/2025 12:35 PM EDT 06/08/2025 12:56 PM EDT us Natalie J Strange DIRECTOR OF MARKETING LAB BLOOD ORDERABLES Final Res ult Performing Organization Address [facility] Co de Phone Number [facility] [address] [phone] * (ABNORMAL) Sedimentation rate (06/08/2025 12:35 PM EDT) Only the most recent of2 resultswithin the time period is included. Pathologist [facility] Sed Rate 46(H) 0 - 20 mm/HR 06/08/2025 1:21 PM EDT [facility] Blood Venipuncture / Unknown 06/08/2025 12:35 PM EDT 06/08/2025 12:56 PM EDT Natalie J Strange DIRECTOR OF MARKETING LAB BLOOD ORDERABLES Final Res ult Performing Organization Address [facility] Co de Phone Number [facility] [address] [phone] * (ABNORMAL) Comprehensive metabolic panel (06/08/2025 12:35 PM EDT) Only the most recent of2 resultswithin the time period is included. Sodium 135(L) 136 - 145 meq/L 06/08/2025 1:20 PM EDT [facility] Potassium 3.7 3.5 - 5.1 meq/L 06/08/2025 1:20 PM EDT [facility] Chloride 101 98 - 107 meq/L 06/08/2025 1:20 PM EDT [facility] CO2 27 21 - 32 meq/L 06/08/2025 1:20 PM EDT [facility] Calcium 9.3 8.5 - 10.1 mg/dL 06/08/2025 1:20 PM EDT [facility] Glucose 143(H) 70 - 99 mg/dL 06/08/2025 1:20 PM EDT [facility] BUN 14 7 - 18 mg/dL 06/08/2025 1:20 PM EDT [facility] Creatinine 1.28(H) 0.70 - 1.20 mg/dL 06/08/2025 1:20 PM EDT [facility] BUN/Creatinine 11 06/08/2025 1:20 PM EDT [facility] Albumin 3.4 3.4 - 5.0 g/dL 06/08/2025 1:20 PM EDT [facility] Alkaline Phosphatase 68 46 - 116 U/L 06/08/2025 1:20 PM EDT [facility] ALT 21 12 - 78 U/L 06/08/2025 1:20 PM EDT [facility] AST 18 15 - 37 U/L 06/08/2025 1:20 PM EDT [facility] Total Bilirubin 0.7 0.2 - 1.0 mg/dL 06/08/2025 1:20 PM EDT [facility] Protein, Total 7.4 6.4 - 8.2 gm/dL 06/08/2025 1:20 PM EDT [facility] Anion Gap 11 11 - 22 06/08/2025 1:20 PM EDT [facility] A/G Ratio 0.9 06/08/2025 1:20 PM EDT [facility] Globulin 4.0 g/dL 06/08/2025 1:20 PM EDT [facility] Osmolality Calc 273.0 mOsm/kg 1:20 PM EDT [facility] eGFR (mL/min/1.73m2) >60 >=60 mL/min/1.7 3m2 06/08/2025 1:20 PM EDT [facility] Comment:ESTIMATED GFR IS NOT ACCURATE CREATININE CLEARANCE IN PREDICTING GLOMERULAR FILTRATION RATE. ESTIMATED GFR IS NOT APPLICABLE FOR DIALYSIS PATIENTS. Blood Venipuncture / Unknown 06/08/2025 12:35 PM EDT 06/08/2025 12:56 PM EDT us Natalie Osman DIRECTOR OF MARKETING LAB BLOOD ORDERABLES Final Res ult [facility] [address] [place] [address] * XR foot 3 views left (06/06/2025 [...] - 308 U/L 06/06/2025 12:46 PM EDT [facility] Blood VENOUS LINE / Unknown Venipuncture / Unknown 06/06/2025 12:16 PM EDT 06/06/2025 12:20 PM EDT Johnnie Davis APRN LAB BLOOD ORDERABLES Final Result [facility] [address] [place] [address], [facility] [phone] from Last 3 Months Insurance BLUE CROSS/BLUE SHIELD Advance Directives For more information, please contact: [phone] * Full Code (Latest Code Status on File) Date Activated Date Inactivated Comments 06/08/2025 1:17 PM 06/10/2025 12:00 PM Care Teams Fill Manager Relationship Specialty Start Date End Date Parish Aldrich MD [address] [place] [address] PCP - General Internal Medicine 06/06/25
--- OUTSIDE RECORDS SUMMARY | 2025-06-21 15:00 | XMS_ITS | Encounter Summary ---
Author Organization [employer] ([place], [place], [place], [place]) Address [address] [place] [address] Care Team Providers Care Central Supply Technician Supervisor Name Role Phone Parish Aldrich MD Primary [...] Description 06/28/2025 2:45 PM EDT Office Visit [facility] Orthopedics - [address] [phone] Beka Dumont DPM [address] [place] [phone] documented as of this encounter Visit Diagnoses Not on filedocumented in this encounter Care Teams Central Supply Technician Supervisor Relationship Specialty Start Date End Date Parish Aldrich MD [address] [place] [address] PCP - General Internal Medicine 06/06/25 documented as of this encounter
--- OUTSIDE RECORDS SUMMARY | 2025-06-21 15:00 | XMS_ITS | Clinical Summary ---
Author Organization [employer] ([place], [place], [place], [place]) Address [address] [place] [address] Care Team Providers Care Quantometer Operator Name Role Phone Parish Aldrich MD Primary Care Provider + Allergies No known active allergies Medications aspirin [...] 10 days. 20 tablet 06/16/20 25 Active Problems Problem Noted Date Diagnosed Date Cellulitis 06/08/2025 Encounters Date Type Department Care Team Description 06/14/2025 Telephone [facility] [address] [place] [phone] Anton Whitley RN 06/11/2025 Telephone [facility] [address] [place] [phone] Anton Whitley RN 06/11/[address] [phone] Parish Aldrich MD Hospital Follow Up 06/08/2025 12:23 PM EDT - 06/10/2025 11:00 AM EDT Hospital Encounter [facility] [address] [place] [phone] Zen Sinclair DO Qureshi, Saadia, DO Caldwell, Kristinalin, APRN Cellulitis of left lower extremity (Primary Dx) Discharge Disposition: Home or Self Care 06/08/2025 Travel 06/06/2025 12:04 PM EDT - 06/06/2025 12:43 PM EDT Emergency [facility] Emergency Department [address] [place] [phone] Ahmet Lopez MD Cellulitis (Primary Dx) Discharge [...] Description 06/28/2025 2:45 PM EDT Office Visit [facility] Orthopedics - [address] [phone] Beka Dumont, SIGIFREDOM [address] [place] [phone] Health Maintenance Due Date Last Done Comments [...] of7 resultswithin the time period is included. [facility] POC-GLUCOSE 157(H) 70 - 99 mg/dL 06/10/2025 6:34 AM EDT [facility] Comment:In the event of poor peripheral blood flow, venous or arterial blood should be used due to the potential of erroneous results. Optical Instrument Assembly Supervisor [phone] 06/10/2025 6:34 AM EDT [facility] Blood WHOLE BLOOD / Unknown 06/10/2025 6:13 AM EDT 06/10/2025 6:34 AM EDT Narrative [facility] - 06/10/2025 6:34 AM EDT [employer] Instrument [employer] Supervisor ID is - [id number] Amanda Dial DO POINT OF CARE TEST ORDERABLES Final Result Performing Organization Address [facility]/ZIP Co de Phone Number [facility] [address] [place] [address] * (ABNORMAL) PROTIME-INR (06/10/2025 4:52 AM EDT) [...] ORDERABLES Final Res ult Performing Organization Address City/[facility]/ZIP Co de Phone Number [facility] [address] [place] [address] * XR leg / tibia and fibula [...] by Rico Brown MD Amanda Dial DO [facility] ORDERAB LES Final Result * [...] 3:45 AM EDT 06/09/2025 4:21 AM EDT Bolsteri DO LAB BLOOD ORDERABLES Final Res ult Performing Organization Address [facility] Co de Phone Number [facility] [address] [place] [address] * (ABNORMAL) C-Reactive Protein (06/09/2025 3:45 AM EDT) Only the most recent of3 resultswithin the time period is included. CRP 10.40(H) 0.05 - 0.25 mg/dL 06/09/2025 4:38 AM EDT [facility] Blood Venipuncture / Unknown 06/09/2025 3:45 AM EDT 06/09/2025 4:22 AM EDT [employer] DO LAB BLOOD ORDERABLES Final Res ult [facility] [address] [place] [address] * (ABNORMAL) PT/INR, PTT (06/08/2025 3:11 PM [...] Res ult [facility] [address] [id number] [phone] * CT lower extremity with IV contrast [...] 5 days 06/14/2025 12:01 AM EDT [facility] Blood ENTIRE RIGHT UPPER ARM / Unknown Venipuncture / Unknown 06/08/2025 12:46 PM EDT 06/08/2025 1:01 PM EDT Natalie Osman NP MICROBIOLOGY - GENERAL ORDERAB LES Final Result [facility] [address] [phone] * (ABNORMAL) CBC with Auto Diff (06/08/2025 [...] noted Atypical Lymph flag noted us Natalie Adamse ROUTING CLERK LAB BLOOD ORDERABLES Final Res ult [facility] [address] [place] [address] * Lactic Acid with reflex (SJ) (06/08/2025 [...] 12:56 PM EDT us Natalie J Strange ROUTING CLERK LAB BLOOD ORDERABLES Final Res ult Performing Organization Address City/[facility]/ZIP Co de Phone Number [facility] [address] [phone] * (ABNORMAL) Sedimentation rate (06/08/2025 12:35 PM EDT) Only the most recent of2 resultswithin the time period is included. Sed Rate 46(H) 0 - 20 mm/HR 06/08/2025 1:21 PM EDT [facility] Blood Venipuncture / Unknown 06/08/2025 12:35 PM EDT 06/08/2025 12:56 PM EDT Natalie [employer] ROUTING CLERK LAB BLOOD ORDERABLES Final Res ult Performing Organization Address [facility] Co de Phone Number [facility] [address] [place] [address] * (ABNORMAL) Comprehensive metabolic panel (06/08/2025 12:35 [...] Final Res ult [facility] [address] [place] [address] * XR foot 3 views left (06/06/2025 [...] - 308 U/L 06/06/2025 12:46 PM EDT [facility] Blood VENOUS LINE / Unknown Venipuncture / Unknown 06/06/2025 12:16 PM EDT 06/06/2025 12:20 PM EDT Johnnie Davis APRN LAB BLOOD ORDERABLES Final Result [facility] [address] [place] [address], [facility] [phone] from Last 3 Months Insurance BLUE CROSS/BLUE SHIELD Advance Directives For more information, please contact: [phone] * Full Code (Latest Code Status on File) Date Activated Date Inactivated Comments 06/08/2025 1:17 PM 06/10/2025 12:00 PM Care Teams Quantometer Operator Relationship Specialty Start Date End Date Parish Aldrich MD [address] [place] [address] PCP - General Internal Medicine 06/06/25
--- OUTSIDE RECORDS SUMMARY | 2025-06-21 15:00 | XMS_ITS | Encounter Summary ---
Author Organization [employer] ([place], [place], [place], [place]) Address [address] [place] [address] Care Team Providers Care Family Consumer Scientist Name Role Phone Parish Aldrich MD Primary Care Provider + Encounter Details Date Type Department Care Team (Late Contact Info) Description 06/14/2025 Telephone [facility] Surgical Unit [address] [place] [phone] Anton Whitley RN Social History [...] Upcoming Encounters Date Type Department Care Team ([facility] Contact Info) Description 06/28/2025 2:45 PM EDT Office Visit [facility] Orthopedics - [address] [phone] Beka Dumont DPM [address] [place] [address] documented as of this encounter Visit Diagnoses Not on filedocumented in this encounter Care Teams Family Consumer Scientist Relationship Specialty Start Date End Date Parish Aldrich MD [address] [place] [address] PCP - General Internal Medicine 06/06/25 documented as of this encounter
--- OUTSIDE RECORDS SUMMARY | 2025-06-21 15:00 | XMS_ITS | Clinical Summary ---
Author Organization Healthcare Address [address] [place] [address] Care Team Providers Care Desk Maker Name Role Phone Parish Ann MD Unavailable [phone] Parish Aldrich DO Primary Care Provider [phone] Allergies No known active allergies Medications aspirin [...] arrived to ICU intubated - bated to [place] - trending ABGs - Diurese, CXR as [...] place to sleep or slept in a custodial (including now)? No 12/26/2023 Utilities Answer Date [...] 2011 [facility]-Zoster Vaccines (1 of 2) 2016 [id number] Vaccine (3 - Pfizer risk series) 11/13/2021 10/16/2021, 09/28/2021 [facility]-Diabetes: Hemoglobin A1C 06/24/2024 12/26/2023, 12/19/2023 [facility]-Influenza Vaccine (#1) 2025 [facility]-Obesity Intervention Completed [...] this topic Medical Devices Implanted Type Area Child And Adolescent Psychiatrist Device Identifier Shelf Expiration Date Model / Serial / Lot Valve Mitral 31mm Rotatabl Cuf Std - [id number] - [id number] Implanted:Qty: 1 on 12/25/2023 by Cory Mehta MD at [facility] [id number] 08/25/2028 [id number] / [id number] / [id number] Procedures Procedure Name Priority Date/Time Associated Diagnosis [...] Adults <6.0% Children and Adolescents <7.5% Source: [place] [employer]. Standards of medical care in diabetes,2017. Diabetes Care.2017:40 (suppl 1):S1-S135. HbA1c assay performed by an ion-exchange chromatography method that is certified traceable to the DCCT. Cory Mehta MD LAB BLOOD ORDERABLES Final R esult [facility] [address] [place] [address] from Last 3 Months or Most Recently Relevant to Health [place] [id number] Advance Directives * Full Code (Latest Code Status on File) Date Activated Date Inactivated Comments 12/25/2023 3:05 PM 12/31/2023 4:35 PM Question Answer Comments Patient has decision-making capacity? Yes Care Teams Desk Maker Relationship Specialty Start Date End Date Parish Aldrich DO [address] [facility] [address] [place] [address] PCP - General 11/21/23 Parish Ann MD [address] [facility] [address] [place] [address] Referring Physician 11/12/23
[2025-06-21 15:49] LABS: PHA INR Fingerstick 2.7 (0.9-1.1)
== END 2025-06-21 15:50 ==
LOC: ACC 14:57
PROVIDERS: PCP Internal Medicine; Visit Provider Internal Medicine
DX: Z95.2 Presence of prosthetic heart valve (principal)
CPT/HCPCS: 85610; 99211; G0463

== ENCOUNTER 2025-06-28 12:46 | Outpatient (CLI) | payer BC, SELFPAY ==
--- OUTSIDE RECORDS SUMMARY | 2025-06-06 12:04 | XMS_ITS | Encounter Summary ---
Author Organization [employer] ([place], [place], [place], [place]) Address [address] [place] [address] Care Team Providers Care Film Examiner Name Role Phone Parish Aldrich MD Primary Care Provider + Reason for Visit * Reason Comments Foot Pain Stepped on small ajay l several days ago, reports redness, swelling to L foot Encounter Details Date Type Department Care Team (Late st Contact Info) Description 06/06/2025 12:04 PM EDT - 06/06/2025 12:43 PM EDT Emergency [facility] Emergency Department [address] [place] [phone] Ahmet Lopez MD [address] [place] [address] Cellulitis (Primary Dx) Discharge Disposition: Home or [...] sent through Care Everywhere. * Cellulitis Adult Fgnf-[id number] (Salvadorean) documented in this encounter Medications at Time [...] 1216 Dr. Lopez: I saw the patient [id number]. I performed a substantive portion of the [...] General [address] [place] [id number] Next Steps: Call in 1 day(s) Instructions: [...] - 20 mm/HR 06/06/2025 12:41 PM EDT [facility] Blood VENOUS LINE / Unknown Venipuncture / Unknown 06/06/2025 12:16 PM EDT 06/06/2025 12:20 PM EDT Johnnie Davis APRN LAB BLOOD ORDERABLES Final Result [facility] [address] [place] [address] * (ABNORMAL) C-Reactive Protein (06/06/2025 12:16 PM EDT) CRP 15.00(H) 0.05 - 0.25 mg/dL 06/06/2025 12:46 PM EDT [facility] Blood VENOUS LINE / Unknown Venipuncture / Unknown 06/06/2025 12:16 PM EDT 06/06/2025 12:20 PM EDT us Johnnie Davis APRN LAB BLOOD ORDERABLES Final Result [facility] [address] [place] [address] * Creatine Kinase (CK) (06/06/2025 12:16 PM EDT) Total CK 195 39 - 308 U/L 06/06/2025 12:46 PM EDT [facility] Blood VENOUS LINE / Unknown Venipuncture / Unknown 06/06/2025 12:16 PM EDT 06/06/2025 12:20 PM EDT Johnnie Davis APRN LAB BLOOD ORDERABLES Final Result Performing Organization Address [facility]/ZIP Co de Phone Number [facility] [address] [place] [address] * (ABNORMAL) Comprehensive metabolic panel (06/06/2025 12:16 PM EDT) Sodium 138 136 - 145 meq/L 06/06/2025 12:46 PM EDT [facility] Potassium 3.8 3.5 - 5.1 meq/L 06/06/2025 12:46 PM EDT [facility] Chloride 104 98 - 107 meq/L 06/06/2025 12:46 PM EDT [facility] CO2 29 21 - 32 meq/L 06/06/2025 12:46 PM EDT [facility] Calcium 9.1 8.5 - 10.1 mg/dL 06/06/2025 12:46 PM EDT [facility] Glucose 140(H) 70 - 99 mg/dL 06/06/2025 12:46 PM EDT [facility] BUN 13 7 - 18 mg/dL 06/06/2025 12:46 PM EDT [facility] Creatinine 1.23(H) 0.70 - 1.20 mg/dL 06/06/2025 12:46 PM EDT [facility] BUN/Creatinine 11 06/06/2025 12:46 PM EDT [facility] Albumin 3.3(L) 3.4 - 5.0 g/dL 06/06/2025 12:46 PM EDT [facility] Alkaline Phosphatase 71 46 - 116 U/L 06/06/2025 12:46 PM EDT [facility] ALT 21 12 - 78 U/L 06/06/2025 12:46 PM EDT [facility] AST 19 15 - 37 U/L 06/06/2025 12:46 PM EDT [facility] Total Bilirubin 0.5 0.2 - 1.0 mg/dL 06/06/2025 12:46 PM EDT [facility] Protein, Total 7.2 6.4 - 8.2 gm/dL 06/06/2025 12:46 PM EDT [facility] Anion Gap 9(L) 11 - 22 06/06/2025 12:46 PM EDT [facility] A/G Ratio 0.8 06/06/2025 12:46 PM EDT [facility] Globulin 3.9 g/dL 06/06/2025 12:46 PM EDT [facility] Osmolality Calc 278.1 mOsm/kg 12:46 PM EDT [facility] eGFR (mL/min/1.73m2) >60 >=60 mL/min/1.7 3m2 06/06/2025 12:46 PM EDT [facility] Comment:ESTIMATED GFR IS NOT ACCURATE CREATININE CLEARANCE IN PREDICTING GLOMERULAR FILTRATION RATE. ESTIMATED GFR IS NOT APPLICABLE FOR DIALYSIS PATIENTS. Blood VENOUS LINE / Unknown Venipuncture / Unknown 06/06/2025 12:16 PM EDT 06/06/2025 12:20 PM EDT us Johnnie Davis EEG TECHNOLOGIST LAB BLOOD ORDERABLES Final Result [facility] [address] [id number] [phone] * (ABNORMAL) CBC with Auto Diff (06/06/2025 12:16 PM EDT) WBC 9.7 4.8 - 10.8 K/ L 06/06/2025 12:23 PM EDT [facility] RBC 4.24 3.80 - 5.20 M/ L 06/06/2025 12:23 PM EDT [facility] Hemoglobin 13.1 12.8 - 17.4 GM/DL 06/06/2025 12:23 PM EDT [facility] Hematocrit 39.3 39.0 - 51.0 % 06/06/2025 12:23 PM EDT [facility] MCV 93 81 - 101 fL 06/06/2025 12:23 PM EDT [facility] MCH 30.9 27.0 - 34.0 pg 06/06/2025 12:23 PM EDT [facility] MCHC 33.3 32.0 - 36.0 GM/DL 06/06/2025 12:23 PM EDT [facility] RDW 14.8(H) 11.5 - 14.5 % 06/06/2025 12:23 PM EDT [facility] Platelets 271 150 - 400 K/CU MM 06/06/2025 12:23 PM EDT [facility] MPV 11.0 9.4 - 12.4 fL 06/06/2025 12:23 PM EDT [facility] Nucleated Red Blood Cell 0.0 0 - 0.2 % 06/06/2025 12:23 PM EDT [facility] % Neutros 76 37 - 80 % 06/06/2025 12:23 PM EDT [facility] % Lymphs 13 10 - 50 % 06/06/2025 12:23 PM EDT [facility] % Monos 9 5 - 13 % 06/06/2025 12:23 PM EDT [facility] % Eos 2 0 - 7 % 06/06/2025 12:23 PM EDT [facility] % Baso 0 0 - 3 % 06/06/2025 12:23 PM EDT [facility] NRBC Absolute <0.01 0 - 0.012 K/ul 06/06/2025 12:23 PM EDT [facility] # Neutros 7.36(H) 2.00 - 6.90 K/ L 06/06/2025 12:23 PM EDT [facility] # Lymphs 1.29 0.60 - 3.40 K/ L 06/06/2025 12:23 PM EDT [facility] # Monos 0.83 0.00 - 0.90 K/ L 06/06/2025 12:23 PM EDT [facility] # Eos 0.17 0.00 - 0.70 K/ L 06/06/2025 12:23 PM EDT [facility] # Baso 0.02 0.00 - 0.20 K/ L 06/06/2025 12:23 PM EDT [facility] Immature Granulocytes-Re lative 0.30 % 06/06/2025 12:23 PM EDT [facility] # IG 0.03(H) 0.00 - 0.00 K/uL 06/06/2025 12:23 PM EDT [facility] Blood VENOUS LINE / Unknown Venipuncture / Unknown 06/06/2025 12:16 PM EDT 06/06/2025 12:20 PM EDT Narrative [facility] - 06/06/2025 12:23 PM EDT When [...] noted Atypical Lymph flag noted Johnnie Davis EEG TECHNOLOGIST LAB BLOOD ORDERABLES Final Result [facility] [address] [place] [address] documented in this encounter Visit Diagnoses Diagnosis [...] Intra-op documented in this encounter Care Teams Film Examiner Relationship Specialty Start Date End Date Parish Aldrich MD [address] [place] [address] PCP - General Internal Medicine 06/06/25 documented as of this encounter
--- OUTSIDE RECORDS SUMMARY | 2025-06-08 12:23 | XMS_ITS | Encounter Summary ---
Author Organization [employer] ([place], [place], [place], [place]) Address [address] [place] [address] Care Team Providers Care Tissue Specialist Name Role Phone Parish Aldrich MD Primary Care Provider + Reason for Visit * Reason Comments Foot Swelling Pt reports to denis s/swelling to L foot. Stepped on saturday. Redness/swelling began Saturday evening. * Auth/Cert (Routine) Specialty Diagnoses / Procedures Referred By Adeel t Referred To Contact Diagnoses Cellulitis Cellulitis of left lower extremity [facility] [address] [place] [phone] Phone: tel: fax: [facility] [address] [place] [phone] Phone: tel: fax: Referral ID Status Reason Start Date Expiration Date Visits Re quested Visits Authorized [id number] 1 1 Encounter Details Date Type Department Care Team (Late st Contact Info) Description 06/08/2025 12:23 PM EDT - 06/10/2025 11:00 AM EDT Hospital Encounter [facility] [address] [place] [phone] Zen Sinclair DO [address] [place] [address] Amanda Dial DO [address] [facility] [address] [place] [address] Marcella Méndez APRN [facility] Dept [place] [address] Cellulitis of left lower extremity (Primary Dx) [...] / tibia and fibula 2 views left [[id number]] Collected: 06/09/25 1040 Order Status: Completed Updated: [...] CT lower extremity with IV contrast left [[id number]] Collected: 06/08/251329 Order Status: Completed Updated: 06/08/251335 [...] Your Medications These medications were sent to [facility] [address] [place], [place] - [address], [facility] [address] Probiotic 3 billion cell Cap Discharge Instructions: [...] sent a prescription for probiotics to your [facility] pharmacy. Please wait 2 hours after [...] sent through Care Everywhere. * Cellulitis Adult [id number] (Guyanese) * Cellulitis Adult (Guyanese) documented in this encounter Medications at Time [...] (205 lb) Body mass index: 27.80 kg/m?? [place] body weight: 77.6 kg (171 lb 1.2 [...] (Lovenox added) Other anticoagulation: Lovenox 1mg/kg SQ [id number] until INR greater than 2.5 A/P: Goal INR = 2.5-3.5 Will continue with warfarin 5mg PO Qdaily with Lovenox (enoxaparin) 90mg (1mg/kg) SQ [id number] Warfarin as above. Add lovenox 1mg/kg SQ [...] (205 lb) Body mass index: 27.80 kg/m?? [place] body weight: 77.6 kg (171 lb 1.2 [...] / tibia and fibula 2 views left [[id number]] Resulted: 06/09/25 1021 Order Status: Sent Updated: 06/09/[address] lower extremity with IV contrast left [[id number]] Collected: 06/08/25 1330 Order Status: Completed Updated: [...] Procedure Component Value Units Date/Time Blood Culture [[id number]] Collected: 06/08/25 1235 Order Status: Resulted Specimen: Blood Updated: 06/08/25 1301 Blood Culture Arm, Right [[id number]] Collected: 06/08/25 1246 Order Status: Resulted Specimen: [...] in a.m. if symptoms are improving * Oapl Rendon, PharmD - 06/08/2025 4:03 PM EDTSummary: Warfarin Managment by Pharmacy (AutoConsult) Pharmacy Consult - Warfarin Consulting provider: Dr Dial Indication: Mechanical Valve Patient parameters: Age/sex: 59 y.o. male Height: 1.829 m (6') Actual body weight: 93 kg (205 lb) Body mass index: 27.80 kg/m?? [place] body weight: 77.6 kg (171 lb 1.2 [...] Thank you kindly for this consult! Opal Rnedon Pharm.D. * Opal Rendon PharmD - 06/08/2025 3:10 PM EDTSummary: Vancomycin Dosing by Pharmacy (consult) Pharmacy Consult - Vancomycin Consulting provider: Dr Dial Indication: Skin/Soft Tissue Infection Patient parameters: Age/sex: 59 y.o. male Height: 1.829 m (6') Actual body weight: 93 kg (205 lb) Body mass index: 27.80 kg/m?? [place] body weight: 77.6 kg (171 lb 1.2 [...] to Encounter Medication List (as reviewed in [employer]) Medications amoxicillin-clavulanate (AUGMENTIN) 875-125 mg per tablet [...] CT lower extremity with IV contrast left [[id number]] Collected: 06/08/25 133 Order Status: Completed Updated: [...] Procedure Component Value Units Date/Time Blood Culture [[id number]] Collected: 06/08/25 1235 Order Status: Sent Specimen: Blood Updated: 06/08/25 1301 Blood Culture Arm, Right [[id number]] Collected: 06/08/25 1246 Order Status: Sent Specimen: [...] moderate risk and is being admitted to [facility] on an inpatient status. ELOS: >= 2 [...] duringprevious ED visit. History provided by: Patient translator/interpreter used: No Patient History Past Medical History: [...] 1338 Dr. Sinclair: I saw the patient [id number]. I performed a substantive portion of the [...] abnormality identified. I spoke with hospitalist, Dr. iDal to admit patient for cellulitis. Hospitalist is [...] CDT Dr. Sinclair: I saw the patient [id number]. I performed a substantive portion of the [...] SSI 7/8 Orders: Accu checks with SSI CDS/Shop Manager Signature: Tess Holley Phone #: [phone] Date/Time: 06/09/2025 2:03 PM This is a permanent part of the Medical Record 2023 [facility] Reviewed: 01/2024 * Plan of Care - [...] - 99 mg/dL 06/10/2025 6:34 AM EDT [facility] Comment:In the event of poor peripheral blood flow, venous or arterial blood should be used due to the potential of erroneous results. News Videotape Editor [id number] 06/10/2025 6:34 AM EDT [facility] Blood WHOLE BLOOD / Unknown 06/10/2025 6:13 AM EDT 06/10/2025 6:34 AM EDT Narrative [facility] - 06/10/2025 6:34 AM EDT News Videotape Editor ID is - [id number] us Amanda Dial DO POINT OF CARE TEST ORDERABLES Final Result Performing Organization Address [facility] Co de Phone Number [address] [phone] * (ABNORMAL) PROTIME-INR (06/10/2025 4:52 AM EDT) Protime 15.8(H) 9.0 - 12.0 seconds 06/10/2025 5:55 AM EDT [facility] INR 1.60(H) 0.80 - 1.10 06/10/2025 5:55 AM EDT [facility] Comment: Recommended therapeutic ranges using [...] Res ult Performing Organization Address [facility] [address]/ZIP Co de Phone Number [facility] [address] [place] [address] * Glucose, Nova Meter (06/09/2025 8:22 PM EDT) POC-GLUCOSE 94 70 - 99 mg/dL 06/09/2025 8:41 PM EDT [facility] Comment:In the event of poor peripheral blood flow, venous or arterial blood should be used due to the potential of erroneous results. News Videotape Editor [id number] 06/09/2025 8:41 PM EDT [facility] Blood WHOLE BLOOD / Unknown 06/09/2025 8:22 PM EDT 06/09/2025 8:41 PM EDT Narrative [facility] - 06/09/2025 8:41 PM EDT News Videotape Editor ID is - [id number] us Amanda Dial DO POINT OF CARE TEST ORDERABLES Final Result Performing Organization Address [facility] [address]/ZIP Co de Phone Number [facility] [address] [place] [address] * Glucose, Nova Meter (06/09/2025 4:43 PM EDT) POC-GLUCOSE 91 70 - 99 mg/dL 06/09/2025 4:45 PM EDT [facility] Comment: In the event of poor peripheral blood flow, venous or arterial blood should be used due to the potential of erroneous results. Notified Nurse RBV News Videotape Editor [id number] 06/09/2025 4:45 PM EDT [facility] Blood WHOLE BLOOD / Unknown 06/09/2025 4:43 PM EDT 06/09/2025 4:45 PM EDT Narrative [facility] - 06/09/2025 4:45 PM EDT News Videotape Editor ID is - [id number] us Amanda Dial DO POINT OF CARE TEST ORDERABLES Final Result Performing Organization Address City/[facility] [address]/ZIP Co de Phone Number [facility] [address] [place] [address] * (ABNORMAL) Glucose, Nova Meter (06/09/2025 11:19 AM EDT) POC-GLUCOSE 120(H) 70 - 99 mg/dL 06/09/2025 11:21 AM EDT [facility] Comment: In the event of poor peripheral blood flow, venous or arterial blood should be used due to the potential of erroneous results. Received Meds News Videotape Editor [id number] 06/09/2025 11:21 AM EDT [facility] Blood WHOLE BLOOD / Unknown 06/09/2025 11:19 AM EDT 06/09/2025 11:21 AM EDT Narrative [facility] - 06/09/2025 11:21 AM EDT News Videotape Editor ID is - [id number] Amanda Dial DO POINT OF CARE TEST ORDERABLES Final Result Performing Organization Address City/State/[facility] Co de Phone Number [facility] [address] [place] [address] * XR leg / tibia and fibula [...] - 99 mg/dL 06/13/2025 12:21 AM EDT [facility] Comment: In the event of poor peripheral blood flow, venous or arterial blood should be used due to the potential of erroneous results. Notified Nurse RBV News Videotape Editor [id number] 06/13/2025 12:21 AM EDT [facility] Blood WHOLE BLOOD / Unknown 06/09/2025 5:28 AM EDT 06/13/2025 12:21 AM EDT Narrative [facility] - 06/13/2025 12:21 AM EDT News Videotape Editor ID is - [id number] Amanda Dial DO POINT OF CARE TEST ORDERABLES Final Result [facility] [address] [place] [address] * (ABNORMAL) PROTIME-INR (06/09/2025 3:45 AM EDT) Pathologist [facility] Protime 37.2(H) 9.0 - 12.0 seconds 06/09/2025 4:39 AM EDT [facility] INR 3.93(H) 0.80 - 1.10 06/09/2025 4:39 AM EDT [facility] Comment: Recommended therapeutic ranges using [...] DO LAB BLOOD ORDERABLES Final Res ult [facility] [address] [place] [address] * (ABNORMAL) CBC - Hemogram (SJ-BKR) (06/09/2025 3:45 AM EDT) WBC 8.2 4.8 - 10.8 K/ L 06/09/2025 4:30 AM EDT [facility] RBC 3.73(L) 3.80 - 5.20 M/ L 06/09/2025 4:30 AM EDT [facility] Hemoglobin 11.5(L) 12.8 - 17.4 GM/DL 06/09/2025 4:30 AM EDT [facility] Hematocrit 34.9(L) 39.0 - 51.0 % 06/09/2025 4:30 AM EDT [facility] MCV 94 81 - 101 fL 06/09/2025 4:30 AM EDT [facility] MCH 30.8 27.0 - 34.0 pg 06/09/2025 4:30 AM EDT [facility] MCHC 33.0 32.0 - 36.0 GM/DL 06/09/2025 4:30 AM EDT [facility] RDW 14.6(H) 11.5 - 14.5 % 06/09/2025 4:30 AM EDT [facility] Platelets 267 150 - 400 K/CU MM 06/09/2025 4:30 AM EDT [facility] MPV 10.9 9.4 - 12.4 fL 06/09/2025 4:30 AM EDT [facility] Blood Venipuncture / Unknown 06/09/2025 3:45 AM EDT 06/09/2025 4:21 AM EDT [facility] Dial DO LAB BLOOD ORDERABLES Final Res ult Performing Organization Address City/[facility]/ZIP Co de Phone Number [facility] [address] [place] [address] * (ABNORMAL) C-Reactive Protein (06/09/2025 3:45 AM EDT) Pathologist [facility] CRP 10.40(H) 0.05 - 0.25 mg/dL 06/09/2025 4:38 AM EDT [facility] Blood Venipuncture / Unknown 06/09/2025 3:45 AM EDT 06/09/2025 4:22 AM EDT [facility] Dial DO LAB BLOOD ORDERABLES Final Res ult Performing Organization Address [facility] [address]/[facility] de Phone Number [facility] [address] [place] [address] * (ABNORMAL) Glucose, Nova Meter (06/08/2025 9:14 PM EDT) Pathologist [facility] POC-GLUCOSE 165(H) 70 - 99 mg/dL 06/08/2025 9:39 PM EDT [facility] Comment:In the event of poor peripheral blood flow, venous or arterial blood should be used due to the potential of erroneous results. News Videotape Editor [id number] 06/08/2025 9:39 PM EDT [facility] Blood WHOLE BLOOD / Unknown 06/08/2025 9:14 PM EDT 06/08/2025 9:39 PM EDT Narrative [facility] - 06/08/2025 9:39 PM EDT News Videotape Editor ID is - [id number] Amanda Finereshi DO POINT OF CARE TEST ORDERABLES Final Result Performing Organization Address [facility]/ZIP Co de Phone Number [facility] [address] [place] [address] * (ABNORMAL) Glucose, Nova Meter (06/08/2025 4:45 PM EDT) POC-GLUCOSE 125(H) 70 - 99 mg/dL 06/08/2025 4:47 PM EDT [facility] Comment: In the event of poor peripheral blood flow, venous or arterial blood should be used due to the potential of erroneous results. Notified Nurse RBV News Videotape Editor [id number] 06/08/2025 4:47 PM EDT [facility] Blood WHOLE BLOOD / Unknown 06/08/2025 4:45 PM EDT 06/08/2025 4:47 PM EDT Narrative [facility] - 06/08/2025 4:47 PM EDT News Videotape Editor ID is - [id number] Amanda Dial DO POINT OF CARE TEST ORDERABLES Final Result Performing Organization Address [facility] [address]/[facility] Co de Phone Number [facility] [address] [place] [address] * (ABNORMAL) PT/INR, PTT (06/08/2025 3:11 PM EDT) aPTT 58.1(H) 22.0 - 32.0 seconds 06/08/2025 3:45 PM EDT [facility] Protime 52.4(HH) 9.0 - 12.0 seconds 06/08/2025 3:45 PM EDT [facility] INR 5.64(HH) 0.80 - 1.10 06/08/2025 3:45 PM EDT [facility] Blood Venipuncture / Unknown 06/08/2025 3:11 PM EDT 06/08/2025 3:11 PM EDT us Amanda Dial DO LAB BLOOD ORDERABLES Final Res ult [facility] [address] [place] [address] [phone] * CT lower extremity with IV contrast [...] acute bony abnormality identified. us Natalie Orellana SUPERVISOR CELLARS IMG CT ORDERABLES Final Result * Blood Culture Arm, Right (06/08/2025 12:46 PM EDT) Result No growth in 5 days 06/14/2025 12:01 AM EDT [facility] Blood ENTIRE RIGHT UPPER ARM / Unknown Venipuncture / Unknown 06/08/2025 12:46 PM EDT 06/08/2025 1:01 PM EDT Natalie Orellana NP MICROBIOLOGY - GENERAL ORDERAB LES Final Result Performing Organization Address [facility] [address]/ZIP Co de Phone Number [facility] [address] [place], [place] [address] [place] [address] * Lactic Acid with reflex (SJ) (06/08/2025 12:35 PM EDT) Lactic Acid Level (mmol/L) 1.5 0.4 - 2.0 mmol/L 06/08/2025 1:21 PM EDT [facility] Comment:If a Lactic Acid Lev el with Reflex if Indicated result is greater than 2.0, a Lactic Acid Level will be ordered to be collected 2 hours after the original collection time. Blood Venipuncture / Unknown 06/08/2025 12:35 PM EDT 06/08/2025 12:56 PM EDT Natalie Orellana SUPERVISOR CELLARS LAB BLOOD ORDERABLES Final Res ult [facility] [address] [place], [place] [address] [phone] * (ABNORMAL) Sedimentation rate (06/08/2025 12:35 PM EDT) Sed Rate 46(H) 0 - 20 mm/HR 06/08/2025 1:21 PM EDT [facility] Blood Venipuncture / Unknown 06/08/2025 12:35 PM EDT 06/08/2025 12:56 PM EDT us Natalie J Strange SUPERVISOR CELLARS LAB BLOOD ORDERABLES Final Res ult Performing Organization Address City/[facility] [address]/ZIP Co de Phone Number [facility] [address] [phone] * (ABNORMAL) C-Reactive Protein (06/08/2025 12:35 PM EDT) CRP 8.63(H) 0.05 - 0.25 mg/dL 06/08/2025 1:20 PM EDT [facility] Blood Venipuncture / Unknown 06/08/2025 12:35 PM EDT 06/08/2025 12:56 PM EDT us Natalie J Strange SUPERVISOR CELLARS LAB BLOOD ORDERABLES Final Res ult Performing Organization Address [facility] [address]/ZIP Co de Phone Number [facility] [address] [phone] * Blood Culture (06/08/2025 12:35 PM EDT) Result No growth in 5 days 06/14/2025 12:01 AM EDT [facility] Blood Venipuncture / Unknown 06/08/2025 12:35 PM EDT 06/08/2025 1:01 PM EDT us Natalie J Strange SUPERVISOR CELLARS MICROBIOLOGY - GENERAL ORDERAB LES Final Result Performing Organization Address City/[facility] [address]/ZIP Co de Phone Number [facility] [address] [place] [address], [facility] [phone] * (ABNORMAL) Comprehensive metabolic panel (06/08/2025 12:35 PM EDT) Sodium 135(L) 136 - 145 meq/L 06/08/2025 1:20 PM EDT [facility] Potassium 3.7 3.5 - 5.1 meq/L 06/08/2025 1:20 PM EDT [facility] Chloride 101 98 - 107 meq/L 06/08/2025 1:20 PM EDT [facility] CO2 27 21 - 32 meq/L 06/08/2025 1:20 PM EDT [facility] Calcium 9.3 8.5 - 10.1 mg/dL 06/08/2025 1:20 PM EDT [facility] Glucose 143(H) 70 - 99 mg/dL 06/08/2025 1:20 PM EDT [facility] BUN 14 7 - 18 mg/dL 06/08/2025 1:20 PM EDT [facility] Creatinine 1.28(H) 0.70 - 1.20 mg/dL 06/08/2025 1:20 PM EDT [facility] BUN/Creatinine 11 06/08/2025 1:20 PM EDT [facility] Albumin 3.4 3.4 - 5.0 g/dL 06/08/2025 1:20 PM EDT [facility] Alkaline Phosphatase 68 46 - 116 U/L 06/08/2025 1:20 PM EDT [facility] ALT 21 12 - 78 U/L 06/08/2025 1:20 PM EDT [facility] AST 18 15 - 37 U/L 06/08/2025 1:20 PM EDT [facility] Total Bilirubin 0.7 0.2 - 1.0 mg/dL 06/08/2025 1:20 PM EDT [facility] Protein, Total 7.4 6.4 - 8.2 gm/dL 06/08/2025 1:20 PM EDT [facility] Anion Gap 11 11 - 22 06/08/2025 1:20 PM EDT [facility] A/G Ratio 0.9 06/08/2025 1:20 PM EDT [facility] Globulin 4.0 g/dL 06/08/2025 1:20 PM EDT [facility] Osmolality Calc 273.0 mOsm/kg 1:20 PM EDT [facility] eGFR (mL/min/1.73m2) >60 >=60 mL/min/1.7 3m2 06/08/2025 1:20 PM EDT [facility] Comment:ESTIMATED GFR IS NOT ACCURATE CREATININE CLEARANCE IN PREDICTING GLOMERULAR FILTRATION RATE. ESTIMATED GFR IS NOT APPLICABLE FOR DIALYSIS PATIENTS. Blood Venipuncture / Unknown 06/08/2025 12:35 PM EDT 06/08/2025 12:56 PM EDT us Natalie Orellana SUPERVISOR CELLARS LAB BLOOD ORDERABLES Final Res ult [facility] [address] [place] [address], [facility] [phone] * (ABNORMAL) CBC with Auto Diff (06/08/2025 12:35 PM EDT) WBC 10.2 4.8 - 10.8 K/ L 06/08/2025 1:02 PM EDT [facility] RBC 4.34 3.80 - 5.20 M/ L 06/08/2025 1:02 PM EDT [facility] Hemoglobin 13.4 12.8 - 17.4 GM/DL 06/08/2025 1:02 PM EDT [facility] Hematocrit 39.9 39.0 - 51.0 % 06/08/2025 1:02 PM EDT [facility] MCV 92 81 - 101 fL 06/08/2025 1:02 PM EDT [facility] MCH 30.9 27.0 - 34.0 pg 06/08/2025 1:02 PM EDT [facility] MCHC 33.6 32.0 - 36.0 GM/DL 06/08/2025 1:02 PM EDT [facility] RDW 14.6(H) 11.5 - 14.5 % 06/08/2025 1:02 PM EDT [facility] Platelets 309 150 - 400 K/CU MM 06/08/2025 1:02 PM EDT [facility] MPV 10.9 9.4 - 12.4 fL 06/08/2025 1:02 PM EDT [facility] Nucleated Red Blood Cell 0.0 0 - 0.2 % 06/08/2025 1:02 PM EDT [facility] % Neutros 84(H) 37 - 80 % 06/08/2025 1:02 PM EDT [facility] % Lymphs 7(L) 10 - 50 % 06/08/2025 1:02 PM EDT [facility] % Monos 8 5 - 13 % 06/08/2025 1:02 PM EDT [facility] % Eos 0 0 - 7 % 06/08/2025 1:02 PM EDT [facility] % Baso 0 0 - 3 % 06/08/2025 1:02 PM EDT [facility] NRBC Absolute <0.01 0 - 0.012 K/ul 06/08/2025 1:02 PM EDT [facility] # Neutros 8.58(H) 2.00 - 6.90 K/ L 06/08/2025 1:02 PM EDT [facility] # Lymphs 0.71 0.60 - 3.40 K/ L 06/08/2025 1:02 PM EDT [facility] # Monos 0.78 0.00 - 0.90 K/ L 06/08/2025 1:02 PM EDT [facility] # Eos 0.03 0.00 - 0.70 K/ L 06/08/2025 1:02 PM EDT [facility] # Baso 0.03 0.00 - 0.20 K/ L 06/08/2025 1:02 PM EDT [facility] Immature Granulocytes-Re lative 0.60 % 06/08/2025 1:02 PM EDT [facility] # IG 0.06(H) 0.00 - 0.00 K/uL 06/08/2025 1:02 PM EDT [facility] Blood Venipuncture / Unknown 06/08/2025 12:35 PM EDT 06/08/2025 12:56 PM EDT Narrative [facility] - 06/08/2025 1:02 PM EDT [...] NP LAB BLOOD ORDERABLES Final Res ult [facility] [address] [place] [address], [facility] [phone] documented in this encounter Visit Diagnoses Diagnosis [...] Blood Sugar is less than 180 beteween 7578-2599, DO NOT give corrective insulin unless otherwise [...] and contact the remote pharmacy services at [facility] for further guidance. *REFRIGERATOR*, Please choose an [...] Blood Sugar is less than 180 beteween 8350-9978, DO NOT give corrective insulin unless otherwise [...] and contact the remote pharmacy services at [facility] for further guidance. *REFRIGERATOR*, Please choose an indication: Skin/Soft Tissue Infection 0651 (IVPB Started - Provider: Dayan Morse RN)0821 (Due: IVPB Stopped - Provider: aDyan Morse RN) 0054 (IVPB Started - Provider: [...] minutes. documented in this encounter Care Teams Tissue Specialist Relationship Specialty Start Date End Date Parish Aldrich MD [address] [place] [phone] PCP - General Internal Medicine 06/06/25 documented as of this encounter
--- OUTSIDE RECORDS SUMMARY | 2025-06-28 12:51 | XMS_ITS | Encounter Summary ---
Author Organization [employer] ([place], [place], [place], [place]) Address [address] [place] [address] Care Team Providers Care Shirt Line Operator Name Role Phone Parish Aldrich MD Primary Care Provider + Encounter Details Date Type Department Care Team (Late st Contact Info) Description 06/14/2025 Telephone [facility] Surgical Unit [address] [place] [address] Anton Whitley RN Social History [...] on filedocumented in this encounter Care Teams Shirt Line Operator Relationship Specialty Start Date End Date Parish Aldrich MD [address] [facility] [address] PCP - General Internal Medicine 06/06/25 documented as of this encounter
--- OUTSIDE RECORDS SUMMARY | 2025-06-28 12:51 | XMS_ITS | Encounter Summary ---
Author Organization [employer] ([place], [place], [place], [place]) Address [address] [place] [address] Care Team Providers Care Entry Level Management Name Role Phone Parish Aldrich MD Primary Care Provider + Encounter Details Date Type Department Care Team (Late st Contact Info) Description 06/11/2025 Telephone [facility] Medical Surgical Unit [address] [place] [address] Anton Whitley RN Social History [...] on filedocumented in this encounter Care Teams Entry Level Management Relationship Specialty Start Date End Date Parish Aldrich MD [address] [place] [address] PCP - General Internal Medicine 06/06/25 documented as of this encounter
--- OUTSIDE RECORDS SUMMARY | 2025-06-28 12:51 | XMS_ITS | Encounter Summary ---
Author Organization [employer] ([place], [place], [place], [place]) Address [address] [place] [address] Care Team Providers Care Farm Crew Member Name Role Phone Parish Aldrich MD Primary Care Provider + Reason for Visit * Reason Onset Date Comments Hospital Follow Up 06/11/2025 Encounter Details Date Type Department Care Team (Late st Contact Info) Description 06/11/2025 Telephone [facility] [address] [place] [address] Parish Aldrich MD [address] [facility] [address] [place] [address] Hospital Follow Up Social History [...] on filedocumented in this encounter Care Teams Farm Crew Member Relationship Specialty Start Date End Date Parish Aldrich MD [address] [place] [phone] PCP - General Internal Medicine 06/06/25 documented as of this encounter
--- OUTSIDE RECORDS SUMMARY | 2025-06-28 12:52 | XMS_ITS | Clinical Summary ---
Author Organization [employer] ([place], [place], [place], [place]) Address [address] [place] [address] Care Team Providers Care Filler Shredder Machine Name Role Phone Parish Aldrich MD Primary [...] Type Department Care Team Description 06/14/2025 Telephone [facility] Surgical Unit [address] [place] [phone] Anton Whitley RN 06/11/2025 Telephone [facility] Surgical Unit [address] [place] [phone] Anton Whitley RN 06/11/[address] [phone] Parish Aldrich MD Hospital Follow Up 06/08/2025 12:23 PM EDT - 06/10/2025 11:00 AM EDT Hospital Encounter [facility] Surgical Unit [address] [place] [phone] Zen Sinclair DO Qureshi, Saadia, DO Caldwell, Kristinalin, APRN Cellulitis of left lower extremity (Primary Dx) Discharge Disposition: Home or Self Care 06/08/2025 Travel 06/06/2025 12:04 PM EDT - 06/06/2025 12:43 PM EDT Emergency [facility] [place] Emergency Department [address] [place] [phone] Ahmet Lopez MD Cellulitis (Primary Dx) Discharge [...] of7 resultswithin the time period is included. [facility] POC-GLUCOSE 157(H) 70 - 99 mg/dL 06/10/2025 6:34 AM EDT [facility] Comment:In the event of poor peripheral blood flow, venous or arterial blood should be used due to the potential of erroneous results. Bioprocess Engineer [id number] 06/10/2025 6:34 AM EDT [facility] Blood WHOLE BLOOD / Unknown 06/10/2025 6:13 AM EDT 06/10/2025 6:34 AM EDT Narrative [facility] - 06/10/2025 6:34 AM EDT Bioprocess Engineer ID is - [id number] us Amanda Dial DO POINT OF CARE TEST ORDERABLES Final Result [facility] [address] [place] [address] [phone] * (ABNORMAL) PROTIME-INR (06/10/2025 4:52 AM EDT) Only the most recent of2 resultswithin the time period is included. [facility] Protime 15.8(H) 9.0 - 12.0 seconds 06/10/2025 5:55 AM EDT [facility] INR 1.60(H) 0.80 - 1.10 06/10/2025 5:55 AM EDT [facility] Comment: Recommended therapeutic ranges [...] DO LAB BLOOD ORDERABLES Final Res ult [facility] [address] [place] [address] * XR leg / tibia and fibula [...] by Rico Brown MD Amanda Dial DO [facility] ORDERAB LES Final Result * (ABNORMAL) CBC - Hemogram (SJ-BKR) (06/09/2025 3:45 AM EDT) WBC 8.2 4.8 - 10.8 K/ L 06/09/2025 4:30 AM EDT [facility] RBC 3.73(L) 3.80 - 5.20 M/ L 06/09/2025 4:30 AM EDT [facility] Hemoglobin 11.5(L) 12.8 - 17.4 GM/DL 06/09/2025 4:30 AM EDT [facility] Hematocrit 34.9(L) 39.0 - 51.0 % 06/09/2025 4:30 AM EDT [facility] MCV 94 81 - 101 fL 06/09/2025 4:30 AM EDT [facility] MCH 30.8 27.0 - 34.0 pg 06/09/2025 4:30 AM EDT [facility] MCHC 33.0 32.0 - 36.0 GM/DL 06/09/2025 4:30 AM EDT [facility] RDW 14.6(H) 11.5 - 14.5 % 06/09/2025 4:30 AM EDT [facility] Platelets 267 150 - 400 K/CU MM 06/09/2025 4:30 AM EDT [facility] MPV 10.9 9.4 - 12.4 fL 06/09/2025 4:30 AM EDT [facility] Blood Venipuncture / Unknown 06/09/2025 3:45 AM EDT 06/09/2025 4:21 AM EDT Amanda Floresi LAB BLOOD ORDERABLES Final Res ult Performing Organization Address City/[facility]/ZIP Co de Phone Number [facility] [address] [place] [address] * (ABNORMAL) C-Reactive Protein (06/09/2025 3:45 AM EDT) Only the most recent of3 resultswithin the time period is included. CRP 10.40(H) 0.05 - 0.25 mg/dL 06/09/2025 4:38 AM EDT [facility] Blood Venipuncture / Unknown 06/09/2025 3:45 AM EDT 06/09/2025 4:22 AM EDT Amanda Dial LAB BLOOD ORDERABLES Final Res ult Performing Organization Address [facility] Co de Phone Number [facility] [address] [place] [address], [facility] [place] [phone] * (ABNORMAL) PT/INR, PTT (06/08/2025 3:11 PM EDT) aPTT 58.1(H) 22.0 - 32.0 seconds 06/08/2025 3:45 PM EDT [facility] Protime 52.4(HH) 9.0 - 12.0 seconds 06/08/2025 3:45 PM EDT [facility] INR 5.64(HH) 0.80 - 1.10 06/08/2025 3:45 PM EDT [facility] Blood Venipuncture / Unknown 06/08/2025 3:11 PM EDT 06/08/2025 3:11 PM EDT [facility] Final Res ult Performing Organization Address City/[facility]/ZIP Co de Phone Number [facility] [address] [id number] [phone] * CT lower extremity with IV contrast [...] bony abnormality identified. us Natalie J Strange ALL SOURCE ANALYST IMG CT ORDERABLES Final Result * Blood Culture Arm, Right (06/08/2025 12:46 PM EDT) Only the most recent of2 resultswithin the time period is included. Result No growth in 5 days 06/14/2025 12:[address] [facility] Blood ENTIRE RIGHT UPPER ARM / Unknown Venipuncture / Unknown 06/08/2025 12:46 PM EDT 06/08/2025 1:01 PM EDT us Natalie J Bryane ALL SOURCE ANALYST MICROBIOLOGY - GENERAL ORDERAB LES Final Result Performing Organization Address City/State/[facility] Co de Phone Number [facility] [address] [phone] * (ABNORMAL) CBC with Auto Diff (06/08/2025 12:35 PM EDT) Only the most recent of2 resultswithin the time period is included. WBC 10.2 4.8 - 10.8 K/ L 06/08/2025 1:02 PM EDT [facility] RBC 4.34 3.80 - 5.20 M/ L 06/08/2025 1:02 PM EDT [facility] Hemoglobin 13.4 12.8 - 17.4 GM/DL 06/08/2025 1:02 PM EDT [facility] Hematocrit 39.9 39.0 - 51.0 % 06/08/2025 1:02 PM EDT [facility] MCV 92 81 - 101 fL 06/08/2025 1:02 PM EDT [facility] MCH 30.9 27.0 - 34.0 pg 06/08/2025 1:02 PM EDT [facility] MCHC 33.6 32.0 - 36.0 GM/DL 06/08/2025 1:02 PM EDT [facility] RDW 14.6(H) 11.5 - 14.5 % 06/08/2025 1:02 PM EDT [facility] Platelets 309 150 - 400 K/CU MM 06/08/2025 1:02 PM EDT [facility] MPV 10.9 9.4 - 12.4 fL 06/08/2025 1:02 PM EDT [facility] Nucleated Red Blood Cell 0.0 0 - 0.2 % 06/08/2025 1:02 PM EDT [facility] % Neutros 84(H) 37 - 80 % 06/08/2025 1:02 PM EDT [facility] % Lymphs 7(L) 10 - 50 % 06/08/2025 1:02 PM EDT [facility] % Monos 8 5 - 13 % 06/08/2025 1:02 PM EDT [facility] % Eos 0 0 - 7 % 06/08/2025 1:02 PM EDT [facility] % Baso 0 0 - 3 % 06/08/2025 1:02 PM EDT [facility] NRBC Absolute <0.01 0 - 0.012 K/ul 06/08/2025 1:02 PM EDT [facility] # Neutros 8.58(H) 2.00 - 6.90 K/ L 06/08/2025 1:02 PM EDT [facility] # Lymphs 0.71 0.60 - 3.40 K/ L 06/08/2025 1:02 PM EDT [facility] # Monos 0.78 0.00 - 0.90 K/ L 06/08/2025 1:02 PM EDT [facility] # Eos 0.03 0.00 - 0.70 K/ L 06/08/2025 1:02 PM EDT [facility] # Baso 0.03 0.00 - 0.20 K/ L 06/08/2025 1:02 PM EDT [facility] Immature Granulocytes-Re lative 0.60 % 06/08/2025 1:02 PM EDT [facility] # IG 0.06(H) 0.00 - 0.00 K/uL 06/08/2025 1:02 PM EDT [facility] Blood Venipuncture / Unknown 06/08/2025 12:35 PM EDT 06/08/2025 12:56 PM EDT Narrative [facility] - 06/08/2025 1:02 PM [...] Flag noted Atypical Lymph flag noted Natalie [employer] ALL SOURCE ANALYST LAB BLOOD ORDERABLES Final Res ult Performing Organization Address City/[facility]/ZIP Co de Phone Number [facility] [address] [phone] * Lactic Acid with reflex (SJ) (06/08/2025 12:35 PM EDT) Lactic Acid Level (mmol/L) 1.5 0.4 - 2.0 mmol/L 06/08/2025 1:21 PM EDT [facility] Comment:If a Lactic Acid Lev el with Reflex if Indicated result is greater than 2.0, a Lactic Acid Level will be ordered to be collected 2 hours after the original collection time. Blood Venipuncture / Unknown 06/08/2025 12:35 PM EDT 06/08/2025 12:56 PM EDT Natalie AITnge ALL SOURCE ANALYST LAB BLOOD ORDERABLES Final Res ult Performing Organization Address City/[facility]/ZIP Co de Phone Number [facility] [address] [phone] * (ABNORMAL) Sedimentation rate (06/08/2025 12:35 PM EDT) Only the most recent of2 resultswithin the time period is included. Sed Rate 46(H) 0 - 20 mm/HR 06/08/2025 1:21 PM EDT [facility] Blood Venipuncture / Unknown 06/08/2025 12:35 PM EDT 06/08/2025 12:56 PM EDT us Natalie Mayur Osman ALL SOURCE ANALYST LAB BLOOD ORDERABLES Final Res ult [facility] [address] [id number] [phone] * (ABNORMAL) Comprehensive metabolic panel (06/08/2025 12:35 PM EDT) Only the most recent of2 resultswithin the time period is included. Sodium 135(L) 136 - 145 meq/L 06/08/2025 1:20 PM EDT [facility] Potassium 3.7 3.5 - 5.1 meq/L 06/08/2025 1:20 PM EDT [facility] Chloride 101 98 - 107 meq/L 06/08/2025 1:20 PM EDT [facility] CO2 27 21 - 32 meq/L 06/08/2025 1:20 PM EDT [facility] Calcium 9.3 8.5 - 10.1 mg/dL 06/08/2025 1:20 PM EDT [facility] Glucose 143(H) 70 - 99 mg/dL 06/08/2025 1:20 PM EDT [facility] BUN 14 7 - 18 mg/dL 06/08/2025 1:20 PM EDT [facility] Creatinine 1.28(H) 0.70 - 1.20 mg/dL 06/08/2025 1:20 PM EDT [facility] BUN/Creatinine 11 06/08/2025 1:20 PM EDT [facility] Albumin 3.4 3.4 - 5.0 g/dL 06/08/2025 1:20 PM EDT [facility] Alkaline Phosphatase 68 46 - 116 U/L 06/08/2025 1:20 PM EDT [facility] ALT 21 12 - 78 U/L 06/08/2025 1:20 PM EDT [facility] AST 18 15 - 37 U/L 06/08/2025 1:20 PM EDT [facility] Total Bilirubin 0.7 0.2 - 1.0 mg/dL 06/08/2025 1:20 PM EDT [facility] Protein, Total 7.4 6.4 - 8.2 gm/dL 06/08/2025 1:20 PM EDT [facility] Anion Gap 11 11 - 22 06/08/2025 1:20 PM EDT [facility] A/G Ratio 0.9 06/08/2025 1:20 PM EDT [facility] Globulin 4.0 g/dL 06/08/2025 1:20 PM EDT [facility] Osmolality Calc 273.0 mOsm/kg 1:20 PM EDT [facility] eGFR (mL/min/1.73m2) >60 >=60 mL/min/1.7 3m2 06/08/2025 1:20 PM EDT [facility] Comment:ESTIMATED GFR IS NOT ACCURATE CREATININE CLEARANCE IN PREDICTING GLOMERULAR FILTRATION RATE. ESTIMATED GFR IS NOT APPLICABLE FOR DIALYSIS PATIENTS. Blood Venipuncture / Unknown 06/08/2025 12:35 PM EDT 06/08/2025 12:56 PM EDT us Natalie Osman ALL SOURCE ANALYST LAB BLOOD ORDERABLES Final Res ult [facility] [address] [place] [address] * XR foot 3 views left (06/06/2025 [...] - 308 U/L 06/06/2025 12:46 PM EDT [facility] Blood VENOUS LINE / Unknown Venipuncture / Unknown 06/06/2025 12:16 PM EDT 06/06/2025 12:20 PM EDT Johnnie Davis APRN LAB BLOOD ORDERABLES Final Result [facility] [address] [id number], [facility] [place] [phone] from Last 3 Months Insurance BLUE CROSS/BLUE SHIELD Advance Directives For more information, please contact: [phone] * Full Code (Latest Code Status on File) Date Activated Date Inactivated Comments 06/08/2025 1:17 PM 06/10/2025 12:00 PM Care Teams Filler Shredder Machine Relationship Specialty Start Date End Date Parish Aldrich MD [address] [facility] [address] PCP - General Internal Medicine 06/06/25
--- OUTSIDE RECORDS SUMMARY | 2025-06-28 12:52 | XMS_ITS | Encounter Summary ---
Author Organization [employer] ([place], [place], [place], [place]) Address [address] [place] [address] Care Team Providers Care Clinical Psychology Professor Name Role Phone Parish Aldrich [...] on filedocumented in this encounter Care Teams Clinical Psychology Professor Relationship Specialty Start Date End Date Parish Aldrich MD [address] [place] [address] PCP - General Internal Medicine 06/06/25 documented as of this encounter
--- OUTSIDE RECORDS SUMMARY | 2025-06-28 12:52 | XMS_ITS | Referral Summary ---
Author Organization [employer] ([place], [place], [place], [place]) Address [address] [place] [address] Care Team Providers Care Computational Physicist Name Role Phone Parish Aldrich MD Primary Care Provider + Encounters Date Type Department Care Team Description 06/14/2025 Telephone [facility] Surgical Unit [address] [place] [phone] Anton Whitley RN 06/11/2025 Telephone [facility] Surgical Unit [address] [place] [phone] Anton Whitley RN 06/11/[address] [phone] Parish Aldrich MD Hospital Follow Up 06/08/2025 12:23 PM EDT - 06/10/2025 11:00 AM EDT Hospital Encounter [facility] Surgical Unit [address] [place] [phone] Zen Sinclair DO Qureshi, Saadia, DO Caldwell, Kristinalin, APRN Cellulitis of left lower extremity (Primary Dx) Discharge Disposition: Home or Self Care 06/08/2025 Travel 06/06/2025 12:04 PM EDT - 06/06/2025 12:43 PM EDT Emergency [facility] Emergency Department [address] [place] [phone] Ahmet Lopez MD Cellulitis (Primary Dx) [...] due to the potential of erroneous results. Crm Administrator [id number] 06/10/2025 6:34 AM EDT [facility] Blood WHOLE BLOOD / Unknown 06/10/2025 6:13 AM EDT 06/10/2025 6:34 AM EDT Narrative [facility] - 06/10/2025 6:34 AM EDT Crm Administrator ID is - [id number] us Amanda Dial DO POINT OF CARE TEST ORDERABLES Final Result Performing Organization Address [facility] Co de Phone Number [address] [phone] * (ABNORMAL) PROTIME-INR (06/10/2025 4:52 AM EDT) [...] ORDERABLES Final Res ult Performing Organization Address [facility]/ZIP Co de Phone Number [facility] [address] [phone] * XR leg / tibia and fibula [...] Final Res ult [facility] [address] [place] [address] * (ABNORMAL) C-Reactive Protein (06/09/2025 3:45 AM EDT) Only the most recent of3 resultswithin the time period is included. CRP 10.40(H) 0.05 - 0.25 mg/dL 06/09/2025 4:38 AM EDT [facility] Blood Venipuncture / Unknown 06/09/2025 3:45 AM EDT 06/09/2025 4:22 AM EDT [employer] LAB BLOOD ORDERABLES Final Res ult [facility] [address] [place] [address], [facility] [phone] * (ABNORMAL) PT/INR, PTT (06/08/2025 3:11 PM EDT) aPTT 58.1(H) 22.0 - 32.0 seconds 06/08/2025 3:45 PM EDT [facility] Protime 52.4(HH) 9.0 - 12.0 seconds 06/08/2025 3:45 PM EDT [facility] INR 5.64(HH) 0.80 - 1.10 06/08/2025 3:45 PM EDT [facility] Blood Venipuncture / Unknown 06/08/2025 3:11 PM EDT 06/08/2025 3:11 PM EDT [employer]ilo LAB BLOOD ORDERABLES Final Res ult [facility] [address] [place] [address], [facility] [phone] * CT lower extremity with IV contrast [...] in 5 days 06/14/2025 12:01 AM EDT [facility] Blood ENTIRE RIGHT UPPER ARM / Unknown Venipuncture / Unknown 06/08/2025 12:46 PM EDT 06/08/2025 1:01 PM EDT us Natalie Osman NP MICROBIOLOGY - GENERAL ORDERAB LES Final Result [facility] [address] [phone] * (ABNORMAL) CBC with Auto Diff (06/08/2025 [...] NP LAB BLOOD ORDERABLES Final Res ult [facility] [address] [id number] [phone] * Lactic Acid with reflex (SJ) (06/08/2025 [...] 12:35 PM EDT 06/08/2025 12:56 PM EDT [employer] SUPERVISOR [employer]SEMBLY LAB BLOOD ORDERABLES Final Res ult Performing Organization Address [facility]/ZIP Co de Phone Number [facility] [address] [place] [address] * (ABNORMAL) Sedimentation rate (06/08/2025 12:35 PM EDT) Only the most recent of2 resultswithin the time period is included. Sed Rate 46(H) 0 - 20 mm/HR 06/08/2025 1:21 PM EDT [facility] Blood Venipuncture / Unknown 06/08/2025 12:35 PM EDT 06/08/2025 12:56 PM EDT [employer] SUPERVISOR [employer] ASSEMBLY LAB BLOOD ORDERABLES Final Res ult [facility] [address] [place] [address] * (ABNORMAL) Comprehensive metabolic panel (06/08/2025 12:35 [...] 06/08/2025 12:56 PM EDT us Natalie Osman SUPERVISOR [employer] ASSEMBLY LAB BLOOD ORDERABLES Final Res ult [facility] [address] [id number], [facility] [phone] * XR foot 3 views left (06/06/2025 [...] reviewed, interpreted, and dictated by Dr. Casa Kostelic. Transcribed by Taiwo Bravo PA-C. us Johnnie Davis APRN IMG DIAGNOSTIC [...] Final Result [facility] [address] [place] [address], [facility] [phone] from Last 3 Months Insurance BLUE CROSS/BLUE SHIELD Advance Directives For more information, please contact: [phone] * Full Code (Latest Code Status on File) Date Activated Date Inactivated Comments 06/08/2025 1:17 PM 06/10/2025 12:00 PM Care Teams Computational Physicist Relationship Specialty Start Date End Date Parish Aldrich MD [address] [place] [address] [phone] (work) PCP - General Internal Medicine 06/06/25
--- OUTSIDE RECORDS SUMMARY | 2025-06-28 12:52 | XMS_ITS | Clinical Summary ---
Author Organization Healthcare Address [address] [place] [address] Care Team Providers Care Stuffed Casing Tier Name Role Phone Parish Ann MD Unavailable [phone] Parish Aldrich DO Primary Care Provider [phone] Allergies No known active allergies Medications aspirin [...] arrived to ICU intubated - bated to AL - trending ABGs - Diurese, CXR as [...] place to sleep or slept in a long-term (including now)? 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 Standards of medical care in diabetes,2017. Diabetes Care.2017:40 (suppl 1):S1-S135. HbA1c assay performed by an ion-exchange chromatography method that is certified traceable to the DCCT. Cory Mehta MD LAB BLOOD ORDERABLES Final R esult [facility] [address] [place] [address] from Last 3 Months or Most Recently Relevant to Health Maintenance Insurance Advance Directives * Full Code (Latest Code Status on File) Date Activated Date Inactivated Comments 12/25/2023 3:05 PM 12/31/2023 4:35 PM Question Answer Comments Patient has decision-making capacity? Yes Care Teams Stuffed Casing Tier Relationship Specialty Start Date End Date Parish Aldrich DO [address] [facility] [address] [place] [address] PCP - General 11/21/23 Parish Ann MD [address] [facility] [address] [place] [address] Referring Physician 11/12/23
[2025-06-28 14:56] LABS: PHA INR Fingerstick 2.4 (0.9-1.1)
== END 2025-06-28 14:59 ==
LOC: ACC 12:47
PROVIDERS: PCP Internal Medicine; Visit Provider Internal Medicine
DX: Z95.2 Presence of prosthetic heart valve (principal)
CPT/HCPCS: 85610; 99211; G0463

== ENCOUNTER 2025-07-28 15:04 | Outpatient (CLI) | payer BC, SELFPAY ==
--- OUTSIDE RECORDS SUMMARY | 2025-06-06 12:04 | XMS_ITS | Encounter Summary ---
Author Organization [employer] ([place], [place], [place], [place]) Address [address] [place] [address] Care Team Providers Care Global Transportation Manager Name Role Phone Parish Aldrich MD Primary Care Provider + Reason for Visit * Reason Comments Foot Pain Stepped on small ajay l several days ago, reports redness, swelling to L foot Encounter Details Date Type Department Care Team (Late st Contact Info) Description 06/06/2025 12:04 PM EDT - 06/06/2025 12:43 PM EDT Emergency [facility] Emergency Department [address] [place] [phone] Ahmet Lopez MD [address] [place] [address] Cellulitis (Primary Dx) Discharge Disposition: Home or [...] sent through Care Everywhere. * Cellulitis Adult Fawn-jj-Irma ([place]) documented in this encounter Medications at Time [...] 1216 Dr. Lopez: I saw the patient [id number]. I performed a substantive portion of the [...] General [address] [place] [address] Next Steps: Call in 1 day(s) Instructions: [...] - 20 mm/HR 06/06/2025 12:41 PM EDT [facility] Blood VENOUS LINE / Unknown Venipuncture / Unknown 06/06/2025 12:16 PM EDT 06/06/2025 12:20 PM EDT Johnnie Davis APRN LAB BLOOD ORDERABLES Final Result [facility] [address] [place] [address] * (ABNORMAL) C-Reactive Protein (06/06/2025 12:16 PM EDT) CRP 15.00(H) 0.05 - 0.25 mg/dL 06/06/2025 12:46 PM EDT [facility] Blood VENOUS LINE / Unknown Venipuncture / Unknown 06/06/2025 12:16 PM EDT 06/06/2025 12:20 PM EDT us Johnnie Davis APRN LAB BLOOD ORDERABLES Final Result [facility] [address] [place] [address] * Creatine Kinase (CK) (06/06/2025 12:16 PM EDT) Total CK 195 39 - 308 U/L 06/06/2025 12:46 PM EDT [facility] Blood VENOUS LINE / Unknown Venipuncture / Unknown 06/06/2025 12:16 PM EDT 06/06/2025 12:20 PM EDT Johnnie Davis APRN LAB BLOOD ORDERABLES Final Result Performing Organization Address [facility]/ZIP Co de Phone Number [facility] [address] [place] [address] * (ABNORMAL) Comprehensive metabolic panel (06/06/2025 12:16 PM EDT) Sodium 138 136 - 145 meq/L 06/06/2025 12:46 PM EDT [facility] Potassium 3.8 3.5 - 5.1 meq/L 06/06/2025 12:46 PM EDT [facility] Chloride 104 98 - 107 meq/L 06/06/2025 12:46 PM EDT [facility] CO2 29 21 - 32 meq/L 06/06/2025 12:46 PM EDT [facility] Calcium 9.1 8.5 - 10.1 mg/dL 06/06/2025 12:46 PM EDT [facility] Glucose 140(H) 70 - 99 mg/dL 06/06/2025 12:46 PM EDT [facility] BUN 13 7 - 18 mg/dL 06/06/2025 12:46 PM EDT [facility] Creatinine 1.23(H) 0.70 - 1.20 mg/dL 06/06/2025 12:46 PM EDT [facility] BUN/Creatinine 11 06/06/2025 12:46 PM EDT [facility] Albumin 3.3(L) 3.4 - 5.0 g/dL 06/06/2025 12:46 PM EDT [facility] Alkaline Phosphatase 71 46 - 116 U/L 06/06/2025 12:46 PM EDT [facility] ALT 21 12 - 78 U/L 06/06/2025 12:46 PM EDT [facility] AST 19 15 - 37 U/L 06/06/2025 12:46 PM EDT [facility] Total Bilirubin 0.5 0.2 - 1.0 mg/dL 06/06/2025 12:46 PM EDT [facility] Protein, Total 7.2 6.4 - 8.2 gm/dL 06/06/2025 12:46 PM EDT [facility] Anion Gap 9(L) 11 - 22 06/06/2025 12:46 PM EDT [facility] A/G Ratio 0.8 06/06/2025 12:46 PM EDT [facility] Globulin 3.9 g/dL 06/06/2025 12:46 PM EDT [facility] Osmolality Calc 278.1 mOsm/kg 12:46 PM EDT [facility] eGFR (mL/min/1.73m2) >60 >=60 mL/min/1.7 3m2 06/06/2025 12:46 PM EDT [facility] Comment:ESTIMATED GFR IS NOT ACCURATE CREATININE CLEARANCE IN PREDICTING GLOMERULAR FILTRATION RATE. ESTIMATED GFR IS NOT APPLICABLE FOR DIALYSIS PATIENTS. Blood VENOUS LINE / Unknown Venipuncture / Unknown 06/06/2025 12:16 PM EDT 06/06/2025 12:20 PM EDT us Johnnie Davis HEAD SILVERMAN LAB BLOOD ORDERABLES Final Result [facility] [address] [id number] [phone] * (ABNORMAL) CBC with Auto Diff (06/06/2025 12:16 PM EDT) WBC 9.7 4.8 - 10.8 K/ L 06/06/2025 12:23 PM EDT [facility] RBC 4.24 3.80 - 5.20 M/ L 06/06/2025 12:23 PM EDT [facility] Hemoglobin 13.1 12.8 - 17.4 GM/DL 06/06/2025 12:23 PM EDT [facility] Hematocrit 39.3 39.0 - 51.0 % 06/06/2025 12:23 PM EDT [facility] MCV 93 81 - 101 fL 06/06/2025 12:23 PM EDT [facility] MCH 30.9 27.0 - 34.0 pg 06/06/2025 12:23 PM EDT [facility] MCHC 33.3 32.0 - 36.0 GM/DL 06/06/2025 12:23 PM EDT [facility] RDW 14.8(H) 11.5 - 14.5 % 06/06/2025 12:23 PM EDT [facility] Platelets 271 150 - 400 K/CU MM 06/06/2025 12:23 PM EDT [facility] MPV 11.0 9.4 - 12.4 fL 06/06/2025 12:23 PM EDT [facility] Nucleated Red Blood Cell 0.0 0 - 0.2 % 06/06/2025 12:23 PM EDT [facility] % Neutros 76 37 - 80 % 06/06/2025 12:23 PM EDT [facility] % Lymphs 13 10 - 50 % 06/06/2025 12:23 PM EDT [facility] % Monos 9 5 - 13 % 06/06/2025 12:23 PM EDT [facility] % Eos 2 0 - 7 % 06/06/2025 12:23 PM EDT [facility] % Baso 0 0 - 3 % 06/06/2025 12:23 PM EDT [facility] NRBC Absolute <0.01 0 - 0.012 K/ul 06/06/2025 12:23 PM EDT [facility] # Neutros 7.36(H) 2.00 - 6.90 K/ L 06/06/2025 12:23 PM EDT [facility] # Lymphs 1.29 0.60 - 3.40 K/ L 06/06/2025 12:23 PM EDT [facility] # Monos 0.83 0.00 - 0.90 K/ L 06/06/2025 12:23 PM EDT [facility] # Eos 0.17 0.00 - 0.70 K/ L 06/06/2025 12:23 PM EDT [facility] # Baso 0.02 0.00 - 0.20 K/ L 06/06/2025 12:23 PM EDT [facility] Immature Granulocytes-Re lative 0.30 % 06/06/2025 12:23 PM EDT [facility] # IG 0.03(H) 0.00 - 0.00 K/uL 06/06/2025 12:23 PM EDT [facility] Blood VENOUS LINE / Unknown Venipuncture / Unknown 06/06/2025 12:16 PM EDT 06/06/2025 12:20 PM EDT Narrative [facility] - 06/06/2025 12:23 PM [...] Flag noted Atypical Lymph flag noted Johnnie aDvis [facility] BLOOD ORDERABLES Final Result [facility] [address] [place] [address] documented in this encounter Visit Diagnoses Diagnosis [...] Intra-op documented in this encounter Care Teams Global Transportation Manager Relationship Specialty Start Date End Date [place] Ald[place] MD [address] [place] [id number] PCP - General Internal Medicine 06/06/25 documented as of this encounter
--- OUTSIDE RECORDS SUMMARY | 2025-06-08 12:23 | XMS_ITS | Encounter Summary ---
Author Organization [employer] ([place], [place], [place], [place] Address [address] [place] [address] Care Team Providers Care Physician Office Secretary Name Role Phone Parish Aldrich MD Primary Care Provider + Reason for Visit * Reason Comments Foot Swelling Pt reports to denis s/swelling to L foot. Stepped on saturday. Redness/swelling began Saturday evening. * Auth/Cert (Routine) Specialty Diagnoses / Procedures Referred By Adeel t Referred To Contact Diagnoses Cellulitis Cellulitis of left lower extremity [facility] [address] [place] [phone] Phone: tel: fax: [facility] [address] [place] [phone] Phone: tel: fax: Referral ID Status Reason Start Date Expiration Date Visits Re quested Visits Authorized [id number] 1 1 Encounter Details Date Type Department Care Team (Late st Contact Info) Description 06/08/2025 12:23 PM EDT - 06/10/2025 11:00 AM EDT Hospital Encounter [facility] [address] [place] [phone] Zen Sinclair DO [address] [place] [address] Amanda Dial DO [address] [facility] [address] [place] [address] Marcella Méndez APRN [facility] Dept [place] [address] Cellulitis of left lower extremity (Primary Dx) [...] / tibia and fibula 2 views left [[id number]] Collected: 06/09/25 1040 Order Status: Completed Updated: [...] CT lower extremity with IV contrast left [[id number]] Collected: 06/08/251329 Order Status: Completed Updated: 06/08/251335 [...] Your Medications These medications were sent to [facility] [address] [place], [place] - [address], [facility] [address] Probiotic 3 billion cell Cap Discharge Instructions: [...] sent a prescription for probiotics to your [facility] pharmacy. Please wait 2 hours after taking [...] sent through Care Everywhere. * Cellulitis Adult Optw-xn-Fhow (Malaysian) * Cellulitis Adult (Malaysian) documented in this encounter Medications at Time of Discharge aspirin 81 MG EC tablet Take 1 [...] daily Except Saturday he takes 4mg . amoxicillin-clavu lanate (AUGMENTIN) 875-125 mg per tablet Take 1 tablet by mouth 2 (two) times daily with breakfast and dinner for 10 days. 20 tablet 06/06/2025 documented as of this encounter Progress Notes * Opal Rendon, PharmD - 06/10/2025 8:33 AM EDTSummary: Warfarin Managment by Pharmacy Pharmacy Consult - Warfarin Attending provider: Dr Dial Indication: Mechanical valve Patient parameters: Age/sex: 59 y.o. male Height: 1.829 m (6') Actual body weight: 93 kg (205 lb) Body mass index: 27.80 kg/m?? Mather body weight: 77.6 kg (171 lb 1.2 [...] (Lovenox added) Other anticoagulation: Lovenox 1mg/kg SQ [id number] until INR greater than 2.5 A/P: Goal INR = 2.5-3.5 Will continue with warfarin 5mg PO Qdaily with Lovenox (enoxaparin) 90mg (1mg/kg) SQ [id number] Warfarin as above. Add lovenox 1mg/kg SQ [...] no loss of balance or change in symptoms. No device Stair Management Patient negotiated 1 DONATO [...] (205 lb) Body mass index: 27.80 kg/m?? Mather body weight: 77.6 kg (171 lb 1.2 [...] pain. He denies chest pain shortness of breath nausea vomiting diarrhea dysuria fever chills. He appears well. Did note erythema in the left lower leg. Per family this has been present in the past. However given cellulitic changes in the foot willobtain x-ray of the left leg. Objective ROS [...] / tibia and fibula 2 views left [[id number]] Resulted: 06/09/25 1021 Order Status: Sent Updated: 06/09/[address] lower extremity with IV contrast left [[id number]] Collected: 06/08/25 1330 Order Status: Completed Updated: [...] Procedure Component Value Units Date/Time Blood Culture [[id number]] Collected: 06/08/25 1235 Order Status: Resulted Specimen: Blood Updated: 06/08/25 1301 Blood Culture Arm, Right [[id number]] Collected: 06/08/25 1246 Order Status: Resulted Specimen: [...] (205 lb) Body mass index: 27.80 kg/m?? Mather body weight: 77.6 kg (171 lb 1.2 oz) Adjusted ideal body weight: 83.8 kg (184 lb 10.3 oz) Home warfarin dose: 6mg PO Qdaily except Saturday (4mg on Mondays) Labs: Recent Labs 06/06/25 12106/08/25 1235 HGB 13.1 13.4 HCT 39.3 39.9 [...] (205 lb) Body mass index: 27.80 kg/m?? Mather body weight: 77.6 kg (171 lb 1.2 [...] to Encounter Medication List (as reviewed in [facility]) Medications amoxicillin-clavulanate (AUGMENTIN) 875-125 mg per tablet [...] CT lower extremity with IV contrast left [[id number]] Collected: 06/08/25 133 Order Status: Completed Updated: 06/08/251335 Narrative: CT [...] Procedure Component Value Units Date/Time Blood Culture [[id number]] Collected: 06/08/25 1235 Order Status: Sent Specimen: Blood Updated: 06/08/25 1301 Blood Culture Arm, Right [[id number]] Collected: 06/08/25 1246 Order Status: Sent Specimen: [...] moderate risk and is being admitted to [facility] on an inpatient status. ELOS: >= 2 [...] duringprevious ED visit. History provided by: Patient special events fundraiser used: No Patient History Past Medical History: [...] 1338 Dr. Sinclair: I saw the patient [id number]. I performed a substantive portion of the [...] Added Cellulitis of left lower extremity Natalie Orellana NP 06/08/2025 1:39 PM Disposition Admit [3] - 06/08/2025 1:43 PM New Prescriptions No medications on file Electronically Signed By Natalie Orellana NP 06/08/25 1344 Cosigned by Zen Sinclair DO at 06/08/2025 2:07 PM EDT Associated attestation - Zen Sinclair DO - 06/08/2025 1:[address] Sinclair: I saw the patient [id number]. I performed a substantive portion of the [...] Results and Location in Medical Record Antibiotics 7/8 Orders: IV Zosyn, IV Vanc, IV Rocephin Accu checks with SSI 7/8 Orders: Accu checks with SSI CDS/Out Of Town Collection Clerk Signature: Tess Holley Phone #: [phone] Date/Time: 06/09/2025 2:03 PM This is a permanent part of the Medical Record 2023 [facility]ly [facility] Reviewed: 01/2024 * Plan of Care - [...] - 99 mg/dL 06/10/2025 6:34 AM EDT [facility] Comment:In the event of poor peripheral blood flow, venous or arterial blood should be used due to the potential of erroneous results. Assistant Chief Of Police [phone] 06/10/2025 6:34 AM EDT [facility] Blood WHOLE BLOOD / Unknown 06/10/2025 6:13 AM EDT 06/10/2025 6:34 AM EDT Narrative [facility] - 06/10/2025 6:34 AM EDT Assistant Chief Of Police ID is - [id number] us Amanda Dial DO POINT OF CARE TEST ORDERABLES Final Result Performing Organization Address [facility] Co de Phone Number [address] [phone] * (ABNORMAL) PROTIME-INR (06/10/2025 4:52 AM EDT) Protime 15.8(H) 9.0 - 12.0 seconds 06/10/2025 5:55 AM EDT [facility] INR 1.60(H) 0.80 - 1.10 06/10/2025 5:55 AM EDT [facility] Comment: Recommended therapeutic ranges using International [...] ORDERABLES Final Res ult Performing Organization Address [facility]/ZIP Co de Phone Number [facility] [address] [place] [address] * Glucose, Nova Meter (06/09/2025 8:22 PM EDT) POC-GLUCOSE 94 70 - 99 mg/dL 06/09/2025 8:41 PM EDT [facility] Comment:In the event of poor peripheral blood flow, venous or arterial blood should be used due to the potential of erroneous results. Assistant Chief Of Police [phone] 06/09/2025 8:41 PM EDT [facility] Blood WHOLE BLOOD / Unknown 06/09/2025 8:22 PM EDT 06/09/2025 8:41 PM EDT Narrative [facility] - 06/09/2025 8:41 PM EDT Assistant Chief Of Police ID is - [id number] us Amanda Dial DO POINT OF CARE TEST ORDERABLES Final Result Performing Organization Address [facility]/ZIP Co de Phone Number [facility] [address] [place] [address] * Glucose, Nova Meter (06/09/2025 4:43 PM EDT) POC-GLUCOSE 91 70 - 99 mg/dL 06/09/2025 4:45 PM EDT [facility] Comment: In the event of poor peripheral blood flow, venous or arterial blood should be used due to the potential of erroneous results. Notified Nurse RBV Assistant Chief Of Police [phone] 06/09/2025 4:45 PM EDT [facility] Blood WHOLE BLOOD / Unknown 06/09/2025 4:43 PM EDT 06/09/2025 4:45 PM EDT Narrative [facility] - 06/09/2025 4:45 PM EDT Assistant Chief Of Police ID is - [id number] us Amanda Dial DO POINT OF CARE TEST ORDERABLES Final Result Performing Organization Address City/[facility]/ZIP Co de Phone Number [facility] [address] [place] [address] * (ABNORMAL) Glucose, Nova Meter (06/09/2025 11:19 AM EDT) POC-GLUCOSE 120(H) 70 - 99 mg/dL 06/09/2025 11:21 AM EDT [facility] Comment: In the event of poor peripheral blood flow, venous or arterial blood should be used due to the potential of erroneous results. Received Meds Assistant Chief Of Police [id number] 06/09/2025 11:21 AM EDT [facility] Blood WHOLE BLOOD / Unknown 06/09/2025 11:19 AM EDT 06/09/2025 11:21 AM EDT Narrative [facility] - 06/09/2025 11:21 AM EDT Assistant Chief Of Police ID is - [id number] Amanda Dial DO POINT OF CARE TEST ORDERABLES Final Result Performing Organization Address City/State/[facility] Co de Phone Number [facility] [address] [place] [address] * XR leg / tibia and fibula [...] - 99 mg/dL 06/13/2025 12:21 AM EDT [facility] Comment: In the event of poor peripheral blood flow, venous or arterial blood should be used due to the potential of erroneous results. Notified Nurse RBV Assistant Chief Of Police [phone] 06/13/2025 12:21 AM EDT [facility] Blood WHOLE BLOOD / Unknown 06/09/2025 5:28 AM EDT 06/13/2025 12:21 AM EDT Narrative [facility] - 06/13/2025 12:21 AM EDT Assistant Chief Of Police ID is - [id number] Amanda Dial DO POINT OF CARE TEST ORDERABLES Final Result [facility] [address] [place] [address] * (ABNORMAL) PROTIME-INR (06/09/2025 3:45 AM EDT) Pathologist [facility] Protime 37.2(H) 9.0 - 12.0 seconds 06/09/2025 4:39 AM EDT [facility] INR 3.93(H) 0.80 - 1.10 06/09/2025 4:39 AM EDT [facility] Comment: Recommended therapeutic ranges using International [...] DO LAB BLOOD ORDERABLES Final Res ult [facility] [address] [place] [address] * (ABNORMAL) CBC - Hemogram (SJ-BKR) (06/09/2025 3:45 AM EDT) WBC 8.2 4.8 - 10.8 K/ L 06/09/2025 4:30 AM EDT [facility] RBC 3.73(L) 3.80 - 5.20 M/ L 06/09/2025 4:30 AM EDT [facility] Hemoglobin 11.5(L) 12.8 - 17.4 GM/DL 06/09/2025 4:30 AM EDT [facility] Hematocrit 34.9(L) 39.0 - 51.0 % 06/09/2025 4:30 AM EDT [facility] MCV 94 81 - 101 fL 06/09/2025 4:30 AM EDT [facility] MCH 30.8 27.0 - 34.0 pg 06/09/2025 4:30 AM EDT [facility] MCHC 33.0 32.0 - 36.0 GM/DL 06/09/2025 4:30 AM EDT [facility] RDW 14.6(H) 11.5 - 14.5 % 06/09/2025 4:30 AM EDT [facility] Platelets 267 150 - 400 K/CU MM 06/09/2025 4:30 AM EDT [facility] MPV 10.9 9.4 - 12.4 fL 06/09/2025 4:30 AM EDT [facility] Blood Venipuncture / Unknown 06/09/2025 3:45 AM EDT 06/09/2025 4:21 AM EDT [facility] Dial DO LAB BLOOD ORDERABLES Final Res ult Performing Organization Address City/[facility]/ZIP Co de Phone Number [facility] [address] [place] [address] * (ABNORMAL) C-Reactive Protein (06/09/2025 3:45 AM EDT) Pathologist [facility] CRP 10.40(H) 0.05 - 0.25 mg/dL 06/09/2025 4:38 AM EDT [facility] Blood Venipuncture / Unknown 06/09/2025 3:45 AM EDT 06/09/2025 4:22 AM EDT [facility] Dial DO LAB BLOOD ORDERABLES Final Res ult Performing Organization Address [facility] de Phone Number [facility] [address] [place] [address] * (ABNORMAL) Glucose, Nova Meter (06/08/2025 9:14 PM EDT) Pathologist [facility] POC-GLUCOSE 165(H) 70 - 99 mg/dL 06/08/2025 9:39 PM EDT [facility] Comment:In the event of poor peripheral blood flow, venous or arterial blood should be used due to the potential of erroneous results. Assistant Chief Of Police [phone] 06/08/2025 9:39 PM EDT [facility] Blood WHOLE BLOOD / Unknown 06/08/2025 9:14 PM EDT 06/08/2025 9:39 PM EDT Narrative [facility] - 06/08/2025 9:39 PM EDT Assistant Chief Of Police ID is - [id number] Amanda Finereshi DO POINT OF CARE TEST ORDERABLES Final Result Performing Organization Address [facility]/ZIP Co de Phone Number [facility] [address] [place] [address] * (ABNORMAL) Glucose, Nova Meter (06/08/2025 4:45 PM EDT) POC-GLUCOSE 125(H) 70 - 99 mg/dL 06/08/2025 4:47 PM EDT [facility] Comment: In the event of poor peripheral blood flow, venous or arterial blood should be used due to the potential of erroneous results. Notified Nurse RBV Assistant Chief Of Police [phone] 06/08/2025 4:47 PM EDT [facility] Blood WHOLE BLOOD / Unknown 06/08/2025 4:45 PM EDT 06/08/2025 4:47 PM EDT Narrative [facility] - 06/08/2025 4:47 PM EDT Assistant Chief Of Police ID is - [id number] Amanda Dial DO POINT OF CARE TEST ORDERABLES Final Result Performing Organization Address [facility] Co de Phone Number [facility] [address] [place] [address] * (ABNORMAL) PT/INR, PTT (06/08/2025 3:11 PM EDT) aPTT 58.1(H) 22.0 - 32.0 seconds 06/08/2025 3:45 PM EDT [facility] Protime 52.4(HH) 9.0 - 12.0 seconds 06/08/2025 3:45 PM EDT [facility] INR 5.64(HH) 0.80 - 1.10 06/08/2025 3:45 PM EDT [facility] Blood Venipuncture / Unknown 06/08/2025 3:11 PM EDT 06/08/2025 3:11 PM EDT us Amanda Dial DO LAB BLOOD ORDERABLES Final Res ult [facility] [address] [place] [address] [[email or web address]] [phone] * CT lower extremity with IV contrast [...] acute bony abnormality identified. us Natalie Orellana MATHEMATICIAN IMG CT ORDERABLES Final Result * Blood Culture Arm, Right (06/08/2025 12:46 PM EDT) Result No growth in 5 days 06/14/2025 12:01 AM EDT [facility] Blood ENTIRE RIGHT UPPER ARM / Unknown Venipuncture / Unknown 06/08/2025 12:46 PM EDT 06/08/2025 1:01 PM EDT Natalie Orellana NP MICROBIOLOGY - GENERAL ORDERAB LES Final Result Performing Organization Address [facility]/ZIP Co de Phone Number [facility] [address] [place], [place] [id number] [place] [address] * Lactic Acid with reflex (SJ) (06/08/2025 12:35 PM EDT) Lactic Acid Level (mmol/L) 1.5 0.4 - 2.0 mmol/L 06/08/2025 1:21 PM EDT [facility] Comment:If a Lactic Acid Lev el with Reflex if Indicated result is greater than 2.0, a Lactic Acid Level will be ordered to be collected 2 hours after the original collection time. Blood Venipuncture / Unknown 06/08/2025 12:35 PM EDT 06/08/2025 12:56 PM EDT Natalie Orlelana MATHEMATICIAN LAB BLOOD ORDERABLES Final Res ult [facility] [address] [place], [place] [address] [[email or web address]] [phone] * (ABNORMAL) Sedimentation rate (06/08/2025 12:35 PM EDT) Sed Rate 46(H) 0 - 20 mm/HR 06/08/2025 1:21 PM EDT [facility] Blood Venipuncture / Unknown 06/08/2025 12:35 PM EDT 06/08/2025 12:56 PM EDT us Natlaie J Strange MATHEMATICIAN LAB BLOOD ORDERABLES Final Res ult Performing Organization Address City/[facility]/ZIP Co de Phone Number [facility] [address] [phone] * (ABNORMAL) C-Reactive Protein (06/08/2025 12:35 PM EDT) CRP 8.63(H) 0.05 - 0.25 mg/dL 06/08/2025 1:20 PM EDT [facility] Blood Venipuncture / Unknown 06/08/2025 12:35 PM EDT 06/08/2025 12:56 PM EDT us Natalie J Strange MATHEMATICIAN LAB BLOOD ORDERABLES Final Res ult Performing Organization Address [facility]/ZIP Co de Phone Number [facility] [address] [phone] * Blood Culture (06/08/2025 12:35 PM EDT) Result No growth in 5 days 06/14/2025 12:01 AM EDT [facility] Blood Venipuncture / Unknown 06/08/2025 12:35 PM EDT 06/08/2025 1:01 PM EDT us Natalie J Strange MATHEMATICIAN MICROBIOLOGY - GENERAL ORDERAB LES Final Result Performing Organization Address City/[facility]/ZIP Co de Phone Number [facility] [address] [place] [address], [facility] [phone] * (ABNORMAL) Comprehensive metabolic panel (06/08/2025 12:35 PM EDT) Sodium 135(L) 136 - 145 meq/L 06/08/2025 1:20 PM EDT [facility] Potassium 3.7 3.5 - 5.1 meq/L 06/08/2025 1:20 PM EDT [facility] Chloride 101 98 - 107 meq/L 06/08/2025 1:20 PM EDT [facility] CO2 27 21 - 32 meq/L 06/08/2025 1:20 PM EDT [facility] Calcium 9.3 8.5 - 10.1 mg/dL 06/08/2025 1:20 PM EDT [facility] Glucose 143(H) 70 - 99 mg/dL 06/08/2025 1:20 PM EDT [facility] BUN 14 7 - 18 mg/dL 06/08/2025 1:20 PM EDT [facility] Creatinine 1.28(H) 0.70 - 1.20 mg/dL 06/08/2025 1:20 PM EDT [facility] BUN/Creatinine 11 06/08/2025 1:20 PM EDT [facility] Albumin 3.4 3.4 - 5.0 g/dL 06/08/2025 1:20 PM EDT [facility] Alkaline Phosphatase 68 46 - 116 U/L 06/08/2025 1:20 PM EDT [facility] ALT 21 12 - 78 U/L 06/08/2025 1:20 PM EDT [facility] AST 18 15 - 37 U/L 06/08/2025 1:20 PM EDT [facility] Total Bilirubin 0.7 0.2 - 1.0 mg/dL 06/08/2025 1:20 PM EDT [facility] Protein, Total 7.4 6.4 - 8.2 gm/dL 06/08/2025 1:20 PM EDT [facility] Anion Gap 11 11 - 22 06/08/2025 1:20 PM EDT [facility] A/G Ratio 0.9 06/08/2025 1:20 PM EDT [facility] Globulin 4.0 g/dL 06/08/2025 1:20 PM EDT [facility] Osmolality Calc 273.0 mOsm/kg 1:20 PM EDT [facility] eGFR (mL/min/1.73m2) >60 >=60 mL/min/1.7 3m2 06/08/2025 1:20 PM EDT [facility] Comment:ESTIMATED GFR IS NOT ACCURATE CREATININE CLEARANCE IN PREDICTING GLOMERULAR FILTRATION RATE. ESTIMATED GFR IS NOT APPLICABLE FOR DIALYSIS PATIENTS. Blood Venipuncture / Unknown 06/08/2025 12:35 PM EDT 06/08/2025 12:56 PM EDT us Natalie Orellana MATHEMATICIAN LAB BLOOD ORDERABLES Final Res ult [facility] [address] [place] [address], [facility] [phone] * (ABNORMAL) CBC with Auto Diff (06/08/2025 12:35 PM EDT) WBC 10.2 4.8 - 10.8 K/ L 06/08/2025 1:02 PM EDT [facility] RBC 4.34 3.80 - 5.20 M/ L 06/08/2025 1:02 PM EDT [facility] Hemoglobin 13.4 12.8 - 17.4 GM/DL 06/08/2025 1:02 PM EDT [facility] Hematocrit 39.9 39.0 - 51.0 % 06/08/2025 1:02 PM EDT [facility] MCV 92 81 - 101 fL 06/08/2025 1:02 PM EDT [facility] MCH 30.9 27.0 - 34.0 pg 06/08/2025 1:02 PM EDT [facility] MCHC 33.6 32.0 - 36.0 GM/DL 06/08/2025 1:02 PM EDT [facility] RDW 14.6(H) 11.5 - 14.5 % 06/08/2025 1:02 PM EDT [facility] Platelets 309 150 - 400 K/CU MM 06/08/2025 1:02 PM EDT [facility] MPV 10.9 9.4 - 12.4 fL 06/08/2025 1:02 PM EDT [facility] Nucleated Red Blood Cell 0.0 0 - 0.2 % 06/08/2025 1:02 PM EDT [facility] % Neutros 84(H) 37 - 80 % 06/08/2025 1:02 PM EDT [facility] % Lymphs 7(L) 10 - 50 % 06/08/2025 1:02 PM EDT [facility] % Monos 8 5 - 13 % 06/08/2025 1:02 PM EDT [facility] % Eos 0 0 - 7 % 06/08/2025 1:02 PM EDT [facility] % Baso 0 0 - 3 % 06/08/2025 1:02 PM EDT [facility] NRBC Absolute <0.01 0 - 0.012 K/ul 06/08/2025 1:02 PM EDT [facility] # Neutros 8.58(H) 2.00 - 6.90 K/ L 06/08/2025 1:02 PM EDT [facility] # Lymphs 0.71 0.60 - 3.40 K/ L 06/08/2025 1:02 PM EDT [facility] # Monos 0.78 0.00 - 0.90 K/ L 06/08/2025 1:02 PM EDT [facility] # Eos 0.03 0.00 - 0.70 K/ L 06/08/2025 1:02 PM EDT [facility] # Baso 0.03 0.00 - 0.20 K/ L 06/08/2025 1:02 PM EDT [facility] Immature Granulocytes-Re lative 0.60 % 06/08/2025 1:02 PM EDT [facility] # IG 0.06(H) 0.00 - 0.00 K/uL 06/08/2025 1:02 PM EDT [facility] Blood Venipuncture / Unknown 06/08/2025 12:35 PM EDT 06/08/2025 12:56 PM EDT Narrative [facility] - 06/08/2025 1:02 PM EDT When [...] NP LAB BLOOD ORDERABLES Final Res ult [facility] [address] [place] [address], [facility] [phone] documented in this encounter Visit Diagnoses Diagnosis [...] Blood Sugar is less than 180 beteween 2112-4326, DO NOT give corrective insulin unless otherwise [...] and contact the remote pharmacy services at [facility] for further guidance. *REFRIGERATOR*, Please choose an [...] Patient/family refused)2110 (Not Given - Provider: Dayan Morse RN - Reason: Patient/family refused) 0842 (Not Given - Provider: Olimpia Rod RN - Reason: Contraindicated)2023 (Not Given - Provider: Dayan Morse, OSCAR - Reason: Patient/family refused) 0829 (Not Given [...] Blood Sugar is less than 180 beteween 8478-3607, DO NOT give corrective insulin unless otherwise [...] - Reason: Contraindicated)1644 (Not Given - Provider: Oilmpia Rod RN - Reason: Contraindicated)202 (Not Given [...] Lorraine Cody RN)1343 (Stopped - Provider: Lorraine Cody, OSCAR) sodium chloride 0.9% (NS) bolus (COMPLETED) 1,000 mL Once, intravenous, Administer over 60 Minutes, On Sat06/08/25 at 1230, For 1 dose 1302 (New Bag - Provider: Lorraine Cody, OSCAR)1343 (Stopped - Provider: Lorraine Cody RN) vancomycin [...] and contact the remote pharmacy services at [facility] for further guidance. *REFRIGERATOR*, Please choose an indication: Skin/Soft Tissue Infection 0651 (IVPB Started - Provider: Dayan Morse RN)0821 (Due: IVPB Stopped - Provider: Dayan Morse RN) 0054 (IVPB Started - Provider: Sanaz Traore RN)0235 (IVPB Stopped - Provider: Sanaz Traore, OSCAR) warfarin (COUMADIN) tablet 5 mg 5 mg [...] bin. 1705 (Given - Provider: Olimpia Rod, RN) Continuous Medication Order 06/08/2025 06/09/2025 06/10/2025 sodium [...] minutes. documented in this encounter Care Teams Physician Office Secretary Relationship Specialty Start Date End Date Parish Ald[place] MD [address] [place] [id number] PCP - General Internal Medicine 06/06/25 documented as of this encounter
--- OUTSIDE RECORDS SUMMARY | 2025-07-28 15:06 | XMS_ITS | Clinical Summary ---
Author Organization Healthcare Address [address] [place] [address] Care Team Providers Care Clinical Informaticist Name Role Phone Parish Ann MD Unavailable [phone] Parish Aldrich DO Primary Care Provider [phone] Allergies No known active allergies Medications aspirin [...] arrived to ICU intubated - bated to NV - trending ABGs - Diurese, CXR as [...] place to sleep or slept in a alf (including now)? 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 [...] 2011 UKY-Zoster Vaccines (1 of 2) 2016 [id number] Vaccine (3 - Pfizer risk series) 11/13/2021 [...] this topic Medical Devices Implanted Type Area Confectionery Laboratory Manager Device Identifier Shelf Expiration Date Model / Serial / Lot Valve Mitral 31mm Rotatabl Cuf Std - [id number] - [id number] Implanted:Qty: 1 on 12/25/2023 by Cory Mehta MD at [facility] [id number] 08/25/2028 [id number] / [id number] / [id number] Procedures Procedure Name Priority Date/Time Associated Diagnosis [...] Adults <6.0% Children and Adolescents <7.5% Source: [place] [employer]. Standards of medical care in diabetes,2017. Diabetes Care.2017:40 (suppl 1):S1-S135. HbA1c assay performed by an ion-exchange chromatography method that is certified traceable to the DCCT. Cory Mehta MD LAB BLOOD ORDERABLES Final R esult [facility] [address] [place] [address] from Last 3 Months or Most Recently Relevant to Health Maintenance Insurance Advance Directives * Full Code (Latest Code Status on File) Date Activated Date Inactivated Comments 12/25/2023 3:05 PM 12/31/2023 4:35 PM Question Answer Comments Patient has decision-making capacity? Yes Care Teams Clinical Informaticist Relationship Specialty Start Date End Date Parish Aldrich DO [address] [facility] [address] [place] [address] PCP - General 11/21/23 Parish Ann MD [address] [facility] [address] [place] [address] Referring Physician 11/12/23
--- OUTSIDE RECORDS SUMMARY | 2025-07-28 15:06 | XMS_ITS | Referral Summary ---
Author Organization [employer] ([place], [place], [place], [place]) Address [address] [place] [address] Care Team Providers Care Sanitation Supervisor Name Role Phone Parish Aldrich MD Primary Care Provider + Encounters Date Type Department Care Team Description 06/14/2025 Telephone [facility] [address] [place] [phone] Anton Whitley RN 06/11/2025 Telephone [facility] [address] [place] [phone] Anton Whitley RN 06/11/[address] [phone] Parish Aldrich MD Hospital Follow Up 06/08/2025 12:23 PM EDT - 06/10/2025 11:00 AM EDT Hospital Encounter [facility] [address] [place] [phone] Zen Sinclair DO Qureshi, Saadia, DO Caldwell, Kristinalin, APRN Cellulitis of left lower extremity (Primary Dx) Discharge Disposition: Home or Self Care 06/08/2025 Travel 06/06/2025 12:04 PM EDT - 06/06/2025 12:43 PM EDT Emergency [facility] Emergency Department [address] [place] [phone] Ahmet Lopez MD Cellulitis (Primary Dx) [...] 2 (two) times daily. 20 capsule 06/10/2025 Active Active Problems Problem Noted Date Diagnosed [...] of7 resultswithin the time period is included. [facility] POC-GLUCOSE 157(H) 70 - 99 mg/dL 06/10/2025 6:34 AM EDT [facility] Comment:In the event of poor peripheral blood flow, venous or arterial blood should be used due to the potential of erroneous results. Vocational Coordinator [phone] 06/10/2025 6:34 AM EDT [facility] Blood WHOLE BLOOD / Unknown 06/10/2025 6:13 AM EDT 06/10/2025 6:34 AM EDT Narrative [facility] - 06/10/2025 6:34 AM EDT Vocational Coordinator ID is - [id number] us Amanda Dial DO POINT OF CARE TEST ORDERABLES Final Result [address] [phone] * (ABNORMAL) PROTIME-INR (06/10/2025 4:52 AM EDT) Only the most recent of2 resultswithin the time period is included. Protime 15.8(H) 9.0 - 12.0 seconds 06/10/2025 5:55 AM EDT [facility] INR 1.60(H) 0.80 - 1.10 06/10/2025 5:55 AM EDT [facility] Comment: Recommended therapeutic ranges using [...] DO LAB BLOOD ORDERABLES Final Res ult [address] [phone] * XR leg / tibia and fibula [...] by Rico Brown MD Amanda Dial DO [facility] DIAGNOSTIC IMAGING ORDERAB LES Final Result * (ABNORMAL) CBC - Hemogram (SJ-BKR) (06/09/2025 3:45 AM EDT) WBC 8.2 4.8 - 10.8 K/ L 06/09/2025 4:30 AM EDT [facility] RBC 3.73(L) 3.80 - 5.20 M/ L 06/09/2025 4:30 AM EDT [facility] Hemoglobin 11.5(L) 12.8 - 17.4 GM/DL 06/09/2025 4:30 AM EDT [facility] Hematocrit 34.9(L) 39.0 - 51.0 % 06/09/2025 4:30 AM EDT [facility] MCV 94 81 - 101 fL 06/09/2025 4:30 AM EDT [facility] MCH 30.8 27.0 - 34.0 pg 06/09/2025 4:30 AM EDT [facility] MCHC 33.0 32.0 - 36.0 GM/DL 06/09/2025 4:30 AM EDT [facility] RDW 14.6(H) 11.5 - 14.5 % 06/09/2025 4:30 AM EDT [facility] Platelets 267 150 - 400 K/CU MM 06/09/2025 4:30 AM EDT [facility] MPV 10.9 9.4 - 12.4 fL 06/09/2025 4:30 AM EDT [facility] Blood Venipuncture / Unknown 06/09/2025 3:45 AM EDT 06/09/2025 4:21 AM EDT us Amanda Dial DO LAB BLOOD ORDERABLES Final Res ult Performing Organization Address City/[facility]/ZIP Co de Phone Number [facility] [address] [place] [address] * (ABNORMAL) C-Reactive Protein (06/09/2025 3:45 AM EDT) Only the most recent of3 resultswithin the time period is included. CRP 10.40(H) 0.05 - 0.25 mg/dL 06/09/2025 4:38 AM EDT [facility] Blood Venipuncture / Unknown 06/09/2025 3:45 AM EDT 06/09/2025 4:22 AM EDT us Amanda Dial DO LAB BLOOD ORDERABLES Final Res ult [facility] [address] [place] [address] * (ABNORMAL) PT/INR, PTT (06/08/2025 3:11 PM EDT) aPTT 58.1(H) 22.0 - 32.0 seconds 06/08/2025 3:45 PM EDT [facility] Protime 52.4(HH) 9.0 - 12.0 seconds 06/08/2025 3:45 PM EDT [facility] INR 5.64(HH) 0.80 - 1.10 06/08/2025 3:45 PM EDT [facility] Blood Venipuncture / Unknown 06/08/2025 3:11 PM EDT 06/08/2025 3:11 PM EDT us Amanda Dial DO LAB BLOOD ORDERABLES Final Res ult [facility] [address] [phone] * CT lower extremity with IV contrast [...] abscess or acute bony abnormality identified. Natalie Osman NP IMG CT ORDERABLES Final Result * Blood Culture Arm, Right (06/08/2025 12:46 PM EDT) Only the most recent of2 resultswithin the time period is included. Result No growth in 5 days 06/14/2025 12:01 AM EDT [facility] Blood ENTIRE RIGHT UPPER ARM / Unknown Venipuncture / Unknown 06/08/2025 12:46 PM EDT 06/08/2025 1:01 PM EDT Natalie Osman NP MICROBIOLOGY - GENERAL ORDERAB LES Final Result [facility] [address] [place] [address], [facility] [phone] * (ABNORMAL) CBC with Auto Diff (06/08/2025 12:35 PM EDT) Only the most recent of2 resultswithin the time period is included. WBC 10.2 4.8 - 10.8 K/ L 06/08/2025 1:02 PM EDT [facility] RBC 4.34 3.80 - 5.20 M/ L 06/08/2025 1:02 PM EDT [facility] Hemoglobin 13.4 12.8 - 17.4 GM/DL 06/08/2025 1:02 PM EDT [facility] Hematocrit 39.9 39.0 - 51.0 % 06/08/2025 1:02 PM EDT [facility] MCV 92 81 - 101 fL 06/08/2025 1:02 PM EDT [facility] MCH 30.9 27.0 - 34.0 pg 06/08/2025 1:02 PM EDT [facility] MCHC 33.6 32.0 - 36.0 GM/DL 06/08/2025 1:02 PM EDT [facility] RDW 14.6(H) 11.5 - 14.5 % 06/08/2025 1:02 PM EDT [facility] Platelets 309 150 - 400 K/CU MM 06/08/2025 1:02 PM EDT [facility] MPV 10.9 9.4 - 12.4 fL 06/08/2025 1:02 PM EDT [facility] Nucleated Red Blood Cell 0.0 0 - 0.2 % 06/08/2025 1:02 PM EDT [facility] % Neutros 84(H) 37 - 80 % 06/08/2025 1:02 PM EDT [facility] % Lymphs 7(L) 10 - 50 % 06/08/2025 1:02 PM EDT [facility] % Monos 8 5 - 13 % 06/08/2025 1:02 PM EDT [facility] % Eos 0 0 - 7 % 06/08/2025 1:02 PM EDT [facility] % Baso 0 0 - 3 % 06/08/2025 1:02 PM EDT [facility] NRBC Absolute <0.01 0 - 0.012 K/ul 06/08/2025 1:02 PM EDT [facility] # Neutros 8.58(H) 2.00 - 6.90 K/ L 06/08/2025 1:02 PM EDT [facility] # Lymphs 0.71 0.60 - 3.40 K/ L 06/08/2025 1:02 PM EDT [facility] # Monos 0.78 0.00 - 0.90 K/ L 06/08/2025 1:02 PM EDT [facility] # Eos 0.03 0.00 - 0.70 K/ L 06/08/2025 1:02 PM EDT [facility] # Baso 0.03 0.00 - 0.20 K/ L 06/08/2025 1:02 PM EDT [facility] Immature Granulocytes-Re lative 0.60 % 06/08/2025 1:02 PM EDT [facility] # IG 0.06(H) 0.00 - 0.00 K/uL 06/08/2025 1:02 PM EDT [facility] Blood Venipuncture / Unknown 06/08/2025 12:35 PM EDT 06/08/2025 12:56 PM EDT Narrative [facility] - 06/08/2025 1:02 PM EDT [...] NP LAB BLOOD ORDERABLES Final Res ult [facility] [address] [place] [id number] [phone] * Lactic Acid with reflex (SJ) (06/08/2025 12:35 PM EDT) Lactic Acid Level (mmol/L) 1.5 0.4 - 2.0 mmol/L 06/08/2025 1:21 PM EDT [facility] Comment:If a Lactic Acid Lev el with Reflex if Indicated result is greater than 2.0, a Lactic Acid Level will be ordered to be collected 2 hours after the original collection time. Blood Venipuncture / Unknown 06/08/2025 12:35 PM EDT 06/08/2025 12:56 PM EDT Natalie J Strange [facility] BLOOD ORDERABLES Final Res ult Performing Organization Address [facility] Co de Phone Number [facility] [address] [place] [address] * (ABNORMAL) Sedimentation rate (06/08/2025 12:35 PM EDT) Only the most recent of2 resultswithin the time period is included. Sed Rate 46(H) 0 - 20 mm/HR 06/08/2025 1:21 PM EDT [facility] Blood Venipuncture / Unknown 06/08/2025 12:35 PM EDT 06/08/2025 12:56 PM EDT Natalie AMOtechnge [facility] BLOOD ORDERABLES Final Res ult Performing Organization Address [facility] Co de Phone Number [facility] [address] [place] [address] * (ABNORMAL) Comprehensive metabolic panel (06/08/2025 12:35 PM EDT) Only the most recent of2 resultswithin the time period is included. Sodium 135(L) 136 - 145 meq/L 06/08/2025 1:20 PM EDT [facility] Potassium 3.7 3.5 - 5.1 meq/L 06/08/2025 1:20 PM EDT [facility] Chloride 101 98 - 107 meq/L 06/08/2025 1:20 PM EDT [facility] CO2 27 21 - 32 meq/L 06/08/2025 1:20 PM EDT [facility] Calcium 9.3 8.5 - 10.1 mg/dL 06/08/2025 1:20 PM EDT [facility] Glucose 143(H) 70 - 99 mg/dL 06/08/2025 1:20 PM EDT [facility] BUN 14 7 - 18 mg/dL 06/08/2025 1:20 PM EDT [facility] Creatinine 1.28(H) 0.70 - 1.20 mg/dL 06/08/2025 1:20 PM EDT [facility] BUN/Creatinine 11 06/08/2025 1:20 PM EDT [facility] Albumin 3.4 3.4 - 5.0 g/dL 06/08/2025 1:20 PM EDT [facility] Alkaline Phosphatase 68 46 - 116 U/L 06/08/2025 1:20 PM EDT [facility] ALT 21 12 - 78 U/L 06/08/2025 1:20 PM EDT [facility] AST 18 15 - 37 U/L 06/08/2025 1:20 PM EDT [facility] Total Bilirubin 0.7 0.2 - 1.0 mg/dL 06/08/2025 1:20 PM EDT [facility] Protein, Total 7.4 6.4 - 8.2 gm/dL 06/08/2025 1:20 PM EDT [facility] Anion Gap 11 11 - 22 06/08/2025 1:20 PM EDT [facility] A/G Ratio 0.9 06/08/2025 1:20 PM EDT [facility] Globulin 4.0 g/dL 06/08/2025 1:20 PM EDT [facility] Osmolality Calc 273.0 mOsm/kg 1:20 PM EDT [facility] eGFR (mL/min/1.73m2) >60 >=60 mL/min/1.7 3m2 06/08/2025 1:20 PM EDT [facility] Comment:ESTIMATED GFR IS NOT ACCURATE CREATININE CLEARANCE IN PREDICTING GLOMERULAR FILTRATION RATE. ESTIMATED GFR IS NOT APPLICABLE FOR DIALYSIS PATIENTS. Blood Venipuncture / Unknown 06/08/2025 12:35 PM EDT 06/08/2025 12:56 PM EDT us Natalie Mayur Osman [facility] BLOOD ORDERABLES Final Res ult [facility] [address] [place], [place] [address] [phone] * XR foot 3 views left (06/06/2025 [...] [place]. Transcribed by Taiwo Bravo PA-C. us Johnnie Davis CAR RECORD CLERK IMG DIAGNOSTIC IMAGIN G ORDERABLES Final Result * Creatine Kinase (CK) (06/06/2025 12:16 PM EDT) Total CK 195 39 - 308 U/L 06/06/2025 12:46 PM EDT [facility] Blood VENOUS LINE / Unknown Venipuncture / Unknown 06/06/2025 12:16 PM EDT 06/06/2025 12:20 PM EDT us Johnnie Davis CAR RECORD CLERK LAB BLOOD ORDERABLES Final Result [facility] [address] [place] [address], [facility] [phone] from Last 3 Months Insurance BLUE CROSS/BLUE SHIELD Advance Directives For more information, please contact: [phone] * Full Code (Latest Code Status on File) Date Activated Date Inactivated Comments 06/08/2025 1:17 PM 06/10/2025 12:00 PM Care Teams Sanitation Supervisor Relationship Specialty Start Date End Date Parish Aldrich MD [address] [place] [address] PCP - General Internal Medicine 06/06/25
--- OUTSIDE RECORDS SUMMARY | 2025-07-28 15:06 | XMS_ITS | Encounter Summary ---
Author Organization [employer] ([place], [place], [place], [place]) Address [address] [place] [address] Care Team Providers Care Cereal Chemist Name Role Phone Parish Aldrich MD Primary [...] on filedocumented in this encounter Care Teams Cereal Chemist Relationship Specialty Start Date End Date Parish Aldrich MD [address] [place] [address] PCP - General Internal Medicine 06/06/25 documented as of this encounter
--- OUTSIDE RECORDS SUMMARY | 2025-07-28 15:06 | XMS_ITS | Encounter Summary ---
Author Organization [employer] ([place], [place], [place], [place]) Address [address] [place] [address] Care Team Providers Care Fashion Merchandiser Name Role Phone Parish Aldrich MD Primary Care Provider + Encounter Details Date Type Department Care Team (Late st Contact Info) Description 06/11/2025 Telephone [facility] [address] [place] [address] Anton Whitley RN Social History [...] on filedocumented in this encounter Care Teams Fashion Merchandiser Relationship Specialty Start Date End Date Parish Aldrich MD [address] [facility] [address] PCP - General Internal Medicine 06/06/25 documented as of this encounter
--- OUTSIDE RECORDS SUMMARY | 2025-07-28 15:06 | XMS_ITS | Encounter Summary ---
Author Organization [employer] ([place], [place], [place], [place]) Address [address] [place] [address] Care Team Providers Care Assembly Worker Name Role Phone Parish Aldrich MD Primary Care Provider + Reason for Visit * Reason Onset Date Comments Hospital Follow Up 06/11/2025 Encounter Details Date Type Department Care Team (Late st Contact Info) Description 06/11/2025 Telephone [facility] [address] [place] [address] Parish Aldrich MD [address] [facility] [address] [place] [address] Hospital Follow Up Social History [...] on filedocumented in this encounter Care Teams Assembly Worker Relationship Specialty Start Date End Date Parish Aldrich MD [address] [place] [address] [place] [id number] PCP - General Internal Medicine 06/06/25 documented as of this encounter
--- OUTSIDE RECORDS SUMMARY | 2025-07-28 15:06 | XMS_ITS | Encounter Summary ---
Author Organization [employer] ([place], [place], [place], [place]) Address [address] [place] [address] Care Team Providers Care Manager Oracle Database Name Role Phone Parish Aldrich MD Primary Care Provider + Encounter Details Date Type Department Care Team (Late st Contact Info) Description 06/14/2025 Telephone [facility] [address] [place] [address] Anton Whitley RN Social History [...] on filedocumented in this encounter Care Teams Manager Oracle Database Relationship Specialty Start Date End Date Parish Aldrich MD [address] [place] [address] [place] [address] PCP - General Internal Medicine 06/06/25 documented as of this encounter
--- OUTSIDE RECORDS SUMMARY | 2025-07-28 15:06 | XMS_ITS | Clinical Summary ---
Author Organization [employer] ([place], [place], [place], [place]) Address [address] [place] [address] Care Team Providers Care Tablet Machine Operator Name Role Phone Parish Aldrich MD [...] Description 06/14/2025 Telephone [facility] [address] [place] [address] Anton Whitley RN 06/11/2025 Telephone [facility] [address] [place] [address] Anton Whitley RN 06/11/[address] [phone] Parish Aldrich MD Hospital Follow Up 06/08/2025 12:23 PM EDT - 06/10/2025 11:00 AM EDT Hospital Encounter [facility] [address] [place] [address] Zen Sinclair DO Qureshi, Saadia, DO Caldwell, Kristinalin, APRN Cellulitis of left lower extremity (Primary Dx) Discharge Disposition: Home or Self Care 06/08/2025 Travel 06/06/2025 12:04 PM EDT - 06/06/2025 12:43 PM EDT Emergency [facility] [address] [place] [phone] Ahmet Lopez MD Cellulitis (Primary Dx) Discharge [...] to the potential of erroneous results. Lead Shop Operator [id number] 06/10/2025 6:34 AM EDT [facility] Blood WHOLE BLOOD / Unknown 06/10/2025 6:13 AM EDT 06/10/2025 6:34 AM EDT Narrative [facility] - 06/10/2025 6:34 AM EDT Lead Shop Operator ID is - [id number] Amanda Dial DO POINT OF CARE TEST ORDERABLES Final Result [facility] [address] [place] [address] * (ABNORMAL) PROTIME-INR (06/10/2025 4:52 AM EDT) [...] Res ult [facility] [address] [id number] [phone] * XR leg / tibia and fibula [...] ORDERABLES Final Res ult Performing Organization Address City/[facility] Co de Phone Number [facility] [address] [phone] * (ABNORMAL) C-Reactive Protein (06/09/2025 3:45 AM EDT) Only the most recent of3 resultswithin the time period is included. CRP 10.40(H) 0.05 - 0.25 mg/dL 06/09/2025 4:38 AM EDT [facility] Blood Venipuncture / Unknown 06/09/2025 3:45 AM EDT 06/09/2025 4:22 AM EDT us Amanda Dial [employer] LAB BLOOD ORDERABLES Final Res ult Performing Organization Address [facility] Co de Phone Number [facility] [address] [phone] * (ABNORMAL) PT/INR, PTT (06/08/2025 3:11 PM EDT) aPTT 58.1(H) 22.0 - 32.0 seconds 06/08/2025 3:45 PM EDT [facility] Protime 52.4(HH) 9.0 - 12.0 seconds 06/08/2025 3:45 PM EDT [facility] INR 5.64(HH) 0.80 - 1.10 06/08/2025 3:45 PM EDT [facility] Blood Venipuncture / Unknown 06/08/2025 3:11 PM EDT 06/08/2025 3:11 PM EDT us Amandagudelia Dial DO LAB BLOOD ORDERABLES Final Res ult Performing Organization Address [facility] Co de Phone Number [facility] [address] [place] [address], [facility] [phone] * CT lower extremity with IV contrast [...] 5 days 06/14/2025 12:[address] [facility] Blood ENTIRE RIGHT UPPER ARM / Unknown Venipuncture / Unknown 06/08/2025 12:46 PM EDT 06/08/2025 1:01 PM EDT us Natalie Osman NP MICROBIOLOGY - GENERAL ORDERAB LES Final Result [facility] [address] [phone] * (ABNORMAL) CBC with Auto Diff (06/08/2025 [...] Lymph flag noted us Natalie J Strange [employer] LAB BLOOD ORDERABLES Final Res ult Performing Organization Address [facility] Co de Phone Number [facility] [address] [place] [address], [facility] [phone] * Lactic Acid with reflex (SJ) (06/08/2025 12:35 PM EDT) Pathologist [facility] Lactic Acid Level (mmol/L) 1.5 0.4 - [...] 06/08/2025 12:56 PM EDT Natalie J Strange [employer]E SPLIC[employer] LAB BLOOD ORDERABLES Final Res ult Performing Organization Address [facility] Co de Phone Number [facility] [address] [place] [address], [facility] [phone] * (ABNORMAL) Sedimentation rate (06/08/2025 12:35 PM EDT) Only the most recent of2 resultswithin the time period is included. Pathologist [facility] Sed Rate 46(H) 0 - 20 mm/HR 06/08/2025 1:21 PM EDT [facility] Blood Venipuncture / Unknown 06/08/2025 12:35 PM EDT 06/08/2025 12:56 PM EDT us Natalie Osman [employer] LAB BLOOD ORDERABLES Final Res ult [facility] [address] [id number], [facility] [phone] * (ABNORMAL) Comprehensive metabolic panel (06/08/2025 12:35 [...] 06/08/2025 12:56 PM EDT us Natalie Osman CANE SPLIC[employer] LAB BLOOD ORDERABLES Final Res ult [facility] [address] [place] [address], [facility] [phone] * XR foot 3 views left (06/06/2025 [...] Davis APRN LAB BLOOD ORDERABLES Final Result [facility] [address] [place] [address], [facility] [phone] from Last 3 Months Insurance BLUE CROSS/BLUE SHIELD Advance Directives For more information, please contact: [phone] * Full Code (Latest Code Status on File) Date Activated Date Inactivated Comments 06/08/2025 1:17 PM 06/10/2025 12:00 PM Care Teams Tablet Machine Operator Relationship Specialty Start Date End Date Parish Aldrich MD [address] [place] [address] PCP - General Internal Medicine 06/06/25
[2025-07-28 15:39] LABS: PHA INR Fingerstick 2.2 (0.9-1.1)
== END 2025-07-28 15:42 ==
LOC: ACC 15:04
PROVIDERS: PCP Internal Medicine; Visit Provider Internal Medicine
DX: Z95.2 Presence of prosthetic heart valve (principal)
CPT/HCPCS: 85610; 99211; G0463

== ENCOUNTER 2025-08-18 14:53 | Outpatient (CLI) | payer BC, SELFPAY ==
--- OUTSIDE RECORDS SUMMARY | 2025-08-18 14:55 | XMS_ITS | Clinical Summary ---
Author Organization Healthcare Address [address] [place] [address] Care Team Providers Care Front Desk Attendant Name Role Phone Parish Ann MD Unavailable [phone] Parish Aldrich DO Primary Care Provider [phone] Allergies No known active allergies Medications aspirin [...] No 12/26/2023 Housing Stability Vital Sign Answer Warrne e Recorded In the last 12 months, [...] place to sleep or slept in a care home (including now)? 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 Not on file Not [...] 2011 UKY-Zoster Vaccines (1 of 2) 2016 [id number] Vaccine (3 - Pfizer risk series) 11/13/2021 [...] this topic Medical Devices Implanted Type Area Studio Couch Frame Builder Device Identifier Shelf Expiration Date Model / Serial / Lot Valve Mitral 31mm Rotatabl Cuf Std - [id number] - [id number] Implanted:Qty: 1 on 12/25/2023 by Cory Mehta MD at [facility] [id number] 08/25/2028 [id number]-501 / [id number] / [id number] Procedures Procedure Name Priority Date/Time Associated Diagnosis [...] MD LAB BLOOD ORDERABLES Final R esult [facility] [address] [place] [address] from Last 3 Months or Most Recently Relevant to Health Maintenance Insurance Advance Directives * Full Code (Latest Code Status on File) Date Activated Date Inactivated Comments 12/25/2023 3:05 PM 12/31/2023 4:35 PM Question Answer Comments Patient has decision-making capacity? Yes Care Teams Front Desk Attendant Relationship Specialty Start Date End Date Parish Aldrich DO [address] [facility] [address] [place] [address] PCP - General 11/21/23 Parish Ann MD [address] [facility] [address] [place] [address] Referring Physician 11/12/23
[2025-08-18 15:35] LABS: PHA INR Fingerstick 2.8 (0.9-1.1)
== END 2025-08-18 15:58 ==
LOC: ACC 14:54
PROVIDERS: PCP Internal Medicine; Visit Provider Internal Medicine
DX: Z79.01 Long term (current) use of anticoagulants (principal); Z95.2 Presence of prosthetic heart valve
CPT/HCPCS: 85610; 99211; G0463

== ENCOUNTER 2025-09-29 14:50 | Outpatient (CLI) | payer BC, SELFPAY ==
--- OUTSIDE RECORDS SUMMARY | 2025-09-29 14:52 | XMS_ITS | Clinical Summary ---
Author Organization [employer] ([place], [place], [place], [place]) Address [address] [place] [address] Care Team Providers Care Account Resolution Specialist Name Role Phone Parish Aldrich MD [...] Noted Date Diagnosed Date Cellulitis 06/08/2025 Immunizations Immunization Administration Dates Next Due Tdap 06/06/2025 Social [...] 2) 2016 COVID-19 VACCINE (3 - season) 2025, 09/28/2021 Influenza Vaccine (#1) 2025 Tobacco Cessation Counseling and Screening (12+) 06/08/2026 06/08/2025 Lipid Panel 12/29/2028 12/29/2023 DTAP/TDAP/TD VACCINES (2 - Td or Tdap) 06/06/[address] [place] [address] [address] BLUE CROSS/BLUE SHIELD Advance Directives For more information, please contact: [phone] * Full Code (Latest Code Status on File) Date Activated Date Inactivated Comments 06/08/2025 1:17 PM 06/10/2025 12:00 PM Care Teams Account Resolution Specialist Relationship Specialty Start Date End Date Parish Aldrich MD [address] [place] [address] PCP - General Internal Medicine 06/06/25
--- OUTSIDE RECORDS SUMMARY | 2025-09-29 14:52 | XMS_ITS | Clinical Summary ---
Author Organization Healthcare Address [address] [place] [address] Care Team Providers Care Hvac Mechanical Engineer Name Role Phone Parish Ann MD Unavailable [phone] Parish Aldrich DO Primary Care Provider [phone] Allergies No known active allergies Medications aspirin [...] disease) 11/21/2023 Overview (12/27/2023): Stress test and LHC recently showed mvCAD Underwent mechanical MVR and 3vCABG with Dr Mehta on 12/25/23 ASA/statin Sleep apnea treated with con tinuous positive [...] progressed to severe MR Stress test and LHC recently showed mvCAD Underwent mechanical MVR and [...] arrived to ICU intubated - bated to [place] - trending ABGs - Diurese, CXR as indicated Overweight (BMI 25.0-29.9) 11/21/2023 0 08/22/2025 Overview (12/25/2023): Complicates all aspect of care Family History Medical History Relation Name Comments [...] money to buy more. Never true 12/26/19 24 Within the past 12 months, t he [...] place to sleep or slept in a prison (including now)? 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 file Not [...] UKY-HIV Screening 1966 UKY-Hepatitis C Screening 1966 UKY-/Child/Adol SDOH Screenings 1966 Diabetes: Dental Exam 1976 [...] 2011 UKY-Zoster Vaccines (1 of 2) 2016 [id number] Vaccine (3 - Pfizer risk series) 11/13/2021 [...] this topic Medical Devices Implanted Type Area Wash Helper Device Identifier Shelf Expiration Date Model / Serial / Lot Valve Mitral 31mm Rotatabl Cuf Std - [id number] - [id number] Implanted:Qty: 1 on 12/25/2023 by Cory Mehta MD at [facility] [id number] 08/25/2028 [id number]-501 / [id number] / [id number] Procedures Procedure Name Priority Date/Time Associated Diagnosis [...] Adults <6.0% Children and Adolescents <7.5% Source: [place] [employer]. Standards of medical care in diabetes,2017. Diabetes Care.2017:40 (suppl 1):S1-S135. HbA1c assay performed by an ion-exchange chromatography method that is certified traceable to the DCCT. Cory Mehta MD LAB BLOOD ORDERABLES Final R esult [facility] [address] [place] [address] from Last 3 Months or Most Recently Relevant to Health Maintenance Insurance Advance Directives * Full Code (Latest Code Status on File) Date Activated Date Inactivated Comments 12/25/2023 3:05 PM 12/31/2023 4:35 PM Question Answer Comments Patient has decision-making capacity? Yes Care Teams Hvac Mechanical Engineer Relationship Specialty Start Date End Date Parish Aldrich DO [address] [facility] [address] [place] [address] PCP - General 11/21/23 Parish Ann MD [address] [place] [address] Referring Physician 11/12/23
--- OUTSIDE RECORDS SUMMARY | 2025-09-29 14:52 | XMS_ITS | Referral Summary ---
Author Organization [employer] ([place], [place], [place], [place]) Address [address] [place] [address] Care Team Providers Care Die Turner Name Role Phone Parish Aldrich MD Primary [...] EDT Plan of Treatment Not on file Insurance BLUE CROSS/BLUE SHIELD Advance Directives For more information, please contact: [phone] * Full Code (Latest Code Status on File) Date Activated Date Inactivated Comments 06/08/2025 1:17 PM 06/10/2025 12:00 PM Care Teams Die Turner Relationship Specialty Start Date End Date Parish Aldrich MD [address] [place] [address] PCP - General Internal Medicine 06/06/25
[2025-09-29 15:57] LABS: PHA INR Fingerstick 2.7 (0.9-1.1)
== END 2025-09-29 16:22 ==
LOC: ACC 14:51
PROVIDERS: PCP Internal Medicine; Visit Provider Internal Medicine
DX: Z79.01 Long term (current) use of anticoagulants (principal); Z95.2 Presence of prosthetic heart valve
CPT/HCPCS: 85610; 99211; G0463

== ENCOUNTER 2025-11-10 14:58 | Outpatient (CLI) | payer BC, SELFPAY ==
[2025-11-10 15:44] LABS: PHA INR Fingerstick 2.4 (0.9-1.1)
== END 2025-11-10 15:48 ==
LOC: ACC 14:58
PROVIDERS: PCP Internal Medicine; Visit Provider Internal Medicine
DX: Z79.01 Long term (current) use of anticoagulants (principal); Z95.2 Presence of prosthetic heart valve
CPT/HCPCS: 85610; 99211; G0463

== ENCOUNTER 2025-11-30 09:16 | Outpatient (CLI) | payer BC, SELFPAY ==
--- OUTSIDE RECORDS SUMMARY | 2025-12-01 09:35 | XMS_ITS | Referral Summary ---
Author Organization [employer] ([place], [place], [place], [place], [place]) Address [address] [place] [address] Care Team Providers Care Social Insurance Adviser Name Role Phone Parish Aldrich MD Primary [...] Advance Directives For more information, please contact: [phone] * Full Code (Latest Code Status on File) Date Activated Date Inactivated Comments 06/08/2025 1:17 PM 06/10/2025 12:00 PM Care Teams Social Insurance Adviser Relationship Specialty Start Date End Date Parish Aldrich MD [address] [place] [address] PCP - General Internal Medicine 06/06/25
--- OUTSIDE RECORDS SUMMARY | 2025-12-01 09:35 | XMS_ITS | Clinical Summary ---
Author Organization [employer] ([place], [place], [place], [place], [place]) Address [address] [place] [address] Care Team Providers Care Electro Optical Engineer Name Role Phone Parish Aldrich MD Primary [...] or Tdap) 06/06/[address] [place] [address] [address] BLUE CROSS/BLUE SHIELD Advance Directives For more information, please contact: [phone] * Full Code (Latest Code Status on File) Date Activated Date Inactivated Comments 06/08/2025 1:17 PM 06/10/2025 12:00 PM Care Teams Electro Optical Engineer Relationship Specialty Start Date End Date Parish Aldrich MD [address] [place] [address] PCP - General Internal Medicine 06/06/25
--- OUTSIDE RECORDS SUMMARY | 2025-12-01 09:36 | XMS_ITS | Clinical Summary ---
Author Organization Healthcare Address [address] [place] [address] Care Team Providers Care Talent Assistant Name Role Phone Parish Ann MD Unavailable [phone] Parish Aldrich DO Primary Care Provider [phone] Allergies No known active allergies Medications aspirin [...] arrived to ICU intubated - bated to [place] - trending ABGs - Diurese, CXR as [...] place to sleep or slept in a [facility] (including now)? 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 Not [...] 2011 UKY-Zoster Vaccines (1 of 2) 2016 [id number] Vaccine (3 - Pfizer risk series) 11/13/2021 10/16/2021, 09/28/2021 UKY-Diabetes: Hemoglobin A1C 06/24/2024 12/26/2023, 12/19/2023 UKY-Influenza Vaccine (#1) 2025 UKY-Obesity Intervention Completed 024, 12/19/2023, 11/22/2023, Additional history exists HPV Vaccines (No Doses Required) Completed UKY-HIB Vaccines Aged Out No longer e [...] this topic Medical Devices Implanted Type Area Ripsaw Matcher Device Identifier Shelf Expiration Date Model / Serial / Lot Valve Mitral 31mm Rotatabl Cuf Std - [id number] - [id number] Implanted:Qty: 1 on 12/25/2023 by Cory Mehta MD at [facility] [id number] 08/25/2028 31MJ-501 / [id number] / [id number] Procedures Procedure Name Priority Date/Time Associated Diagnosis [...] Adults <6.0% Children and Adolescents <7.5% Source: [place] [employer]. Standards of medical care in diabetes,2017. Diabetes Care.2017:40 (suppl 1):S1-S135. HbA1c assay performed by an ion-exchange chromatography method that is certified traceable to the DCCT. us Cory Mehta MD LAB BLOOD ORDERABLES Final R esult [facility] [address] [place] [address] from Last 3 Months or Most Recently Relevant to Health Maintenance Insurance Advance Directives * Full Code (Latest Code Status on File) Date Activated Date Inactivated Comments 12/25/2023 3:05 PM 12/31/2023 4:35 PM Question Answer Comments Patient has decision-making capacity? Yes Care Teams Talent Assistant Relationship Specialty Start Date End Date Parish Aldrich DO [address] [place] [facility] [address] [place] [address] PCP - General 11/21/23 Parish Ann MD [address] [place] [address] Referring Physician 11/12/23
[2025-12-05 01:19] LABS: Testosterone, Total, LC/MS 258 ng/dL (.)
== END 2025-11-30 23:59 | disposition home or self-care (01) ==
LOC: LAB.DROPOF 12-01 09:33
PROVIDERS: PCP Internal Medicine; Visit Provider Internal Medicine
DX: R53.83 Other fatigue (principal)
CPT/HCPCS: 84403